=== PATIENT | male | born 1940 | race Caucasian/White ===

== ENCOUNTER 2019-11-17 16:55 | Outpatient (CLI) | payer MEDICARE, SELFPAY ==
[2019-11-17 17:14] LABS: Hematocrit 39.6 % (37.0-46.0); Mean Corpuscular HGB Conc 32.8 g/dL (32.0-36.0); Mean Corpuscular Hemoglobin 30.7 pg (27.0-31.0); Mean Corpuscular Volume 93.6 fL (78.0-102.0); Mean Platelet Volume 10.6 fl (8.7-11.0); Platelet Count Result 188 K/mm3 (150-420); Red Blood Count 4.23 M/mm3 (4.70-6.10); Red Cell Distribution Width 13.9 % (11.6-14.4); White Blood Count 7.7 K/mm3 (4.8-10.8)
[2019-11-17 17:40] LABS: Thyroid Stimulating Hormone Reflex 1.97 u/IU/mL (0.36-3.74)
[2019-11-17 17:44] LABS: Alanine Aminotransferase 19 U/L (16-63); Albumin Level 3.8 g/dL (3.4-5.0); Alkaline Phosphatase 53 U/L (46-116); Anion Gap 9.4 mmol/L (7-16); Aspartate Amino Transferase 17 U/L (15-37); Bilirubin,Total 0.6 mg/dL (0.00-1.00); Blood Urea Nitrogen 21 mg/dL (7-18); Calcium 8.8 mg/dL (8.5-10.1); Carbon Dioxide 29 mmol/L (21-32); Chloride 101 mmol/L (98-108); Estimated Glomerular Filt Rate 45; Glucose 99 mg/dL (70-99); Osmolality Calculated 283 mOsm/kg (285-295); Potassium 4.4 mmol/L (3.5-5.1); Prostate Specific Antigen 2.8 ng/mL (< OR = 4.0); Sodium 135 mmol/L (136-145); Total Protein 6.6 g/dL (6.4-8.2)
== END 2019-11-17 16:56 | disposition home or self-care (01) ==
LOC: CHSLAB 16:57
PROVIDERS: PCP Family Medicine; Visit Provider Family Medicine
DX: R53.83 Other fatigue (principal); Z12.5 Encounter for screening for malignant neoplasm of prostate; Z00.00 Encounter for general adult medical examination without abnormal findings; I42.9 Cardiomyopathy, unspecified
CPT/HCPCS: 36415; 80053; 84153; 84443; 85027; G0103

== ENCOUNTER 2022-05-05 11:06 | Inpatient (IN) | payer MEDICARE, SELFPAY ==
[2022-05-05] VITALS (22 sets, daily range): BP systolic 104–126; BP diastolic 56–105; PULSE 93–133; RESP 16–35; TEMP 36.4–37.3; O2SAT 18–100; BMI 27.3
--- NOTE | ~2022-05-05 | XR_ITS ---
EXAMINATION: XR chest 2V DATE: 05/05/2022 13:07 INDICATION: Cough and fever. TECHNIQUE: Frontal and lateral views of the chest were obtained. COMPARISON: Chest 2 views 10/07/2018 FINDINGS: There are airspace opacities in the lower lung zones. There are airspace opacities in super ior segment right lower lobe. No pleural effusion or pneumothorax. Cardiomegaly is noted. IMPRESSION: 1. Airspace opacities in superior segment right lower lobe, consistent with pneumonia. Airspace opaci ties in the lower lung zones, consistent with atelectasis/scarring versus pneumonia. Follow-up radiog raphs are recommended to exclude malignancy. 2. Cardiomegaly. Reviewed, dictated and finalized at location A. RUMENTS SALES REPRESENTATIVE IMPRESSION: 1. Airspace opacities in superior segment right lower lobe, consistent with pne umonia. Airspace opacities in the lower lung zones, consistent with atelectasis /scarring versus pneumonia. Follow-up radiographs are recommended to exclude ma lignancy. 2. Cardiomegaly.
[2022-05-05 12:21] LABS: Influenza A QL RT-PCR Negative (Negative); Influenza B QL RT-PCR Negative (Negative); RSV RNA, RT-PCR Negative (Negative); SARS-CoV-2 RNA PCR Negative
[2022-05-05 13:55] LABS: Anion Gap 6 mmol/L (8-16); Blood Urea Nitrogen 18 mg/dL (9-20); Calcium 8.3 mg/dL (8.4-10.2); Carbon Dioxide 30 mmol/L (22-30); Chloride 93 mmol/L (98-107); Estimated CRCL calculation 74 ml/min; Estimated Glomerular Filt Rate > 60; Glucose 133 mg/dL (65-110); Sodium 129 mmol/L (137-145)
[2022-05-05 13:57] LABS: Basophils Percent Auto 0.3 % (0.2-1.2); Eosinophils Absolute Auto 0.1 K/mm3 (0-0.3); Eosinophils Percent Auto 1.9 % (0-4.4); Hematocrit 43.2 % (42.0-52.0); Hemoglobin 14.5 g/dL (14.0-18.0); Immature Granulocyte Absolute 0.05 K/mm3 (0.00-0.031); Immature Granulocyte Percent A 0.7 % (0-0.5); Lymphocytes Absolute Auto 0.61 K/mm3 (0.9-3.2); Lymphocytes Percent Auto 9.1 % (18.3-44.2); Mean Corpuscular HGB Conc 33.6 g/dl (32-36); Mean Corpuscular Hemoglobin 31.1 pg (26-34); Mean Corpuscular Volume 92.7 fl (80-100); Mean Platelet Volume 11.3 fl (7.4-10.4); Monocytes Absolute Auto 1.5 K/mm3 (0.1-0.6); Monocytes Percent Auto 21.6 % (2.6-8.5); Neutrophils Absolute Auto 4.5 K/mm3 (1.3-6.7); Neutrophils Percent Auto 66.4 % (45.5-73.1); Platelet Count Result 153 k/mm3 (150-375); Red Blood Count 4.66 M/mm3 (4.6-6.20); Red Cell Distribution Width 14.2 % (11.5-14.5); White Blood Count 6.7 K/mm3 (4.5-10.0)
[2022-05-05 14:04] LABS: NT Pro B Type Natriuretic Pept 7920 pg/mL (5-100)
[2022-05-05] MEDS: IPRATROPIUM BR 0.02% INH SOLN 0.5 MG/2.5 ML VIAL INHALATION (14:08)
[2022-05-05] MEDS: ALBUTEROL SULFATE NEB 2.5 MG/3 ML INH 5 MG INHALATION (14:08)
[2022-05-05 14:12] LABS: Ovalocytes 1+ (NORMAL); Platelet Estimate Adequate (Adequate); Poikilocytosis 1+ (NORMAL); Schistocytes None Seen (NORMAL)
--- NOTE | 2022-05-05 15:15 | ECG_ITS ---
Measurements Intervals [place] Rate: 122 P: [place]: 0 QRS: -13 QRSD: 97 T: 52 QT: 300 QTc: 428 Interpretive Statements ATRIAL FIBRILLATION WITH RAPID VENTRICULAR RESPONSE VENTRICULAR PREMATURE COMPLEXES INCOMPLETE RIGHT BUNDLE BRANCH BLOCK ANTEROSEPTAL INFARCT, AGE INDETERMINATE BORDERLINE ST-T WAVE ABNORMALITY- HIGH LATERAL LEADS ABNORMAL ECG COMPARED TO ECG 10/08/2018 05:46:56 ATRIAL FIBRILLATION NOW PRESENT MYOCARDIAL INFARCT FINDING NOW PRESENT Electronically Signed On 05-05-2022 19:34:39 ACTIVITIES ATTENDANT by Salo Foster D.O.
--- NOTE | 2022-05-05 15:50 | ED.SOB ---
HPI - SOB/Dyspnea General Chief Complaint: Upper Respiratory Infection Stated Complaint: short of breath, weakness neg covid Time Seen by Provider: 05/05/22 12:57 History of Present Illness HPI Narrative: Patient is an 82-year-old male who presents ER with shortness of breath and weakness. He has had persistent cough for couple weeks. He has had fever up to 100.3 ?F over the last couple of days. He has occasional cough that is nonproductive. She is unsure if he has orthopnea because he does not lay back. No new swelling in his legs. No chest pain or chest pressure. He has had multiple COVID tests at home that were negative and they wanted to double check here. Related Data Home Medications Medication Instructions Recorded Confirmed aspirin 81 mg tablet,delayed 81 mg PO DAILY 03/15/19 05/05/22 release (Adult Aspirin Regimen) furosemide 20 mg tablet (Lasix) 20 mg PO QAM 03/15/19 05/05/22 lisinopril 10 mg tablet 10 mg PO DAILY 03/15/19 05/05/22 atorvastatin 20 mg tablet 20 mg DAILY 05/05/22 05/05/22 Allergies Allergy/AdvReac Type Severity Reaction Status Date / Time No Known Allergies Allergy Verified 05/05/22 18:01 Review of Systems Constitutional: Constitutional: Denies chills, Reports fatigue and Denies fever(s) ENT: Denies nasal congestion and Denies sore throat Cardiovascular: Cardiovascular: Denies chest pain, Denies rapid heart rate and Denies radiating jaw, neck or arm pain Respiratory: Respiratory: Reports cough, Reports dyspnea and Denies wheezing Gastrointestinal: Gastrointestinal: Denies abdominal pain, Denies nausea and Denies vomiting [facility] Past Medical History Medical History (Updated 05/05/22 @ 22:05 by Boris Dexter MD) Cardiomyopathy Hypertension Mitral regurgitation Mixed hyperlipidemia PSVT (paroxysmal supraventricular tachycardia) Family History Family History Father Carcinoma of colon Social History Social History (System 01/03/22 @ 10:53 by Obed John) Smoking status: Never smoker Second hand tobacco smoke exposure: No Alcohol intake: former Substance use: never Substance use type: does not use Lack of Transportation: No Lack of Food: Never True Current Housing: I Have Housing Concerned About Future Housing: No Difficulty Paying Gas/Electric Bills: No Difficulty Paying for Meds: No Currently Unemployed: No Education: High School Diploma/GED Difficulty w/ Childcare or Family Care: No Spiritual care concerns: No Exam Narrative: GENERAL: Well-appearing, well-nourished, and in no acute distress. HEAD: Normocephalic, atraumatic. EYES: PERRL and EOMI. ENT: Mucous membranes moist. CHEST: Bibasilar crackles. No respiratory distress. HEART: Irregular regular rate and rhythm that is tachycardic. Normal peripheral pulses. ABDOMEN: Soft, nontender, nondistended. EXTREMITIES: Normal range of motion. No edema. SKIN: Warm, dry, no rash. NEURO: Alert and oriented x3. PSYCH: Normal mood and affect. Course Course Emergency Course: Admit to hospitalist service. Patient in A. fib RVR and requires control with diltiazem drip. Patient not hypoxic with ambulation. Suspect he is suffering from combination of pulmonary edema as well as pneumonia given his recent fever. He will be started on IV antibiotics and also be diuresed. Additionally A. fib is new as he normally has a history of paroxysmal SVT. Vital Signs Vital signs: Vital Signs Temperature 97.5 F L 05/05/22 11:34 Pulse Rate 105 H 05/05/22 11:34 Respiratory Rate 20 05/05/22 11:34 Blood Pressure 114/91 H 05/05/22 11:34 Pulse Oximetry 96 05/05/22 11:34 Oxygen Delivery Room Air 05/05/22 11:34 Temperature 99.1 F 05/05/22 19:58 Pulse Rate 112 H 05/05/22 20:00 Respiratory Rate 18 05/05/22 19:58 Blood Pressure 110/56 L 05/05/22 19:58 Pulse Oximetry 99 05/05/22 19:58 Oxygen Delivery Room Air
[2022-05-05] MEDS: dilTIAZem HCl INJ 25 MG/5 ML VIAL 10 MG IV PUSH ×2 (16:21→17:56)
[2022-05-05] MEDS: FUROSEMIDE INJ 40 MG/4 ML VIAL IV PUSH (16:21)
[2022-05-05] MEDS: dilTIAZem 100 MG/100 ML 100 MG/100 ML BAG IV CONT (17:57)
--- NOTE | 2022-05-05 18:12 | ADMGEN ---
This patient, Yonathan Higgins, was admitted to IMU Room [id number]. Patient/family oriented to hospital policies and general routines including ID bracelet, bed and alarms, visiting hours, pain management, procedures, bathroom and other care routines, personal items, smoking policy, room service/diet, and visiting hours. Information on how to activate the Rapid Response Team has been discussed. Patient/Family are encouraged to report perceived risks to care and to ask questions if they do not understand what they are told or what they should do.
--- NOTE | 2022-05-05 21:45 | PM.IMHP ---
H&P: HPI History of Present Illness Date/Time: 05/05/22 21:45 Chief Complaint: Upper respiratory infection Narrative: this is an 82-year-old male patient who lives with his and daughter. The patient was brought into the emergency room because he was having respiratory distress today. He was short of breath and weak. He has had a fever for the last 2 days over 100.3. He has also had a cough that has been nonproductive. He has had multiple COVID test at home and they were negative. He has had no chest pain or chest pressure. The patient has a history of SVT and has been on metoprolol for that. Patient's EKG was read as atrial fibrillation with rapid ventricular response patient's heart rate was 122. His white count was normal. Sodium was low at 129. BNP was 7920. Patient was negative for influenza A/B RSV and COVID. Chest x-ray was read as the following?Airspace opacities in superior segment right lower lobe, consistent with pneumonia. Airspace opacities in the lower lung zones, consistent with atelectasis/scarring versus pneumonia. Follow-up radiographs are recommended to exclude malignancy. 2. Cardiomegaly. the patient was given a nebulizer treatment , Lasix , ceftriaxone, a azithromycin, and the Cardizem drip. cardiology has been consulted. The patient is being admitted to observation status on the date of service of 05/05/2022 Review of Systems Review of Systems: see HPI All systems reviewed & are unremarkable except as noted in HPI and below Constitutional: Constitutional: Reports as per HPI and Reports no additional constitutional complaints Eyes: Eyes: Reports as per HPI and Reports no additional eye complaints ENT: Reports system reviewed and no additional complaints, except as documented and Reports Normal hearing present Cardiovascular: Cardiovascular: Reports no additional cardiovascular complaints Respiratory: Respiratory: Reports no additional respiratory complaints and Reports no additional respiratory complaints Gastrointestinal: Gastrointestinal: Reports as per HPI and Reports no additional gastrointestinal complaints Musculoskeletal: Musculoskeletal: Reports no additional musculoskeletal complaints Integumentary/Breasts: Skin/Breast: Reports system reviewed and no additional complaints, except as docu and Reports as per HPI Neurologic: Reports system reviewed and no additional complaints, except as documented, Reports as per HPI and Reports Normal hearing present Psychiatric: Psychiatric: Reports no additional psychiatric complaints and Reports as per HPI Endocrine: Endocrine: Reports no additional endocrine complaints Hematologic/Lymphatic: Hematologic/Lymphatic: Reports no additional hematologic/lymphatic complaints Allergic/Immunologic: Allergic/Immunologic: Reports no additional allergic/immunologic complaints PMFSH Past Medical History Medical History (Updated 05/05/22 @ 23:14 by Mariza Mcgovern NP) Cardiomyopathy History of prostate cancer treated with cryo genic Hypertension Mitral regurgitation Mixed hyperlipidemia PSVT (paroxysmal supraventricular tachycardia) Surgical History Surgical History (Updated 05/05/22 @ 23:14 by Mariza Mcgovern NP) H/O inguinal hernia repair History of cataract extraction History of colonoscopy History of hip surgery Family History Family History Father Carcinoma of colon Social History Social History (Updated 05/05/22 @ 23:15 by Mariza Mcgovern NP) Social History: the patient lives with his and daughter. He has 2 children. They believe that the daughter that they live with is the durable power electrical accessories i assembler for healthcare. 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 He has never smoked and he does not use any alcohol marijuana or illicit drugs. Code status full code Smoking status: Never smoker Second hand tobacco smoke exposure: No Alcohol intake: fo
[2022-05-05] MEDS: ENOXAPARIN 100 MG/ML SYRINGE SUB-Q (23:50)
[2022-05-06] VITALS (11 sets, daily range): BP systolic 93–112; BP diastolic 65–73; PULSE 77–116; RESP 18–20; TEMP 36.3–37.2; O2SAT 93–98
--- NOTE | 2022-05-06 | ECHO_ITS ---
Patient Info Name: Yonathan Higgins Age: 82 years : 1940 Gender: Male Ht: 75 in Wt: 218 lbs BSA: 2.30 m2 HR: 80 bpm BP: 93 / 66 mmHg Heart Rhythm: Atrial Fibrillation Technical Quality: Good Exam Date: 05/06/2022 8:26 AM Exam Location: [facility] Pulmonary Exam Room: 205 Patient Status: Inpatient Admit Date: 05/05/2022 Staff Ordering Physician: Mariza Mcgovern NP Airport Operations Officer: Rena Hebert RCS Attending Provider: Angie Barakat DO Referring Physician: Froilan KUMAR; Exam Type: CA echo doppler color flow Study Info Indications - cardiomegaly new afib Complete two-dimensional, color flow and Doppler transthoracic echocardiogram is performed. Summary 1. Complete two-dimensional, color flow and Doppler transthoracic echocardiogram is performed. 2. Mild left ventricular enlargement with mild to moderate global hypokinesia. 3. Severe biatrial dilation. 4. Mild to moderate mitral and tricuspid regurgitation because of annular dilation. 5. Atrial fibrillation. Left Ventricle Left ventricular chamber dimension is mildly enlarged. Left ventricular systolic function is moderately reduced, estimated at 40-45%. The left ventricular diastolic function is grade I diastolic dysfunction. Right Ventricle Right ventricular chamber dimension is normal. Left Atria Left atrial chamber dimension is severely enlarged. Right Atria Right atrial chamber dimension is severely enlarged. Aortic Valve The aortic valve is normal. There is trace aortic valve regurgitation. Pulmonic Valve The pulmonic valve is not well visualized. Mitral Valve The mitral valve has normal leaflets. There is mild to moderate mitral valve regurgitation. Tricuspid Valve The tricuspid valve leaflets are normal. There is mild to moderate tricuspid valve regurgitation. Pericardium/Pleural The pericardium appears normal. Aorta The aortic root size at the sinus of Valsalva is normal. Left Ventricular Outflow Tract Name Value Normal LVOT 2D LVOT Diameter 2.1 cm LVOT Doppler LVOT Peak Gradient 8 mmHg LVOT Mean Gradient 5 mmHg LVOT VTI 22 cm LVOT VTI/AV VTI Ratio 0.8 LVOT Stroke Volume 76 ml LVOT CO 23.0 l/min LVOT CI 10.0 l/min/m2 Pulmonic Valve Name Value Normal PV Doppler PV Peak Gradient 4 mmHg PV Regurgitation Doppler TN Peak End Diastolic Velocity 154 cm/s Mitral Valve Name Value Normal --------
[2022-05-06 00:51] LABS: Anion Gap 2 mmol/L (8-16); Blood Urea Nitrogen 18 mg/dL (9-20); Calcium 7.7 mg/dL (8.4-10.2); Carbon Dioxide 30 mmol/L (22-30); Chloride 92 mmol/L (98-107); Estimated CRCL calculation 74 ml/min; Estimated Glomerular Filt Rate > 60; Glucose 128 mg/dL (65-110); Potassium 3.6 mmol/L (3.4-5.0); Sodium 124 mmol/L (137-145)
[2022-05-06 04:35] LABS: Basophils Percent Auto 0.4 % (0.2-1.2); Eosinophils Absolute Auto 0.1 K/mm3 (0-0.3); Eosinophils Percent Auto 1.6 % (0-4.4); Hematocrit 34.1 % (42.0-52.0); Hemoglobin 11.7 g/dL (14.0-18.0); Immature Granulocyte Absolute 0.03 K/mm3 (0.00-0.031); Immature Granulocyte Percent A 0.5 % (0-0.5); Immature Platelet Fraction Pct 14.3 % (0.9-11.2); Lymphocytes Absolute Auto 0.89 K/mm3 (0.9-3.2); Lymphocytes Percent Auto 16.3 % (18.3-44.2); Mean Corpuscular HGB Conc 34.3 g/dl (32-36); Mean Corpuscular Hemoglobin 30.6 pg (26-34); Mean Corpuscular Volume 89.3 fl (80-100); Mean Platelet Volume 11.7 fl (7.4-10.4); Monocytes Absolute Auto 1.4 K/mm3 (0.1-0.6); Monocytes Percent Auto 25.6 % (2.6-8.5); Neutrophils Percent Auto 55.6 % (45.5-73.1); Platelet Count Result 117 k/mm3 (150-375); Red Blood Count 3.82 M/mm3 (4.6-6.20); Red Cell Distribution Width 13.9 % (11.5-14.5); White Blood Count 5.5 K/mm3 (4.5-10.0)
[2022-05-06 04:46] LABS: Alanine Aminotransferase 25 U/L (6-50); Albumin Level 2.8 g/dL (3.5-5.1); Alkaline Phosphatase 58 U/L (38-126); Anion Gap 2 mmol/L (8-16); Aspartate Amino Transferase 27 U/L (17-59); Bilirubin,Total 0.9 mg/dL (0.2-1.3); Blood Urea Nitrogen 17 mg/dL (9-20); Calcium 7.4 mg/dL (8.4-10.2); Carbon Dioxide 30 mmol/L (22-30); Chloride 92 mmol/L (98-107); Cholesterol 111 mg/dL (0-200); Estimated CRCL calculation 74 ml/min; Estimated Glomerular Filt Rate > 60; Glucose 110 mg/dL (65-110); HDL Direct 31 mg/dL; Magnesium 1.8 mg/dL (1.6-2.3); Potassium 3.4 mmol/L (3.4-5.0); Sodium 124 mmol/L (137-145); Triglycerides 49 mg/dL (<150)
[2022-05-06 04:57] LABS: LDL Cholesterol Direct 66 mg/dL
[2022-05-06 05:40] LABS: Thyroid Stimulating Hormone Reflex 0.999 uIU/mL (0.465-4.68)
[2022-05-06] MEDS: TAMSULOSIN HCL 0.4 MG CAPSULE PO (09:02)
[2022-05-06] MEDS: ATORVASTATIN 20 MG TABLET BY MOUTH (09:02)
[2022-05-06] MEDS: FUROSEMIDE INJ 40 MG/4 ML VIAL IV PUSH ×2 (09:02→17:38)
[2022-05-06] MEDS: ASPIRIN 81 MG ENTERIC TABLET PO (09:02)
[2022-05-06] MEDS: SPIRONOLACTONE 25 MG TABLET PO (09:02)
[2022-05-06] MEDS: ENOXAPARIN 100 MG/ML SYRINGE SUB-Q (09:03)
--- NOTE | 2022-05-06 11:28 | PM.CNCAR ---
Assessment and Plan Assessment and plan (1) Atrial fibrillation with rapid ventricular response: Code(s): I48.91 - Unspecified atrial fibrillation Status: Acute Plan This is an 82-year-old man with previous history of SVT and some mitral regurgitation and a history of mild, nonobstructive coronary disease angiographically. He was admitted to the hospital after being found to be in atrial fibrillation with RVR last night with which he was essentially asymptomatic or possibly minimally symptomatic with exertional fatigue. At this time I would recommend rate control and anticoagulation as we do not have any information regarding the duration of his atrial fibrillation and he is not hemodynamically unstable. I am going to advance his metoprolol to 100 mg daily and stop the diltiazem infusion. I will transition him from Lovenox to oral anticoagulation with apixaban. His current echocardiogram will be reviewed later and we will follow his case with you in the hospital. As explained to the patient and his family that more than likely Dr. Toth will consider attempting a cardioversion after a appropriate period of anticoagulation Luan Butler MD [facility] History of Present Illness History of Present Illness Consult date/time: 05/06/22 11:28 Reason For Visit: Afib RVR/CHF Exacerbation/Pneumonia Narrative: This is an 82-year-old gentleman I am seeing today at the request of the hospitalist because of atrial fibrillation for evaluation and management. The patient is unknown to me prior to this encounter but apparently is known to my partner, Dr. Toth. He was brought to the emergency room yesterday evening by his family because he was noticing symptoms of being weak and somewhat more short of breath recently. He states that he did not have any fever cough or sputum production. He was concerned he might have coronavirus because he was recently traveling with family and exposed to a gathering of people who subsequently he was informed developed COVID. He performed a COVID test at home which was negative. He was of course tested again in the emergency room yesterday and was also negative. He was in the emergency room found to be in atrial fibrillation with a rapid ventricular response and was admitted for that reason. He does not recall being specifically aware of the sense of tachycardia or palpitations he denies any sense of chest pain accumulating edema orthopnea or PND. He is comfortable with this morning visiting with his daughter he has IV diltiazem running as heart rate is around 110 with IV diltiazem a infusing. The patient sees my partner Dr. Toth with a history of supraventricular tachycardia and also history of mild nonobstructive coronary disease and mild to moderate mitral regurgitation. He has had these diagnoses in the past in since 2019. His chart includes an echocardiogram that was done in 2020 which demonstrated normal appearing left ventricular systolic function. He offers no other complaints at this time his medical regimen at home includes aspirin, atorvastatin, lisinopril, metoprolol succinate and spironolactone. He does not recall being atrial fibrillation in the past in the notes in his chart do not reflect any history of this. 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 Review of Systems Constitutional: Constitutional: Reports no additional constitutional complaints Eyes: Eyes: Reports no additional eye complaints ENT: Reports system reviewed and no additional complaints, except as documented Cardiovascular: Cardiovascular: Reports no additional cardiovascular complaints Respiratory: Respiratory: Reports dyspnea on exertion Gastrointestinal: Gastrointestinal: Reports no additional gastrointestinal complaints Musculoskeletal: Musculoskeletal: Reports no additional musculoskeletal complaints Integumentary/Breasts: Skin/Breast: Reports system reviewed and no additional compl
[2022-05-06] MEDS: METOPROLOL SUCCINATE EXT REL 100 MG TABCR PO (12:42)
--- NOTE | 2022-05-06 12:48 | PM.IMPN ---
Progress Note: A&P Assessment and Plan (1) Atrial fibrillation with rapid ventricular response: Code(s): I48.91 - Unspecified atrial fibrillation Status: Acute Assessment and Plan: -cardiology has been consulted -an echo has been ordered -will start on oral anticoagulation -beta-param Heart rate is marginal 112 (2) Pneumonia: Code(s): J18.9 - Pneumonia, unspecified organism Status: Acute Assessment and Plan: - the patient is on a azithromycin Rocephin. - tailor antibiotics to blood and sputum cultures sensitivity. (3) Pulmonary edema: Code(s): J81.1 - Chronic pulmonary edema Status: Acute Assessment and Plan: -The patient has been changed to IV Lasix -And spironolactone is his home medication. -continue to monitor electrolytes to see if he needs potassium supplement. (4) Mixed hyperlipidemia: Code(s): E78.2 - Mixed hyperlipidemia Status: Acute Assessment and Plan: -Continue with atorvastatin (5) PSVT (paroxysmal supraventricular tachycardia): Code(s): I47.1 - Supraventricular tachycardia Status: Acute Assessment and Plan: - the patient is on metoprolol at home but he is currently on a Cardizem drip and his blood pressure is low some get have to hold his metoprolol tonight. (6) Cardiomyopathy: Code(s): I42.9 - Cardiomyopathy, unspecified Status: Acute Assessment and Plan: -an echo has been ordered (7) Hypertension: Qualifiers: Hypertension type: essential hypertension Qualified Code(s): I10 - Essential (primary) hypertension Code(s): I10 - Essential (primary) hypertension Status: Acute Assessment and Plan: -Patient's blood pressure is on the soft side and he is on a Cardizem drip. - I had to hold his lisinopril metoprolol tonight is he is on a Cardizem drip and received IV Lasix earlier please re-evaluate tomorrow. (8) Mitral regurgitation: Code(s): I34.0 - Nonrheumatic mitral (valve) insufficiency Status: Acute Assessment and Plan: -An echo has been ordered - cardiology has been consulted. Subjective Date/time seen: 05/06/22 12:48 No new complaints Exam Const: General: cooperative, healthy appearing, comfortable, no acute distress, well developed, alert, awake, Physically active, average body habitus and well nourished Nutritional Appearance: average body habitus and well nourished Orientation/consciousness: oriented to person, oriented to place, oriented to time and patient oriented x3 Limitations: no limitations HENMT: Head: normal to inspection, No palpable skull fracture present, normocephalic, atraumatic and abrasion Ears: hearing grossly normal bilaterally and external ears normal Face/Nose/Sinus: Normal external nose present and Normal nares present Eyes: General: appearance normal, both eyes and all related structures Alignment and Position: alignment normal Periorbital: periorbital findings normal Eyelids: eyelids normal Conjunctivae: conjunctivae normal Sclera: sclerae normal Cornea: corneas normal Pupils: Equal, round and reactive pupils present and Pupil accommodation reflex normal EOM: EOMs intact bilaterally Neck: Neck: normal visual inspection, full ROM, no lymphadenopathy, trachea midline and supple Thyroid: thyroid normal Carotids: normal carotid upstroke Lymphatic: no lymphadenopathy noted Chest: Chest palpation & inspection: normal inspection of the chest Resp: Effort & Inspection: normal respiratory effort Auscultation: clear to auscultation bilaterally and diminished lung sounds on the right in the lower lung hong Percussion: percussion normal Cardio: Palpation: normal PMI Rate: regular rate and tachycardic Rhythm: regular rhythm and abnormal rhythm irregularly irregular Heart sounds: S1 normal heart sound present and S2 normal heart sound present Peripheral pulses: Peripheral pulses 2+ thr
[2022-05-06] MEDS: APIXABAN 5 MG TABLET PO (20:30)
[2022-05-07] VITALS (14 sets, daily range): BP systolic 84–118; BP diastolic 55–86; PULSE 69–131; RESP 12–20; TEMP 36.2–36.8; O2SAT 93–96
[2022-05-07] MEDS: APIXABAN 5 MG TABLET PO ×2 (08:20→21:03)
[2022-05-07] MEDS: SPIRONOLACTONE 25 MG TABLET PO (08:20)
[2022-05-07] MEDS: TAMSULOSIN HCL 0.4 MG CAPSULE PO (08:20)
[2022-05-07] MEDS: ASPIRIN 81 MG ENTERIC TABLET PO (08:20)
[2022-05-07] MEDS: METOPROLOL SUCCINATE EXT REL 100 MG TABCR PO ×2 (08:20→13:25)
[2022-05-07] MEDS: ATORVASTATIN 20 MG TABLET BY MOUTH (08:21)
[2022-05-07] MEDS: FUROSEMIDE INJ 40 MG/4 ML VIAL IV PUSH ×2 (08:21→17:22)
--- NOTE | 2022-05-07 12:22 | PM.IMPN ---
Progress Note: A&P Assessment and Plan (1) Atrial fibrillation with rapid ventricular response: Code(s): I48.91 - Unspecified atrial fibrillation Status: Acute Assessment and Plan: Heart rate is still elevated. Cardiology following the patient. On Eliquis Continue beta-param (2) Pneumonia: Code(s): J18.9 - Pneumonia, unspecified organism Status: Acute Assessment and Plan: Continue IV Rocephin and azithromycin. (3) Pulmonary edema: Code(s): J81.1 - Chronic pulmonary edema Status: Acute Assessment and Plan: Improved (4) Mixed hyperlipidemia: Code(s): E78.2 - Mixed hyperlipidemia Status: Acute Assessment and Plan: Continue statin (5) Cardiomyopathy: Code(s): I42.9 - Cardiomyopathy, unspecified Status: Acute Assessment and Plan: Echo reveals EF is 40 45%. Grade 1 diastolic dysfunction. Respiratory status okay. Continue cardiac regimen. (6) Hypertension: Qualifiers: Hypertension type: essential hypertension Qualified Code(s): I10 - Essential (primary) hypertension Code(s): I10 - Essential (primary) hypertension Status: Acute Assessment and Plan: Continue cardiac medications. Blood pressure looks good. (7) Mitral regurgitation: Code(s): I34.0 - Nonrheumatic mitral (valve) insufficiency Status: Acute Assessment and Plan: History of Subjective Date/time seen: 05/07/22 12:23 No new complaints Feeling okay today. Heart rate is still elevated. Other vitals stable Exam Const: General: cooperative, healthy appearing, comfortable, no acute distress, well developed, alert, awake, Physically active, average body habitus and well nourished Nutritional Appearance: average body habitus and well nourished Orientation/consciousness: oriented to person, oriented to place, oriented to time and patient oriented x3 Limitations: no limitations HENMT: Head: normal to inspection, No palpable skull fracture present, normocephalic, atraumatic and abrasion Ears: hearing grossly normal bilaterally and external ears normal Face/Nose/Sinus: Normal external nose present and Normal nares present Mouth: Yes moist mucous membranes Eyes: General: appearance normal, both eyes and all related structures Alignment and Position: alignment normal Periorbital: periorbital findings normal Eyelids: eyelids normal Conjunctivae: conjunctivae normal Sclera: sclerae normal Cornea: corneas normal Pupils: Equal, round and reactive pupils present and Pupil accommodation reflex normal EOM: EOMs intact bilaterally Neck: Neck: normal visual inspection, full ROM, no lymphadenopathy, trachea midline, supple and no JVD Thyroid: thyroid normal Carotids: normal carotid upstroke Lymphatic: no lymphadenopathy noted Chest: Chest palpation & inspection: normal inspection of the chest Resp: Effort & Inspection: normal respiratory effort Auscultation: clear to auscultation bilaterally and diminished lung sounds on the right in the lower lung hong Percussion: percussion normal Cardio: Palpation: normal PMI Rate: regular rate and tachycardic Rhythm: regular rhythm and abnormal rhythm irregularly irregular Heart sounds: S1 normal heart sound present and S2 normal heart sound present Peripheral pulses: Peripheral pulses 2+ throughout GI: Inspection: normal to inspection Auscultation: normal bowel sounds Rectal Exam: deferred : General: Yes no CVA tenderness Back/Spine/Pelvis: Back: no CVA tenderness Cervical Spine: cervical ROM normal Thoracic/Lumbar Spine: thoracic and lumbar spine normal to inspection Pelvis: no pain with anterior-posterior compression Skin: General skin exam: normal color Lesions: no lesions Rashes: no rashes Trauma: no lacerations or abrasions Wounds: no wounds Hair: normal Nails: normal Neuro: General: oriented to person, oriented to place, oriented to time and patient orient
--- NOTE | 2022-05-07 12:48 | PM.PNCARD ---
Progress Note: A&P Assessment and Plan (1) Atrial fibrillation with rapid ventricular response: Code(s): I48.91 - Unspecified atrial fibrillation Status: Acute Plan This is an 82-year-old man with previous history of SVT and some mitral regurgitation and a history of mild, nonobstructive coronary disease angiographically.? He was admitted to the hospital after being found to be in atrial fibrillation with RVR with which he was essentially asymptomatic or possibly minimally symptomatic with exertional fatigue.? At this time I would recommend rate control. Continue Eliquis 5mg BID Will increase his Toprol to 200mg daily to optimize rate control. Subjective Date/time seen: 05/07/22 12:48 Interval history: Reason for visit: Atrial fibrillation with RVR HPI: This is an 82-year-old gentleman I am seeing today at the request of the hospitalist because of atrial fibrillation for evaluation and management.? The patient is unknown to me prior to this encounter but apparently is known to my partner, Dr. Toth.? He was brought to the emergency room yesterday evening by his family because he was noticing symptoms of being weak and somewhat more short of breath recently.? He states that he did not have any fever cough or sputum production.? He was concerned he might have coronavirus because he was recently traveling with family and exposed to a gathering of people who subsequently he was informed developed COVID.? He performed a COVID test at home which was negative.? He was of course tested again in the emergency room yesterday and was also negative.? He was in the emergency room found to be in atrial fibrillation with a rapid ventricular response and was admitted for that reason.? He does not recall being specifically aware of the sense of tachycardia or palpitations he denies any sense of chest pain accumulating edema orthopnea or PND.? He is comfortable with this morning visiting with his daughter he has IV diltiazem running as heart rate is around 110 with IV diltiazem a infusing.? The patient sees my partner Dr. Toth with a history of supraventricular tachycardia and also history of mild nonobstructive coronary disease and mild to moderate mitral regurgitation.? He has had these diagnoses in the past in since 2019.? His chart includes an echocardiogram that was done in 2020 which demonstrated normal appearing left ventricular systolic function.? He offers no other complaints at this time his medical regimen at home includes aspirin, atorvastatin, lisinopril, metoprolol succinate and spironolactone.? He does not recall being atrial fibrillation in the past in the notes in his chart do not reflect any history of this.? 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 Date of service 05/07/2021: Patient without complaints today. HR currently rate-controlled, however, has intermittent episodes of RVR. Exam Const: General: comfortable and no acute distress HENMT: Mouth: Yes moist mucous membranes Eyes: General: appearance normal, both eyes and all related structures Neck: Neck: supple Resp: Effort & Inspection: normal respiratory effort Auscultation: clear to auscultation bilaterally Cardio: Rhythm: abnormal rhythm irregularly irregular Heart sounds: no murmurs GI: GI Palp: Yes Soft to palpation and No Tenderness to palpation present (GI) Skin: General skin exam: normal color Neuro: Speech: normal speech Psych: Mental Status: mental status grossly normal Affect: normal affect Objective Data Vital Signs Vital Signs: Vital Signs - 24 hr 05/06/22 16:00 05/06/22 16:00 05/06/22 16:00 Temperature 37.2 C Pulse Rate 77 114 H Respiratory Rate 18 Blood Pressure 104/70 Pulse Oximetry 96 Oxygen Delivery Room Air 05/06/22 20:00 05/06/22 20:00 05/06/22 20:00 Temperature 36.3 C L Pulse Rate 96 103 H 96 Respiratory Rate 20 20 Blood Pressure 95/69 L Pulse Oximetry 93 93 Oxygen Delivery
[2022-05-07] MEDS: ACETAMINOPHEN 325 MG TABLET 650 MG PO (13:24)
[2022-05-07] MEDS: MORPHINE SULFATE (*CRX) 4 MG/ML INJ IV PUSH (15:29)
[2022-05-08] VITALS (11 sets, daily range): BP systolic 90–101; BP diastolic 60–74; PULSE 74–113; RESP 14–16; TEMP 35.7–36.6; O2SAT 90–95
[2022-05-08 05:18] LABS: Potassium 3.3 mmol/L (3.4-5.0)
[2022-05-08] MEDS: FUROSEMIDE INJ 40 MG/4 ML VIAL IV PUSH (08:57)
[2022-05-08] MEDS: SPIRONOLACTONE 25 MG TABLET PO (08:58)
[2022-05-08] MEDS: METOPROLOL SUCCINATE EXT REL 100 MG TABCR 200 MG PO (08:58)
[2022-05-08] MEDS: TAMSULOSIN HCL 0.4 MG CAPSULE PO (08:59)
[2022-05-08] MEDS: ASPIRIN 81 MG ENTERIC TABLET PO (08:59)
[2022-05-08] MEDS: ATORVASTATIN 20 MG TABLET BY MOUTH (08:59)
[2022-05-08] MEDS: APIXABAN 5 MG TABLET PO ×2 (08:59→20:58)
--- NOTE | 2022-05-08 10:18 | PM.PNCARD ---
Progress Note: A&P Assessment and Plan (1) Atrial fibrillation with rapid ventricular response: Code(s): I48.91 - Unspecified atrial fibrillation Status: Acute Plan This is an 82-year-old man with previous history of SVT and some mitral regurgitation and a history of mild, nonobstructive coronary disease angiographically.? He was admitted to the hospital after being found to be in atrial fibrillation with RVR with which he was essentially asymptomatic or possibly minimally symptomatic with exertional fatigue.? At this time I would recommend rate control. Continue Eliquis 5mg BID Overall rate is pretty well controlled. Continue Metoprolol 200mg QD. Recommend a 14-day monitor upon discharge with outpatient Cardiology Clinic follow-up. Patient still getting IV Lasix. Recommend to stop as patient seems okay from a volume standpoint. Subjective Date/time seen: 05/08/22 10:18 Interval history: Reason for visit: Atrial fibrillation with RVR HPI: This is an 82-year-old gentleman I am seeing today at the request of the hospitalist because of atrial fibrillation for evaluation and management.? The patient is unknown to me prior to this encounter but apparently is known to my partner, Dr. Toth.? He was brought to the emergency room yesterday evening by his family because he was noticing symptoms of being weak and somewhat more short of breath recently.? He states that he did not have any fever cough or sputum production.? He was concerned he might have coronavirus because he was recently traveling with family and exposed to a gathering of people who subsequently he was informed developed COVID.? He performed a COVID test at home which was negative.? He was of course tested again in the emergency room yesterday and was also negative.? He was in the emergency room found to be in atrial fibrillation with a rapid ventricular response and was admitted for that reason.? He does not recall being specifically aware of the sense of tachycardia or palpitations he denies any sense of chest pain accumulating edema orthopnea or PND.? He is comfortable with this morning visiting with his daughter he has IV diltiazem running as heart rate is around 110 with IV diltiazem a infusing.? The patient sees my partner Dr. Toth with a history of supraventricular tachycardia and also history of mild nonobstructive coronary disease and mild to moderate mitral regurgitation.? He has had these diagnoses in the past in since 2019.? His chart includes an echocardiogram that was done in 2020 which demonstrated normal appearing left ventricular systolic function.? He offers no other complaints at this time his medical regimen at home includes aspirin, atorvastatin, lisinopril, metoprolol succinate and spironolactone.? He does not recall being atrial fibrillation in the past in the notes in his chart do not reflect any history of this.? 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 Date of service 05/07/2021: Patient without complaints today. HR currently rate-controlled, however, has intermittent episodes of RVR. Date of service 05/08/2021: Heart rate now controlled with Metoprolol. Patient feeling well. Review of Systems Review of Systems: 8-point ROS obtained. Negative, unless stated in HPI. Exam Const: General: comfortable and no acute distress HENMT: Mouth: Yes moist mucous membranes Eyes: General: appearance normal, both eyes and all related structures Neck: Neck: supple Resp: Effort & Inspection: normal respiratory effort Auscultation: clear to auscultation bilaterally Cardio: Rhythm: abnormal rhythm irregularly irregular Heart sounds: no murmurs GI: GI Palp: Yes Soft to palpation and No Tenderness to palpation present (GI) Skin: General skin exam: normal color Neuro: Speech: normal speech Psych: Mental Status: mental status grossly normal Affect: normal affect Objective Data Vital Signs Vital Signs: Vital Signs - 24 hr
--- NOTE | 2022-05-08 18:16 | PM.IMPN ---
Progress Note: A&P Assessment and Plan (1) Atrial fibrillation with rapid ventricular response: Code(s): I48.91 - Unspecified atrial fibrillation Status: Acute Assessment and Plan: Cardiology following the patient. Continue with Eliquis Continue beta-param Rate is controlled (2) Pneumonia: Code(s): J18.9 - Pneumonia, unspecified organism Status: Acute Assessment and Plan: Continue IV Rocephin and azithromycin. Switch to oral antibiotics tomorrow (3) Pulmonary edema: Code(s): J81.1 - Chronic pulmonary edema Status: Acute Assessment and Plan: Improved (4) Mixed hyperlipidemia: Code(s): E78.2 - Mixed hyperlipidemia Status: Acute Assessment and Plan: Continue statin (5) Cardiomyopathy: Code(s): I42.9 - Cardiomyopathy, unspecified Status: Acute Assessment and Plan: Echo reveals EF is 40 45%. Grade 1 diastolic dysfunction. Respiratory status okay. Continue cardiac regimen. (6) Hypertension: Qualifiers: Hypertension type: essential hypertension Qualified Code(s): I10 - Essential (primary) hypertension Code(s): I10 - Essential (primary) hypertension Status: Acute Assessment and Plan: Continue cardiac medications. Blood pressure looks good. (7) Mitral regurgitation: Code(s): I34.0 - Nonrheumatic mitral (valve) insufficiency Status: Acute Assessment and Plan: History of Subjective Date/time seen: 05/08/22 18:16 Interval history: Patient is feeling better, dyspnea improving and palpitation is controlled. No new issue or event over the night Review of Systems ENT: Reports Normal hearing present Neurologic: Reports Normal hearing present Exam Const: General: cooperative, healthy appearing, comfortable, no acute distress, well developed, alert, awake, Physically active, average body habitus and well nourished Nutritional Appearance: average body habitus and well nourished Orientation/consciousness: oriented to person, oriented to place, oriented to time and patient oriented x3 Limitations: no limitations HENMT: Head: normal to inspection, No palpable skull fracture present, normocephalic, atraumatic and abrasion Ears: hearing grossly normal bilaterally and external ears normal Face/Nose/Sinus: Normal external nose present and Normal nares present Mouth: Yes moist mucous membranes Eyes: General: appearance normal, both eyes and all related structures Alignment and Position: alignment normal Periorbital: periorbital findings normal Eyelids: eyelids normal Conjunctivae: conjunctivae normal Sclera: sclerae normal Cornea: corneas normal Pupils: Equal, round and reactive pupils present and Pupil accommodation reflex normal EOM: EOMs intact bilaterally Neck: Neck: normal visual inspection, full ROM, no lymphadenopathy, trachea midline, supple and no JVD Thyroid: thyroid normal Carotids: normal carotid upstroke Lymphatic: no lymphadenopathy noted Chest: Chest palpation & inspection: normal inspection of the chest Resp: Effort & Inspection: normal respiratory effort Auscultation: clear to auscultation bilaterally and diminished lung sounds on the right in the lower lung hong Percussion: percussion normal Cardio: Palpation: normal PMI Rate: regular rate and tachycardic Rhythm: regular rhythm and abnormal rhythm irregularly irregular Heart sounds: S1 normal heart sound present and S2 normal heart sound present Peripheral pulses: Peripheral pulses 2+ throughout GI: Inspection: normal to inspection Auscultation: normal bowel sounds Rectal Exam: deferred : General: Yes no CVA tenderness Back/Spine/Pelvis: Back: no CVA tenderness Cervical Spine: cervical ROM normal Thoracic/Lumbar Spine: thoracic and lumbar spine normal to inspection Pelvis: no pain with anterior-posterior compression Skin: General skin exam: normal color Lesions: no lesions Rashes
[2022-05-09] VITALS: PULSE 91
[2022-05-09 04:00] VITALS: BP 98/55; PULSE 73; PULSE 85; PULSE 91; RESP 18; TEMP 36.4; O2SAT 100
[2022-05-09 08:00] VITALS: BP 114/82; PULSE 106; PULSE 70; PULSE 76; RESP 16; TEMP 35.7; O2SAT 95
[2022-05-09] MEDS: ASPIRIN 81 MG ENTERIC TABLET PO (08:54)
[2022-05-09] MEDS: ATORVASTATIN 20 MG TABLET BY MOUTH (08:54)
[2022-05-09 08:55] VITALS: PULSE 76
[2022-05-09] MEDS: METOPROLOL SUCCINATE EXT REL 100 MG TABCR 200 MG PO (08:55)
[2022-05-09] MEDS: APIXABAN 5 MG TABLET PO (08:55)
[2022-05-09] MEDS: TAMSULOSIN HCL 0.4 MG CAPSULE PO (08:56)
[2022-05-09] MEDS: SPIRONOLACTONE 25 MG TABLET PO (08:56)
[2022-05-09] MEDS: FUROSEMIDE 20 MG TABLET PO (08:56)
--- NOTE | 2022-05-09 10:04 | PM.DS ---
DS: Admitting Diagnosis Discharge Date 05/09/22 Admitting Diagnosis Atrial fibrillation with RVR DS: Discharge Diagnosis Discharge Diagnosis (1) Atrial fibrillation with rapid ventricular response: Code(s): I48.91 - Unspecified atrial fibrillation Status: Acute (2) Pneumonia: Code(s): J18.9 - Pneumonia, unspecified organism Status: Acute (3) Mixed hyperlipidemia: Code(s): E78.2 - Mixed hyperlipidemia Status: Acute (4) Hypertension: Qualifiers: Hypertension type: essential hypertension Qualified Code(s): I10 - Essential (primary) hypertension Code(s): I10 - Essential (primary) hypertension Status: Acute DS: Summary Hospital Course Reason for hospitalization: AFib RVR, community-acquired pneumonia Hospital Course: this is an 82-year-old male patient who lives with his and daughter.? The patient was brought into the emergency room because he was having respiratory distress today.? He was short of breath and weak.? He has had a fever for the last 2 days over 100.3.? He has also had a cough that has been nonproductive.? He has had multiple COVID test at home and they were negative.? He has had no chest pain or chest pressure.? The patient has a history of SVT and has been on metoprolol for that.? Patient's EKG was read as atrial fibrillation with rapid ventricular response patient's heart rate was 122.? His white count was normal.? Sodium was low at 129.? BNP was 7920.? Patient was negative for influenza A/B RSV and COVID.? Chest x-ray was read as the following?Airspace opacities in superior segment right lower lobe, consistent with pneumonia. Airspace opacities in the lower lung zones, consistent with atelectasis/scarring versus pneumonia. During hospitalization, patient received azithromycin and ceftriaxone for community-acquired pneumonia. [facility] start adequacy 5 mg b.i.d. p.o. and increase metoprolol to 200 mg daily p.o.. Hospital course is uneventful. Cardiac patient is hemodynamically stable, sinus rhythm. Patient denies chest pain, shortness breast, cough. Patient is afebrile. Will change to Augmentin p.o. for 4 more days. Patient has a chronic hyponatremia, close baseline. We replaced with potassium chloride p.o. for marginal low potassium. We advice patient to see primary care doctor in 1 week and see corporate associate attorney's office in 2 weeks per cardiology's recommendation Status at Discharge Cognitive/behavioral status at discharge: stable Time Spent with Patient Time attestation: Total time spent providing and/or coordinating discharge services: 40 mins Exam Narrative: GENERAL: Pleasant, in no acute distress. Well-nourished. - EYES: EOMI. Anicteric. - HENT: Moist mucous membranes. - LUNGS: Clear to auscultation bilaterally, no wheezing, rhonchi, or rales. - CARDIOVASCULAR: Regular rate and rhythm. No murmur. No JVD. - ABDOMEN: Soft, non-tender and non-distended. No palpable masses. - EXTREMITIES: No edema. Peripheral pulses 2+. Non-tender. - NEUROLOGIC: No focal neurological deficits. CN II-XII grossly intact. - PSYCHIATRIC: Awake, Alert and oriented x 3. Appropriate mood and affect. - SKIN: No rashes or lesions. Warm. - LYMPH: No cervical lymphadenopathy. DS: Data Data Completed and Pending Labs on day of discharge: Preliminary micro results at discharge 05/06/22 00:18 Blood Culture - Preliminary Blood 05/06/22 00:18 Blood Culture - Preliminary Blood Discharge Plan Discharge Attending physician on discharge: Charlotte Pisano Consulting providers: [facility]oth Discharging Clinician: Charlotte Pisano Patient Disposition: Home Health Service Activity: as tolerated Diet: heart healthy Discharge Instructions: Per Care Coordination Patient has been arranged to have [facility] for RN and PT. Pt will be seen early next week by HH and HH will call to arrange time to make visit in the home. [phone] *
[2022-05-09 11:35] VITALS: BP 106/71; PULSE 65; RESP 20; TEMP 36.4; O2SAT 95
[2022-05-09 12:07] VITALS: O2SAT 95
== END 2022-05-09 14:15 | disposition home health service (06) | DRG 308 ==
LOC: ANHED 13:09 → ANHIMU 17:24
PROVIDERS: Emergency Medicine; Nurse Practitioner; Admitting Provider Student in an Organized Health Care Education/Training Program; Emergency Provider Emergency Medicine; PCP Family Medicine; Visit Provider Hospitalist
DX: I48.91 Unspecified atrial fibrillation (principal); J18.9 Pneumonia, unspecified organism; J81.1 Chronic pulmonary edema; E87.1 Hypo-osmolality and hyponatremia; E87.6 Hypokalemia; I42.9 Cardiomyopathy, unspecified; I47.1 Supraventricular tachycardia; I10 Essential (primary) hypertension; I34.0 Nonrheumatic mitral (valve) insufficiency; E78.2 Mixed hyperlipidemia; Z20.822 Contact with and (suspected) exposure to COVID-19; Z80.0 Family history of malignant neoplasm of digestive organs; Z79.82 Long term (current) use of aspirin
CPT/HCPCS: 36415; 71046; 80048; 80053; 80061; 83735; 83880; 84132; 84443; 85025; 85055; 87040; 87637; 93005; 93306; 94640; 96365; 96366; 96367; 96368; 96372; 96375; 96376; 97161; 99285; A9270; G0378; J0456; J0696; J1650; J1940; J2270

== ENCOUNTER 2022-07-16 12:03 | Inpatient (IN) | payer MEDICARE, SELFPAY ==
[2022-07-15 14:00] VITALS: BMI 28.6
[2022-07-16] VITALS (19 sets, daily range): BP systolic 92–121; BP diastolic 67–91; PULSE 70–133; RESP 12–32; TEMP 36.3–36.8; O2SAT 91–99; BMI 28.6
--- NOTE | 2022-07-16 10:00 | ECG_ITS ---
Measurements Intervals [place] Rate: 133 P: 153 [place]: 192 QRS: 34 QRSD: 107 T: 31 QT: 322 QTc: 480 Interpretive Statements SUPRAVENTRICULAR TACHYCARDIA VENTRICULAR PREMATURE COMPLEX INCOMPLETE RIGHT BUNDLE BRANCH BLOCK BORDERLINE R WAVE PROGRESSION, ANTERIOR LEADS BORDERLINE ST-T WAVE ABNORMALITY- INF/HIGH LAT LEADS BASELINE ARTIFACT- I, II, AVR ABNORMAL ECG COMPARED TO ECG 07/16/2022 10:14:18 SUPRAVENTRICULAR TACHYCARDIA NOW PRESENT Electronically Signed On 07-16-2022 12:51:57 CDT by Salo Foster D.O.
[2022-07-16 10:39] LABS: Anion Gap 5 mmol/L (8-16); Blood Urea Nitrogen 16 mg/dL (9-20); Calcium 8.5 mg/dL (8.4-10.2); Carbon Dioxide 30 mmol/L (22-30); Chloride 95 mmol/L (98-107); Estimated CRCL calculation 74 ml/min; Estimated Glomerular Filt Rate > 60; Glucose 109 mg/dL (65-110); Magnesium 1.8 mg/dL (1.6-2.3); Potassium 4.2 mmol/L (3.4-5.0); Sodium 130 mmol/L (137-145)
[2022-07-16] MEDS: SODIUM CHLORIDE 0.9% IV 1,000 ML 30 ML IV CONT (11:15)
--- NOTE | 2022-07-16 11:30 | ECG_ITS ---
Measurements Intervals [place] Rate: 96 P: [place]: 0 QRS: 38 QRSD: 116 T: 29 QT: 365 QTc: 463 Interpretive Statements ATRIAL FIBRILLATION VENTRICULAR PREMATURE COMPLEX INCOMPLETE RIGHT BUNDLE BRANCH BLOCK BORDERLINE R WAVE PROGRESSION, ANTERIOR LEADS ABNORMAL ECG COMPARED TO ECG 05/05/2022 15:39:58 HEART RATE HAS DECREASED Electronically Signed On 07-16-2022 11:26:45 CDT by Salo Foster D.O.
[2022-07-16] MEDS: AMIODARONE 150 MG/D5W 100 ML 150 MG/100 ML BAG 300 MG (12:02)
--- NOTE | 2022-07-16 12:11 | ECG_ITS ---
Measurements Intervals [employer] Rate: 71 P: 50 NE: 243 QRS: 12 QRSD: 114 T: 31 QT: 372 QTc: 405 Interpretive Statements SINUS RHYTHM WITH FIRST DEGREE AV BLOCK VENTRICULAR COUPLETS INCOMPLETE RIGHT BUNDLE BRANCH BLOCK CONSIDER ANTERIOR INFARCT, AGE INDETERMINATE ABNORMAL ECG COMPARED TO ECG 07/16/2022 11:41:06 SINUS RHYTHM NOW PRESENT FIRST DEGREE AV BLOCK NOW PRESENT Electronically Signed On 07-16-2022 12:55:03 CDT by Salo Foster D.O.
--- NOTE | 2022-07-16 12:19 | PM.IMHP ---
H&P: HPI History of Present Illness Date/Time: 07/16/22 12:19 Chief Complaint: Atrial fibrillation Narrative: Patient is an 82-year-old male with a history of congestive heart failure, SVT, atrial fibrillation who follows with Dr. Toth. Patient presented as an outpatient for scheduled elective electrical cardioversion in an attempt to regain sinus rhythm. Cardioversion put patient into a narrow complex tachycardia with HR in the 130s. Due to this, patient to be admitted for IV Amiodarone therapy in an attempt to control heart rate. Patient reports feeling fine, no issues prior to or after cardioversion. Review of Systems Review of Systems: All systems reviewed & are unremarkable except as noted in HPI and below (HPI) [facility] Past Medical History Medical History Cardiomyopathy History of prostate cancer treated with cryo genic Hypertension Mitral regurgitation Mixed hyperlipidemia PSVT (paroxysmal supraventricular tachycardia) Surgical History Surgical History H/O inguinal hernia repair History of cataract extraction History of colonoscopy History of hip surgery Family History Family History Father Carcinoma of colon Social History Social History Social History: the patient lives with his and daughter. He has 2 children. They believe that the daughter that they live with is the durable power trust and estates attorney for healthcare. 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 He has never smoked and he does not use any alcohol marijuana or illicit drugs. Code status full code Smoking status: Never smoker Second hand tobacco smoke exposure: No Alcohol intake: current Drinks per week: 2 Substance use: never Substance use type: does not use Lack of Transportation: No Lack of Food: Never True Current Housing: I Have Housing Concerned About Future Housing: No Difficulty Paying Gas/Electric Bills: No Difficulty Paying for Meds: No Currently Unemployed: No Education: High School Diploma/GED Difficulty w/ Childcare or Family Care: No Living arrangements: with family Occupation/Education: retired Spiritual care concerns: No Meds Home Medications and Allergies Home Medications Medication Instructions Recorded Confirmed Type aspirin 81 mg tablet,delayed 81 mg PO DAILY 03/15/19 07/15/22 History release (Adult Aspirin Regimen) furosemide 20 mg tablet (Lasix) 20 mg PO QAM 03/15/19 07/15/22 History lisinopril 10 mg tablet 10 mg PO DAILY 03/15/19 07/15/22 History spironolactone 25 mg tablet 25 mg PO DAILY #90 tabs 03/15/21 07/15/22 Rx (Aldactone) tamsulosin 0.4 mg capsule 0.4 mg PO DAILY #90 caps 05/02/21 07/15/22 Rx apixaban 5 mg tablet (Eliquis) 5 mg PO Q12HR #60 tabs 05/09/22 07/15/22 Rx atorvastatin 20 mg tablet 20 mg PO DAILY #90 tabs 05/17/22 07/15/22 Rx metoprolol succinate 200 mg 100 mg PO DAILY 05/17/22 07/15/22 History tablet,extended release 24 hr Allergies Allergy/AdvReac Type Severity Reaction Status Date / Time No Known Allergies Allergy Verified 07/16/22 10:09 Vital Signs Vital Signs - 24 hr 07/16/22 10:21 07/16/22 11:10 07/16/22 11:15 Temperature 36.8 C Pulse Rate 115 H 99 82 Respiratory Rate 12 22 H 19 Blood Pressure 104/67 107/71 100/73 Pulse Oximetry 96 95 94 Oxygen Delivery Room Air Room Air Nasal Cannula Oxygen Flow Rate 3 07/16/22 11:25 07/16/22 11:30 07/16/22 11:20 Temperature Pulse Rate 132 H 133 H 102 H Respiratory Rate 21 H 21 H 21 H Blood Pressure 103/86 115/90 106/85 Pulse Oximetry 97 98 96 Oxygen Delivery Nasal Cannula Nasal Cannula Nasal Cannula Oxygen Flow Rate 3 3 3 07/16/22 11:35 07/16/22 11:45 07/16/22 12:02 Temperature Pulse Rate 133 H 133 H 133 H Respiratory Rate 31 H 32 H Bl
[2022-07-16] MEDS: AMIODARONE 360 MG/D5W 200 ML 360 MG/200 ML BAG 33.33 MG IV CONT (12:21)
--- NOTE | 2022-07-16 12:26 | WPDMODSED ---
Moderate Sedation Note-Pt Data Patient Data Diagnosis: Atrial fibrillation Present Complaint: Atrial fibrillation Procedure to be performed/Plan: Synchronized electrical cardioversion Allergies Allergy/AdvReac Type Severity Reaction Status Date / Time No Known Allergies Allergy Verified 07/16/22 10:09 Home Medications Medication Instructions Recorded Confirmed Type aspirin 81 mg tablet,delayed 81 mg PO DAILY 03/15/19 07/15/22 History release (Adult Aspirin Regimen) furosemide 20 mg tablet (Lasix) 20 mg PO QAM 03/15/19 07/15/22 History lisinopril 10 mg tablet 10 mg PO DAILY 03/15/19 07/15/22 History spironolactone 25 mg tablet 25 mg PO DAILY #90 tabs 03/15/21 07/15/22 Rx (Aldactone) tamsulosin 0.4 mg capsule 0.4 mg PO DAILY #90 caps 05/02/21 07/15/22 Rx apixaban 5 mg tablet (Eliquis) 5 mg PO Q12HR #60 tabs 05/09/22 07/15/22 Rx atorvastatin 20 mg tablet 20 mg PO DAILY #90 tabs 05/17/22 07/15/22 Rx metoprolol succinate 200 mg 100 mg PO DAILY 05/17/22 07/15/22 History tablet,extended release 24 hr Current Medications: Active Medications Sodium Chloride (Normal Saline Iv) 1,000 mls @ 30 mls/hr IV CONT .Q24H ROSIE Amiodarone HCl/Dextrose (Nexterone 360 Mg/D5w 200 Ml) 360 mg in 200 mls @ 33.333 mls/hr IV CONT .Q6H ONE Stop: 07/16/22 18:09 Last Admin: 07/16/22 12:21 Dose: 1 mg/min, 33.33 mls/hr Sedation/Anesthesia: No previous sedation/anesthesia problems (including family history). [facility] Past Medical History Medical History Cardiomyopathy History of prostate cancer treated with cryo genic Hypertension Mitral regurgitation Mixed hyperlipidemia PSVT (paroxysmal supraventricular tachycardia) Surgical History Surgical History H/O inguinal hernia repair History of cataract extraction History of colonoscopy History of hip surgery Family History Family History Father Carcinoma of colon Social History Social History Social History: the patient lives with his and daughter. He has 2 children. They believe that the daughter that they live with is the durable power ip technology transactions attorney for healthcare. 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 He has never smoked and he does not use any alcohol marijuana or illicit drugs. Code status full code Smoking status: Never smoker Second hand tobacco smoke exposure: No Alcohol intake: current Drinks per week: 2 Substance use: never Substance use type: does not use Lack of Transportation: No Lack of Food: Never True Current Housing: I Have Housing Concerned About Future Housing: No Difficulty Paying Gas/Electric Bills: No Difficulty Paying for Meds: No Currently Unemployed: No Education: High School Diploma/GED Difficulty w/ Childcare or Family Care: No Living arrangements: with family Occupation/Education: retired Spiritual care concerns: No Mod Sed Physical Exam Physical Exam Pre Procedural Exam: Normal: Appearance, Lungs, Neuro Exam, Abdomen, Extremities and Skin and Variation: Heart Rate (Atrial fibrillation) and Heart Rhythm (Atrial fibrillation) Hours since solid foods: 12 Hours since liquid intake: 8 Mallampati Classification: class III Internal Medicine - PN: Obj Da Vital Signs Vital Signs: Vital Signs - 24 hr 07/16/22 10:21 07/16/22 11:10 07/16/22 11:15 Temperature 36.8 C Pulse Rate 115 H 99 82 Respiratory Rate 12 22 H 19 Blood Pressure 104/67 107/71 100/73 Pulse Oximetry 96 95 94 Oxygen Delivery Room Air Room Air Nasal Cannula Oxygen Flow Rate 3 07/16/22 11:25 07/16/22 11:30 07/16/22 11:20 Temperature Pulse Rate 132 H 133 H 102 H Respiratory Rate 21 H 21 H 21 H Blood Pressure 103/86 115/90 106/85 Pulse Oximetry 97 98 96 Oxygen Delivery Nasal Cannula Nasal
--- NOTE | 2022-07-16 12:27 | WPDCARDVER ---
Cardioversion Cardioversion Date of procedure: 07/16/22 Procedure: Synchronized electrical cardioversion Pre-op diagnosis: Atrial fibrillation Post-op diagnosis: Other (Narrow complex tachycardia) Indications: Atrial fibrillation Description of procedure: Informed consent obtained. Defibrillator pads placed in an anterior posterior position. Patient's hemodynamics and respiratory status were monitored throughout the procedure. Time out performed. IV Sedation administered by RN. Once patient was adequately sedated, synchronized electrical cardioversion performed. First cardioversion at 200 joules resulted in narrow complex tachycardia with retrograde P-waves with a ventricular rate of 130s. Second cardioversion at 250 joules delivered but was unsuccessful in regaining sinus rhythm. Maintained narrow complex tachycardia with retrograde P-waves with a ventricular rate of 130s. Third cardioversion at 300 joules delivered but was unsuccessful in regaining sinus rhythm. Maintained narrow complex tachycardia with retrograde P-waves with a ventricular rate of 130s. Then changed the position of the defibrillator pads from AP position to anterior apical position. Fourth cardioversion at 360 joules delivered but was unsuccessful in regaining sinus rhythm. Maintained narrow complex tachycardia with retrograde P-waves with a ventricular rate of 130s. Procedure concluded at this time. Sedation: Versed 3mg Fentanyl 75mcg Sedation administered by Belle Kelley RN Findings: Unsuccessful synchronized electrical cardioversion. Narrow complex tachycardia with retrograde P-waves with a ventricular rate of 130s. SVT with likely AVR or AVNRT. Conclusion: Unsuccessful synchronized electrical cardioversion. Narrow complex tachycardia with retrograde P-waves with a ventricular rate of 130s. SVT with likely AVR or AVNRT.
--- NOTE | 2022-07-16 13:12 | SUR.PHASEII ---
Phase II completed at 1232. Patient admitted to [facility] 4 as IMU status patient at 1233.
--- NOTE | 2022-07-16 13:13 | SUR.PHASEII ---
See PCS charting for further details after phase II completed.
--- NOTE | 2022-07-16 13:23 | PC.NURSE ---
1310 report given to Jessica De La Rosa RN.
--- NOTE | 2022-07-16 15:57 | PC.NURSE ---
called report to Kenneth ANGELA primary nurse
[2022-07-16] MEDS: APIXABAN 5 MG TABLET PO (21:37)
[2022-07-17] VITALS (17 sets, daily range): BP systolic 96–113; BP diastolic 61–79; PULSE 65–137; RESP 16–28; TEMP 36.2–36.5; O2SAT 92–95; BMI 28.5
[2022-07-17 05:08] LABS: Anion Gap 2 mmol/L (8-16); Blood Urea Nitrogen 14 mg/dL (9-20); Calcium 7.9 mg/dL (8.4-10.2); Carbon Dioxide 30 mmol/L (22-30); Chloride 96 mmol/L (98-107); Estimated CRCL calculation 84 ml/min; Estimated Glomerular Filt Rate > 60; Glucose 104 mg/dL (65-110); Potassium 4.1 mmol/L (3.4-5.0); Sodium 128 mmol/L (137-145)
[2022-07-17] MEDS: AMIODARONE 360 MG/D5W 200 ML 360 MG/200 ML BAG 16.67 MG IV CONT ×2 (05:36→18:13)
[2022-07-17] MEDS: APIXABAN 5 MG TABLET PO ×2 (09:14→20:19)
[2022-07-17] MEDS: ASPIRIN 81 MG ENTERIC TABLET PO (09:35)
[2022-07-17] MEDS: FUROSEMIDE 20 MG TABLET PO (09:35)
[2022-07-17] MEDS: SPIRONOLACTONE 25 MG TABLET PO (09:35)
[2022-07-17] MEDS: ATORVASTATIN 20 MG TABLET PO (09:35)
[2022-07-17] MEDS: METOPROLOL SUCCINATE EXT REL 100 MG TABCR PO (09:36)
[2022-07-17] MEDS: TAMSULOSIN HCL 0.4 MG CAPSULE PO (09:37)
--- NOTE | 2022-07-17 10:41 | PM.PNCARD ---
Progress Note: A&P Assessment and Plan (1) SVT (supraventricular tachycardia): Code(s): I47.1 - Supraventricular tachycardia Status: Acute (2) Atrial fibrillation: Code(s): I48.91 - Unspecified atrial fibrillation Status: Acute Plan Patient initially presented in rate controlled atrial fibrillation. First cardioversion at 200 joules resulted in narrow complex tachycardia with retrograde P-waves with a ventricular rate of 130s. Second cardioversion at 250 joules delivered but was unsuccessful in regaining sinus rhythm. Maintained narrow complex tachycardia with retrograde P-waves with a ventricular rate of 130s. Third cardioversion at 300 joules delivered but was unsuccessful in regaining sinus rhythm. Maintained narrow complex tachycardia with retrograde P-waves with a ventricular rate of 130s. Then changed the position of the defibrillator pads from AP position to anterior apical position. Fourth cardioversion at 360 joules delivered but was unsuccessful in regaining sinus rhythm. Maintained narrow complex tachycardia with retrograde P-waves with a ventricular rate of 130s. As patient sustaining HR in the 130s, patient was admitted for further management. IV Amiodarone therapy started. Patient remains on IV Amiodarone therapy and does have intermittent multiple episodes of SVT, but no longer sustaining in SVT as he was on 07/16. Does have periods of sinus rhythm. Will continue with IV Amiodarone drip for now. Subjective Date/time seen: 07/17/22 10:41 Interval history: Reason for visit: SVT HPI: Patient is an 82-year-old male with a history of congestive heart failure, SVT, atrial fibrillation who follows with Dr. Toth. Patient presented as an outpatient for scheduled elective electrical cardioversion in an attempt to regain sinus rhythm. Cardioversion put patient into a narrow complex tachycardia with HR in the 130s. Due to this, patient to be admitted for IV Amiodarone therapy in an attempt to control heart rate. Patient reports feeling fine, no issues prior to or after cardioversion. Date of service 07/17: No acute events overnight. Patient on IV Amiodarone. Now with intermittent multiple episodes of SVT, however, does break into periods of sinus rhythm. Patient without any complaints this morning. Feeling well. Review of Systems Review of Systems: 8 point ROS obtained. Negative, unless stated in HPI. Exam Const: General: comfortable and no acute distress HENMT: Mouth: Yes moist mucous membranes Eyes: General: appearance normal, both eyes and all related structures Sclera: sclerae normal Neck: Neck: supple Resp: Effort & Inspection: normal respiratory effort Auscultation: clear to auscultation bilaterally Cardio: Rate: regular rate and tachycardic GI: GI Palp: Yes Soft to palpation Skin: General skin exam: normal color Neuro: Speech: normal speech Extrem: General: normal to inspection Psych: Mental Status: mental status grossly normal Affect: normal affect Objective Data Vital Signs Vital Signs: Vital Signs - 24 hr 07/16/22 11:10 07/16/22 11:15 07/16/22 11:25 Temperature Pulse Rate 99 82 132 H Respiratory Rate 22 H 19 21 H Blood Pressure 107/71 100/73 103/86 Pulse Oximetry 95 94 97 Oxygen Delivery Room Air Nasal Cannula Nasal Cannula Oxygen Flow Rate 3 3 07/16/22 11:30 07/16/22 11:20 07/16/22 11:35 Temperature Pulse Rate 133 H 102 H 133 H Respiratory Rate 21 H 21 H 31 H Blood Pressure 115/90 106/85 109/89 Pulse Oximetry 98 96 95 Oxygen Delivery Nasal Cannula Nasal Cannula Room Air Oxygen Flow Rate 3 3 07/16/22 11:45 07/16/22 12:02 07/16/22 12:21 Temperature Pulse Rate 133 H 133 H 121 H Respiratory Rate 32 H Blood Pressure 121/82 97/83 L 97/80 L Pulse Oximetry 95 Oxygen Delivery Room Air Oxygen Flow Rate 07/16/22 12:00 07/16/22 12:15 07/16/22 12:30 Temperature Pulse Rate 133 H 123 H 121 H Respiratory Rate 32 H 28 H 2
[2022-07-18] VITALS (10 sets, daily range): BP systolic 105–108; BP diastolic 61–75; PULSE 67–118; RESP 14–18; TEMP 36.3–36.4; O2SAT 93–95
[2022-07-18 05:15] LABS: Hematocrit 33.9 % (42.0-52.0); Hemoglobin 11.2 g/dL (14.0-18.0); Mean Corpuscular Hemoglobin 30.6 pg (26-34); Mean Corpuscular Volume 92.6 fl (80-100); Mean Platelet Volume 10.9 fl (7.4-10.4); Platelet Count Result 190 k/mm3 (150-375); Red Blood Count 3.66 M/mm3 (4.6-6.20); Red Cell Distribution Width 14.4 % (11.5-14.5); White Blood Count 7.3 K/mm3 (4.5-10.0)
[2022-07-18 05:27] LABS: INR 1.5; Prothrombin Time 17.4 Seconds (11.1-14.7)
[2022-07-18 05:28] LABS: Anion Gap -1 mmol/L (8-16); Blood Urea Nitrogen 13 mg/dL (9-20); Calcium 8.1 mg/dL (8.4-10.2); Carbon Dioxide 31 mmol/L (22-30); Chloride 93 mmol/L (98-107); Estimated CRCL calculation 74 ml/min; Estimated Glomerular Filt Rate > 60; Glucose 100 mg/dL (65-110); Magnesium 1.8 mg/dL (1.6-2.3); Potassium 4.3 mmol/L (3.4-5.0); Sodium 123 mmol/L (137-145)
[2022-07-18] MEDS: AMIODARONE 360 MG/D5W 200 ML 360 MG/200 ML BAG 16.67 MG IV CONT (06:04)
[2022-07-18] MEDS: METOPROLOL SUCCINATE EXT REL 100 MG TABCR PO (08:07)
[2022-07-18] MEDS: APIXABAN 5 MG TABLET PO (08:08)
[2022-07-18] MEDS: FUROSEMIDE 20 MG TABLET PO (08:08)
[2022-07-18] MEDS: TAMSULOSIN HCL 0.4 MG CAPSULE PO (08:08)
[2022-07-18] MEDS: ATORVASTATIN 20 MG TABLET PO (08:08)
[2022-07-18] MEDS: ASPIRIN 81 MG ENTERIC TABLET PO (08:11)
--- NOTE | 2022-07-18 08:34 | PM.DS ---
DS: Admitting Diagnosis Discharge Date 07/18/2022 Admitting Diagnosis Atrial fibrillation DS: Discharge Diagnosis Discharge Diagnosis (1) SVT (supraventricular tachycardia): Code(s): I47.1 - Supraventricular tachycardia Status: Acute (2) Atrial fibrillation: Code(s): I48.91 - Unspecified atrial fibrillation Status: Acute Plan Patient initially presented in rate controlled atrial fibrillation. First cardioversion at 200 joules resulted in narrow complex tachycardia with retrograde P-waves with a ventricular rate of 130s. Second cardioversion at 250 joules delivered but was unsuccessful in regaining sinus rhythm. Maintained narrow complex tachycardia with retrograde P-waves with a ventricular rate of 130s. Third cardioversion at 300 joules delivered but was unsuccessful in regaining sinus rhythm. Maintained narrow complex tachycardia with retrograde P-waves with a ventricular rate of 130s. Then changed the position of the defibrillator pads from AP position to anterior apical position. Fourth cardioversion at 360 joules delivered but was unsuccessful in regaining sinus rhythm. Maintained narrow complex tachycardia with retrograde P-waves with a ventricular rate of 130s. As patient sustaining HR in the 130s, patient was admitted for further management. IV Amiodarone therapy started. Patient started on IV Amiodarone therapy and had intermittent multiple episodes of SVT, but no longer sustaining in SVT as he was on 07/16. Now mostly in sinus rhythm but having short intermittent bursts of SVT. Will shift him to oral amiodarone at a maintenance dose of 200mg daily. DS: Summary Hospital Course Hospital Course: Patient initially presented in rate controlled atrial fibrillation. First cardioversion at 200 joules resulted in narrow complex tachycardia with retrograde P-waves with a ventricular rate of 130s. Second cardioversion at 250 joules delivered but was unsuccessful in regaining sinus rhythm. Maintained narrow complex tachycardia with retrograde P-waves with a ventricular rate of 130s. Third cardioversion at 300 joules delivered but was unsuccessful in regaining sinus rhythm. Maintained narrow complex tachycardia with retrograde P-waves with a ventricular rate of 130s. Then changed the position of the defibrillator pads from AP position to anterior apical position. Fourth cardioversion at 360 joules delivered but was unsuccessful in regaining sinus rhythm. Maintained narrow complex tachycardia with retrograde P-waves with a ventricular rate of 130s. As patient sustaining HR in the 130s, patient was admitted for further management. IV Amiodarone therapy started. Patient started on IV Amiodarone therapy and had intermittent multiple episodes of SVT, but no longer sustaining in SVT as he was on 07/16. Now mostly in sinus rhythm but having short intermittent bursts of SVT. Will shift him to oral amiodarone at a maintenance dose of 200mg daily. Time Spent with Patient Time attestation: Total time spent providing and/or coordinating discharge services: Exam Const: General: comfortable and no acute distress HENMT: Mouth: Yes moist mucous membranes Eyes: General: appearance normal, both eyes and all related structures Sclera: sclerae normal Neck: Neck: supple Resp: Effort & Inspection: normal respiratory effort Auscultation: clear to auscultation bilaterally Cardio: Rate: regular rate Rhythm: regular rhythm Skin: General skin exam: normal color Neuro: Speech: normal speech Extrem: General: normal to inspection Psych: Mental Status: mental status grossly normal Affect: normal affect DS: Data Data Completed and Pending Labs on day of discharge: Labs from last 24 hours 07/18/22 07/18/22 07/18/22 04:52 04:52 04:52 WBC 7.3 RBC 3.66 L Hgb 11.2 L Hct 33.9 L MCV 92.6 MCH 30.6 MCHC 33.0 RDW 14.4 Plt Count 190 D MPV 10.9 H PT 17.4 H INR 1.5 Sod
--- NOTE | 2022-07-18 12:33 | PC.NURSE ---
orders to Discharged home-instructions discussed with pt /family- both verbalized understanding- pt denies any c/o discomfort-discharged home
== END 2022-07-18 12:37 | disposition home or self-care (01) | DRG 310 ==
LOC: ANHIMU 15:14
PROVIDERS: Internal Medicine Cardiovascular Disease; Admitting Provider Internal Medicine; PCP Family Medicine; Visit Provider Nurse Practitioner
PROC: 5A2204Z Restoration of Cardiac Rhythm, Single (ICD-10-PCS; principal; 2022-07-16 11:30)
DX: I47.1 Supraventricular tachycardia (principal); I48.91 Unspecified atrial fibrillation; E78.2 Mixed hyperlipidemia; I11.0 Hypertensive heart disease with heart failure; I50.9 Heart failure, unspecified; I34.0 Nonrheumatic mitral (valve) insufficiency; Z98.49 Cataract extraction status, unspecified eye; Z85.46 Personal history of malignant neoplasm of prostate; Z79.82 Long term (current) use of aspirin
CPT/HCPCS: 36415; 80048; 83735; 85027; 85610; 92960; 93005; A9270; J0282; J2250; J2310; J3010; J7030

== ENCOUNTER 2022-07-22 10:31 | Outpatient (CLI) | payer MEDICARE, SELFPAY ==
--- NOTE | ~2022-07-22 | XR_ITS ---
XR chest 2V DATE: 07/22/2022 10:50 INDICATION: Pneumonia TECHNIQUE: PA and lateral chest COMPARISON: 05/05/2022 PA and lateral chest FINDINGS: Extensive patchy pulmonary infiltrates are scattered throughout both lungs including all lo bes, consistent with extensive bilateral pneumonia. Cardiomegaly. Aortic calcification, ectasia and unfolding. Diffuse osteopenia. Levoscoliosis and degenerative change of the thoracolumbar spine. IMPRESSION: Extensive bilateral pneumonia Reviewed, dictated and finalized at location B.
== END 2022-07-22 10:32 | disposition home or self-care (01) ==
PROVIDERS: PCP Family Medicine; Visit Provider Nurse Practitioner Adult Health
DX: I50.23 Acute on chronic systolic (congestive) heart failure (principal); J18.9 Pneumonia, unspecified organism
CPT/HCPCS: 71046

== ENCOUNTER 2022-07-25 14:29 | Inpatient (IN) | payer MEDICARE, SELFPAY ==
[2022-07-25] VITALS (8 sets, daily range): BP systolic 108–120; BP diastolic 58–84; PULSE 62–78; RESP 15–22; TEMP 35.9–37.2; O2SAT 94–99; BMI 28.0; BMI 27.8
--- NOTE | ~2022-07-25 | XR_ITS ---
EXAMINATION: XR chest 2V DATE: 07/25/2022 15:43 INDICATION: Shortness of breath TECHNIQUE: PA and lateral views of the chest are obtained. COMPARISON: 07/22/2022 FINDINGS: Diffuse opacities persist throughout all lung zones without significant change. There are s mall pleural effusions. No pneumothorax is identified. Cardiomegaly is noted. There is moderate thora cic spondylosis. IMPRESSION: 1. Stable diffuse lung disease, consistent with pneumonia/or pulmonary edema. 2. Small pleural effusions. 3. Cardiomegaly. Reviewed, dictated and finalized at location L.
--- NOTE | ~2022-07-25 | XR_ITS ---
EXAMINATION: XR chest 2V DATE: 08/03/2022 08:10 INDICATION: Pneumonia. TECHNIQUE: Frontal and lateral views of the chest were obtained. COMPARISON: Chest single view 07/29/2022, chest 2 views 05/05/2022 FINDINGS: There are patchy airspace opacities in all lung zones bilaterally with an upper lobe predom inance. There are small pleural effusions. No pneumothorax. Cardiomegaly is noted. IMPRESSION: 1. Stable diffuse lung disease, consistent with pneumonia. 2. Stable small pleural effusions. 3. Cardiomegaly. Reviewed, dictated and finalized at location A.
--- NOTE | ~2022-07-25 | XR_ITS ---
EXAMINATION: XR chest 1V portable DATE: 07/29/2022 13:26 INDICATION: Shortness of breath. TECHNIQUE: A single frontal view of the chest was obtained. COMPARISON: Chest 2 views 07/25/2022, 05/05/2022 FINDINGS: There are airspace opacities in all lung zones bilaterally. There is a small right pleural effusion. No pneumothorax. Cardiomegaly is noted. IMPRESSION: 1. Stable diffuse lung disease, consistent with pneumonia. 2. Stable small right pleural effusion. 3. Cardiomegaly. Reviewed, dictated and finalized at location A.
--- NOTE | 2022-07-25 14:52 | ECG_ITS ---
Measurements Intervals [place] Rate: 60 P: 67 ID: [id number] QRS: -50 QRSD: 108 T: 43 QT: 426 QTc: 428 Interpretive Statements SINUS RHYTHM WITH FIRST DEGREE AV BLOCK LEFT AXIS DEVIATION INCOMPLETE RIGHT BUNDLE BRANCH BLOCK CONSIDER ANTERIOR INFARCT, AGE INDETERMINATE INFERIOR INFARCT, AGE INDETERMINATE BASELINE ARTIFACT- I, II, III, AVR ABNORMAL ECG COMPARED TO ECG 07/16/2022 12:35:28 LEFT-AXIS DEVIATION NOW PRESENT Electronically Signed On 07-25-2022 15:56:06 CDT by Salo Foster D.O.
[2022-07-25 15:16] LABS: Basophils Absolute Auto 0.1 K/mm3 (0.0-0.1); Basophils Percent Auto 0.8 % (0.2-1.2); Eosinophils Absolute Auto 0.4 K/mm3 (0-0.3); Eosinophils Percent Auto 3.6 % (0-4.4); Hematocrit 38.7 % (42.0-52.0); Hemoglobin 12.8 g/dL (14.0-18.0); Immature Granulocyte Absolute 0.05 K/mm3 (0.00-0.031); Immature Granulocyte Percent A 0.5 % (0-0.5); Lymphocytes Absolute Auto 0.86 K/mm3 (0.9-3.2); Lymphocytes Percent Auto 8.7 % (18.3-44.2); Mean Corpuscular HGB Conc 33.1 g/dl (32-36); Mean Corpuscular Volume 90.8 fl (80-100); Mean Platelet Volume 10.2 fl (7.4-10.4); Monocytes Absolute Auto 1.4 K/mm3 (0.1-0.6); Monocytes Percent Auto 14.4 % (2.6-8.5); Neutrophils Absolute Auto 7.1 K/mm3 (1.3-6.7); Platelet Count Result 240 k/mm3 (150-375); Red Blood Count 4.26 M/mm3 (4.6-6.20); Red Cell Distribution Width 14.1 % (11.5-14.5); White Blood Count 9.9 K/mm3 (4.5-10.0)
[2022-07-25 15:34] LABS: Alanine Aminotransferase 39 U/L (6-50); Albumin Level 3.3 g/dL (3.5-5.1); Alkaline Phosphatase 119 U/L (38-126); Anion Gap 3 mmol/L (8-16); Aspartate Amino Transferase 39 U/L (17-59); Bilirubin,Total 1.2 mg/dL (0.2-1.3); Blood Urea Nitrogen 16 mg/dL (9-20); Calcium 7.8 mg/dL (8.4-10.2); Carbon Dioxide 33 mmol/L (22-30); Chloride 87 mmol/L (98-107); Estimated CRCL calculation 60 ml/min; Estimated Glomerular Filt Rate > 60; Glucose 100 mg/dL (65-110); Potassium 4.4 mmol/L (3.4-5.0); Sodium 123 mmol/L (137-145)
--- NOTE | 2022-07-25 19:45 | ED.SOB ---
HPI - SOB/Dyspnea General Chief Complaint: Shortness of Breath/Dyspnea Stated Complaint: pneumonia Time Seen by Provider: 07/25/22 19:44 Related Data Home Medications Medication Instructions Recorded Confirmed aspirin 81 mg tablet,delayed 81 mg PO DAILY 03/15/19 07/25/22 release (Adult Aspirin Regimen) furosemide 20 mg tablet (Lasix) 20 mg PO DAILY 03/15/19 07/25/22 metoprolol succinate 200 mg 100 mg PO DAILY 05/17/22 07/25/22 tablet,extended release 24 hr tamsulosin 0.4 mg capsule 0.4 mg PO HS 07/17/22 07/25/22 Allergies Allergy/AdvReac Type Severity Reaction Status Date / Time No Known Allergies Allergy Verified 07/25/22 10:19 [facility] Past Medical History Medical History Cardiomyopathy History of prostate cancer treated with cryo genic Hypertension Mitral regurgitation Mixed hyperlipidemia PSVT (paroxysmal supraventricular tachycardia) Surgical History Surgical History H/O inguinal hernia repair History of cataract extraction History of colonoscopy History of hip surgery Family History Family History Father Carcinoma of colon Sibling Kidney carcinoma Cancer Social History Social History Social History: the patient lives with his and daughter. He has 2 children. They believe that the daughter that they live with is the durable power employment attorney for healthcare. 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 He has never smoked and he does not use any alcohol marijuana or illicit drugs. Code status full code Smoking status: Never smoker Second hand tobacco smoke exposure: No Alcohol intake: current Drinks per week: 2 Substance use: never Substance use type: does not use Lack of Transportation: No Lack of Food: Never True Current Housing: I Do Not Have Housing Concerned About Future Housing: No Difficulty Paying Gas/Electric Bills: No Difficulty Paying for Meds: No Currently Unemployed: No Education: Trade/Vocational Certificate Difficulty w/ Childcare or Family Care: No Living arrangements: with family Occupation/Education: retired Spiritual care concerns: No Course Vital Signs Vital signs: Vital Signs Temperature 36.7 C 07/25/22 14:48 Pulse Rate 62 07/25/22 14:48 Respiratory Rate 18 07/25/22 14:48 Blood Pressure 108/58 L 07/25/22 14:48 Pulse Oximetry 97 07/25/22 14:48 Oxygen Delivery Room Air 07/25/22 14:48 Temperature 35.9 C L 07/25/22 19:15 Pulse Rate 77 07/25/22 19:15 Respiratory Rate 16 07/25/22 19:15 Blood Pressure 108/66 07/25/22 19:15 Pulse Oximetry 99 07/25/22 19:15 Oxygen Delivery Room Air 07/25/22 14:48 MDM - SOB/Dyspnea MDM Narrative Medical decision making narrative: Medical decision making narrative: -Presentation: Patient presenting for evaluation of cough and shortness of breath as well as low oxygen saturations at home per monitor. Patient was advised to come to the emergency department from primary care physician's office giving these symptoms and pneumonia on chest x-ray. Patient had been initiated on oral cefdinir by PCP 3 days ago. Patient is awake and alert at the time of assessment. Mildly low blood pressure, no tachycardia, afebrile. Lung sounds are coarse bilaterally without crackles. No wheezing. -DDX includes but is not limited to: Bacterial pneumonia, viral pneumonia, CHF exacerbation, less likely PE -Co-morbidities complicating care: Hypertension. -Social determinants of health:None -External Chart Review: External EMR record reviewed, PCP not reviewed -Hx from independent Sources: Daughter at bedside -Discussion of Management/Consultants:Discussed with hospitalist -Independent interpretation of studies: CXR concer
[2022-07-25 20:00] LABS: Lactic Acid Reflex 0.9 mmol/L (0.7-2.0)
[2022-07-25 20:12] LABS: NT Pro B Type Natriuretic Pept 3470 pg/mL (19.9-100); Troponin I < 0.012 ng/mL (0.000-0.034)
--- NOTE | 2022-07-25 20:19 | PM.IMHP ---
H&P: HPI History of Present Illness Date/Time: 07/25/22 20:19 Chief Complaint: SHORTNESS OF BREATH Narrative: This is an 82-year-old male with past medical history significant for atrial fibrillation, rate controlled, anticoagulated, hypertension, benign prostatic hyperplasia. Patient presents to the emergency room due to shortness of breath, no was a saturation on home monitor had been to see his primary care physician and placed on oral antibiotics for a pneumonia. Patient denies any cough or sputum production has had generalized malaise, body aches and pains. Preliminary workup was significant for: Chemistry panel sodium was 126 chloride 88 bicarb 30. A chest x-ray was reported as: FINDINGS: Diffuse opacities persist throughout all lung zones without significant change. There are small pleural effusions. No pneumothorax is identified. Cardiomegaly is noted. There is moderate thoracic spondylosis. IMPRESSION: 1. Stable diffuse lung disease, consistent with pneumonia/or pulmonary edema. 2. Small pleural effusions. 3. Cardiomegaly. Review of Systems Review of Systems: Generalized malaise, shortness of breath, low oxygen saturation on home monitor Constitutional: Constitutional: Denies chills, Reports fatigue, Denies fever(s), Reports lethargy, Reports malaise, Reports poor appetite and Reports weakness Eyes: Eyes: Denies change in vision ENT: Denies dysphagia and Denies odynophagia Cardiovascular: Cardiovascular: Denies chest pain Respiratory: Respiratory: Denies cough, Denies excessive phlegm production and Reports dyspnea Gastrointestinal: Gastrointestinal: Denies abdominal pain, Denies dyspepsia, Denies heartburn, Denies diarrhea, Denies nausea and Denies vomiting Genitourinary: Genitourinary: Reports no additional male genitourinary complaints and Reports as per HPI Musculoskeletal: Musculoskeletal: Reports myalgias and Reports muscle weakness Integumentary/Breasts: Skin/Breast: Denies rash Neurologic: Denies focal weakness and Denies Sensory deficit (Neuro) Psychiatric: Psychiatric: Reports no additional psychiatric complaints and Reports as per HPI Endocrine: Endocrine: Denies cold intolerance, Denies flushing, Denies heat intolerance, Denies polyphagia, Denies polydipsia and Denies palpitations Hematologic/Lymphatic: Hematologic/Lymphatic: Reports no additional hematologic/lymphatic complaints and Reports as per HPI Allergic/Immunologic: Allergic/Immunologic: Reports no additional allergic/immunologic complaints and Reports as per HPI PMFSH Past Medical History Medical History Cardiomyopathy History of prostate cancer treated with cryo genic Hypertension Mitral regurgitation Mixed hyperlipidemia PSVT (paroxysmal supraventricular tachycardia) Surgical History Surgical History H/O inguinal hernia repair History of cataract extraction History of colonoscopy History of hip surgery Family History Family History Father Carcinoma of colon Sibling Kidney carcinoma Cancer Social History Social History Social History: the patient lives with his and daughter. He has 2 children. They believe that the daughter that they live with is the durable power claims attorney for healthcare. 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 He has never smoked and he does not use any alcohol marijuana or illicit drugs. Code status full code Smoking status: Never smoker Second hand tobacco smoke exposure: No Alcohol intake: current Drinks per week: 2 Substance use: never Substance use type: does not use Lack of Transportation: No Lack of Food: Never True Current Housing: I Have Housing Concerned About Future Housing: No Difficulty Paying Gas/Electric Bills: No
[2022-07-25] MEDS: SODIUM CHLORIDE 0.9% IV 1,000 ML 999 ML IV CONT (20:25)
[2022-07-25 20:29] LABS: Influenza A QL RT-PCR Negative (Negative); Influenza B QL RT-PCR Negative (Negative); SARS-CoV-2 RNA PCR Negative
[2022-07-25] MEDS: FUROSEMIDE INJ 40 MG/4 ML VIAL 20 MG IV PUSH (20:39)
[2022-07-25 20:52] LABS: Procalcitonin 0.1 ng/mL
--- NOTE | 2022-07-25 22:05 | ADMGEN ---
This patient, Yonathan Higgins, was admitted to Medical Room 244-. Patient/family oriented to hospital policies and general routines including ID bracelet, bed and alarms, visiting hours, pain management, procedures, bathroom and other care routines, personal items, smoking policy, room service/diet, and visiting hours. Information on how to activate the Rapid Response Team has been discussed. Patient/Family are encouraged to report perceived risks to care and to ask questions if they do not understand what they are told or what they should do.
--- NOTE | 2022-07-25 22:52 | PC.NURSE ---
During admission, this nurse went to do medication reconciliation on patient. Patient states that his daughter took med list with her home and that he would like to just do it in the morning when she gets back. Patient also states that his evening medications were already addressed in the ED and that he doesn't believe he needs any home meds until morning anyway.
[2022-07-26] VITALS (11 sets, daily range): BP systolic 94–118; BP diastolic 58–68; PULSE 70–81; RESP 18–20; TEMP 36.5–36.8; O2SAT 91–97
--- NOTE | 2022-07-26 | ECHO_ITS ---
Patient Info Name: Yonathan Higgins Age: 82 years : 1940 Gender: Male Ht: 75 in Wt: 222 lbs BSA: 2.32 m2 HR: 70 bpm BP: 104 / 64 mmHg Heart Rhythm: Sinus Rhythm Technical Quality: Fair Exam Date: 07/26/2022 9:58 AM Exam Location: [facility] Patient Status: Inpatient Admit Date: 07/25/2022 Staff Ordering Physician: Floyd Anaya MD [employer] Machine Operator: Iliana Leiva RDCS Attending Provider: Floyd Anaya MD Referring Physician: Jaclyn MOLINA; Exam Type: CA echo dop color flow w con Study Info Indications - chf Complete two-dimensional, color flow and Doppler transthoracic echocardiogram is performed with contrast to opacify the left ventricle and to improve the deliniation of the left ventricle endocardial borders. Contrast/Agitated Saline Contrast/Ag. Saline: Definity Amount: 3.00 ml Administered By: Iliana Leiva RDCS Existing IV Access: Yes IV Access Condition: patent with no signs of infiltration Summary 1. Mild left ventricular enlargement with mildly reduced systolic function. 2. Severe right ventricular enlargement with hypokinesia. 3. Severe biatrial enlargement. 4. Trivial amounts of mitral aortic and tricuspid valve regurgitation. 5. Sinus rhythm. Left Ventricle Left ventricular chamber dimension is mildly enlarged. Left ventricular systolic function is mildly reduced, estimated at 40-45%. The left ventricular diastolic function is grade I diastolic dysfunction. Right Ventricle Right ventricular chamber dimension is severely enlarged. Left Atria Left atrial chamber dimension is moderately enlarged. Right Atria Right atrial chamber dimension is severely enlarged. Aortic Valve There is mild aortic valve sclerosis. Pulmonic Valve The pulmonic valve is not well visualized. Mitral Valve The mitral valve has normal leaflets. There is trace mitral valve regurgitation. Tricuspid Valve The tricuspid valve leaflets are normal. There is mild tricuspid valve regurgitation. Pericardium/Pleural The pericardium appears normal. Aorta The aortic root size at the sinus of Valsalva is normal. Left Ventricular Outflow Tract Name Value Normal LVOT 2D LVOT Diameter 2.20 cm LVOT Doppler LVOT Peak Gradient 3 mmHg LVOT Mean Gradient 1 mmHg LVOT VTI 16.19 cm LVOT VTI/AV VTI Ratio 0.53 LVOT Stroke Volume 61.62 ml LVOT CO 4.30 l/min LVOT CI 1.85 L/min/m2 Pulmonic Valve Name Value Normal RVOT Doppler RVOT Peak Gradient 2 mmHg PV Doppler PV Peak Gr
[2022-07-26 09:53] LABS: Alanine Aminotransferase 37 U/L (6-50); Albumin Level 3.3 g/dL (3.5-5.1); Alkaline Phosphatase 116 U/L (38-126); Anion Gap 1 mmol/L (8-16); Aspartate Amino Transferase 38 U/L (17-59); Bilirubin,Total 1.2 mg/dL (0.2-1.3); Blood Urea Nitrogen 12 mg/dL (9-20); Carbon Dioxide 33 mmol/L (22-30); Chloride 89 mmol/L (98-107); Estimated CRCL calculation 84 ml/min; Estimated Glomerular Filt Rate > 60; Glucose 114 mg/dL (65-110); Potassium 4.2 mmol/L (3.4-5.0); Sodium 123 mmol/L (137-145)
[2022-07-26] MEDS: PERFLUTREN LIPID MICROSPHERES 1.5 ML VIAL DILUTED TO 10 ML TOTAL VOLUME IV PUSH (10:28)
[2022-07-26] MEDS: SODIUM CHLORIDE 0.9% IV 1,000 ML 100 ML IV CONT ×2 (11:26→21:30)
--- NOTE | 2022-07-26 12:57 | PC.NURSE ---
On 07/26/22, the student, [Funmilayo Bhatia], provided care and completed [facility] documentation on this patient. I have reviewed the student's documentation and agree with the findings.
--- NOTE | 2022-07-26 14:30 | P.PNIM_ITS ---
Progress Note: A&P Assessment and Plan (1) Pneumonia: Code(s): J18.9 - Pneumonia, unspecified organism Status: Acute Assessment and Plan: * Complaints of shortness of breath * Chest xray indicated PNA vs pulmonary edema * Continue ceftriaxone and azithromycin * Sputum culture ordered * Blood cultures collected * Legionella also pending * WBC stable at 9.9 * Add neb treatments Patient failed outpatient treatment of cefdinir and doxycycline (2) Atrial fibrillation: Code(s): I48.91 - Unspecified atrial fibrillation Status: Acute Assessment and Plan: * Chronic and controlled * EKG shows patient is currently in SR 60s * Current HR is 70s * Continue Eliquis, amiodarone, aspirin, metoprolol * Trend heart rate * adjust therapy as indicated (3) Hyponatremia: Code(s): E87.1 - Hypo-osmolality and hyponatremia Status: Acute Assessment and Plan: * Na upon arrival 123 * Could be related to diuretic use, fluid overload * Start NS at 100ml/hr * Continue to trend * Increase by 6-8 per 24 hour period * Consider Nephrology if worsening * adjust therapy as indicated (4) Mixed hyperlipidemia: Code(s): E78.2 - Mixed hyperlipidemia Status: Acute Assessment and Plan: * LFTs stable * Continue atorvastatin as prescribed (5) Hypertension: Qualifiers: Hypertension type: essential hypertension Qualified Code(s): I10 - Essential (primary) hypertension Code(s): I10 - Essential (primary) hypertension Status: Acute Assessment and Plan: * BP 104/64 * Continue amiodarone, lisinopril, metoprolol * Trend BP * Adjust therapy as indicated (6) Congestive heart failure: Code(s): I50.9 - Heart failure, unspecified Status: Acute Assessment and Plan: * Chest xray: PNA vs CHF, cardiomegaly, small bilateral pleural effusions * BNP elevated at 3470 * Echo ordered * Most likely acute on chronic diastolic heart failure with exacerbation * Most likely contributing to the shortness of breath, and unresolving pneumonia * Trend daily weights * Accurate I&Os * trend urine output * consider IV Lasix * Adjust therapy as indicated Time Spent With Patient Time: 56 minutes Time with patient: Greater than 35 minutes Subjective Date/time seen: 07/26/22 1430 Interval history: 07/26/22 143 Patient is doing ok. He was sleeping and his daughter was present. He currently denies any chest pain. He does endorse shortness of breath, and it is worse with him walking very short distances. He denies any nausea, vomiting, diarrhea, constipation. All questions were answered and plan of care was updated. 07/25/22? 20:19 This is an 82-year-old male with past medical history significant for atrial fibrillation, rate controlled, anticoagulated, hypertension, benign prostatic hyperplasia.? Patient presents to the emergency room due to shortness of breath, no was a saturation on home monitor had been to see his primary care physician and placed on oral antibiotics for a pneumonia.? Patient denies any cough or sputum production has had generalized malaise, body aches and pains.? Preliminary workup was significant for:? Chemistry panel sodium was 126 chloride 88 bicarb 30
--- NOTE | 2022-07-26 14:30 | PM.IMPN ---
Progress Note: A&P Assessment and Plan (1) Pneumonia: Code(s): J18.9 - Pneumonia, unspecified organism Status: Acute Assessment and Plan: Complaints of shortness of breath Chest xray indicated PNA vs pulmonary edema Continue ceftriaxone and azithromycin Sputum culture ordered Blood cultures collected Legionella also pending WBC stable at 9.9 Add neb treatments Patient failed outpatient treatment of cefdinir and doxycycline (2) Atrial fibrillation: Code(s): I48.91 - Unspecified atrial fibrillation Status: Acute Assessment and Plan: Chronic and controlled EKG shows patient is currently in SR 60s Current HR is 70s Continue Eliquis, amiodarone, aspirin, metoprolol Trend heart rate adjust therapy as indicated (3) Hyponatremia: Code(s): E87.1 - Hypo-osmolality and hyponatremia Status: Acute Assessment and Plan: Na upon arrival 123 Could be related to diuretic use, fluid overload Start NS at 100ml/hr Continue to trend Increase by 6-8 per 24 hour period Consider Nephrology if worsening adjust therapy as indicated (4) Mixed hyperlipidemia: Code(s): E78.2 - Mixed hyperlipidemia Status: Acute Assessment and Plan: LFTs stable Continue atorvastatin as prescribed (5) Hypertension: Qualifiers: Hypertension type: essential hypertension Qualified Code(s): I10 - Essential (primary) hypertension Code(s): I10 - Essential (primary) hypertension Status: Acute Assessment and Plan: BP 104/64 Continue amiodarone, lisinopril, metoprolol Trend BP Adjust therapy as indicated (6) Congestive heart failure: Code(s): I50.9 - Heart failure, unspecified Status: Acute Assessment and Plan: Chest xray: PNA vs CHF, cardiomegaly, small bilateral pleural effusions BNP elevated at 3470 Echo ordered Most likely acute on chronic diastolic heart failure with exacerbation Most likely contributing to the shortness of breath, and unresolving pneumonia Trend daily weights Accurate I&Os trend urine output consider IV Lasix Adjust therapy as indicated Time Spent With Patient Time: 56 minutes Time with patient: Greater than 35 minutes Subjective Date/time seen: 07/26/221429 Interval history: 07/26/221429 Patient is doing ok. He was sleeping and his daughter was present. He currently denies any chest pain. He does endorse shortness of breath, and it is worse with him walking very short distances. He denies any nausea, vomiting, diarrhea, constipation. All questions were answered and plan of care was updated. 07/25/22? 20:19 This is an 82-year-old male with past medical history significant for atrial fibrillation, rate controlled, anticoagulated, hypertension, benign prostatic hyperplasia.? Patient presents to the emergency room due to shortness of breath, no was a saturation on home monitor had been to see his primary care physician and placed on oral antibiotics for a pneumonia.? Patient denies any cough or sputum production has had generalized malaise, body aches and pains.? Preliminary workup was significant for:? Chemistry panel sodium was 126 chloride 88 bicarb 30. Review of Systems Review of Systems: All systems reviewed & are unremarkable except as noted in HPI and below Exam Narrative: General: well-nourished, well-appearing 82-year-old male, sitting up in bed, comfortable, NARD Neuro: awake, alert and oriented x4, speech clear, no focal neuro deficits noted HEENMT: normocephalic, atraumatic, EOMI, sclerae anicteric, moist oral mucosa Respiratory: Clear to auscultation bilaterally without crackles, rhonchi or wheezes, nonlabored breathing Cardio: regular rate, regular rhythm with S1-S2 Abdomen: nondistended, normoactive bowel sounds, soft, nontender to palpation
--- NOTE | 2022-07-26 14:38 | PC.NURSE ---
On 07/26/22, the student, [Samantha Mi], provided care and completed [facility] documentation on this patient. I have reviewed the student's documentation and agree with the findings.
[2022-07-26 15:59] LABS: Sodium 122 mmol/L (137-145)
[2022-07-26] MEDS: APIXABAN 5 MG TABLET PO (18:16)
[2022-07-26 21:45] LABS: Sodium 121 mmol/L (137-145)
[2022-07-27] VITALS (13 sets, daily range): BP systolic 92–122; BP diastolic 57–72; PULSE 67–144; RESP 14–20; TEMP 36.5–37.1; O2SAT 93–95
[2022-07-27] MEDS: APIXABAN 5 MG TABLET PO ×2 (06:50→17:31)
[2022-07-27] MEDS: ATORVASTATIN 20 MG TABLET PO (06:50)
[2022-07-27] MEDS: ASPIRIN 81 MG ENTERIC TABLET PO (06:50)
[2022-07-27] MEDS: TAMSULOSIN HCL 0.4 MG CAPSULE PO (06:50)
[2022-07-27 09:30] LABS: Basophils Absolute Auto 0.1 K/mm3 (0.0-0.1); Basophils Percent Auto 0.9 % (0.2-1.2); Eosinophils Absolute Auto 0.3 K/mm3 (0-0.3); Eosinophils Percent Auto 3.8 % (0-4.4); Hematocrit 35.6 % (42.0-52.0); Hemoglobin 11.8 g/dL (14.0-18.0); Immature Granulocyte Absolute 0.07 K/mm3 (0.00-0.031); Immature Granulocyte Percent A 0.8 % (0-0.5); Lymphocytes Absolute Auto 0.75 K/mm3 (0.9-3.2); Lymphocytes Percent Auto 8.7 % (18.3-44.2); Mean Corpuscular HGB Conc 33.1 g/dl (32-36); Mean Corpuscular Volume 90.6 fl (80-100); Mean Platelet Volume 10.3 fl (7.4-10.4); Monocytes Absolute Auto 1.2 K/mm3 (0.1-0.6); Monocytes Percent Auto 14.2 % (2.6-8.5); Neutrophils Absolute Auto 6.2 K/mm3 (1.3-6.7); Neutrophils Percent Auto 71.6 % (45.5-73.1); Platelet Count Result 223 k/mm3 (150-375); Red Blood Count 3.93 M/mm3 (4.6-6.20); White Blood Count 8.6 K/mm3 (4.5-10.0)
[2022-07-27 09:38] LABS: Alanine Aminotransferase 38 U/L (6-50); Alkaline Phosphatase 112 U/L (38-126); Anion Gap 2 mmol/L (8-16); Aspartate Amino Transferase 39 U/L (17-59); Bilirubin,Total 0.9 mg/dL (0.2-1.3); Blood Urea Nitrogen 10 mg/dL (9-20); Calcium 7.6 mg/dL (8.4-10.2); Carbon Dioxide 31 mmol/L (22-30); Chloride 90 mmol/L (98-107); Estimated CRCL calculation 96 ml/min; Estimated Glomerular Filt Rate > 60; Glucose 116 mg/dL (65-110); Potassium 4.4 mmol/L (3.4-5.0); Sodium 123 mmol/L (137-145)
--- NOTE | 2022-07-27 09:45 | P.PNIM_ITS ---
Progress Note: A&P Assessment and Plan (1) Pneumonia: Code(s): J18.9 - Pneumonia, unspecified organism Status: Acute Assessment and Plan: * Complaints of shortness of breath * Chest xray indicated PNA vs pulmonary edema * Continue ceftriaxone and azithromycin * Sputum culture ordered * Blood cultures collected * Legionella also pending * WBC stable at 8.6 * Add neb treatments Patient failed outpatient treatment of cefdinir and doxycycline (2) Atrial fibrillation: Code(s): I48.91 - Unspecified atrial fibrillation Status: Acute Assessment and Plan: * Chronic and controlled * EKG shows patient is currently in SR 60s * Current HR is 70s * Continue Eliquis, amiodarone, aspirin, metoprolol * Trend heart rate * adjust therapy as indicated (3) Hyponatremia: Code(s): E87.1 - Hypo-osmolality and hyponatremia Status: Acute Assessment and Plan: * Na upon arrival 123, trending down and was 121 in the evening, 123 again today * Could be related to diuretic use, fluid overload * Stopped NS at 100ml/hr as he does appear to be getting fluid overloaded * Continue to trend * Increase by 6-8 per 24 hour period * Consult nephrology thank you for your help * adjust therapy as indicated (4) Mixed hyperlipidemia: Code(s): E78.2 - Mixed hyperlipidemia Status: Acute Assessment and Plan: * LFTs stable * Continue atorvastatin as prescribed (5) Hypertension: Qualifiers: Hypertension type: essential hypertension Qualified Code(s): I10 - Essential (primary) hypertension Code(s): I10 - Essential (primary) hypertension Status: Acute Assessment and Plan: * BP 100/60 * Continue amiodarone, lisinopril, metoprolol * Trend BP * Adjust therapy as indicated (6) Congestive heart failure: Code(s): I50.9 - Heart failure, unspecified Status: Acute Assessment and Plan: * Chest xray: PNA vs CHF, cardiomegaly, small bilateral pleural effusions * BNP elevated at 3470 * Echo EF of 40-45% with a grade 1 diastolic dysfunction * Most likely acute on chronic diastolic heart failure with exacerbation * Most likely contributing to the shortness of breath, and unresolving pneumonia * Trend daily weights * Accurate I&Os * trend urine output * IV Lasix 40mg x1 * Adjust therapy as indicated Plan 15 minutes talking with the daughter Time Spent With Patient Time: 56 minutes Time with patient: Greater than 35 minutes Subjective Date/time seen: 07/27/22944 Interval history: 07/27/22944 Patient is laying in bed and stated that he feels ok, however, he just does not have any energy. He also stated that he is still having some significant shortness of breath. He denies any chest pain, nausea, vomiting, diarrhea, constipation. His sodium is still low. will stop fluids as he is continuing to have shortness of breath. Will consult nephrology for further support. Gave update to the daughter about new labs and currently findings. Updated about the plan of care and the consult of nephrololgy 07/26/22 1430 Patient is doing ok. He was sleeping and his daughter was present. He currently denies any chest pain. He does endorse shortness of breath
--- NOTE | 2022-07-27 09:45 | PM.IMPN ---
Progress Note: A&P Assessment and Plan (1) Pneumonia: Code(s): J18.9 - Pneumonia, unspecified organism Status: Acute Assessment and Plan: Complaints of shortness of breath Chest xray indicated PNA vs pulmonary edema Continue ceftriaxone and azithromycin Sputum culture ordered Blood cultures collected Legionella also pending WBC stable at 8.6 Add neb treatments Patient failed outpatient treatment of cefdinir and doxycycline (2) Atrial fibrillation: Code(s): I48.91 - Unspecified atrial fibrillation Status: Acute Assessment and Plan: Chronic and controlled EKG shows patient is currently in SR 60s Current HR is 70s Continue Eliquis, amiodarone, aspirin, metoprolol Trend heart rate adjust therapy as indicated (3) Hyponatremia: Code(s): E87.1 - Hypo-osmolality and hyponatremia Status: Acute Assessment and Plan: Na upon arrival 123, trending down and was 121 in the evening, 123 again today Could be related to diuretic use, fluid overload Stopped NS at 100ml/hr as he does appear to be getting fluid overloaded Continue to trend Increase by 6-8 per 24 hour period Consult nephrology thank you for your help adjust therapy as indicated (4) Mixed hyperlipidemia: Code(s): E78.2 - Mixed hyperlipidemia Status: Acute Assessment and Plan: LFTs stable Continue atorvastatin as prescribed (5) Hypertension: Qualifiers: Hypertension type: essential hypertension Qualified Code(s): I10 - Essential (primary) hypertension Code(s): I10 - Essential (primary) hypertension Status: Acute Assessment and Plan: BP 100/60 Continue amiodarone, lisinopril, metoprolol Trend BP Adjust therapy as indicated (6) Congestive heart failure: Code(s): I50.9 - Heart failure, unspecified Status: Acute Assessment and Plan: Chest xray: PNA vs CHF, cardiomegaly, small bilateral pleural effusions BNP elevated at 3470 Echo EF of 40-45% with a grade 1 diastolic dysfunction Most likely acute on chronic diastolic heart failure with exacerbation Most likely contributing to the shortness of breath, and unresolving pneumonia Trend daily weights Accurate I&Os trend urine output IV Lasix 40mg x1 Adjust therapy as indicated Plan 15 minutes talking with the daughter Time Spent With Patient Time: 56 minutes Time with patient: Greater than 35 minutes Subjective Date/time seen: 07/27/22944 Interval history: 03/25/23 0945 Patient is laying in bed and stated that he feels ok, however, he just does not have any energy. He also stated that he is still having some significant shortness of breath. He denies any chest pain, nausea, vomiting, diarrhea, constipation. His sodium is still low. will stop fluids as he is continuing to have shortness of breath. Will consult nephrology for further support. Gave update to the daughter about new labs and currently findings. Updated about the plan of care and the consult of nephrololgy 07/26/22 1430 Patient is doing ok. He was sleeping and his daughter was present. He currently denies any chest pain. He does endorse shortness of breath, and it is worse with him walking very short distances. He denies any nausea, vomiting, diarrhea, constipation. All questions were answered and plan of care was updated. 07/25/22? 20:19 This is an 82-year-old male with past medical history significant for atrial fibrillation, rate controlled, anticoagulated, hypertension, benign prostatic hyperplasia.? Patient presents to the emergency room due to shortness of breath, no was a saturation on home monitor had been to see his primary care physician and placed on oral antibiotics for a pneumonia.? Patient denies any cough or sputum production has had generalized malaise, body
[2022-07-27 12:19] LABS: Creatinine Urine 104.5 mg/dL; Sodium Urine Random 130 meq/L; Urea Random Urine 743 MG/DL
--- NOTE | 2022-07-27 13:22 | PC.NURSE ---
Observed while BERENICE Boyer completed NIH Stroke Scale and agree with findings.
[2022-07-27] MEDS: FUROSEMIDE INJ 40 MG/4 ML VIAL IV PUSH (13:29)
[2022-07-27 14:02] LABS: Potassium Urine Random 40.2 meq/L
--- NOTE | 2022-07-27 15:00 | P.CONNP_ITS ---
Assessment and Plan Assessment and plan (1) Hyponatremia: Code(s): E87.1 - Hypo-osmolality and hyponatremia Status: Acute Assessment and Plan: * appears acute on chronic * since 2019, sodium running 132 - 136 * more recently, this year, seems to be running 124 - 130 * risk factors for low sodium: * CHF/cardiomyopathy (with acute exacerbation) * chronic diuretic therapy * current pneumonia * follow-up on urine electrolytes and serum/urine osmo * check TSH, cortisol, kappa/lamda ratio, and SPEP/UPEP * no culprit medications noted * no issues with cancer/malignancy at this time (does have hx of prostate cancer) * agree with fluid restriction * follow repeat sodium levels (2) Pneumonia: Code(s): J18.9 - Pneumonia, unspecified organism Status: Acute Assessment and Plan: * as suggested by admission CXR * however, possible component of pulmonary edema by CXR as well * follow culture data * on antibiotics * continue nebs and supplemental oxygen * follow respiratory status (3) CHF exacerbation: Code(s): I50.9 - Heart failure, unspecified Status: Acute Assessment and Plan: * suggested by admission CXR with pulmonary edema, cardiomegaly, and small bilateral effusions * elevated BNP noted * Echo with EF 45 - 50% with diastolic dysfunction * this argues in favor of acute on chronic diastolic heart failure * follow I/Os and daily weights * IV diuretics * diuretic intervention may help improvesodium if a component of hypervolemia present (4) Atrial fibrillation: Code(s): I48.91 - Unspecified atrial fibrillation Status: Chronic Assessment and Plan: * rate controlled * on anticoagulation (5) Hypertension: Qualifiers: Hypertension type: essential hypertension Qualified Code(s): I10 - Essential (primary) hypertension Code(s): I10 - Essential (primary) hypertension Status: Chronic Assessment and Plan: * running on the soft side * BP medications with parameters Long and extensive discussion (> than 25 minutes) with patient as well as his daughter at bedside with regard to his low sodium level/ hyponatremia as well as his history of this problem and the acute worsening as noted by recent blood work today as well as the further testing ordered to hopefully delineate the etiology of this issue/problem. They both appeared to voice understanding. Will continue to follow. History of Present Illness Reason for Consult Consult date: 07/27/22 Reason for consult: hyponatremia Chief Complaint Chief complaint: Pneumonia,hyponatremia,chf exacerbation History of Present Illness Narrative: The patient is an 82-year-old male with a past medical history as outlined below who presented to [facility] Emergency room with complaints of shortness of breath. Given his problems with shortness of breath prior to his presentation to the ER, he did go see his primary care physician for further assessment. It was felt that he may have a component of bronchitis or possible early pneumonia and he was placed on antibiotic therapy for this. Unfortunately, the site the antibiotic therapy, he continued to feel short of breath with associated symptoms of general malaise as well as body aches/pains. Given his ongoing symptoms, he presented to the ER for further assessment. Workup and evaluation in the emergency room demonstrated the patient to be hemodynamically stable although his blood pressure was a little bit on the lower side of normal. Routin
--- NOTE | 2022-07-27 15:00 | PM.CNNEP ---
Assessment and Plan Assessment and plan (1) Hyponatremia: Code(s): E87.1 - Hypo-osmolality and hyponatremia Status: Acute Assessment and Plan: appears acute on chronic since 2019, sodium running 132 - 136 more recently, this year, seems to be running 124 - 130 risk factors for low sodium: CHF/cardiomyopathy (with acute exacerbation) chronic diuretic therapy current pneumonia follow-up on urine electrolytes and serum/urine osmo check TSH, cortisol, kappa/lamda ratio, and SPEP/UPEP no culprit medications noted no issues with cancer/malignancy at this time (does have hx of prostate cancer) agree with fluid restriction follow repeat sodium levels (2) Pneumonia: Code(s): J18.9 - Pneumonia, unspecified organism Status: Acute Assessment and Plan: as suggested by admission CXR however, possible component of pulmonary edema by CXR as well follow culture data on antibiotics continue nebs and supplemental oxygen follow respiratory status (3) CHF exacerbation: Code(s): I50.9 - Heart failure, unspecified Status: Acute Assessment and Plan: suggested by admission CXR with pulmonary edema, cardiomegaly, and small bilateral effusions elevated BNP noted Echo with EF 45 - 50% with diastolic dysfunction this argues in favor of acute on chronic diastolic heart failure follow I/Os and daily weights IV diuretics diuretic intervention may help improvesodium if a component of hypervolemia present (4) Atrial fibrillation: Code(s): I48.91 - Unspecified atrial fibrillation Status: Chronic Assessment and Plan: rate controlled on anticoagulation (5) Hypertension: Qualifiers: Hypertension type: essential hypertension Qualified Code(s): I10 - Essential (primary) hypertension Code(s): I10 - Essential (primary) hypertension Status: Chronic Assessment and Plan: running on the soft side BP medications with parameters Long and extensive discussion (> than 25 minutes) with patient as well as his daughter at bedside with regard to his low sodium level/ hyponatremia as well as his history of this problem and the acute worsening as noted by recent blood work today as well as the further testing ordered to hopefully delineate the etiology of this issue/problem. They both appeared to voice understanding. Will continue to follow. History of Present Illness Reason for Consult Consult date: 07/27/22 Reason for consult: hyponatremia Chief Complaint Chief complaint: Pneumonia,hyponatremia,chf exacerbation History of Present Illness Narrative: The patient is an 82-year-old male with a past medical history as outlined below who presented to [facility] Emergency room with complaints of shortness of breath. Given his problems with shortness of breath prior to his presentation to the ER, he did go see his primary care physician for further assessment. It was felt that he may have a component of bronchitis or possible early pneumonia and he was placed on antibiotic therapy for this. Unfortunately, the site the antibiotic therapy, he continued to feel short of breath with associated symptoms of general malaise as well as body aches/pains. Given his ongoing symptoms, he presented to the ER for further assessment. Workup and evaluation in the emergency room demonstrated the patient to be hemodynamically stable although his blood pressure was a little bit on the lower side of normal. Routine blood test were significant for hyponatremia with a sodium 126 but his CBC did not demonstrate an elevated white blood cell count or left shift. His chest x-ray was reported as diffuse opacities throughout all lung zones with small pleural effusions and cardiomegaly consistent with pneumonia and/or pulmonary edema. After appropriate cultures were obtained, he was started on IV antibiotic therapy. Since it appear that he
[2022-07-27 15:15] LABS: Sodium 123 mmol/L (137-145)
[2022-07-27] MEDS: METOPROLOL TARTRATE 50 MG TAB PO (18:00)
[2022-07-28] VITALS (15 sets, daily range): BP systolic 101–125; BP diastolic 58–74; PULSE 62–94; RESP 16–20; TEMP 36.4–37.2; O2SAT 92–94
[2022-07-28 05:25] LABS: Basophils Absolute Auto 0.1 K/mm3 (0.0-0.1); Basophils Percent Auto 0.9 % (0.2-1.2); Eosinophils Absolute Auto 0.4 K/mm3 (0-0.3); Eosinophils Percent Auto 4.2 % (0-4.4); Hematocrit 37.7 % (42.0-52.0); Hemoglobin 12.4 g/dL (14.0-18.0); Immature Granulocyte Absolute 0.07 K/mm3 (0.00-0.031); Immature Granulocyte Percent A 0.8 % (0-0.5); Lymphocytes Absolute Auto 0.85 K/mm3 (0.9-3.2); Lymphocytes Percent Auto 9.8 % (18.3-44.2); Mean Corpuscular HGB Conc 32.9 g/dl (32-36); Mean Corpuscular Hemoglobin 30.4 pg (26-34); Mean Corpuscular Volume 92.4 fl (80-100); Mean Platelet Volume 10.5 fl (7.4-10.4); Monocytes Absolute Auto 1.2 K/mm3 (0.1-0.6); Monocytes Percent Auto 14.3 % (2.6-8.5); Neutrophils Absolute Auto 6.1 K/mm3 (1.3-6.7); Platelet Count Result 241 k/mm3 (150-375); Red Blood Count 4.08 M/mm3 (4.6-6.20); Red Cell Distribution Width 14.1 % (11.5-14.5); White Blood Count 8.7 K/mm3 (4.5-10.0)
[2022-07-28 05:44] LABS: Alanine Aminotransferase 45 U/L (6-50); Alkaline Phosphatase 118 U/L (38-126); Anion Gap 2 mmol/L (8-16); Aspartate Amino Transferase 45 U/L (17-59); Bilirubin,Total 0.9 mg/dL (0.2-1.3); Blood Urea Nitrogen 13 mg/dL (9-20); Calcium 7.9 mg/dL (8.4-10.2); Carbon Dioxide 34 mmol/L (22-30); Chloride 88 mmol/L (98-107); Estimated CRCL calculation 84 ml/min; Estimated Glomerular Filt Rate > 60; Glucose 106 mg/dL (65-110); Magnesium 1.9 mg/dL (1.6-2.3); Potassium 4.6 mmol/L (3.4-5.0); Sodium 124 mmol/L (137-145)
[2022-07-28] MEDS: ASPIRIN 81 MG ENTERIC TABLET PO (06:11)
[2022-07-28] MEDS: ATORVASTATIN 20 MG TABLET PO (06:11)
[2022-07-28] MEDS: AMIODARONE HCL 200 MG TABLET PO (06:11)
[2022-07-28] MEDS: APIXABAN 5 MG TABLET PO ×2 (06:12→17:41)
[2022-07-28] MEDS: TAMSULOSIN HCL 0.4 MG CAPSULE PO (06:12)
[2022-07-28] MEDS: FUROSEMIDE INJ 40 MG/4 ML VIAL IV PUSH (08:06)
[2022-07-28] MEDS: METOPROLOL TARTRATE 50 MG TAB PO ×2 (08:56→17:40)
--- NOTE | 2022-07-28 11:45 | P.PNIM_ITS ---
Progress Note: A&P Assessment and Plan (1) Pneumonia: Code(s): J18.9 - Pneumonia, unspecified organism Status: Acute Assessment and Plan: * Complaints of shortness of breath * Chest xray indicated PNA vs pulmonary edema * Continue ceftriaxone and azithromycin * Sputum culture ordered * Blood cultures NGTD * Legionella continues to pending * WBC stable at 8.7 * Continue neb treatments Patient failed outpatient treatment of cefdinir and doxycycline (2) Congestive heart failure: Code(s): I50.9 - Heart failure, unspecified Status: Acute Assessment and Plan: * Chest xray: PNA vs CHF, cardiomegaly, small bilateral pleural effusions * BNP elevated at 3470 * Echo EF of 40-45% with a grade 1 diastolic dysfunction, severe biatrial enlargement, * Most likely acute on chronic diastolic heart failure with exacerbation * Most likely contributing to the shortness of breath, and non-resolving pneumonia * Trend daily weights * Accurate I&Os * trend urine output * IV Lasix 40mg x1, repeat * Adjust therapy as indicated (3) Atrial fibrillation: Code(s): I48.91 - Unspecified atrial fibrillation Status: Chronic Assessment and Plan: * Chronic and controlled * EKG shows patient is currently in SR 60s * Current HR is 70-80 * Heart rate was noted to be in the 130-140s, in afib RVR, self converted back to sinus Rhythm * Changed metoprolol to 50mg PO bid * Continue Eliquis, amiodarone, aspirin, metoprolol * Trend heart rate * adjust therapy as indicated (4) Hyponatremia: Code(s): E87.1 - Hypo-osmolality and hyponatremia Status: Acute Assessment and Plan: * Na upon arrival 123>121>123>124 * Could be related to diuretic use, fluid overload * Stopped NS at 100ml/hr as he does appear to be getting fluid overloaded * Continue to trend * Increase by 6-8 per 24 hour period * Consult nephrology thank you for your help * adjust therapy as indicated * One dose of Lasix, repeat today (5) Mixed hyperlipidemia: Code(s): E78.2 - Mixed hyperlipidemia Status: Acute Assessment and Plan: * LFTs stable * Continue atorvastatin as prescribed (6) Hypertension: Qualifiers: Hypertension type: essential hypertension Qualified Code(s): I10 - Essential (primary) hypertension Code(s): I10 - Essential (primary) hypertension Status: Chronic Assessment and Plan: * BP 125/74 * Continue amiodarone, lisinopril, metoprolol * Trend BP * Adjust therapy as indicated Plan 30-35 minutes spent with patient and family about current plan and updated them the plan of care Time Spent With Patient Time: 51 minutes Time with patient: Greater than 35 minutes Subjective Date/time seen: 07/28/22 114 Interval history: 07/28/22 114 Patient is doing well. Patient's daughter is in the room. Currently he did not have his oxygen on and was satting about 90% on room air. After trend it was noted that the patient was satting around 89% and oxygen was replaced. He denies having any chest pain, shortness a breath, nausea, vomiting, diarrhea constipation. He did state that he just felt very weak. Answered all of daugh nancie's questions went over the EKG with h
--- NOTE | 2022-07-28 11:45 | PM.IMPN ---
Progress Note: A&P Assessment and Plan (1) Pneumonia: Code(s): J18.9 - Pneumonia, unspecified organism Status: Acute Assessment and Plan: Complaints of shortness of breath Chest xray indicated PNA vs pulmonary edema Continue ceftriaxone and azithromycin Sputum culture ordered Blood cultures NGTD Legionella continues to pending WBC stable at 8.7 Continue neb treatments Patient failed outpatient treatment of cefdinir and doxycycline (2) Congestive heart failure: Code(s): I50.9 - Heart failure, unspecified Status: Acute Assessment and Plan: Chest xray: PNA vs CHF, cardiomegaly, small bilateral pleural effusions BNP elevated at 3470 Echo EF of 40-45% with a grade 1 diastolic dysfunction, severe biatrial enlargement, Most likely acute on chronic diastolic heart failure with exacerbation Most likely contributing to the shortness of breath, and non-resolving pneumonia Trend daily weights Accurate I&Os trend urine output IV Lasix 40mg x1, repeat Adjust therapy as indicated (3) Atrial fibrillation: Code(s): I48.91 - Unspecified atrial fibrillation Status: Chronic Assessment and Plan: Chronic and controlled EKG shows patient is currently in SR 60s Current HR is 70-80 Heart rate was noted to be in the 130-140s, in afib RVR, self converted back to sinus Rhythm Changed metoprolol to 50mg PO bid Continue Eliquis, amiodarone, aspirin, metoprolol Trend heart rate adjust therapy as indicated (4) Hyponatremia: Code(s): E87.1 - Hypo-osmolality and hyponatremia Status: Acute Assessment and Plan: Na upon arrival 123>121>123>124 Could be related to diuretic use, fluid overload Stopped NS at 100ml/hr as he does appear to be getting fluid overloaded Continue to trend Increase by 6-8 per 24 hour period Consult nephrology thank you for your help adjust therapy as indicated One dose of Lasix, repeat today (5) Mixed hyperlipidemia: Code(s): E78.2 - Mixed hyperlipidemia Status: Acute Assessment and Plan: LFTs stable Continue atorvastatin as prescribed (6) Hypertension: Qualifiers: Hypertension type: essential hypertension Qualified Code(s): I10 - Essential (primary) hypertension Code(s): I10 - Essential (primary) hypertension Status: Chronic Assessment and Plan: BP 125/74 Continue amiodarone, lisinopril, metoprolol Trend BP Adjust therapy as indicated Plan 30-35 minutes spent with patient and family about current plan and updated them the plan of care Time Spent With Patient Time: 51 minutes Time with patient: Greater than 35 minutes Subjective Date/time seen: 07/28/22 1145 Interval history: 07/28/22 1145 Patient is doing well. Patient's daughter is in the room. Currently he did not have his oxygen on and was satting about 90% on room air. After trend it was noted that the patient was satting around 89% and oxygen was replaced. He denies having any chest pain, shortness a breath, nausea, vomiting, diarrhea constipation. He did state that he just felt very weak. Answered all of daughter's questions went over the EKG with her as well. He denied any palpitations or any knowing of his heart rate yesterday. Currently he is doing okay sodium is still 124. 07/27/22 0945 Patient is laying in bed and stated that he feels ok, however, he just does not have any energy. He also stated that he is still having some significant shortness of breath. He denies any chest pain, nausea, vomiting, diarrhea, constipation. His sodium is still low. will stop fluids as he is continuing to have shortness of breath. Will consult nephrology for further support. Gave update to the daughter about new labs and currently findings. Updated about the plan of care and the
--- NOTE | 2022-07-28 13:05 | P.PNNP_ITS ---
Progress Note: A&P Assessment and Plan (1) Hyponatremia: Code(s): E87.1 - Hypo-osmolality and hyponatremia Status: Acute Assessment and Plan: * mild improvement * appears acute on chronic * since 2019, sodium running 132 - 136 * more recently, this year, seems to be running 124 - 130 * risk factors for low sodium: * CHF/cardiomyopathy (with acute exacerbation) * chronic diuretic therapy * current pneumonia * evaluation to date: * urine electrolytes are non-prerenal * TSH and cortisol okay * kappa/lamda ratio and SPEP/UPEP pending * no culprit medications notedno issues with cancer/malignancy at this time (does have hx of prostate cancer) * agree with fluid restriction * follow repeat sodium levels (2) Pneumonia: Code(s): J18.9 - Pneumonia, unspecified organism Status: Acute Assessment and Plan: * as suggested by admission CXR * however, possible component of pulmonary edema by CXR as well * follow culture data * on antibiotics * continue nebs and supplemental oxygen * follow respiratory status (3) CHF exacerbation: Code(s): I50.9 - Heart failure, unspecified Status: Acute Assessment and Plan: * suggested by admission CXR with pulmonary edema, cardiomegaly, and small bilateral effusions * elevated BNP noted * Echo with EF 45 - 50% with diastolic dysfunction * this argues in favor of acute on chronic diastolic heart failure * follow I/Os and daily weights * IV diuretics * diuretic intervention may help improve sodium if a component of hypervolemia present (4) Atrial fibrillation: Code(s): I48.91 - Unspecified atrial fibrillation Status: Chronic Assessment and Plan: * rate controlled * on anticoagulation (5) Hypertension: Qualifiers: Hypertension type: essential hypertension Qualified Code(s): I10 - Essential (primary) hypertension Code(s): I10 - Essential (primary) hypertension Status: Chronic Assessment and Plan: * running on the soft side * BP medications with parameters Will continue to follow. Subjective Date/time seen: 07/28/22 13:05 No apparent distress voiced at the time of my visit; reports that his breathing is the same -- no worse but hard for him to say it is any better; sodium st able if not a bit better by AM labs; no other acute issues/events overnight or earlier this AM. Exam Narrative: General: elderly but WD/WN male in NAD Heart: normal S1 and S2; no rub Lungs: coarse at the bases Abdomen: soft, nontender, nondistended, positive bowel sounds Extremities: no cyanosis or clubbing; no edema Skin: warm and dry Objective Data Vital Signs Vital Signs: Vital Signs Temp Pulse Resp BP Pulse Ox O2 Del Method O2 Flow Rate 07/28/22 12:00 65 07/28/22 10:59 98.4 F 94 20 104/66 93 07/28/22 08:13 93 Nasal Cannula 2 07/28/22 08:13 77 07/28/22 08:56 85 07/28/22 08:04 98.4 F 76 16 114/60 93 07/28/22 06:11 79 07/28/22 06:00 98.9 F 80 18 125/74 94 07/28/22 04:00 76 07/28/22 02:00 98.5 F 76 18 112/63 92 07/28/22 00:00 73 07/27/22 20:00 93 Nasal Cannula 2 07/27/22 20:00 67 07/27/22 20:08 98.7 F 68
--- NOTE | 2022-07-28 13:05 | PM.PNNEP ---
Progress Note: A&P Assessment and Plan (1) Hyponatremia: Code(s): E87.1 - Hypo-osmolality and hyponatremia Status: Acute Assessment and Plan: mild improvement appears acute on chronic since 2019, sodium running 132 - 136 more recently, this year, seems to be running 124 - 130 risk factors for low sodium: CHF/cardiomyopathy (with acute exacerbation) chronic diuretic therapy current pneumonia evaluation to date: urine electrolytes are non-prerenal TSH and cortisol okay kappa/lamda ratio and SPEP/UPEP pending no culprit medications notedno issues with cancer/malignancy at this time (does have hx of prostate cancer) agree with fluid restriction follow repeat sodium levels (2) Pneumonia: Code(s): J18.9 - Pneumonia, unspecified organism Status: Acute Assessment and Plan: as suggested by admission CXR however, possible component of pulmonary edema by CXR as well follow culture data on antibiotics continue nebs and supplemental oxygen follow respiratory status (3) CHF exacerbation: Code(s): I50.9 - Heart failure, unspecified Status: Acute Assessment and Plan: suggested by admission CXR with pulmonary edema, cardiomegaly, and small bilateral effusions elevated BNP noted Echo with EF 45 - 50% with diastolic dysfunction this argues in favor of acute on chronic diastolic heart failure follow I/Os and daily weights IV diuretics diuretic intervention may help improve sodium if a component of hypervolemia present (4) Atrial fibrillation: Code(s): I48.91 - Unspecified atrial fibrillation Status: Chronic Assessment and Plan: rate controlled on anticoagulation (5) Hypertension: Qualifiers: Hypertension type: essential hypertension Qualified Code(s): I10 - Essential (primary) hypertension Code(s): I10 - Essential (primary) hypertension Status: Chronic Assessment and Plan: running on the soft side BP medications with parameters Will continue to follow. Subjective Date/time seen: 07/28/22 13:05 No apparent distress voiced at the time of my visit; reports that his breathing is the same -- no worse but hard for him to say it is any better; sodium stable if not a bit better by AM labs; no other acute issues/events overnight or earlier this AM. Exam Narrative: General: elderly but WD/WN male in NAD Heart: normal S1 and S2; no rub Lungs: coarse at the bases Abdomen: soft, nontender, nondistended, positive bowel sounds Extremities: no cyanosis or clubbing; no edema Skin: warm and dry Objective Data Vital Signs Vital Signs: Vital Signs Temp Pulse Resp BP Pulse Ox O2 Del Method O2 Flow Rate 07/28/22 12:00 65 07/28/22 10:59 98.4 F 94 20 104/66 93 07/28/22 08:13 93 Nasal Cannula 2 07/28/22 08:13 77 07/28/22 08:56 85 07/28/22 08:04 98.4 F 76 16 114/60 93 07/28/22 06:11 79 07/28/22 06:00 98.9 F 80 18 125/74 94 07/28/22 04:00 76 07/28/22 02:00 98.5 F 76 18 112/63 92 07/28/22 00:00 73 07/27/22 20:00 93 Nasal Cannula 2 07/27/22 20:00 67 07/27/22 20:08 98.7 F 68 20 92/57 L 93 07/27/22 18:10 97.7 F 78 20 122/72 93 07/27/22 16:00 75 07/27/22 18:00 144 H Intake/Output Intake/Output: Intake & Output 07/25/22 07/26/22 07/27/22 07/28/22 23:59 23:59 23:59 23:59 Intake Total 1300 2900 1260 480 Output Total 800 4175 2120 Balance 8036 4024 -8630 -2678 Meds/Results Medications: Active Medications Generic Name Dose Route Start Last Admin Trade Name Freq PRN Reason Stop Dose Admin Acetaminophen 650 mg 07/25/22 20:42 Acetaminophen 325 Mg Tablet PO Q4H PRN Mild Pain (1-3) or Fever Amiodarone HCl 200 mg 07/27/22 06:00 07/28/22 06:11 Amiodarone Hcl 200 Mg Tablet PO 200 mg DAILY@0600
[2022-07-29] VITALS (15 sets, daily range): BP systolic 102–114; BP diastolic 58–72; PULSE 66–86; RESP 14–20; TEMP 35.9–36.9; O2SAT 91–97
[2022-07-29 06:10] LABS: Basophils Absolute Auto 0.1 K/mm3 (0.0-0.1); Basophils Percent Auto 0.8 % (0.2-1.2); Eosinophils Absolute Auto 0.4 K/mm3 (0-0.3); Eosinophils Percent Auto 4.6 % (0-4.4); Hematocrit 38.8 % (42.0-52.0); Hemoglobin 12.5 g/dL (14.0-18.0); Immature Granulocyte Absolute 0.06 K/mm3 (0.00-0.031); Immature Granulocyte Percent A 0.7 % (0-0.5); Immature Platelet Fraction Pct 10.2 % (0.9-11.2); Lymphocytes Absolute Auto 0.79 K/mm3 (0.9-3.2); Lymphocytes Percent Auto 9.4 % (18.3-44.2); Mean Corpuscular HGB Conc 32.2 g/dl (32-36); Mean Corpuscular Hemoglobin 30.1 pg (26-34); Mean Corpuscular Volume 93.5 fl (80-100); Mean Platelet Volume 10.7 fl (7.4-10.4); Monocytes Absolute Auto 1.3 K/mm3 (0.1-0.6); Neutrophils Absolute Auto 5.9 K/mm3 (1.3-6.7); Neutrophils Percent Auto 69.5 % (45.5-73.1); Platelet Count Result 285 k/mm3 (150-375); Red Blood Count 4.15 M/mm3 (4.6-6.20); White Blood Count 8.4 K/mm3 (4.5-10.0)
[2022-07-29] MEDS: ASPIRIN 81 MG ENTERIC TABLET PO (06:10)
[2022-07-29] MEDS: ATORVASTATIN 20 MG TABLET PO (06:10)
[2022-07-29] MEDS: AMIODARONE HCL 200 MG TABLET PO (06:10)
[2022-07-29] MEDS: APIXABAN 5 MG TABLET PO ×2 (06:10→17:22)
[2022-07-29] MEDS: TAMSULOSIN HCL 0.4 MG CAPSULE PO (06:10)
[2022-07-29 06:27] LABS: Alanine Aminotransferase 46 U/L (6-50); Alkaline Phosphatase 120 U/L (38-126); Anion Gap -2 mmol/L (8-16); Aspartate Amino Transferase 48 U/L (17-59); Bilirubin,Total 0.9 mg/dL (0.2-1.3); Blood Urea Nitrogen 14 mg/dL (9-20); Calcium 8.2 mg/dL (8.4-10.2); Carbon Dioxide 39 mmol/L (22-30); Chloride 88 mmol/L (98-107); Estimated CRCL calculation 96 ml/min; Estimated Glomerular Filt Rate > 60; Glucose 106 mg/dL (65-110); Magnesium 1.9 mg/dL (1.6-2.3); Potassium 4.8 mmol/L (3.4-5.0); Sodium 125 mmol/L (137-145)
[2022-07-29] MEDS: METOPROLOL TARTRATE 50 MG TAB PO ×2 (08:24→17:22)
--- NOTE | 2022-07-29 12:06 | PM.PNNEP ---
Progress Note: A&P Assessment and Plan (1) Hyponatremia: Code(s): E87.1 - Hypo-osmolality and hyponatremia Status: Acute Assessment and Plan: slow improvement appears acute on chronic since 2019, sodium running 132 - 136 more recently, this year, seems to be running 124 - 130 risk factors for low sodium: CHF/cardiomyopathy (with acute exacerbation) chronic diuretic therapy current pneumonia evaluation to date: urine electrolytes are non-prerenal TSH and cortisol okay kappa/lamda ratio and SPEP/UPEP pending no culprit medications noted no issues with cancer/malignancy at this time (does have hx of prostate cancer) agree with fluid restriction PRN IV diuretics for #3 follow repeat sodium levels (2) Pneumonia: Code(s): J18.9 - Pneumonia, unspecified organism Status: Acute Assessment and Plan: as suggested by admission CXR however, possible component of pulmonary edema by CXR as well follow culture data on antibiotics continue nebs and supplemental oxygen follow respiratory status (3) CHF exacerbation: Code(s): I50.9 - Heart failure, unspecified Status: Acute Assessment and Plan: suggested by admission CXR with pulmonary edema, cardiomegaly, and small bilateral effusions elevated BNP noted Echo with EF 45 - 50% with diastolic dysfunction this argues in favor of acute on chronic diastolic heart failure follow I/Os and daily weights IV diuretics diuretic intervention may help improve sodium as a component of hypervolemia present (4) Atrial fibrillation: Code(s): I48.91 - Unspecified atrial fibrillation Status: Chronic Assessment and Plan: rate controlled on anticoagulation (5) Hypertension: Qualifiers: Hypertension type: essential hypertension Qualified Code(s): I10 - Essential (primary) hypertension Code(s): I10 - Essential (primary) hypertension Status: Chronic Assessment and Plan: running on the soft side BP medications with parameters Will continue to follow. Subjective Date/time seen: 07/29/22 12:06 Slow improvement in sodium level with current interventions; no acute distress voiced at the time of my visit but does report that his major issue/complaint is that of fatigue/weakness which has persisted for the last few days; no other apparent issues to report. Exam Narrative: General: elderly but WD/WN male in NAD Heart: normal S1 and S2; no rub Lungs: coarse at the bases Abdomen: soft, nontender, nondistended, positive bowel sounds Extremities: no cyanosis or clubbing; no edema Skin: warm and intact Objective Data Vital Signs Vital Signs: Vital Signs Temp Pulse Resp BP Pulse Ox O2 Del Method O2 Flow Rate 07/29/22 10:10 98.0 F 68 18 105/65 94 07/29/22 07:58 14 91 07/29/22 06:10 86 07/29/22 04:17 97.0 F L 86 20 114/70 93 07/29/22 04:00 70 07/29/22 00:32 97.9 F 70 20 106/58 L 91 07/29/22 00:00 69 07/28/22 20:00 92 Nasal Cannula 2 07/28/22 20:00 66 07/28/22 21:12 97.6 F 65 20 105/66 92 07/28/22 18:00 98.2 F 62 20 101/58 L 92 07/28/22 17:40 68 07/28/22 16:00 72 07/28/22 13:59 98.4 F 94 20 104/66 93 Intake/Output Intake/Output: Intake & Output 07/26/22 07/27/22 07/28/22 07/29/22 23:59 23:59 23:59 23:59 Intake Total 2900 1260 1020 360 Output Total 800 4175 2420 500 Balance 7501 -4122 -0989 -930 Meds/Results Medications: Active Medications Generic Name Dose Route Start Last Admin Trade Name Freq PRN Reason Stop Dose Admin Acetaminophen 650 mg 07/25/22 20:42 Acetaminophen 325 Mg Tablet PO Q4H PRN Mild Pain (1-3) or Fever Amiodarone HCl 200 mg 07/27/22 06:00 07/29/22 06:10 Amiodarone Hcl 200 Mg Tablet PO 200 mg DAILY@0600 ROSIE Administration Apixaban 5 mg
--- NOTE | 2022-07-29 12:06 | P.PNNP_ITS ---
Progress Note: A&P Assessment and Plan (1) Hyponatremia: Code(s): E87.1 - Hypo-osmolality and hyponatremia Status: Acute Assessment and Plan: * slow improvement * appears acute on chronic * since 2019, sodium running 132 - 136 * more recently, this year, seems to be running 124 - 130 * risk factors for low sodium: * CHF/cardiomyopathy (with acute exacerbation) * chronic diuretic therapy * current pneumonia * evaluation to date: * urine electrolytes are non-prerenal * TSH and cortisol okay * kappa/lamda ratio and SPEP/UPEP pending * no culprit medications noted * no issues with cancer/malignancy at this time (does have hx of prostate cancer) * agree with fluid restriction * PRN IV diuretics for #3 * follow repeat sodium levels (2) Pneumonia: Code(s): J18.9 - Pneumonia, unspecified organism Status: Acute Assessment and Plan: * as suggested by admission CXR * however, possible component of pulmonary edema by CXR as well * follow culture data * on antibiotics * continue nebs and supplemental oxygen * follow respiratory status (3) CHF exacerbation: Code(s): I50.9 - Heart failure, unspecified Status: Acute Assessment and Plan: * suggested by admission CXR with pulmonary edema, cardiomegaly, and small bilat eral effusions * elevated BNP noted * Echo with EF 45 - 50% with diastolic dysfunction * this argues in favor of acute on chronic diastolic heart failure * follow I/Os and daily weights * IV diuretics * diuretic intervention may help improve sodium as a component of hypervolemia present (4) Atrial fibrillation: Code(s): I48.91 - Unspecified atrial fibrillation Status: Chronic Assessment and Plan: * rate controlled * on anticoagulation (5) Hypertension: Qualifiers: Hypertension type: essential hypertension Qualified Code(s): I10 - Essential (primary) hypertension Code(s): I10 - Essential (primary) hypertension Status: Chronic Assessment and Plan: * running on the soft side * BP medications with parameters Will continue to follow. Subjective Date/time seen: 07/29/22 12:06 Slow improvement in sodium level with current interventions; no acute distress voiced at the time of my visit but does report that his major issue/complaint is that of fatigue/weakness which has persisted for the last few days; no other apparent issues to report. Exam Narrative: General: elderly but WD/WN male in NAD Heart: normal S1 and S2; no rub Lungs: coarse at the bases Abdomen: soft, nontender, nondistended, positive bowel sounds Extremities: no cyanosis or clubbing; no edema Skin: warm and intact Objective Data Vital Signs Vital Signs: Vital Signs Temp Pulse Resp BP Pulse Ox O2 Del Method O2 Flow Rate 07/29/22 10:10 98.0 F 68 18 105/65 94 07/29/22 07:58 14 91 07/29/22 06:10 86 07/29/22 04:17 97.0 F L 86 20 114/70 93 07/29/22 04:00 70 07/29/22 00:32 97.9 F 70 20 106/58 L 91 07/29/22 00:00 69 07/28/22 20:00 92 Nasal Cannula 2 07/28/22 20:00 66 07/28/22 21:12 97.6 F 65 20 105/66 92 07/28/22 18:00 98.2 F 62 20 101/58 L 92 07/28/22 17:40 68
--- NOTE | 2022-07-29 12:30 | P.PNIM_ITS ---
Progress Note: A&P Assessment and Plan (1) Hyponatremia: Code(s): E87.1 - Hypo-osmolality and hyponatremia Status: Acute Assessment and Plan: * Na upon arrival 123>121>123>124>125 * Could be related to diuretic use, fluid overload * Stopped NS at 100ml/hr as he does appear to be getting fluid overloaded * Continue to trend * Increase by 6-8 per 24 hour period * Consult nephrology thank you for your help * adjust therapy as indicated * One dose of Lasix, repeat today (2) Pneumonia: Code(s): J18.9 - Pneumonia, unspecified organism Status: Acute Assessment and Plan: * Complaints of shortness of breath * Chest xray indicated PNA vs pulmonary edema * Continue ceftriaxone and azithromycin * Sputum culture ordered * Blood cultures NGTD * Legionella continues to pending * WBC stable at 8.4 * Continue neb treatments * Chest xray from 07/28/22 shows persistent pneumonia Patient failed outpatient treatment of cefdinir and doxycycline (3) Congestive heart failure: Code(s): I50.9 - Heart failure, unspecified Status: Acute Assessment and Plan: * Chest xray: PNA vs CHF, cardiomegaly, small bilateral pleural effusions * BNP elevated at 3470 * Echo EF of 40-45% with a grade 1 diastolic dysfunction, severe biatrial enlargement, * Most likely acute on chronic diastolic heart failure with exacerbation * Most likely contributing to the shortness of breath, and non-resolving pneumonia * Trend daily weights * Accurate I&Os * trend urine output * IV Lasix 40mg x1, repeat another time * Adjust therapy as indicated (4) Atrial fibrillation: Code(s): I48.91 - Unspecified atrial fibrillation Status: Chronic Assessment and Plan: * Chronic and controlled * EKG shows patient is currently in SR 60s * Current HR is 70-80 * Heart rate was noted to be in the 130-140s, in afib RVR, self converted back to sinus Rhythm * Changed metoprolol to 50mg PO bid * Continue Eliquis, amiodarone, aspirin, metoprolol * Trend heart rate * adjust therapy as indicated (5) Mixed hyperlipidemia: Code(s): E78.2 - Mixed hyperlipidemia Status: Acute Assessment and Plan: * LFTs stable * Continue atorvastatin as prescribed (6) Hypertension: Qualifiers: Hypertension type: essential hypertension Qualified Code(s): I10 - Essential (primary) hypertension Code(s): I10 - Essential (primary) hypertension Status: Chronic Assessment and Plan: * BP 113/72 * Continue amiodarone, lisinopril, metoprolol * Trend BP * Adjust therapy as indicated Plan 15 minutes spent with patient and family about current plan and updated them the plan of care Time Spent With Patient Time: 48 minutes Time with patient: Greater than 35 minutes Subjective Date/time seen: 07/29/221229 Interval history: 07/29/221229 Patient was lying in bed. Patient stated that he had kind of a rough day as he is very weak, lightheaded, dizzy however he did eat instead that it seems to be better. He did state that he was urinating okay and is stating that he is now having some pain underneath his left breast. He denies any current shortness of breath, diarrhea . He is having some constipat
--- NOTE | 2022-07-29 12:30 | PM.IMPN ---
Progress Note: A&P Assessment and Plan (1) Hyponatremia: Code(s): E87.1 - Hypo-osmolality and hyponatremia Status: Acute Assessment and Plan: Na upon arrival 123>121>123>124>125 Could be related to diuretic use, fluid overload Stopped NS at 100ml/hr as he does appear to be getting fluid overloaded Continue to trend Increase by 6-8 per 24 hour period Consult nephrology thank you for your help adjust therapy as indicated One dose of Lasix, repeat today (2) Pneumonia: Code(s): J18.9 - Pneumonia, unspecified organism Status: Acute Assessment and Plan: Complaints of shortness of breath Chest xray indicated PNA vs pulmonary edema Continue ceftriaxone and azithromycin Sputum culture ordered Blood cultures NGTD Legionella continues to pending WBC stable at 8.4 Continue neb treatments Chest xray from 07/28/22 shows persistent pneumonia Patient failed outpatient treatment of cefdinir and doxycycline (3) Congestive heart failure: Code(s): I50.9 - Heart failure, unspecified Status: Acute Assessment and Plan: Chest xray: PNA vs CHF, cardiomegaly, small bilateral pleural effusions BNP elevated at 3470 Echo EF of 40-45% with a grade 1 diastolic dysfunction, severe biatrial enlargement, Most likely acute on chronic diastolic heart failure with exacerbation Most likely contributing to the shortness of breath, and non-resolving pneumonia Trend daily weights Accurate I&Os trend urine output IV Lasix 40mg x1, repeat another time Adjust therapy as indicated (4) Atrial fibrillation: Code(s): I48.91 - Unspecified atrial fibrillation Status: Chronic Assessment and Plan: Chronic and controlled EKG shows patient is currently in SR 60s Current HR is 70-80 Heart rate was noted to be in the 130-140s, in afib RVR, self converted back to sinus Rhythm Changed metoprolol to 50mg PO bid Continue Eliquis, amiodarone, aspirin, metoprolol Trend heart rate adjust therapy as indicated (5) Mixed hyperlipidemia: Code(s): E78.2 - Mixed hyperlipidemia Status: Acute Assessment and Plan: LFTs stable Continue atorvastatin as prescribed (6) Hypertension: Qualifiers: Hypertension type: essential hypertension Qualified Code(s): I10 - Essential (primary) hypertension Code(s): I10 - Essential (primary) hypertension Status: Chronic Assessment and Plan: BP 113/72 Continue amiodarone, lisinopril, metoprolol Trend BP Adjust therapy as indicated Plan 15 minutes spent with patient and family about current plan and updated them the plan of care Time Spent With Patient Time: 48 minutes Time with patient: Greater than 35 minutes Subjective Date/time seen: 07/29/22 1230 Interval history: 07/29/22 1230 Patient was lying in bed. Patient stated that he had kind of a rough day as he is very weak, lightheaded, dizzy however he did eat instead that it seems to be better. He did state that he was urinating okay and is stating that he is now having some pain underneath his left breast. He denies any current shortness of breath, diarrhea . He is having some constipation will add Colace. Daughter is updated, all questions wee addressed and answered. HR and BP remain stable. Chest xray shows persistent PNA 07/28/22 1145 Patient is doing well. Patient's daughter is in the room. Currently he did not have his oxygen on and was satting about 90% on room air. After trend it was noted that the patient was satting around 89% and oxygen was replaced. He denies having any chest pain, shortness a breath, nausea, vomiting, diarrhea constipation. He did state that he just felt very weak. Answered all of daughter's questions went over the EKG with her as well. He denied any palpitations or any kno
--- NOTE | 2022-07-29 13:03 | PCCCNOTE ---
On 07/29/22, the student, [Brenda Hernandez ], provided care and [facility]. I have reviewed the student's documentation and agree with the findings.
[2022-07-29] MEDS: DOCUSATE SODIUM 100 MG CAPSULE PO ×2 (13:51→21:36)
[2022-07-29] MEDS: FUROSEMIDE INJ 40 MG/4 ML VIAL IV PUSH (15:49)
[2022-07-29] MEDS: levoFLOXacin 750 MG TABLET PO (21:36)
[2022-07-30] VITALS (13 sets, daily range): BP systolic 100–116; BP diastolic 55–69; PULSE 64–78; RESP 14–20; TEMP 36.2–36.6; O2SAT 94–100
[2022-07-30] MEDS: AMIODARONE HCL 200 MG TABLET PO (05:17)
[2022-07-30] MEDS: ASPIRIN 81 MG ENTERIC TABLET PO (05:17)
[2022-07-30] MEDS: TAMSULOSIN HCL 0.4 MG CAPSULE PO (05:17)
[2022-07-30] MEDS: ATORVASTATIN 20 MG TABLET PO (05:17)
[2022-07-30] MEDS: APIXABAN 5 MG TABLET PO ×2 (05:17→17:19)
[2022-07-30 06:03] LABS: Basophils Absolute Auto 0.1 K/mm3 (0.0-0.1); Basophils Percent Auto 0.9 % (0.2-1.2); Eosinophils Absolute Auto 0.4 K/mm3 (0-0.3); Eosinophils Percent Auto 4.1 % (0-4.4); Hematocrit 37.1 % (42.0-52.0); Hemoglobin 12.2 g/dL (14.0-18.0); Immature Granulocyte Absolute 0.06 K/mm3 (0.00-0.031); Immature Granulocyte Percent A 0.7 % (0-0.5); Immature Platelet Fraction Pct 9.6 % (0.9-11.2); Lymphocytes Absolute Auto 0.84 K/mm3 (0.9-3.2); Mean Corpuscular HGB Conc 32.9 g/dl (32-36); Mean Corpuscular Hemoglobin 29.6 pg (26-34); Mean Platelet Volume 9.9 fl (7.4-10.4); Monocytes Absolute Auto 1.3 K/mm3 (0.1-0.6); Monocytes Percent Auto 14.9 % (2.6-8.5); Neutrophils Absolute Auto 5.9 K/mm3 (1.3-6.7); Neutrophils Percent Auto 69.4 % (45.5-73.1); Platelet Count Result 270 k/mm3 (150-375); Red Blood Count 4.12 M/mm3 (4.6-6.20); Red Cell Distribution Width 13.7 % (11.5-14.5); White Blood Count 8.4 K/mm3 (4.5-10.0)
[2022-07-30 06:31] LABS: Alanine Aminotransferase 48 U/L (6-50); Alkaline Phosphatase 103 U/L (38-126); Aspartate Amino Transferase 48 U/L (17-59); Blood Urea Nitrogen 16 mg/dL (9-20); Calcium 8.1 mg/dL (8.4-10.2); Carbon Dioxide > 40 mmol/L (22-30); Chloride 84 mmol/L (98-107); Estimated CRCL calculation 96 ml/min; Estimated Glomerular Filt Rate > 60; Glucose 101 mg/dL (65-110); Magnesium 1.8 mg/dL (1.6-2.3); Potassium 4.7 mmol/L (3.4-5.0); Sodium 123 mmol/L (137-145)
[2022-07-30] MEDS: DOCUSATE SODIUM 100 MG CAPSULE PO ×2 (08:24→20:25)
[2022-07-30] MEDS: METOPROLOL TARTRATE 50 MG TAB PO ×2 (08:24→17:19)
--- NOTE | 2022-07-30 12:25 | P.PNNP_ITS ---
Progress Note: A&P Assessment and Plan (1) Hyponatremia: Code(s): E87.1 - Hypo-osmolality and hyponatremia Status: Acute Assessment and Plan: * slow improvement * appears acute on chronic * since 2019, sodium running 132 - 136 * more recently, this year, seems to be running 124 - 130 * risk factors for low sodium: * CHF/cardiomyopathy (with acute exacerbation) * chronic diuretic therapy * current pneumonia * evaluation to date: * urine electrolytes are non-prerenal * TSH and cortisol okay * kappa/lamda ratio and SPEP/UPEP pending * no culprit medications noted * no issues with cancer/malignancy at this time (does have hx of prostate cancer) * agree with fluid restriction * given drop in sodium, will start salt tabs * follow repeat sodium levels (2) Pneumonia: Code(s): J18.9 - Pneumonia, unspecified organism Status: Acute Assessment and Plan: * as suggested by admission CXR * however, possible component of pulmonary edema by CXR as well * follow culture data * on antibiotics * continue nebs and supplemental oxygen * follow respiratory status (3) CHF exacerbation: Code(s): I50.9 - Heart failure, unspecified Status: Acute Assessment and Plan: * suggested by admission CXR with pulmonary edema, cardiomegaly, and small bilateral effusions * elevated BNP noted * Echo with EF 45 - 50% with diastolic dysfunction * this argues in favor of acute on chronic diastolic heart failure * follow I/Os and daily weights * IV diuretics PRN (4) Atrial fibrillation: Code(s): I48.91 - Unspecified atrial fibrillation Status: Chronic Assessment and Plan: * rate controlled * on anticoagulation (5) Hypertension: Qualifiers: Hypertension type: essential hypertension Qualified Code(s): I10 - Essential (primary) hypertension Code(s): I10 - Essential (primary) hypertension Status: Chronic Assessment and Plan: * running on the soft side * BP medications with parameters Will continue to follow. Subjective Date/time seen: 07/30/22 12:25 No acute complaints voiced aside from generalized weakness; no apparent distress to report; no issues/events overnight or earlier this AM; sodium down this AM so initiated on salt tabs. Exam Narrative: General: elderly but WD/WN male in NAD Heart: normal S1 and S2; no rub Lungs: coarse at the bases Abdomen: soft, nontender, nondistended, positive bowel sounds Extremities: no cyanosis or clubbing; no edema Skin: warm and intact Objective Data Vital Signs Vital Signs: Vital Signs Temp Pulse Resp BP Pulse Ox O2 Del Method O2 Flow Rate 07/30/22 10:10 97.9 F 67 14 110/55 L 96 07/30/22 08:00 70 07/30/22 08:24 70 07/30/22 04:00 73 07/30/22 05:17 78 07/30/22 04:46 97.2 F L 72 20 116/69 95 07/30/22 00:00 64 07/29/22 20:00 67 07/30/22 00:01 97.5 F L 65 18 109/61 100 07/29/22 20:00 69 20 95 Nasal Cannula 2 07/29/22 20:06 96.7 F L 69 20 103/60 95 07/29/22 16:00 68 07/29/22 18:05 98.3 F 69 20 104/68 95 07/29/22 17:22 70 102/70 07/29/22 14:14 98.4 F 72 18 113/72 97 Inta
--- NOTE | 2022-07-30 12:25 | PM.PNNEP ---
Progress Note: A&P Assessment and Plan (1) Hyponatremia: Code(s): E87.1 - Hypo-osmolality and hyponatremia Status: Acute Assessment and Plan: slow improvement appears acute on chronic since 2019, sodium running 132 - 136 more recently, this year, seems to be running 124 - 130 risk factors for low sodium: CHF/cardiomyopathy (with acute exacerbation) chronic diuretic therapy current pneumonia evaluation to date: urine electrolytes are non-prerenal TSH and cortisol okay kappa/lamda ratio and SPEP/UPEP pending no culprit medications noted no issues with cancer/malignancy at this time (does have hx of prostate cancer) agree with fluid restriction given drop in sodium, will start salt tabs follow repeat sodium levels (2) Pneumonia: Code(s): J18.9 - Pneumonia, unspecified organism Status: Acute Assessment and Plan: as suggested by admission CXR however, possible component of pulmonary edema by CXR as well follow culture data on antibiotics continue nebs and supplemental oxygen follow respiratory status (3) CHF exacerbation: Code(s): I50.9 - Heart failure, unspecified Status: Acute Assessment and Plan: suggested by admission CXR with pulmonary edema, cardiomegaly, and small bilateral effusions elevated BNP noted Echo with EF 45 - 50% with diastolic dysfunction this argues in favor of acute on chronic diastolic heart failure follow I/Os and daily weights IV diuretics PRN (4) Atrial fibrillation: Code(s): I48.91 - Unspecified atrial fibrillation Status: Chronic Assessment and Plan: rate controlled on anticoagulation (5) Hypertension: Qualifiers: Hypertension type: essential hypertension Qualified Code(s): I10 - Essential (primary) hypertension Code(s): I10 - Essential (primary) hypertension Status: Chronic Assessment and Plan: running on the soft side BP medications with parameters Will continue to follow. Subjective Date/time seen: 07/30/22 12:25 No acute complaints voiced aside from generalized weakness; no apparent distress to report; no issues/events overnight or earlier this AM; sodium down this AM so initiated on salt tabs. Exam Narrative: General: elderly but WD/WN male in NAD Heart: normal S1 and S2; no rub Lungs: coarse at the bases Abdomen: soft, nontender, nondistended, positive bowel sounds Extremities: no cyanosis or clubbing; no edema Skin: warm and intact Objective Data Vital Signs Vital Signs: Vital Signs Temp Pulse Resp BP Pulse Ox O2 Del Method O2 Flow Rate 07/30/22 10:10 97.9 F 67 14 110/55 L 96 07/30/22 08:00 70 07/30/22 08:24 70 07/30/22 04:00 73 07/30/22 05:17 78 07/30/22 04:46 97.2 F L 72 20 116/69 95 07/30/22 00:00 64 07/29/22 20:00 67 07/30/22 00:01 97.5 F L 65 18 109/61 100 07/29/22 20:00 69 20 95 Nasal Cannula 2 07/29/22 20:06 96.7 F L 69 20 103/60 95 07/29/22 16:00 68 07/29/22 18:05 98.3 F 69 20 104/68 95 07/29/22 17:22 70 102/70 07/29/22 14:14 98.4 F 72 18 113/72 97 Intake/Output Intake/Output: Intake & Output 07/27/22 07/28/22 07/29/22 07/30/22 23:59 23:59 23:59 23:59 Intake Total 1260 1020 1080 590 Output Total 2307 8874 2372 900 Balance -2915 -1400 -1295 -310 Meds/Results Medications: Active Medications Generic Name Dose Route Start Last Admin Trade Name Clarenceq PRN Reason Stop Dose Admin Acetaminophen 650 mg 07/25/22 20:42 Acetaminophen 325 Mg Tablet PO Q4H PRN Mild Pain (1-3) or Fever Amiodarone HCl 200 mg 07/27/22 06:00 07/30/22 05:17 Amiodarone Hcl 200 Mg Tablet PO 200 mg DAILY@0600 [facility] Administration Apixaban 5 mg 07/26/22 18:00 07/30/22 05:17 Apixaban 5 Mg Tablet PO 5 mg BID@0600,1800 [facility] Administration Aspiri
--- NOTE | 2022-07-30 12:45 | PM.IMPN ---
Progress Note: A&P Assessment and Plan (1) Hyponatremia: Code(s): E87.1 - Hypo-osmolality and hyponatremia Status: Acute Assessment and Plan: Na upon arrival 123>121>123>124>125>123 Could be related to diuretic use, fluid overload Stopped NS at 100ml/hr as he does appear to be getting fluid overloaded Continue to trend Increase by 6-8 per 24 hour period Consult nephrology thank you for your help adjust therapy as indicated Hold on further lasix as the sodium is now down to 123 Started the patient on salt tabs 500mg PO BID (2) Pneumonia: Code(s): J18.9 - Pneumonia, unspecified organism Status: Acute Assessment and Plan: Complaints of shortness of breath Chest xray indicated PNA vs pulmonary edema Continue ceftriaxone and azithromycin Sputum culture ordered Blood cultures NGTD Legionella continues to pending WBC stable at 8.4 Continue neb treatments Chest xray from 07/28/22 shows persistent pneumonia Patient failed outpatient treatment of cefdinir and doxycycline (3) Congestive heart failure: Code(s): I50.9 - Heart failure, unspecified Status: Acute Assessment and Plan: Chest xray: PNA vs CHF, cardiomegaly, small bilateral pleural effusions BNP elevated at 3470 Echo EF of 40-45% with a grade 1 diastolic dysfunction, severe biatrial enlargement, Most likely acute on chronic diastolic heart failure with exacerbation Most likely contributing to the shortness of breath, and non-resolving pneumonia Trend daily weights Accurate I&Os trend urine output Adjust therapy as indicated (4) Atrial fibrillation: Code(s): I48.91 - Unspecified atrial fibrillation Status: Chronic Assessment and Plan: Chronic and controlled EKG shows patient is currently in SR 60s Current HR is 70-80 Heart rate was noted to be in the 130-140s, in afib RVR, self converted back to sinus Rhythm Changed metoprolol to 50mg PO bid Continue Eliquis, amiodarone, aspirin, metoprolol Trend heart rate adjust therapy as indicated (5) Mixed hyperlipidemia: Code(s): E78.2 - Mixed hyperlipidemia Status: Acute Assessment and Plan: LFTs stable Continue atorvastatin as prescribed (6) Hypertension: Qualifiers: Hypertension type: essential hypertension Qualified Code(s): I10 - Essential (primary) hypertension Code(s): I10 - Essential (primary) hypertension Status: Chronic Assessment and Plan: BP 104/62 Continue amiodarone, lisinopril, metoprolol Trend BP Adjust therapy as indicated Time Spent With Patient Time: 48 minutes Time with patient: Greater than 35 minutes Subjective Date/time seen: 07/30/22 1245 Interval history: 07/30/22 1245 Patient is doing ok. He currently denies any complaints of chest pain, shortness of breath, nausea, vomiting, diarrhea, constipation, weakness, or fatigue. Na is trending down and is currently at 123. 07/29/22 1230 Patient was lying in bed. Patient stated that he had kind of a rough day as he is very weak, lightheaded, dizzy however he did eat instead that it seems to be better. He did state that he was urinating okay and is stating that he is now having some pain underneath his left breast. He denies any current shortness of breath, diarrhea . He is having some constipation will add Colace. Daughter is updated, all questions wee addressed and answered. HR and BP remain stable. Chest xray shows persistent PNA 07/28/22 1145 Patient is doing well. Patient's daughter is in the room. Currently he did not have his oxygen on and was satting about 90% on room air. After trend it was noted that the patient was satting around 89% and oxygen was replaced. He denies having any chest pain, shortness a breath, nausea, vomiting, diarrhea constipation. H
--- NOTE | 2022-07-30 12:45 | P.PNIM_ITS ---
Progress Note: A&P Assessment and Plan (1) Hyponatremia: Code(s): E87.1 - Hypo-osmolality and hyponatremia Status: Acute Assessment and Plan: * Na upon arrival 123>121>123>124>125>123 * Could be related to diuretic use, fluid overload * Stopped NS at 100ml/hr as he does appear to be getting fluid overloaded * Continue to trend * Increase by 6-8 per 24 hour period * Consult nephrology thank you for your help * adjust therapy as indicated * Hold on further lasix as the sodium is now down to 123 * Started the patient on salt tabs 500mg PO BID (2) Pneumonia: Code(s): J18.9 - Pneumonia, unspecified organism Status: Acute Assessment and Plan: * Complaints of shortness of breath * Chest xray indicated PNA vs pulmonary edema * Continue ceftriaxone and azithromycin * Sputum culture ordered * Blood cultures NGTD * Legionella continues to pending * WBC stable at 8.4 * Continue neb treatments * Chest xray from 07/28/22 shows persistent pneumonia Patient failed outpatient treatment of cefdinir and doxycycline (3) Congestive heart failure: Code(s): I50.9 - Heart failure, unspecified Status: Acute Assessment and Plan: * Chest xray: PNA vs CHF, cardiomegaly, small bilateral pleural effusions * BNP elevated at 3470 * Echo EF of 40-45% with a grade 1 diastolic dysfunction, severe biatrial enlargement, * Most likely acute on chronic diastolic heart failure with exacerbation * Most likely contributing to the shortness of breath, and non-resolving pneumonia * Trend daily weights * Accurate I&Os * trend urine output * Adjust therapy as indicated (4) Atrial fibrillation: Code(s): I48.91 - Unspecified atrial fibrillation Status: Chronic Assessment and Plan: * Chronic and controlled * EKG shows patient is currently in SR 60s * Current HR is 70-80 * Heart rate was noted to be in the 130-140s, in afib RVR, self converted back to sinus Rhythm * Changed metoprolol to 50mg PO bid * Continue Eliquis, amiodarone, aspirin, metoprolol * Trend heart rate * adjust therapy as indicated (5) Mixed hyperlipidemia: Code(s): E78.2 - Mixed hyperlipidemia Status: Acute Assessment and Plan: * LFTs stable * Continue atorvastatin as prescribed (6) Hypertension: Qualifiers: Hypertension type: essential hypertension Qualified Code(s): I10 - Essential (primary) hypertension Code(s): I10 - Essential (primary) hypertension Status: Chronic Assessment and Plan: * BP 104/62 * Continue amiodarone, lisinopril, metoprolol * Trend BP * Adjust therapy as indicated Time Spent With Patient Time: 48 minutes Time with patient: Greater than 35 minutes Subjective Date/time seen: 07/30/22 1245 Interval history: 07/30/221244 Patient is doing ok. He currently denies any complaints of chest pain, shortness of breath, nausea, vomiting, diarrhea, constipation, weakness, or fatigue. Na is trending down and is currently at 123. 07/29/22 1230 Patient was lying in bed. Patient stated that he had kind of a rough day as he is very weak, lightheaded, dizzy however he did eat instead that it seems to be better. He did state that he was urinating okay and
[2022-07-30 13:49] LABS: Osmolality, Urine 660 mOsm/kg (50-1200)
[2022-07-30] MEDS: SODIUM CHLORIDE 500 MG TABLET PO ×2 (14:35→17:19)
[2022-07-30] MEDS: levoFLOXacin 750 MG TABLET PO (20:29)
[2022-07-30 20:46] LABS: Kappa\\Lambda Light Chains 1.93 (0.26-1.65); Lambda Light Chain 26.8 mg/L (5.7-26.3)
[2022-07-31] VITALS (18 sets, daily range): BP systolic 92–117; BP diastolic 54–77; PULSE 60–71; RESP 16–20; TEMP 36.4–36.8; O2SAT 94–96
[2022-07-31 02:50] LABS: Legionella pneumophila Ag Ur Not Detected (Not Detected)
[2022-07-31 05:14] LABS: Basophils Absolute Auto 0.1 K/mm3 (0.0-0.1); Basophils Percent Auto 0.8 % (0.2-1.2); Eosinophils Absolute Auto 0.2 K/mm3 (0-0.3); Eosinophils Percent Auto 2.7 % (0-4.4); Hematocrit 37.5 % (42.0-52.0); Hemoglobin 12.2 g/dL (14.0-18.0); Immature Granulocyte Absolute 0.07 K/mm3 (0.00-0.031); Immature Granulocyte Percent A 0.8 % (0-0.5); Lymphocytes Absolute Auto 0.85 K/mm3 (0.9-3.2); Lymphocytes Percent Auto 10.3 % (18.3-44.2); Mean Corpuscular HGB Conc 32.5 g/dl (32-36); Mean Corpuscular Hemoglobin 29.8 pg (26-34); Mean Corpuscular Volume 91.5 fl (80-100); Mean Platelet Volume 10.4 fl (7.4-10.4); Monocytes Absolute Auto 1.2 K/mm3 (0.1-0.6); Monocytes Percent Auto 14.9 % (2.6-8.5); Neutrophils Absolute Auto 5.8 K/mm3 (1.3-6.7); Neutrophils Percent Auto 70.5 % (45.5-73.1); Platelet Count Result 238 k/mm3 (150-375); Red Cell Distribution Width 13.6 % (11.5-14.5); White Blood Count 8.3 K/mm3 (4.5-10.0)
[2022-07-31 05:27] LABS: Alanine Aminotransferase 43 U/L (6-50); Albumin Level 2.9 g/dL (3.5-5.1); Alkaline Phosphatase 115 U/L (38-126); Aspartate Amino Transferase 38 U/L (17-59); Blood Urea Nitrogen 17 mg/dL (9-20); Carbon Dioxide > 40 mmol/L (22-30); Chloride 83 mmol/L (98-107); Estimated CRCL calculation 84 ml/min; Estimated Glomerular Filt Rate > 60; Glucose 101 mg/dL (65-110); Magnesium 1.8 mg/dL (1.6-2.3); Potassium 5.1 mmol/L (3.4-5.0); Sodium 123 mmol/L (137-145)
[2022-07-31] MEDS: ASPIRIN 81 MG ENTERIC TABLET PO (05:53)
[2022-07-31] MEDS: AMIODARONE HCL 200 MG TABLET PO (05:53)
[2022-07-31] MEDS: APIXABAN 5 MG TABLET PO ×2 (05:53→17:22)
[2022-07-31] MEDS: TAMSULOSIN HCL 0.4 MG CAPSULE PO (05:54)
[2022-07-31] MEDS: ATORVASTATIN 20 MG TABLET PO (05:54)
[2022-07-31] MEDS: SODIUM CHLORIDE 500 MG TABLET PO (08:32)
[2022-07-31] MEDS: DOCUSATE SODIUM 100 MG CAPSULE PO ×2 (08:32→20:43)
[2022-07-31] MEDS: METOPROLOL TARTRATE 50 MG TAB PO ×2 (08:32→17:22)
[2022-07-31 10:44] LABS: Sodium 123 mmol/L (137-145)
--- NOTE | 2022-07-31 12:59 | PM.PNNEP ---
Progress Note: A&P Assessment and Plan (1) Hyponatremia: Code(s): E87.1 - Hypo-osmolality and hyponatremia Status: Acute Assessment and Plan: slow improvement appears acute on chronic since 2019, sodium running 132 - 136 more recently, this year, seems to be running 124 - 130 risk factors for low sodium: CHF/cardiomyopathy (with acute exacerbation) chronic diuretic therapy current pneumonia evaluation to date: urine electrolytes are non-prerenal TSH and cortisol okay kappa/lamda ratio and SPEP/UPEP pending no culprit medications noted no issues with cancer/malignancy at this time (does have hx of prostate cancer) agree with fluid restriction given drop in sodium, started on salt tabs - will titrate follow repeat sodium levels (2) Pneumonia: Code(s): J18.9 - Pneumonia, unspecified organism Status: Acute Assessment and Plan: as suggested by admission CXR however, possible component of pulmonary edema by CXR as well follow culture data on antibiotics continue nebs and supplemental oxygen follow respiratory status (3) CHF exacerbation: Code(s): I50.9 - Heart failure, unspecified Status: Acute Assessment and Plan: suggested by admission CXR with pulmonary edema, cardiomegaly, and small bilateral effusions elevated BNP noted Echo with EF 45 - 50% with diastolic dysfunction this argues in favor of acute on chronic diastolic heart failure follow I/Os and daily weights IV diuretics PRN (4) Atrial fibrillation: Code(s): I48.91 - Unspecified atrial fibrillation Status: Chronic Assessment and Plan: rate controlled on anticoagulation (5) Hypertension: Qualifiers: Hypertension type: essential hypertension Qualified Code(s): I10 - Essential (primary) hypertension Code(s): I10 - Essential (primary) hypertension Status: Chronic Assessment and Plan: running on the soft side BP medications with parameters Will continue to follow. Subjective Date/time seen: 07/31/22 12:59 Multiple complaints voiced on my visit with him -- states he feels tired/fatigued and was not able to sleep well last night; states he still has on/off shortness of breath now associated with a cough; no acute distress noted. Exam Narrative: General: elderly but WD/WN male in NAD Heart: normal S1 and S2; no rub Lungs: coarse at the bases Abdomen: soft, nontender, nondistended, positive bowel sounds Extremities: no cyanosis or clubbing; no edema Skin: no rash Objective Data Vital Signs Vital Signs: Vital Signs Temp Pulse Resp BP Pulse Ox O2 Del Method O2 Flow Rate 07/31/22 12:00 61 07/31/22 08:30 95 Nasal Cannula 2 07/31/22 10:00 97.7 F 65 16 96/57 L 95 07/31/22 08:00 70 07/31/22 08:32 70 07/31/22 08:29 70 20 114/62 94 07/31/22 05:53 69 07/31/22 04:00 71 07/31/22 03:40 97.5 F L 66 20 110/69 94 07/31/22 00:00 70 07/31/22 00:09 98.0 F 69 20 117/66 94 07/30/22 20:00 94 Nasal Cannula 2 07/30/22 20:19 97.1 F L 64 18 100/61 95 07/30/22 16:00 68 Intake/Output Intake/Output: Intake & Output 07/28/22 07/29/22 07/30/22 07/31/22 23:59 23:59 23:59 23:59 Intake Total 1020 1080 1310 600 Output Total 2420 2375 1350 500 Balance -1400 -1295 -40 100 Meds/Results Medications: Active Medications Generic Name Dose Route Start Last Admin Trade Name Clarenceq PRN Reason Stop Dose Admin Acetaminophen 650 mg 07/25/22 20:42 Acetaminophen 325 Mg Tablet PO Q4H PRN Mild Pain (1-3) or Fever Amiodarone HCl 200 mg 07/27/22 06:00 07/31/22 05:53 Amiodarone Hcl 200 Mg Tablet PO 200 mg DAILY@0600 [facility] Administration Apixaban 5 mg 07/26/22 18:00 07/31/22 05:53 Apixaban 5 Mg Tablet PO 5 mg BID@0600,1800 [facility] Administration Aspirin 81 mg 0
--- NOTE | 2022-07-31 12:59 | P.PNNP_ITS ---
Progress Note: A&P Assessment and Plan (1) Hyponatremia: Code(s): E87.1 - Hypo-osmolality and hyponatremia Status: Acute Assessment and Plan: * slow improvement * appears acute on chronic * since 2019, sodium running 132 - 136 * more recently, this year, seems to be running 124 - 130 * risk factors for low sodium: * CHF/cardiomyopathy (with acute exacerbation) * chronic diuretic therapy * current pneumonia * evaluation to date: * urine electrolytes are non-prerenal * TSH and cortisol okay * kappa/lamda ratio and SPEP/UPEP pending * no culprit medications noted * no issues with cancer/malignancy at this time (does have hx of prostate cancer) * agree with fluid restriction * given drop in sodium, started on salt tabs - will titrate * follow repeat sodium levels (2) Pneumonia: Code(s): J18.9 - Pneumonia, unspecified organism Status: Acute Assessment and Plan: * as suggested by admission CXR * however, possible component of pulmonary edema by CXR as well * follow culture data * on antibiotics * continue nebs and supplemental oxygen * follow respiratory status (3) CHF exacerbation: Code(s): I50.9 - Heart failure, unspecified Status: Acute Assessment and Plan: * suggested by admission CXR with pulmonary edema, cardiomegaly, and small bilateral effusions * elevated BNP noted * Echo with EF 45 - 50% with diastolic dysfunction * this argues in favor of acute on chronic diastolic heart failure * follow I/Os and daily weights * IV diuretics PRN (4) Atrial fibrillation: Code(s): I48.91 - Unspecified atrial fibrillation Status: Chronic Assessment and Plan: * rate controlled * on anticoagulation (5) Hypertension: Qualifiers: Hypertension type: essential hypertension Qualified Code(s): I10 - Essential (primary) hypertension Code(s): I10 - Essential (primary) hypertension Status: Chronic Assessment and Plan: * running on the soft side * BP medications with parameters Will continue to follow. Subjective Date/time seen: 07/31/22 12:59 Multiple complaints voiced on my visit with him -- states he feels tired/fatigu ed and was not able to sleep well last night; states he still has on/off shortness of breath now associated with a cough; no acute distress noted. Exam Narrative: General: elderly but WD/WN male in NAD Heart: normal S1 and S2; no rub Lungs: coarse at the bases Abdomen: soft, nontender, nondistended, positive bowel sounds Extremities: no cyanosis or clubbing; no edema Skin: no rash Objective Data Vital Signs Vital Signs: Vital Signs Temp Pulse Resp BP Pulse Ox O2 Del Method O2 Flow Rate 07/31/22 12:00 61 07/31/22 08:30 95 Nasal Cannula 2 07/31/22 10:00 97.7 F 65 16 96/57 L 95 07/31/22 08:00 70 07/31/22 08:32 70 07/31/22 08:29 70 20 114/62 94 07/31/22 05:53 69 07/31/22 04:00 71 07/31/22 03:40 97.5 F L 66 20 110/69 94 07/31/22 00:00 70 07/31/22 00:09 98.0 F 69 20 117/66 94 07/30/22 20:00 94 Nasal Cannula 2 07/30/22 20:19 97.1 F L 64 18 100/61 95 07/30/22 16:00 68 Intake/Output In
--- NOTE | 2022-07-31 13:01 | PCCCNOTE ---
On 07/31/22, the student, [Brenda Hernandez ], provided care and completed [facility] documentation on this patient. I have reviewed the student's documentation and agree with the findings.
[2022-07-31 16:27] LABS: Albumin 2.6 g/dL (3.8-4.8); Alpha 1 Globulin 0.4 g/dL (0.2-0.3); Alpha 2 Globulin 0.8 g/dL (0.5-0.9); Beta 1 Globulin 0.3 g/dL (0.4-0.6); Protein, Total 5.4 g/dL (6.1-8.1)
--- NOTE | 2022-07-31 16:52 | P.PNIM_ITS ---
Progress Note: A&P Assessment and Plan (1) Hyponatremia: Code(s): E87.1 - Hypo-osmolality and hyponatremia Status: Acute Assessment and Plan: Sodium persistently low * Appreciate npehrology consultation * Sodium 123 today, remaining stable * Continue with fluid restriction diet * IV fluids discontinued * Continue to trend sodium to ensure appropriate rate of correction. * Lasix on hold * Continue salt tabs 500 mg BID (2) Pneumonia: Code(s): J18.9 - Pneumonia, unspecified organism Status: Acute Assessment and Plan: Patient presented with complaints of SOB and cough * Chest xray indicated PNA vs pulmonary edema * Continue PO Levaquin * Sputum culture ordered, awaiting collection * Continue supportive care, bronchodilators, incentive spirometry (3) Congestive heart failure: Code(s): I50.9 - Heart failure, unspecified Status: Acute Assessment and Plan: Chest xray revealed PNA vs CHF, cardiomegaly, small bilateral pleural effusions * BNP elevated at 3470 * Echo EF of 40-45% with a grade 1 diastolic dysfunction, severe biatrial enlargement, * Most likely acute on chronic diastolic heart failure with exacerbation * Most likely contributing to the shortness of breath * Monitor volume status with I&O, daily weights, urine output (4) Atrial fibrillation: Code(s): I48.91 - Unspecified atrial fibrillation Status: Chronic Assessment and Plan: Chronic and controlled * Patient converrted back to sinus rhythm * Conintue metoprolol 50mg PO bid * Continue Eliquis, amiodarone, aspirin, metoprolol (5) Mixed hyperlipidemia: Code(s): E78.2 - Mixed hyperlipidemia Status: Acute Assessment and Plan: LFTs stable * Continue atorvastatin as prescribed (6) Hypertension: Qualifiers: Hypertension type: essential hypertension Qualified Code(s): I10 - Essential (primary) hypertension Code(s): I10 - Essential (primary) hypertension Status: Chronic Assessment and Plan: Blood pressures are stable * Continue amiodarone, lisinopril, metoprolol Subjective Date/time seen: 07/31/22 16:52 Interval history: date of service: 07/31/2022 Yonathan Higgins is an 82-year-old male with a history of atrial fibrillation, prostate cancer, SVT, hyperlipidemia, and cardiomyopathy who is seen in follow- up for hyponatremia. Today he complains of feeling tired, states he had trouble sleeping last night. He complains of feeling short of breath. He has a cough. Denies dysphagia. His daughter is present at the bedside. Review of Systems Review of Systems: All systems reviewed & are unremarkable except as noted in HPI and below Exam Narrative: General: well-nourished, well-appearing 82-year-old male, sitting up in bed, comfortable, NARD Neuro: awake, alert and oriented x4, speech clear, no focal neuro deficits noted HEENMT: normocephalic, atraumatic, EOMI, sclerae anicteric, moist oral mucosa Respiratory: Clear to auscultation bilaterally without crackles, rhonchi or wheezes, nonlabored breathing Cardio: regular rate, regular rhythm with S1-S2 Abdomen: nondistended, normoactive bowel sounds, soft, nontender to palpation Extremities: no edema, erythema, or tenderness to palpation, DP pulses 2+ bilaterally Skin: no rashes or lesions, warm and dry Psych: appropriate mood and affect, judgment and insight intact Objective Data Vital Signs
--- NOTE | 2022-07-31 16:52 | PM.IMPN ---
Progress Note: A&P Assessment and Plan (1) Hyponatremia: Code(s): E87.1 - Hypo-osmolality and hyponatremia Status: Acute Assessment and Plan: Sodium persistently low Appreciate npehrology consultation Sodium 123 today, remaining stable Continue with fluid restriction diet IV fluids discontinued Continue to trend sodium to ensure appropriate rate of correction. Lasix on hold Continue salt tabs 500 mg BID (2) Pneumonia: Code(s): J18.9 - Pneumonia, unspecified organism Status: Acute Assessment and Plan: Patient presented with complaints of SOB and cough Chest xray indicated PNA vs pulmonary edema Continue PO Levaquin Sputum culture ordered, awaiting collection Continue supportive care, bronchodilators, incentive spirometry (3) Congestive heart failure: Code(s): I50.9 - Heart failure, unspecified Status: Acute Assessment and Plan: Chest xray revealed PNA vs CHF, cardiomegaly, small bilateral pleural effusions BNP elevated at 3470 Echo EF of 40-45% with a grade 1 diastolic dysfunction, severe biatrial enlargement, Most likely acute on chronic diastolic heart failure with exacerbation Most likely contributing to the shortness of breath Monitor volume status with I&O, daily weights, urine output (4) Atrial fibrillation: Code(s): I48.91 - Unspecified atrial fibrillation Status: Chronic Assessment and Plan: Chronic and controlled Patient converrted back to sinus rhythm Conintue metoprolol 50mg PO bid Continue Eliquis, amiodarone, aspirin, metoprolol (5) Mixed hyperlipidemia: Code(s): E78.2 - Mixed hyperlipidemia Status: Acute Assessment and Plan: LFTs stable Continue atorvastatin as prescribed (6) Hypertension: Qualifiers: Hypertension type: essential hypertension Qualified Code(s): I10 - Essential (primary) hypertension Code(s): I10 - Essential (primary) hypertension Status: Chronic Assessment and Plan: Blood pressures are stable Continue amiodarone, lisinopril, metoprolol Subjective Date/time seen: 07/31/22 16:52 Interval history: date of service: 07/31/2022 Yonathan Higgins is an 82-year-old male with a history of atrial fibrillation, prostate cancer, SVT, hyperlipidemia, and cardiomyopathy who is seen in follow-up for hyponatremia. Today he complains of feeling tired, states he had trouble sleeping last night. He complains of feeling short of breath. He has a cough. Denies dysphagia. His daughter is present at the bedside. Review of Systems Review of Systems: All systems reviewed & are unremarkable except as noted in HPI and below Exam Narrative: General: well-nourished, well-appearing 82-year-old male, sitting up in bed, comfortable, NARD Neuro: awake, alert and oriented x4, speech clear, no focal neuro deficits noted HEENMT: normocephalic, atraumatic, EOMI, sclerae anicteric, moist oral mucosa Respiratory: Clear to auscultation bilaterally without crackles, rhonchi or wheezes, nonlabored breathing Cardio: regular rate, regular rhythm with S1-S2 Abdomen: nondistended, normoactive bowel sounds, soft, nontender to palpation Extremities: no edema, erythema, or tenderness to palpation, DP pulses 2+ bilaterally Skin: no rashes or lesions, warm and dry Psych: appropriate mood and affect, judgment and insight intact Objective Data Vital Signs Vital Signs: Vital Signs - 24 hr 07/30/22 20:19 07/30/22 20:00 07/31/22 00:09 Temperature 97.1 F L 98.0 F Pulse Rate 64 69 Respiratory Rate 18 20 Blood Pressure 100/61 117/66 Pulse Oximetry 95 94 94 Oxygen Delivery Nasal Cannula Oxygen Flow Rate 2 07/31/22 00:00 07/31/22 03:40 07/31/22 04:00 Temperature 97.5 F L Pulse Rate 70 66 71 Respiratory Rate 20 Blood Pressure 110/69 Pulse Oximetry 94 Oxygen Delivery Oxygen Flow Rate 07/31/22 05:53
[2022-07-31] MEDS: SODIUM CHLORIDE 1 GM TABLET PO (17:21)
[2022-07-31] MEDS: FUROSEMIDE 10 MG TABLET PO (17:22)
[2022-07-31 17:26] LABS: Sodium 122 mmol/L (137-145)
[2022-07-31] MEDS: levoFLOXacin 750 MG TABLET PO (20:42)
[2022-07-31] MEDS: MELATONIN 3 MG TABLET PO (20:43)
[2022-07-31 23:40] LABS: Sodium 120 mmol/L (137-145)
[2022-08-01] VITALS (19 sets, daily range): BP systolic 96–110; BP diastolic 52–68; PULSE 62–78; RESP 16–20; TEMP 36.4–36.9; O2SAT 91–97
[2022-08-01] MEDS: SODIUM CHLORIDE 3% 300 ML 100 ML IV CONT (00:36)
[2022-08-01 05:06] LABS: Hematocrit 39.1 % (42.0-52.0); Hemoglobin 12.2 g/dL (14.0-18.0); Mean Corpuscular HGB Conc 31.2 g/dl (32-36); Mean Corpuscular Volume 92.9 fl (80-100); Mean Platelet Volume 10.1 fl (7.4-10.4); Platelet Count Result 225 k/mm3 (150-375); Red Blood Count 4.21 M/mm3 (4.6-6.20); Red Cell Distribution Width 13.7 % (11.5-14.5); White Blood Count 8.2 K/mm3 (4.5-10.0)
[2022-08-01 05:36] LABS: Blood Urea Nitrogen 20 mg/dL (9-20); Calcium 8.2 mg/dL (8.4-10.2); Carbon Dioxide > 40 mmol/L (22-30); Chloride 85 mmol/L (98-107); Estimated CRCL calculation 74 ml/min; Estimated Glomerular Filt Rate > 60; Glucose 105 mg/dL (65-110); Potassium 4.8 mmol/L (3.4-5.0); Sodium 125 mmol/L (137-145)
[2022-08-01] MEDS: TAMSULOSIN HCL 0.4 MG CAPSULE PO (06:12)
[2022-08-01] MEDS: AMIODARONE HCL 200 MG TABLET PO (06:12)
[2022-08-01] MEDS: ASPIRIN 81 MG ENTERIC TABLET PO (06:12)
[2022-08-01] MEDS: ATORVASTATIN 20 MG TABLET PO (06:12)
[2022-08-01] MEDS: APIXABAN 5 MG TABLET PO ×2 (06:12→17:34)
[2022-08-01] MEDS: METOPROLOL TARTRATE 50 MG TAB PO (09:08)
[2022-08-01] MEDS: SODIUM CHLORIDE 1 GM TABLET PO ×3 (09:08→20:14)
[2022-08-01] MEDS: DOCUSATE SODIUM 100 MG CAPSULE PO ×2 (09:08→20:14)
[2022-08-01] MEDS: polyethylene glycoL 3350 17 GM POWD.PACK PO (09:09)
--- NOTE | 2022-08-01 10:54 | PCNWS ---
Weekly nutritional screen. Patient is tolerating current diet with adequate intake. No weight loss reported. No nutritional needs at this time.
--- NOTE | 2022-08-01 11:26 | PC.NURSE ---
On 08/01/22, the student, [Edgard Yusuf], provided care and completed [facility] documentation on this patient. I have reviewed the student's documentation and agree with the findings.
[2022-08-01 11:31] LABS: Sodium 125 mmol/L (137-145)
--- NOTE | 2022-08-01 13:08 | P.PNNP_ITS ---
Progress Note: A&P Assessment and Plan (1) Hyponatremia: Code(s): E87.1 - Hypo-osmolality and hyponatremia Status: Acute Assessment and Plan: * slow improvement * appears acute on chronic * since 2019, sodium running 132 - 136 * more recently, this year, seems to be running 124 - 130 * risk factors for low sodium: * CHF/cardiomyopathy (with acute exacerbation) * chronic diuretic therapy * current pneumonia * evaluation to date: * urine electrolytes are non-prerenal * TSH and cortisol okay * kappa/lamda ratio and SPEP/UPEP pending * no culprit medications noted * no issues with cancer/malignancy at this time (does have hx of prostate cancer) * agree with fluid restriction * given drop in sodium, started on salt tabs - will titrate * follow repeat sodium levels (2) Pneumonia: Code(s): J18.9 - Pneumonia, unspecified organism Status: Acute Assessment and Plan: * as suggested by admission CXR * however, possible component of pulmonary edema by CXR as well * follow culture data * on antibiotics * continue nebs and supplemental oxygen * follow respiratory status (3) CHF exacerbation: Code(s): I50.9 - Heart failure, unspecified Status: Acute Assessment and Plan: * suggested by admission CXR with pulmonary edema, cardiomegaly, and small bilateral effusions * elevated BNP noted * Echo with EF 45 - 50% with diastolic dysfunction * this argues in favor of acute on chronic diastolic heart failure * follow I/Os and daily weights * IV diuretics PRN (4) Atrial fibrillation: Code(s): I48.91 - Unspecified atrial fibrillation Status: Chronic Assessment and Plan: * rate controlled * on anticoagulation (5) Hypertension: Qualifiers: Hypertension type: essential hypertension Qualified Code(s): I10 - Essential (primary) hypertension Code(s): I10 - Essential (primary) hypertension Status: Chronic Assessment and Plan: * running on the soft side * BP medications with parameters Will continue to follow. Subjective Date/time seen: 08/01/22 13:08 Overall, he reports that he seems to be doing better today; breathing seems to be okay and continues to voiced generalized weakness and fatigue in general; no acute distress or issues/events overnight or earlier this AM; sodium doing better by AM labs. Exam Narrative: General: elderly but WD/WN male in NAD Heart: normal S1 and S2; no rub Lungs: coarse at the bases Abdomen: soft, nontender, nondistended, positive bowel sounds Extremities: no cyanosis or clubbing; no edema Skin: no nodules Objective Data Vital Signs Vital Signs: Vital Signs Temp Pulse Resp BP Pulse Ox O2 Del Method O2 Flow Rate 08/01/22 13:00 97.6 F 65 20 98/56 L 96 08/01/22 12:00 62 08/01/22 08:00 76 08/01/22 10:00 97.8 F 66 20 96/52 L 94 08/01/22 08:00 91 Nasal Cannula 2 08/01/22 10:37 94 Nasal Cannula 2 08/01/22 06:12 78 08/01/22 05:27 98.4 F 63 18 109/59 L 95 08/01/22 04:00 71 08/01/22 00:00 67 07/31/22 20:00 60 17 94 Nasal Cannula 2 07/31/22 20:00 62 07/31/22 21:27 98.3 F 60 17 114/77 94 07/31/22 18:00 97.6 F 6
--- NOTE | 2022-08-01 13:08 | PM.PNNEP ---
Progress Note: A&P Assessment and Plan (1) Hyponatremia: Code(s): E87.1 - Hypo-osmolality and hyponatremia Status: Acute Assessment and Plan: slow improvement appears acute on chronic since 2019, sodium running 132 - 136 more recently, this year, seems to be running 124 - 130 risk factors for low sodium: CHF/cardiomyopathy (with acute exacerbation) chronic diuretic therapy current pneumonia evaluation to date: urine electrolytes are non-prerenal TSH and cortisol okay kappa/lamda ratio and SPEP/UPEP pending no culprit medications noted no issues with cancer/malignancy at this time (does have hx of prostate cancer) agree with fluid restriction given drop in sodium, started on salt tabs - will titrate follow repeat sodium levels (2) Pneumonia: Code(s): J18.9 - Pneumonia, unspecified organism Status: Acute Assessment and Plan: as suggested by admission CXR however, possible component of pulmonary edema by CXR as well follow culture data on antibiotics continue nebs and supplemental oxygen follow respiratory status (3) CHF exacerbation: Code(s): I50.9 - Heart failure, unspecified Status: Acute Assessment and Plan: suggested by admission CXR with pulmonary edema, cardiomegaly, and small bilateral effusions elevated BNP noted Echo with EF 45 - 50% with diastolic dysfunction this argues in favor of acute on chronic diastolic heart failure follow I/Os and daily weights IV diuretics PRN (4) Atrial fibrillation: Code(s): I48.91 - Unspecified atrial fibrillation Status: Chronic Assessment and Plan: rate controlled on anticoagulation (5) Hypertension: Qualifiers: Hypertension type: essential hypertension Qualified Code(s): I10 - Essential (primary) hypertension Code(s): I10 - Essential (primary) hypertension Status: Chronic Assessment and Plan: running on the soft side BP medications with parameters Will continue to follow. Subjective Date/time seen: 08/01/22 13:08 Overall, he reports that he seems to be doing better today; breathing seems to be okay and continues to voiced generalized weakness and fatigue in general; no acute distress or issues/events overnight or earlier this AM; sodium doing better by AM labs. Exam Narrative: General: elderly but WD/WN male in NAD Heart: normal S1 and S2; no rub Lungs: coarse at the bases Abdomen: soft, nontender, nondistended, positive bowel sounds Extremities: no cyanosis or clubbing; no edema Skin: no nodules Objective Data Vital Signs Vital Signs: Vital Signs Temp Pulse Resp BP Pulse Ox O2 Del Method O2 Flow Rate 08/01/22 13:00 97.6 F 65 20 98/56 L 96 08/01/22 12:00 62 08/01/22 08:00 76 08/01/22 10:00 97.8 F 66 20 96/52 L 94 08/01/22 08:00 91 Nasal Cannula 2 08/01/22 10:37 94 Nasal Cannula 2 08/01/22 06:12 78 08/01/22 05:27 98.4 F 63 18 109/59 L 95 08/01/22 04:00 71 08/01/22 00:00 67 07/31/22 20:00 60 17 94 Nasal Cannula 2 07/31/22 20:00 62 07/31/22 21:27 98.3 F 60 17 114/77 94 07/31/22 18:00 97.6 F 64 16 92/54 L 96 07/31/22 17:22 66 07/31/22 17:19 65 108/64 07/31/22 16:00 67 Intake/Output Intake/Output: Intake & Output 07/29/22 07/30/22 07/31/22 08/01/22 23:59 23:59 23:59 23:59 Intake Total 1080 1310 920 740 Output Total 2375 1350 800 Balance -1295 -40 120 740 Meds/Results Medications: Active Medications Generic Name Dose Route Start Last Admin Trade Name Freq PRN Reason Stop Dose Admin Acetaminophen 650 mg 07/25/22 20:42 Acetaminophen 325 Mg Tablet PO Q4H PRN Mild Pain (1-3) or Fever Amiodarone HCl 200 mg 07/27/22 06:00 08/01/22 06:12 Amiodarone Hcl 200 Mg Tablet PO 200 mg DAILY@0600 [facility] Administra
--- NOTE | 2022-08-01 16:38 | P.PNIM_ITS ---
Progress Note: A&P Assessment and Plan (1) Hyponatremia: Code(s): E87.1 - Hypo-osmolality and hyponatremia Status: Acute Assessment and Plan: Sodium persistently low * Appreciate npehrology consultation * Sodium 125 today, remaining stable * Continue with fluid restriction diet * IV fluids discontinued * Continue to trend sodium to ensure appropriate rate of correction. * Lasix on hold * Continue salt tabs 500 mg BID (2) Pneumonia: Code(s): J18.9 - Pneumonia, unspecified organism Status: Acute Assessment and Plan: Patient presented with complaints of SOB and cough * Chest xray indicated PNA vs pulmonary edema * Completed a 7 day course of Levaquin * Sputum culture ordered, awaiting collection * Continue supportive care, bronchodilators, incentive spirometry (3) Congestive heart failure: Code(s): I50.9 - Heart failure, unspecified Status: Acute Assessment and Plan: Chest xray revealed PNA vs CHF, cardiomegaly, small bilateral pleural effusions * BNP elevated at 3470 * Echo EF of 40-45% with a grade 1 diastolic dysfunction, severe biatrial enlargement, * Most likely acute on chronic diastolic heart failure with exacerbation * Most likely contributing to the shortness of breath * Monitor volume status with I&O, daily weights, urine output * Lasix on hold as above due to hyponatremia (4) Atrial fibrillation: Code(s): I48.91 - Unspecified atrial fibrillation Status: Chronic Assessment and Plan: Chronic and controlled * patient had episode of atrial fibrillation with rapid ventricular response. His home metoprolol succinate was transition to metoprolol tartrate 50 mg b.i.d. * decrease metoprolol tartrate today to 25 mg b.i.d. given soft blood pressures. Monitor heart rate closely * Patient has converted back to sinus rhythm * Continue Eliquis, amiodarone, aspirin, metoprolol (5) Mixed hyperlipidemia: Code(s): E78.2 - Mixed hyperlipidemia Status: Acute Assessment and Plan: LFTs stable * Continue atorvastatin as prescribed (6) Hypertension: Qualifiers: Hypertension type: essential hypertension Qualified Code(s): I10 - Essential (primary) hypertension Code(s): I10 - Essential (primary) hypertension Status: Chronic Assessment and Plan: Blood pressures are soft today in the upper 90s systolic * lisinopril on hold * metoprolol tartrate decreased to 25 mg b.i.d. * continue amiodarone * monitor blood pressure trends closely * check orthostatics Subjective Date/time seen: 08/01/22 16:38 Interval history: date of service: 07/31/2022 Yonathan Higgins is an 82-year-old male with a history of atrial fibrillation, prostate cancer, SVT, hyperlipidemia, and cardiomyopathy who is seen in follow- up for hyponatremia. he is feeling a little bit better today. States that he is good not great. States that his breathing is decent and he denies shortness of breath. No cough. Denies chest pain. He felt a bit dizzy today when up and walking but was steady on his feet. Continues to endorse some mild weakness. Review of Systems Review of Systems: All systems reviewed & are unremarkable except as noted in HPI and below Exam Narrative: General: well-nourished, well-appearing 82-year-old male, sitting up in bed, comfortable, NARD Neuro: awake, alert and oriented x4, speech clear, no focal neuro deficits noted
--- NOTE | 2022-08-01 16:38 | PM.IMPN ---
Progress Note: A&P Assessment and Plan (1) Hyponatremia: Code(s): E87.1 - Hypo-osmolality and hyponatremia Status: Acute Assessment and Plan: Sodium persistently low Appreciate npehrology consultation Sodium 125 today, remaining stable Continue with fluid restriction diet IV fluids discontinued Continue to trend sodium to ensure appropriate rate of correction. Lasix on hold Continue salt tabs 500 mg BID (2) Pneumonia: Code(s): J18.9 - Pneumonia, unspecified organism Status: Acute Assessment and Plan: Patient presented with complaints of SOB and cough Chest xray indicated PNA vs pulmonary edema Completed a 7 day course of Levaquin Sputum culture ordered, awaiting collection Continue supportive care, bronchodilators, incentive spirometry (3) Congestive heart failure: Code(s): I50.9 - Heart failure, unspecified Status: Acute Assessment and Plan: Chest xray revealed PNA vs CHF, cardiomegaly, small bilateral pleural effusions BNP elevated at 3470 Echo EF of 40-45% with a grade 1 diastolic dysfunction, severe biatrial enlargement, Most likely acute on chronic diastolic heart failure with exacerbation Most likely contributing to the shortness of breath Monitor volume status with I&O, daily weights, urine output Lasix on hold as above due to hyponatremia (4) Atrial fibrillation: Code(s): I48.91 - Unspecified atrial fibrillation Status: Chronic Assessment and Plan: Chronic and controlled patient had episode of atrial fibrillation with rapid ventricular response. His home metoprolol succinate was transition to metoprolol tartrate 50 mg b.i.d. decrease metoprolol tartrate today to 25 mg b.i.d. given soft blood pressures. Monitor heart rate closely Patient has converted back to sinus rhythm Continue Eliquis, amiodarone, aspirin, metoprolol (5) Mixed hyperlipidemia: Code(s): E78.2 - Mixed hyperlipidemia Status: Acute Assessment and Plan: LFTs stable Continue atorvastatin as prescribed (6) Hypertension: Qualifiers: Hypertension type: essential hypertension Qualified Code(s): I10 - Essential (primary) hypertension Code(s): I10 - Essential (primary) hypertension Status: Chronic Assessment and Plan: Blood pressures are soft today in the upper 90s systolic lisinopril on hold metoprolol tartrate decreased to 25 mg b.i.d. continue amiodarone monitor blood pressure trends closely check orthostatics Subjective Date/time seen: 08/01/22 16:38 Interval history: date of service: 07/31/2022 Yonathan Higgins is an 82-year-old male with a history of atrial fibrillation, prostate cancer, SVT, hyperlipidemia, and cardiomyopathy who is seen in follow-up for hyponatremia. he is feeling a little bit better today. States that he is good not great. States that his breathing is decent and he denies shortness of breath. No cough. Denies chest pain. He felt a bit dizzy today when up and walking but was steady on his feet. Continues to endorse some mild weakness. Review of Systems Review of Systems: All systems reviewed & are unremarkable except as noted in HPI and below Exam Narrative: General: well-nourished, well-appearing 82-year-old male, sitting up in bed, comfortable, NARD Neuro: awake, alert and oriented x4, speech clear, no focal neuro deficits noted HEENMT: normocephalic, atraumatic, EOMI, sclerae anicteric Respiratory: Clear to auscultation bilaterally without crackles, rhonchi or wheezes, nonlabored breathing Cardio: regular rate, regular rhythm with S1-S2 Abdomen: nondistended, normoactive bowel sounds, soft, nontender to palpation Extremities: no edema, erythema, or tenderness to palpation, DP pulses 2+ bilaterally Skin: no rashes or lesions, warm and dry Psych: appropriate mood and affect, judgment and insight intact Objective
[2022-08-01] MEDS: METOPROLOL TARTRATE 25 MG TABLET PO (17:34)
[2022-08-01 18:18] LABS: Sodium 124 mmol/L (137-145)
[2022-08-01] MEDS: MELATONIN 3 MG TABLET PO (20:15)
[2022-08-01 23:58] LABS: Sodium 123 mmol/L (137-145)
[2022-08-02] VITALS (18 sets, daily range): BP systolic 97–125; BP diastolic 56–66; PULSE 61–75; RESP 16–20; TEMP 35.6–36.7; O2SAT 86–98
[2022-08-02 05:38] LABS: Hematocrit 38.4 % (42.0-52.0); Hemoglobin 12.1 g/dL (14.0-18.0); Mean Corpuscular HGB Conc 31.5 g/dl (32-36); Mean Corpuscular Hemoglobin 29.4 pg (26-34); Mean Corpuscular Volume 93.4 fl (80-100); Mean Platelet Volume 10.1 fl (7.4-10.4); Platelet Count Result 232 k/mm3 (150-375); Red Blood Count 4.11 M/mm3 (4.6-6.20); Red Cell Distribution Width 13.9 % (11.5-14.5); White Blood Count 7.7 K/mm3 (4.5-10.0)
[2022-08-02] MEDS: TAMSULOSIN HCL 0.4 MG CAPSULE PO (06:00)
[2022-08-02] MEDS: ASPIRIN 81 MG ENTERIC TABLET PO (06:00)
[2022-08-02] MEDS: AMIODARONE HCL 200 MG TABLET PO (06:00)
[2022-08-02] MEDS: ATORVASTATIN 20 MG TABLET PO (06:00)
[2022-08-02] MEDS: APIXABAN 5 MG TABLET PO ×2 (06:00→18:43)
[2022-08-02 06:03] LABS: Blood Urea Nitrogen 18 mg/dL (9-20); Calcium 8.3 mg/dL (8.4-10.2); Carbon Dioxide > 40 mmol/L (22-30); Chloride 85 mmol/L (98-107); Estimated CRCL calculation 96 ml/min; Estimated Glomerular Filt Rate > 60; Glucose 111 mg/dL (65-110); Potassium 5.1 mmol/L (3.4-5.0); Sodium 126 mmol/L (137-145)
[2022-08-02] MEDS: DOCUSATE SODIUM 100 MG CAPSULE PO ×2 (08:54→20:21)
[2022-08-02] MEDS: METOPROLOL TARTRATE 25 MG TABLET PO ×2 (08:54→20:21)
[2022-08-02] MEDS: SODIUM CHLORIDE 1 GM TABLET PO ×2 (08:55→20:21)
[2022-08-02] MEDS: SODIUM CHLORIDE 500 MG TABLET PO ×2 (08:55→20:21)
[2022-08-02] MEDS: polyethylene glycoL 3350 17 GM POWD.PACK PO (08:55)
--- NOTE | 2022-08-02 11:09 | PC.NURSE ---
On 08/02/22, the student, [Edgard Yusuf], provided care and completed [facility] documentation on this patient. I have reviewed the student's documentation and agree with the findings.
--- NOTE | 2022-08-02 11:34 | P.PNNP_ITS ---
Progress Note: A&P Assessment and Plan (1) Hyponatremia: Code(s): E87.1 - Hypo-osmolality and hyponatremia Status: Acute Assessment and Plan: * slow improvement * appears acute on chronic * since 2019, sodium running 132 - 136 * more recently, this year, sodium seems to be running 124 - 130 * risk factors for low sodium: * CHF/cardiomyopathy (with acute exacerbation) * chronic diuretic therapy * current pneumonia * evaluation to date: * urine electrolytes are non-prerenal * TSH and cortisol okay * kappa/lamda ratio and SPEP/UPEP pending * no culprit medications noted * no issues with cancer/malignancy at this time (does have hx of prostate cancer) * agree with fluid restriction * on salt tabs - will titrate * follow repeat sodium levels (2) Pneumonia: Code(s): J18.9 - Pneumonia, unspecified organism Status: Acute Assessment and Plan: * as suggested by admission CXR * however, possible component of pulmonary edema by CXR as well * follow culture data * on antibiotics * continue nebs and supplemental oxygen * follow respiratory status (3) CHF exacerbation: Code(s): I50.9 - Heart failure, unspecified Status: Acute Assessment and Plan: * suggested by admission CXR with pulmonary edema, cardiomegaly, and small bilateral effusions * elevated BNP noted * Echo with EF 45 - 50% with diastolic dysfunction * this argues in favor of acute on chronic diastolic heart failure * follow I/Os and daily weights * IV diuretics PRN (4) Atrial fibrillation: Code(s): I48.91 - Unspecified atrial fibrillation Status: Chronic Assessment and Plan: * rate controlled * on anticoagulation (5) Hypertension: Qualifiers: Hypertension type: essential hypertension Qualified Code(s): I10 - Essential (primary) hypertension Code(s): I10 - Essential (primary) hypertension Status: Chronic Assessment and Plan: * running on the soft side * BP medications with parameters Will continue to follow. Subjective Date/time seen: 08/02/22 11:34 Sodium slowly improving with current interventions; denies any shortness of breath but reports some dizziness although he has been ambulating without any issues; no acute distress voiced at the time of my visit. Exam Narrative: General: elderly but WD/WN male in NAD Heart: normal S1 and S2; no rub Lungs: coarse at the bases Abdomen: soft, nontender, nondistended, positive bowel sounds Extremities: no cyanosis or clubbing; no edema Skin: warm and dry Objective Data Vital Signs Vital Signs: Vital Signs Temp Pulse Resp BP Pulse Ox O2 Del Method O2 Flow Rate 08/02/22 10:00 97.7 F 71 16 97/58 L 93 08/02/22 09:49 91 Nasal Cannula 2 08/02/22 08:00 93 Nasal Cannula 2 08/02/22 08:54 74 08/02/22 08:00 68 08/02/22 06:00 72 08/02/22 05:20 98.0 F 72 17 109/61 93 08/02/22 04:00 75 08/02/22 01:49 97.8 F 73 17 116/66 91 08/02/22 00:00 70 08/01/22 20:12 97.8 F 72 18 100/64 92 08/01/22 20:08 97.8 F 69 18 110/68 95 08/01/22 20:05 97.8 F 68 17 106/63 97 08/01/22 21:36 97.8 F 67 17 106/63 96 08/01/22 20:00
--- NOTE | 2022-08-02 11:34 | PM.PNNEP ---
Progress Note: A&P Assessment and Plan (1) Hyponatremia: Code(s): E87.1 - Hypo-osmolality and hyponatremia Status: Acute Assessment and Plan: slow improvement appears acute on chronic since 2019, sodium running 132 - 136 more recently, this year, sodium seems to be running 124 - 130 risk factors for low sodium: CHF/cardiomyopathy (with acute exacerbation) chronic diuretic therapy current pneumonia evaluation to date: urine electrolytes are non-prerenal TSH and cortisol okay kappa/lamda ratio and SPEP/UPEP pending no culprit medications noted no issues with cancer/malignancy at this time (does have hx of prostate cancer) agree with fluid restriction on salt tabs - will titrate follow repeat sodium levels (2) Pneumonia: Code(s): J18.9 - Pneumonia, unspecified organism Status: Acute Assessment and Plan: as suggested by admission CXR however, possible component of pulmonary edema by CXR as well follow culture data on antibiotics continue nebs and supplemental oxygen follow respiratory status (3) CHF exacerbation: Code(s): I50.9 - Heart failure, unspecified Status: Acute Assessment and Plan: suggested by admission CXR with pulmonary edema, cardiomegaly, and small bilateral effusions elevated BNP noted Echo with EF 45 - 50% with diastolic dysfunction this argues in favor of acute on chronic diastolic heart failure follow I/Os and daily weights IV diuretics PRN (4) Atrial fibrillation: Code(s): I48.91 - Unspecified atrial fibrillation Status: Chronic Assessment and Plan: rate controlled on anticoagulation (5) Hypertension: Qualifiers: Hypertension type: essential hypertension Qualified Code(s): I10 - Essential (primary) hypertension Code(s): I10 - Essential (primary) hypertension Status: Chronic Assessment and Plan: running on the soft side BP medications with parameters Will continue to follow. Subjective Date/time seen: 08/02/22 11:34 Sodium slowly improving with current interventions; denies any shortness of breath but reports some dizziness although he has been ambulating without any issues; no acute distress voiced at the time of my visit. Exam Narrative: General: elderly but WD/WN male in NAD Heart: normal S1 and S2; no rub Lungs: coarse at the bases Abdomen: soft, nontender, nondistended, positive bowel sounds Extremities: no cyanosis or clubbing; no edema Skin: warm and dry Objective Data Vital Signs Vital Signs: Vital Signs Temp Pulse Resp BP Pulse Ox O2 Del Method O2 Flow Rate 08/02/22 10:00 97.7 F 71 16 97/58 L 93 08/02/22 09:49 91 Nasal Cannula 2 08/02/22 08:00 93 Nasal Cannula 2 08/02/22 08:54 74 08/02/22 08:00 68 08/02/22 06:00 72 08/02/22 05:20 98.0 F 72 17 109/61 93 08/02/22 04:00 75 08/02/22 01:49 97.8 F 73 17 116/66 91 08/02/22 00:00 70 08/01/22 20:12 97.8 F 72 18 100/64 92 08/01/22 20:08 97.8 F 69 18 110/68 95 08/01/22 20:05 97.8 F 68 17 106/63 97 08/01/22 21:36 97.8 F 67 17 106/63 96 08/01/22 20:00 76 16 94 Nasal Cannula 2 08/01/22 20:00 69 08/01/22 18:00 98.1 F 76 16 108/62 94 08/01/22 17:18 97.6 F 73 20 96/59 L 91 08/01/22 17:15 97.6 F 66 20 106/61 93 08/01/22 17:12 97.6 F 68 16 106/57 L 92 08/01/22 16:00 68 08/01/22 14:00 97.6 F 65 20 98/56 L 96 08/01/22 12:00 62 Intake/Output Intake/Output: Intake & Output 07/30/22 07/31/22 08/01/22 08/02/22 23:59 23:59 23:59 23:59 Intake Total 8062 824 5700 360 Output Total 1350 800 400 400 Balance -40 120 1130 -40 Meds/Results Medications: Active Medications Generic Name Dose Route Start Last Admin Trade Name Freq PRN Reason Stop Dose Admin Acetaminophen 650
--- NOTE | 2022-08-02 15:22 | P.PNIM_ITS ---
Progress Note: A&P Assessment and Plan (1) Hyponatremia: Code(s): E87.1 - Hypo-osmolality and hyponatremia Status: Acute Assessment and Plan: Sodium persistently low * Appreciate npehrology consultation * Sodium 126 today, remaining stable * Continue with fluid restriction diet, increase to 1500 cc daily * IV fluids discontinued * Lasix on hold * Continue salt tabs 500 mg BID * Goal sodium 125-130. Discussed case with nephrology today (2) Pneumonia: Code(s): J18.9 - Pneumonia, unspecified organism Status: Acute Assessment and Plan: Patient presented with complaints of SOB and cough * Chest xray indicated PNA vs pulmonary edema * Completed a 7 day course of Levaquin * Sputum culture ordered, awaiting collection * Continue supportive care, bronchodilators, incentive spirometry * Requiring 2 L supplemental o2, desatting with activity. continue supplemental oxygen as needed and wean to goal. patient will require home O2 eval prior to discharge * will obtain repeat CXR to assess for improvement (3) Congestive heart failure: Code(s): I50.9 - Heart failure, unspecified Status: Acute Assessment and Plan: Chest xray revealed PNA vs CHF, cardiomegaly, small bilateral pleural effusions * BNP elevated at 3470 * Echo EF of 40-45% with a grade 1 diastolic dysfunction, severe biatrial enlargement, * Most likely acute on chronic diastolic heart failure with exacerbation * Monitor volume status with I&O, daily weights, urine output * Lasix on hold as above due to hyponatremia (4) Atrial fibrillation: Code(s): I48.91 - Unspecified atrial fibrillation Status: Chronic Assessment and Plan: Chronic and controlled * patient had episode of atrial fibrillation with rapid ventricular response on presentation. His home metoprolol succinate was transitioned to metoprolol tartrate 50 mg b.i.d. * decreased metoprolol tartrate to 25 mg b.i.d. given soft blood pressures. Monitor heart rate closely * Patient has converted back to sinus rhythm * Continue Eliquis, amiodarone, aspirin, metoprolol (5) Mixed hyperlipidemia: Code(s): E78.2 - Mixed hyperlipidemia Status: Acute Assessment and Plan: LFTs stable * Continue atorvastatin as prescribed (6) Hypertension: Qualifiers: Hypertension type: essential hypertension Qualified Code(s): I10 - Essential (primary) hypertension Code(s): I10 - Essential (primary) hypertension Status: Chronic Assessment and Plan: Blood pressures are soft but stable, ranging 95-110s systolic * lisinopril on hold * metoprolol tartrate decreased to 25 mg b.i.d. * continue amiodarone * monitor blood pressure trends closely * check orthostatics Subjective Date/time seen: 08/02/22 15:22 Interval history: date of service: 08/02/2022 Yonathan Higgins is an 82-year-old male with a history of atrial fibrillation, prostate cancer, SVT, hyperlipidemia, and cardiomyopathy who is seen in follow- up for hyponatremia. patient states that he feels somewhat poorly today. He has been trying to cough but cannot clear any sputum. He denies shortness of breath. He feels somewhat dizzy. He was able to get up and ambulate to the restroom. He denies nausea or vomiting. He is tolerating his diet. Denies chest pain. No nausea, vomiting, fever, or chills. Review of Systems Review of Systems: All systems reviewed & are unremarkable except as noted in HPI
--- NOTE | 2022-08-02 15:22 | PM.IMPN ---
Progress Note: A&P Assessment and Plan (1) Hyponatremia: Code(s): E87.1 - Hypo-osmolality and hyponatremia Status: Acute Assessment and Plan: Sodium persistently low Appreciate npehrology consultation Sodium 126 today, remaining stable Continue with fluid restriction diet, increase to 1500 cc daily IV fluids discontinued Lasix on hold Continue salt tabs 500 mg BID Goal sodium 125-130. Discussed case with nephrology today (2) Pneumonia: Code(s): J18.9 - Pneumonia, unspecified organism Status: Acute Assessment and Plan: Patient presented with complaints of SOB and cough Chest xray indicated PNA vs pulmonary edema Completed a 7 day course of Levaquin Sputum culture ordered, awaiting collection Continue supportive care, bronchodilators, incentive spirometry Requiring 2 L supplemental o2, desatting with activity. continue supplemental oxygen as needed and wean to goal. patient will require home O2 eval prior to discharge will obtain repeat CXR to assess for improvement (3) Congestive heart failure: Code(s): I50.9 - Heart failure, unspecified Status: Acute Assessment and Plan: Chest xray revealed PNA vs CHF, cardiomegaly, small bilateral pleural effusions BNP elevated at 3470 Echo EF of 40-45% with a grade 1 diastolic dysfunction, severe biatrial enlargement, Most likely acute on chronic diastolic heart failure with exacerbation Monitor volume status with I&O, daily weights, urine output Lasix on hold as above due to hyponatremia (4) Atrial fibrillation: Code(s): I48.91 - Unspecified atrial fibrillation Status: Chronic Assessment and Plan: Chronic and controlled patient had episode of atrial fibrillation with rapid ventricular response on presentation. His home metoprolol succinate was transitioned to metoprolol tartrate 50 mg b.i.d. decreased metoprolol tartrate to 25 mg b.i.d. given soft blood pressures. Monitor heart rate closely Patient has converted back to sinus rhythm Continue Eliquis, amiodarone, aspirin, metoprolol (5) Mixed hyperlipidemia: Code(s): E78.2 - Mixed hyperlipidemia Status: Acute Assessment and Plan: LFTs stable Continue atorvastatin as prescribed (6) Hypertension: Qualifiers: Hypertension type: essential hypertension Qualified Code(s): I10 - Essential (primary) hypertension Code(s): I10 - Essential (primary) hypertension Status: Chronic Assessment and Plan: Blood pressures are soft but stable, ranging 95-110s systolic lisinopril on hold metoprolol tartrate decreased to 25 mg b.i.d. continue amiodarone monitor blood pressure trends closely check orthostatics Subjective Date/time seen: 08/02/22 15:22 Interval history: date of service: 08/02/2022 Yonathan Higgins is an 82-year-old male with a history of atrial fibrillation, prostate cancer, SVT, hyperlipidemia, and cardiomyopathy who is seen in follow-up for hyponatremia. patient states that he feels somewhat poorly today. He has been trying to cough but cannot clear any sputum. He denies shortness of breath. He feels somewhat dizzy. He was able to get up and ambulate to the restroom. He denies nausea or vomiting. He is tolerating his diet. Denies chest pain. No nausea, vomiting, fever, or chills. Review of Systems Review of Systems: All systems reviewed & are unremarkable except as noted in HPI and below Exam Narrative: General: well-nourished, well-appearing 82-year-old male, sitting up in bed, comfortable, NARD Neuro: awake, alert and oriented x4, speech clear, no focal neuro deficits noted HEENMT: normocephalic, atraumatic, EOMI, sclerae anicteric Respiratory: Diminished breath sounds bilaterally without crackles, rhonchi, or wheezes, nonlabored breathing Cardio: regular rate, regular rhythm with S1-S2 Abdomen: nondistended, normoactive b
[2022-08-02] MEDS: MELATONIN 3 MG TABLET PO (20:21)
[2022-08-03] VITALS (13 sets, daily range): BP systolic 122; BP diastolic 67; PULSE 67–83; RESP 20; TEMP 36.9; O2SAT 86–96
[2022-08-03 06:12] LABS: Hematocrit 37.3 % (42.0-52.0); Mean Corpuscular HGB Conc 32.2 g/dl (32-36); Mean Corpuscular Hemoglobin 30.7 pg (26-34); Mean Corpuscular Volume 95.4 fl (80-100); Mean Platelet Volume 10.3 fl (7.4-10.4); Platelet Count Result 217 k/mm3 (150-375); Red Blood Count 3.91 M/mm3 (4.6-6.20); Red Cell Distribution Width 14.1 % (11.5-14.5); White Blood Count 6.4 K/mm3 (4.5-10.0)
[2022-08-03] MEDS: AMIODARONE HCL 200 MG TABLET PO (06:15)
[2022-08-03] MEDS: ASPIRIN 81 MG ENTERIC TABLET PO (06:15)
[2022-08-03] MEDS: ATORVASTATIN 20 MG TABLET PO (06:15)
[2022-08-03] MEDS: APIXABAN 5 MG TABLET PO (06:15)
[2022-08-03] MEDS: TAMSULOSIN HCL 0.4 MG CAPSULE PO (06:15)
[2022-08-03 06:33] LABS: Blood Urea Nitrogen 15 mg/dL (9-20); Carbon Dioxide > 40 mmol/L (22-30); Chloride 87 mmol/L (98-107); Estimated CRCL calculation 114 ml/min; Estimated Glomerular Filt Rate > 60; Glucose 104 mg/dL (65-110); Potassium 4.6 mmol/L (3.4-5.0); Sodium 126 mmol/L (137-145)
[2022-08-03] MEDS: SODIUM CHLORIDE 1 GM TABLET PO (08:16)
[2022-08-03] MEDS: METOPROLOL TARTRATE 25 MG TABLET PO (08:16)
[2022-08-03] MEDS: DOCUSATE SODIUM 100 MG CAPSULE PO (08:16)
[2022-08-03] MEDS: SODIUM CHLORIDE 500 MG TABLET PO (08:16)
[2022-08-03] MEDS: polyethylene glycoL 3350 17 GM POWD.PACK PO (08:16)
--- NOTE | 2022-08-03 11:00 | P.PNNP_ITS ---
Progress Note: A&P Assessment and Plan (1) Hyponatremia: Code(s): E87.1 - Hypo-osmolality and hyponatremia Status: Acute Assessment and Plan: * stable at this time * appears acute on chronic * since 2019, sodium running 132 - 136 * more recently, this year, sodium seems to be running 124 - 130 * risk factors for low sodium: * CHF/cardiomyopathy (with acute exacerbation) * chronic diuretic therapy * current pneumonia * evaluation to date: * urine electrolytes are non-prerenal * TSH and cortisol okay * kappa/lamda ratio and SPEP/UPEP pending * no culprit medications noted * no issues with cancer/malignancy at this time (does have hx of prostate cancer) * agree with fluid restriction * on salt tabs * follow repeat sodium levels (2) Pneumonia: Code(s): J18.9 - Pneumonia, unspecified organism Status: Acute Assessment and Plan: * as suggested by admission CXR * however, possible component of pulmonary edema by CXR as well * follow culture data * on antibiotics * continue nebs and supplemental oxygen * follow respiratory status (3) CHF exacerbation: Code(s): I50.9 - Heart failure, unspecified Status: Acute Assessment and Plan: * suggested by admission CXR with pulmonary edema, cardiomegaly, and small bila teral effusions * elevated BNP noted * Echo with EF 45 - 50% with diastolic dysfunction * this argues in favor of acute on chronic diastolic heart failure * follow I/Os and daily weights * IV diuretics PRN (4) Atrial fibrillation: Code(s): I48.91 - Unspecified atrial fibrillation Status: Chronic Assessment and Plan: * rate controlled * on anticoagulation (5) Hypertension: Qualifiers: Hypertension type: essential hypertension Qualified Code(s): I10 - Essential (primary) hypertension Code(s): I10 - Essential (primary) hypertension Status: Chronic Assessment and Plan: * running on the soft side * BP medications with parameters Will continue to follow. Subjective Date/time seen: 08/03/22 11:00 Reports feeling reasonably well at the time of my visit; no acute distress to report at this time; no issues/events overnight or earlier this AM; sodium level seems relatively stable with current interventions; daughter at bedside and we discussed the situation. Exam Narrative: General: elderly but WD/WN male in NAD Heart: normal S1 and S2; no rub Lungs: coarse at the bases Abdomen: soft, nontender, nondistended, positive bowel sounds Extremities: no cyanosis or clubbing; no edema Skin: warm and intact Objective Data Vital Signs Vital Signs: Vital Signs Temp Pulse Resp BP Pulse Ox O2 Del Method O2 Flow Rate 08/03/22 11:00 71 86 L Room Air 08/03/22 08:00 94 Nasal Cannula 2 08/03/22 08:00 80 08/03/22 08:46 92 Nasal Cannula 2 08/03/22 08:16 75 08/03/22 06:00 98.5 F 71 20 122/67 96 08/03/22 06:15 78 08/03/22 04:00 67 08/03/22 00:00 67 08/02/22 21:50 97.6 F 70 16 102/56 L 96 08/02/22 20:00 71 08/02/22 20:21 72 08/02/22 19:54 74 16 98 Nasal Cannula 2 08/02/22 18:00 97.5 F L 74 16 125/58 L 98 08/02/22 1
--- NOTE | 2022-08-03 11:00 | PM.PNNEP ---
Progress Note: A&P Assessment and Plan (1) Hyponatremia: Code(s): E87.1 - Hypo-osmolality and hyponatremia Status: Acute Assessment and Plan: stable at this time appears acute on chronic since 2019, sodium running 132 - 136 more recently, this year, sodium seems to be running 124 - 130 risk factors for low sodium: CHF/cardiomyopathy (with acute exacerbation) chronic diuretic therapy current pneumonia evaluation to date: urine electrolytes are non-prerenal TSH and cortisol okay kappa/lamda ratio and SPEP/UPEP pending no culprit medications noted no issues with cancer/malignancy at this time (does have hx of prostate cancer) agree with fluid restriction on salt tabs follow repeat sodium levels (2) Pneumonia: Code(s): J18.9 - Pneumonia, unspecified organism Status: Acute Assessment and Plan: as suggested by admission CXR however, possible component of pulmonary edema by CXR as well follow culture data on antibiotics continue nebs and supplemental oxygen follow respiratory status (3) CHF exacerbation: Code(s): I50.9 - Heart failure, unspecified Status: Acute Assessment and Plan: suggested by admission CXR with pulmonary edema, cardiomegaly, and small bilateral effusions elevated BNP noted Echo with EF 45 - 50% with diastolic dysfunction this argues in favor of acute on chronic diastolic heart failure follow I/Os and daily weights IV diuretics PRN (4) Atrial fibrillation: Code(s): I48.91 - Unspecified atrial fibrillation Status: Chronic Assessment and Plan: rate controlled on anticoagulation (5) Hypertension: Qualifiers: Hypertension type: essential hypertension Qualified Code(s): I10 - Essential (primary) hypertension Code(s): I10 - Essential (primary) hypertension Status: Chronic Assessment and Plan: running on the soft side BP medications with parameters Will continue to follow. Subjective Date/time seen: 08/03/22 11:00 Reports feeling reasonably well at the time of my visit; no acute distress to report at this time; no issues/events overnight or earlier this AM; sodium level seems relatively stable with current interventions; daughter at bedside and we discussed the situation. Exam Narrative: General: elderly but WD/WN male in NAD Heart: normal S1 and S2; no rub Lungs: coarse at the bases Abdomen: soft, nontender, nondistended, positive bowel sounds Extremities: no cyanosis or clubbing; no edema Skin: warm and intact Objective Data Vital Signs Vital Signs: Vital Signs Temp Pulse Resp BP Pulse Ox O2 Del Method O2 Flow Rate 08/03/22 11:00 71 86 L Room Air 08/03/22 08:00 94 Nasal Cannula 2 08/03/22 08:00 80 08/03/22 08:46 92 Nasal Cannula 2 08/03/22 08:16 75 08/03/22 06:00 98.5 F 71 20 122/67 96 08/03/22 06:15 78 08/03/22 04:00 67 08/03/22 00:00 67 08/02/22 21:50 97.6 F 70 16 102/56 L 96 08/02/22 20:00 71 08/02/22 20:21 72 08/02/22 19:54 74 16 98 Nasal Cannula 2 08/02/22 18:00 97.5 F L 74 16 125/58 L 98 08/02/22 16:00 64 08/02/22 14:37 Nasal Cannula 2 Intake/Output Intake/Output: Intake & Output 07/31/22 08/01/22 08/02/22 08/03/22 23:59 23:59 23:59 23:59 Intake Total 920 1530 1040 240 Output Total 800 400 700 200 Balance 120 1130 340 40 Meds/Results Medications: Active Medications Generic Name Dose Route Start Last Admin Trade Name Freq PRN Reason Stop Dose Admin Acetaminophen 650 mg 07/25/22 20:42 Acetaminophen 325 Mg Tablet PO Q4H PRN Mild Pain (1-3) or Fever Amiodarone HCl 200 mg 07/27/22 06:00 08/03/22 06:15 Amiodarone Hcl 200 Mg Tablet PO 200 mg DAILY@0600 ROSIE Administration Apixaban 5 mg 07/26/22 18:00 08/03/22 06:15 Apixaban 5 Mg
--- NOTE | 2022-08-03 12:20 | HOMEO2EVAL ---
Evaluation was performed at [facility] Home Oxygen Evaluation RC: Home Oxygen (O2) Evaluation Start: 08/03/22 09:54 Freq: ONCE Status: Active Protocol: RPE Activity Type Activity Date Activity User E-sign Co-sign Detail Recorded Client Recorded Date Recorded By Document 08/03/22 11:10 RAUL [email or web address] 08/03/22 11:56 RAUL Document 08/03/22 11:15 RAUL [email or web address] 08/03/22 11:56 RAUL Document 08/03/22 11:18 RAUL [email or web address] 08/03/22 11:57 RAUL Document 08/03/22 11:20 RAUL [email or web address] 08/03/22 11:58 RAUL Document 08/03/22 11:25 RAUL [email or web address] 08/03/22 11:59 RAUL Document 08/03/22 11:05 RAUL [email or web address] 08/03/22 11:55 RAUL 08/03/22 08/03/22 08/03/22 11:10 11:15 11:18 Home O2 Evaluation [Oxygen] -Test Phase Resting Exercise Exercise -Oxygen Delivery Nasal Cannula Nasal Cannula Nasal Cannula -Oxygen Flow Rate (L/min) 2 2 3 -Fraction of Inspired Oxygen (%) [Pulse Oximetry] -Pulse Oximetry (90-100 %) 92 88 L 88 L [Pulse Rate] -Pulse Rate (60-100 beats/min) 76 78 81 [Evaluation] -Activity Tolerance Good Fair [Exercise] -Ambulation Distance (feet) 25 25 -Ambulation Distance (meters) 7.61 7.61 [Comments] -Home Oxygen Evaluation Comments RESTING [Charges] -Treatment Charges 08/03/22 08/03/22 08/03/22 11:20 11:25 11:05 Home O2 Evaluation [Oxygen] -Test Phase Exercise Resting Resting -Oxygen Delivery Nasal Cannula Nasal Cannula Room Air -Oxygen Flow Rate (L/min) 5 2 -Fraction of Inspired Oxygen (%) 21 [Pulse Oximetry] -Pulse Oximetry (90-100 %) 92 92 86 L [Pulse Rate] -Pulse Rate (60-100 beats/min) 83 80 71 [Evaluation] -Activity Tolerance Fair [Exercise] -Ambulation Distance (feet) 25 -Ambulation Distance (meters) 7.61 [Comments] -Home Oxygen Evaluation Comments RESTING [Charges] -Treatment Charges O2 Evaluation - Inpatient
--- NOTE | 2022-08-03 12:59 | PM.DS ---
DS: Admitting Diagnosis Discharge Date 08/03/2022 Admitting Diagnosis Atrial fibrillation with rapid ventricular response DS: Discharge Diagnosis Discharge Diagnosis (1) Hyponatremia: Code(s): E87.1 - Hypo-osmolality and hyponatremia Status: Acute Assessment and Plan: Sodium low on presentation at 130 with decline to 121 during admission. Maramec to be secondary to respiratory disease and diuresis. Patient was managed by Nephrology. Fluid restriction diet implemented and Lasix was held. Started on salt tabs. Sodium levels improved at appropriate rate and remained stable around 124-126. Per Nephrology, no need for further monitoring given stabilization of levels. Will continue to hold Lasix on discharge. Started on sodium chloride 1 g b.i.d. and fluid restriction diet continued (2) Pneumonia: Code(s): J18.9 - Pneumonia, unspecified organism Status: Acute Assessment and Plan: Patient presented with complaints of SOB and cough. CXR findings consistent of pneumonia. Sputum culture ordered bed unable to be collected. The patient completed a 7 day course of Levaquin. Supportive care was provided. Patient did require supplemental oxygen during admission and had episodes of desaturation with activity. Home O2 eval completed prior to discharge inpatient requires 2 L supplemental O2 at rest and 5 L with activity. Repeat CXR showed stable diffuse lung disease. Follow-up PCP in 1 week for continued close monitoring (3) Congestive heart failure: Code(s): I50.9 - Heart failure, unspecified Status: Acute Assessment and Plan: Chest xray revealed possible pulmonary edema, cardiomegaly, small bilateral pleural effusions. BNP elevated at 3470. Patient was diuresed with IV Lasix and was discontinued given hyponatremia. Patient euvolemic on my initial encounter. Volume status was monitored closely. Echo EF of 40-45% with a grade 1 diastolic dysfunction, severe biatrial enlargement (4) Atrial fibrillation: Code(s): I48.91 - Unspecified atrial fibrillation Status: Chronic Assessment and Plan: Chronic and controlled. patient had episode of atrial fibrillation with rapid ventricular response on presentation. His home metoprolol succinate was transitioned to metoprolol tartrate 50 mg b.i.d. patient then had soft blood pressures and metoprolol tartrate was decreased to 25 mg b.i.d. which patient will continue as an outpatient. He converted back to sinus rhythm. Continue home Eliquis, amiodarone, aspirin, metoprolol (5) Mixed hyperlipidemia: Code(s): E78.2 - Mixed hyperlipidemia Status: Acute Assessment and Plan: LFTs stable. Continue atorvastatin as prescribed (6) Hypertension: Qualifiers: Hypertension type: essential hypertension Qualified Code(s): I10 - Essential (primary) hypertension Code(s): I10 - Essential (primary) hypertension Status: Chronic Assessment and Plan: Blood pressures remained stable, slightly soft. Metoprolol tartrate decreased to 25 mg b.i.d.. Lasix held. Orthostatics negative. DS: Summary Hospital Course Hospital Course: Date of admission: 07/25/2022 Date of discharge: 08/03/2022 Yonathan Higgins is an 82-year-old male with a history of atrial fibrillation, prostate cancer, SVT, hyperlipidemia,? and cardiomyopathy who presented to the emergency department on 07/25/2022 with complaints of shortness of breath in the O2 sats. On presentation, CBC unremarkable, sodium 123, chloride 87, CO2 33, COVID influenza negative, troponin negative, BNP 3400, and CXR showed diffuse lung disease consistent with pneumonia and/or pulmonary edema with small pleural effusions and cardiomegaly. He was admitted to the hospitalist service for further evaluation and management was seen in consultation by nephrology. Please see above for further details. Patient overall had symptomatic improvement, so
--- NOTE | 2022-08-03 14:10 | PCRCNOTE ---
Home 02 evaluation done on patient. 2 L at rest 5 L with activity. [facility] contacted [phone]
[2022-08-04 00:53] LABS: Creatinine, Random Urine 5 mg/dL (20-320)
== END 2022-08-03 14:33 | disposition home health service (06) | DRG 194 ==
LOC: ANHED 20:40 → ANH2MED 21:39
PROVIDERS: Emergency Medicine; Internal Medicine Nephrology; Nurse Practitioner; Admitting Provider Internal Medicine; Emergency Provider Emergency Medicine; PCP Family Medicine; Visit Provider Physician Assistant
DX: J18.9 Pneumonia, unspecified organism (principal); E87.1 Hypo-osmolality and hyponatremia; I48.20 Chronic atrial fibrillation, unspecified; I11.0 Hypertensive heart disease with heart failure; I50.30 Unspecified diastolic (congestive) heart failure; I42.9 Cardiomyopathy, unspecified; E78.2 Mixed hyperlipidemia; I47.1 Supraventricular tachycardia; N40.0 Benign prostatic hyperplasia without lower urinary tract symptoms; Z20.822 Contact with and (suspected) exposure to COVID-19; Z79.01 Long term (current) use of anticoagulants; Z79.899 Other long term (current) drug therapy
CPT/HCPCS: 36415; 71045; 71046; 80048; 80053; 82533; 82570; 83605; 83735; 83880; 83883; 83930; 83935; 84133; 84145; 84155; 84156; 84165; 84166; 84295; 84300; 84443; 84484; 84540; 85025; 85027; 85055; 87040; 87449; 87636; 93005; 94618; 94667; 96365; 96368; 96375; 97110; 97161; 97165; 97530; 99285; A9270; C8929; J0456; J0696; J1940; J7030; J7131; Q9957

== ENCOUNTER 2022-08-06 13:36 | Outpatient (NON) | payer MEDICARE, SELFPAY ==
[2022-08-06 14:15] LABS: Blood Urea Nitrogen 16 mg/dL (9-20); Calcium 8.1 mg/dL (8.4-10.2); Carbon Dioxide > 40 mmol/L (22-30); Chloride 90 mmol/L (98-107); Estimated Glomerular Filt Rate > 60; Glucose 99 mg/dL (65-110); Potassium 4.4 mmol/L (3.4-5.0); Sodium 128 mmol/L (137-145)
== END 2022-08-06 13:37 | disposition home or self-care (01) ==
PROVIDERS: PCP Family Medicine; Visit Provider Family Medicine
DX: J18.9 Pneumonia, unspecified organism (principal); I50.23 Acute on chronic systolic (congestive) heart failure; I11.0 Hypertensive heart disease with heart failure; I48.91 Unspecified atrial fibrillation; I50.9 Heart failure, unspecified
CPT/HCPCS: 80048

== ENCOUNTER 2022-08-13 10:14 | Outpatient (NON) | payer MEDICARE, SELFPAY ==
[2022-08-13 10:48] LABS: Anion Gap 0 mmol/L (8-16); Blood Urea Nitrogen 14 mg/dL (9-20); Calcium 8.3 mg/dL (8.4-10.2); Carbon Dioxide 36 mmol/L (22-30); Chloride 95 mmol/L (98-107); Estimated Glomerular Filt Rate > 60; Glucose 93 mg/dL (65-110); Potassium 4.3 mmol/L (3.4-5.0); Sodium 131 mmol/L (137-145)
== END 2022-08-13 10:15 | disposition home or self-care (01) ==
LOC: ANHLAB 10:15
PROVIDERS: PCP Family Medicine; Visit Provider Family Medicine
DX: E87.1 Hypo-osmolality and hyponatremia (principal); J18.9 Pneumonia, unspecified organism; I50.23 Acute on chronic systolic (congestive) heart failure; I48.91 Unspecified atrial fibrillation; I11.0 Hypertensive heart disease with heart failure
CPT/HCPCS: 36415; 80048

== ENCOUNTER 2022-09-06 11:17 | Outpatient (CLI) | payer MEDICARE, SELFPAY ==
--- NOTE | ~2022-09-06 | XR_ITS ---
Clinical Indication: Pneumonia PA and lateral views of the chest: Comparison: 08/03/2022 Findings: There is extensive bilateral hazy airspace disease. Probable mild improvement of the left u pper lobe. Cardiomediastinal silhouette is within normal limits. Bones and soft tissues are unremarka ble. Impression: Extensive hazy bilateral airspace disease, with probable improvement at the left upper lobe since daja or exam. Correlate for multifocal pneumonia versus other extensive pulmonary disease. Reviewed, dictated and finalized at location . Impression: Extensive hazy bilateral airspace disease, with probable improvement at the lef t upper lobe since prior exam. Correlate for multifocal pneumonia versus other extensive pulmonary disease.
== END 2022-09-06 11:18 | disposition home or self-care (01) ==
LOC: ANHIMG 11:21
PROVIDERS: PCP Family Medicine; Visit Provider Physician Assistant Medical
DX: J18.9 Pneumonia, unspecified organism (principal)
CPT/HCPCS: 71046

== ENCOUNTER 2022-09-16 12:43 | Outpatient (CLI) | payer MEDICARE, SELFPAY ==
--- NOTE | ~2022-09-16 | CT_ITS ---
EXAMINATION:CT diagnostic chest wo con DATE: 09/16/2022 13:03 INDICATION: Abnormal findings on diagnostic imaging. TECHNIQUE: Computed tomography (CT) of the chest was performed without intravenous contrast. Automate d exposure control and iterative reconstruction technique were employed. The dose-length product (DLP ) was 275.67 mGy-cm. COMPARISON: Chest 2 views 09/06/2022, 10/07/2018, 05/05/22, 07/22/22 FINDINGS: There are scattered areas of septal thickening, groundglass opacity, and airspace opacity i nvolving all lobes with architectural distortion. No bronchiectasis or honeycombing. There are small pleural effusions. Cardiomegaly is noted. There are coronary artery calcifications. No pericardial ef fusion. There is mild mediastinal lymphadenopathy, likely reactive. There is a 2.7 cm nodule in right thyroid lobe. Bilateral gynecomastia is noted. There is a small sliding hiatal hernia. There are cys ts in left kidney measuring up to 2.8 cm. There is kyphosis of thoracic spine. There is mild thoracic spondylosis. IMPRESSION: 1. Diffuse lung disease with mild improvement from 07/29/2022 and marked worsening from 05/05/2022. Thes e findings are likely a combination of pneumonia, pulmonary edema, and diffuse alveolar damage. 2. Small pleural effusions. 3. Cardiomegaly. 4. Mild mediastinal lymphadenopathy, likely reactive. 5. Thyroid nodule. Consider thyroid ultrasound for risk stratification if indicated given the patient 's age. Reviewed, dictated and finalized at location A. IMPRESSION: 1. Diffuse lung disease with mild improvement from 07/29/2022 and marked worseni ng from 05/05/2022. These findings are likely a combination of pneumonia, pulmona ry edema, and diffuse alveolar damage. 2. Small pleural effusions. 3. Cardiomegaly. 4. Mild mediastinal lymphadenopathy, likely reactive. 5. Thyroid nodule. Consider thyroid ultrasound for risk stratification if indic ated given the patient's age.
== END 2022-09-16 12:44 | disposition home or self-care (01) ==
PROVIDERS: PCP Family Medicine; Visit Provider Family Medicine
DX: R93.89 Abnormal findings on diagnostic imaging of other specified body structures (principal); Z79.899 Other long term (current) drug therapy; J90 Pleural effusion, not elsewhere classified; I51.7 Cardiomegaly; R59.0 Localized enlarged lymph nodes; R91.8 Other nonspecific abnormal finding of lung field
CPT/HCPCS: 71250

== ENCOUNTER 2022-09-24 13:43 | Outpatient (CLI) | payer MEDICARE, SELFPAY ==
--- NOTE | ~2022-09-24 | US_ITS ---
EXAMINATION: US thyroid DATE: 09/24/2022 14:33 INDICATION: Nontoxic single thyroid nodule TECHNIQUE: Multiple ultrasound images of the thyroid were obtained. COMPARISON: None. FINDINGS: The right thyroid lobe measures 6.2 x 3.5 x 2.4 cm. The left thyroid lobe measures 4.2 x 1.8 x 1.7 c m. There is a 3.7 cm wider than tall predominately solid isoechoic nodule with smooth margins and wi thout echogenic foci in the inferior right thyroid (TI-RADS 3, mildly suspicious , FNA if >=2.5 cm, a nnual followup is >=1.5 cm). 1.2 cm left thyroid nodule with similar imaging features, also TI RADS 3 . There is normal echotexture, echogenicity and vascular flow throughout the surrounding thyroid glabobby dIsiah IMPRESSION: 1. The nodular goiter. Recommend ultrasound-guided biopsy of the largest 3.7 cm TI RADS 3 right thyro id nodule. Reviewed, dictated and finalized at location A. IMPRESSION: 1. The nodular goiter. Recommend ultrasound-guided biopsy of the largest 3.7 cm TI RADS 3 right thyroid nodule.
== END 2022-09-24 13:44 | disposition home or self-care (01) ==
PROVIDERS: PCP Family Medicine; Visit Provider Family Medicine
DX: E04.1 Nontoxic single thyroid nodule (principal)
CPT/HCPCS: 76536

== ENCOUNTER 2022-11-04 12:17 | Inpatient (IN) | payer MEDICARE, SELFPAY ==
[2022-11-04] VITALS (10 sets, daily range): BP systolic 113–145; BP diastolic 85–108; PULSE 46–104; RESP 18–20; TEMP 36.2–36.6; O2SAT 43–97; BMI 30.7
--- NOTE | ~2022-11-04 | XR_ITS ---
Portable chest x-ray Comparison: 11/11/2022 Clinical History: Pulmonary edema Findings: Right-sided central venous line is in satisfactory position. There is moderate mixed alveo lar and interstitial pulmonary edema pattern. Probable minimal pleural effusions. Cardiomediastinal silhouette is stable. Bones and soft tissues are unremarkable. Impression: Moderate pulmonary edema pattern. Minimal pleural effusions. Right-sided PICC line in place. Reviewed, dictated and finalized at location . Impression: Moderate pulmonary edema pattern. Minimal pleural effusions. Right-sided PICC line in place.
--- NOTE | ~2022-11-04 | XR_ITS ---
EXAMINATION: XR chest 1V portable INDICATION: Shortness of breath TECHNIQUE: Portable AP chest at 0819 hours COMPARISON: 11/14/2022 FINDINGS: A right upper extremity PICC ends with its tip in the midsuperior vena cava. Cardiomegaly i s noted. Diffuse interstitial and airspace opacities persist with slight worsening in the right upper lung zone. Small pleural effusions have decreased in size. There is no pneumothorax. IMPRESSION: 1. Diffuse lung disease with interval worsening in the right upper lung zone, consistent with pulmona ry edema and/or pneumonia. 2. Cardiomegaly. Reviewed, dictated and finalized at location B. IMPRESSION: 1. Diffuse lung disease with interval worsening in the right upper lung zone, c onsistent with pulmonary edema and/or pneumonia. 2. Cardiomegaly.
--- NOTE | ~2022-11-04 | XR_ITS ---
EXAMINATION: XR chest PICC line DATE: 11/09/2022 12:55 INDICATION: Central line placement. TECHNIQUE: A single frontal view of the chest was obtained. COMPARISON: Chest 2 views at 9:07 AM FINDINGS: There is a diffuse interstitial pattern in the lungs. There are airspace opacities in the p erihilar regions. There are small pleural effusions. No pneumothorax. Cardiomegaly is noted. A right upper extremity peripherally inserted central venous catheter (PICC) is seen with tip at the superior cavoatrial junction. IMPRESSION: 1. PICC tip at the superior cavoatrial junction. 2. Worsened diffuse lung disease, consistent with moderate pulmonary edema. Superimposed pneumonia ca nnot be excluded. 3. Stable small pleural effusions. 4. Cardiomegaly. Reviewed, dictated and finalized at location A. IMPRESSION: 1. PICC tip at the superior cavoatrial junction. 2. Worsened diffuse lung disease, consistent with moderate pulmonary edema. Sup erimposed pneumonia cannot be excluded. 3. Stable small pleural effusions. 4. Cardiomegaly.
--- NOTE | ~2022-11-04 | XR_ITS ---
Portable chest x-ray Comparison: 11/09/2022 Clinical History: Pulmonary edema Findings: Right-sided PICC line remains in place. Moderate pulmonary edema pattern is again present. Probable small bilateral pleural effusions. Cardiomediastinal silhouette is stable. Bones and soft tissues are unremarkable. Impression: Moderate pulmonary edema pattern with small bilateral pleural effusions. Correlate clinically for inf ection. Reviewed, dictated and finalized at [facility]. Impression: Moderate pulmonary edema pattern with small bilateral pleural effusions. Correl ate clinically for infection.
--- NOTE | ~2022-11-04 | XR_ITS ---
Portable chest x-ray Comparison: 11/12/2022 Clinical History: Pulmonary edema Findings: Right-sided PICC line remains in place. Moderate pulmonary edema pattern is similar to daja or exam. Probable minimal pleural effusions. Cardiomediastinal silhouette is stable. Bones and soft tissues are unremarkable. Impression: Moderate presumed pulmonary edema pattern, stable from prior exam. Correlate clinically for infection . Probable minimal pleural effusions. Right-sided PICC line. Reviewed, dictated and finalized at location . Impression: Moderate presumed pulmonary edema pattern, stable from prior exam. Correlate cl inically for infection. Probable minimal pleural effusions. Right-sided PICC line.
--- NOTE | ~2022-11-04 | XR_ITS ---
EXAMINATION: XR chest 1V portable DATE: 11/04/2022 12:38 INDICATION: Dyspnea TECHNIQUE: frontal view of the chest was obtained. COMPARISON: Chest radiograph dated 09/06/2022 FINDINGS: Evolution in patchy bilateral airspace opacities with improvement in the peripheral and upper lung zo juan j and worsening in the bilateral perihilar regions and lower lung zones. Small bilateral pleural ef fusions. No pneumothorax. Cardiomegaly. IMPRESSION: 1. Evolution in distribution of patchy now bilateral perihilar and basilar predominant airspace opaci ties which could represent pneumonia, pulmonary edema or some combination thereof. 2. Small bilateral pleural effusions. 3. Cardiomegaly. Reviewed, dictated and finalized at location B. IMPRESSION: 1. Evolution in distribution of patchy now bilateral perihilar and basilar pred ominant airspace opacities which could represent pneumonia, pulmonary edema or some combination thereof. 2. Small bilateral pleural effusions. 3. Cardiomegaly.
--- NOTE | ~2022-11-04 | XR_ITS ---
EXAMINATION: XR chest 2V DATE: 11/07/2022 15:00 INDICATION: Congestive heart failure. TECHNIQUE: Frontal and lateral views of the chest were obtained. COMPARISON: Chest single view 11/04/2022, chest CT 09/16/2022 FINDINGS: There are small pleural effusions. There is a diffuse interstitial pattern in the lungs. Th ere are airspace opacities in the lungs bilaterally with a perihilar predominance. No pneumothorax. C ardiomegaly is noted. IMPRESSION: 1. Stable diffuse lung disease, consistent with pulmonary edema versus pneumonia. 2. Stable small pleural effusions. 3. Cardiomegaly. Reviewed, dictated and finalized at location A. IMPRESSION: 1. Stable diffuse lung disease, consistent with pulmonary edema versus pneumoni a. 2. Stable small pleural effusions. 3. Cardiomegaly.
--- NOTE | ~2022-11-04 | XR_ITS ---
EXAMINATION: XR chest 2V DATE: 11/09/2022 09:11 INDICATION: Shortness of breath. Bilateral leg swelling. TECHNIQUE: Frontal and lateral views of the chest were obtained. COMPARISON: Chest 2 views 11/17/2022 FINDINGS: There is a diffuse interstitial pattern in the lungs. There are airspace opacities in the l ungs with a perihilar predominance. There are small pleural effusions. No pneumothorax. Cardiomegaly is noted. IMPRESSION: 1. Diffuse lung disease with improvement in the perihilar regions, likely moderate pulmonary edema. 2. Small pleural effusions. 3. Cardiomegaly. Reviewed, dictated and finalized at location A. IMPRESSION: 1. Diffuse lung disease with improvement in the perihilar regions, likely moder ate pulmonary edema. 2. Small pleural effusions. 3. Cardiomegaly.
--- NOTE | ~2022-11-04 | XR_ITS ---
Portable chest x-ray Comparison: 11/13/2022 Clinical History: Pulmonary edema Findings: Right-sided PICC line is unchanged. Moderate pulmonary edema pattern is essentially unchan ged. Probable small bilateral pleural effusions. Cardiomediastinal silhouette is stable. Bones and s oft tissues are unremarkable. Impression: Stable moderate presumed pulmonary edema pattern with small bilateral pleural effusions. Correlate cl inically for infection. Stable right-sided PICC line. Reviewed, dictated and finalized at location M. Impression: Stable moderate presumed pulmonary edema pattern with small bilateral pleural e ffusions. Correlate clinically for infection. Stable right-sided PICC line.
--- NOTE | 2022-11-04 12:20 | ECG_ITS ---
Measurements Intervals [place] Rate: 99 P: VT: 0 QRS: 10 QRSD: 118 T: 25 QT: 398 QTc: 512 Interpretive Statements ATRIAL FIBRILLATION INCOMPLETE RIGHT BUNDLE BRANCH BLOCK ANTEROSEPTAL INFARCT, AGE INDETERMINATE BORDERLINE T WAVE ABNORMALITY- INFERIOR LEADS ABNORMAL ECG COMPARED TO ECG 07/25/2022 14:56:45 ATRIAL FIBRILLATION NOW PRESENT Electronically Signed On 11-04-2022 13:56:24 CDT by Salo Foster D.O.
[2022-11-04 12:40] LABS: Basophils Percent Auto 0.5 % (0.2-1.2); Hematocrit 37.7 % (42.0-52.0); Hemoglobin 11.9 g/dL (14.0-18.0); Immature Granulocyte Absolute 0.03 K/mm3 (0.00-0.031); Immature Granulocyte Percent A 0.4 % (0-0.5); Lymphocytes Absolute Auto 0.83 K/mm3 (0.9-3.2); Lymphocytes Percent Auto 11.2 % (18.3-44.2); Mean Corpuscular HGB Conc 31.6 g/dl (32-36); Mean Corpuscular Hemoglobin 29.7 pg (26-34); Monocytes Absolute Auto 0.9 K/mm3 (0.1-0.6); Monocytes Percent Auto 12.7 % (2.6-8.5); Neutrophils Absolute Auto 5.6 K/mm3 (1.3-6.7); Neutrophils Percent Auto 75.2 % (45.5-73.1); Platelet Count Result 155 k/mm3 (150-375); Red Blood Count 4.01 M/mm3 (4.6-6.20); Red Cell Distribution Width 16.9 % (11.5-14.5); White Blood Count 7.4 K/mm3 (4.5-10.0)
[2022-11-04 12:47] LABS: Alanine Aminotransferase 32 U/L (6-50); Albumin Level 3.4 g/dL (3.5-5.1); Alkaline Phosphatase 113 U/L (38-126); Anion Gap 4 mmol/L (8-16); Aspartate Amino Transferase 34 U/L (17-59); Bilirubin,Total 2.8 mg/dL (0.2-1.3); Blood Urea Nitrogen 21 mg/dL (9-20); Calcium 8.3 mg/dL (8.4-10.2); Carbon Dioxide 34 mmol/L (22-30); Chloride 98 mmol/L (98-107); Estimated Glomerular Filt Rate > 60; Glucose 115 mg/dL (65-110); Potassium 3.4 mmol/L (3.4-5.0); Sodium 136 mmol/L (137-145)
[2022-11-04 12:51] LABS: INR 1.5; Prothrombin Time 18.4 Seconds (11.1-14.7)
[2022-11-04 12:52] LABS: Partial Thromboplastin Time 33.8 SECONDS (22.3-36.8)
[2022-11-04 12:58] LABS: NT Pro B Type Natriuretic Pept 11600 pg/mL (19.9-100); Troponin I 0.026 ng/mL (0.000-0.034)
[2022-11-04 13:07] LABS: Anisocytosis 1+ (NORMAL); Platelet Estimate Adequate (Adequate)
[2022-11-04 13:08] LABS: Crenated RBC 1+ (NORMAL); Ovalocytes 1+ (NORMAL); Schistocytes 1+ (NORMAL)
--- NOTE | 2022-11-04 13:39 | ED.SOB ---
HPI - SOB/Dyspnea General Chief Complaint: Shortness of Breath/Dyspnea Stated Complaint: dyspnea/ LE swelling Time Seen by Provider: 11/04/22 12:38 History of Present Illness HPI Narrative: Patient is an 82-year-old male with a history of CHF, A-fib, hypertension, hyperlipidemia presenting with leg swelling. Patient states that for the last several days his legs have been increasingly swollen. States that he gained about 10 pounds overnight today. States that he has been trying to elevate his legs as much as possible which only helps with the swelling for about 10 minutes. States he has been compliant with his daily Lasix. Reports some palpitations but no chest pain. No fevers, cough, vomiting, diarrhea, dysuria. Denies further complaints. Related Data Home Medications Medication Instructions Recorded Confirmed aspirin 81 mg tablet,delayed 81 mg PO DAILY 03/15/19 11/04/22 release (Adult Aspirin Regimen) metoprolol succinate 100 mg 100 mg PO DAILY 10/10/22 11/04/22 tablet,extended release 24 hr tamsulosin 0.4 mg capsule 0.4 mg PO BID 11/04/22 11/04/22 Allergies Allergy/AdvReac Type Severity Reaction Status Date / Time No Known Allergies Allergy Verified 10/23/22 13:35 Review of Systems Review of Systems: All systems reviewed & are unremarkable except as noted in HPI and below PMFSH Past Medical History Medical History (Updated 11/04/22 @ 21:40 by Lynn Porras MD) Arthritis Atrial fibrillation Benign prostate hyperplasia Chronic anticoagulation Chronic respiratory failure with hypoxia, on home oxygen therapy Heart failure with reduced ejection fraction EF was 30 to 35% in 10/2022. History of prostate cancer Status post cryotherapy. Hypertension Mixed hyperlipidemia Nonischemic cardiomyopathy Concerns for cardiac amyloidosis or other infiltrative process however he has refused further workup. Obstructive sleep apnea Paroxysmal supraventricular tachycardia Pulmonary hypertension Moderate RV enlargement and hypokinesis with severe pulmonary hypertension and and RVSP of 80 mmHg. Valvular heart disease Moderate to severe mitral and tricuspid regurgitation. Surgical History Surgical History History of cataract extraction History of colonoscopy History of hip surgery History of inguinal hernia repair Family History Family History Father Carcinoma of colon Sibling Kidney carcinoma Cancer Social History Social History Social History: Surrogate medical decision maker: Code status: Smoking status: Never smoker Second hand tobacco smoke exposure: No Alcohol intake: current Drinks per week: 2 Substance use: never Substance use type: does not use Lack of Transportation: No Lack of Food: Never True Current Housing: I Have Housing Concerned About Future Housing: No Difficulty Paying Gas/Electric Bills: No Difficulty Paying for Meds: No Currently Unemployed: No Education: High School Diploma/GED Difficulty w/ Childcare or Family Care: No Living arrangements: with family Additional living arrangements comments: Lives with and daughter. Has 2 children. 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 Spiritual care concerns: No Exam Narrative: GENERAL: Well-appearing, well-nourished, and in no acute distress. HEAD: Normocephalic, atraumatic. EYES: PERRLA and EOMI. ENT: Nares clear, no rhinorrhea or epistaxis. Mucous membranes moist. NECK: Supple. CHEST: Crackles in bases, patient on 2 L nasal cannula which is baseline, no respiratory distress HEART: Irregular rhythm, regular rate ABDOMEN: Soft, nontender, nondistended EXTREMITIES: Normal range of motion. + Bilateral pitting edema up to his thighs SKIN: Warm, dry, skin changes consistent
[2022-11-04] MEDS: FUROSEMIDE INJ 40 MG/4 ML VIAL IV PUSH (14:11)
--- NOTE | 2022-11-04 16:22 | PM.IMHP ---
H&P: HPI History of Present Illness Date/Time: 11/04/22 19:00 Chief Complaint: Shortness of breath, edema, and weight gain. Narrative: This is an 82-year-old male with multiple medical problems including heart failure with reduced ejection fraction, nonischemic cardiomyopathy with concerns for cardiac amyloidosis or other infiltrative process though he has refused workup for this in the past, severe pulmonary hypertension, mitral and tricuspid valve regurgitation, paroxysmal atrial fibrillation, coronary artery disease, chronic respiratory failure and hypoxia, valvular heart disease, obstructive sleep apnea, and other comorbidities who presented to the emergency department for evaluation of shortness of breath, lower extremity edema, and weight gain. The patient provides the following history. An office visit note from Dr. Toth dated 10/29/2022 was also reviewed. The patient reported gaining 32 lb since his visit just 2 months prior and it is noted that he was taken off of his furosemide at the beginning of August do to hyponatremia though that was resumed in the last couple of weeks. He did not inform Dr. Toth's office of this substantial weight gain until this recent visit however. He limits his water intake to 40 oz a day but admits that he does not follow a low-sodium diet. More recently has become increasingly short of breath despite starting back on furosemide and he has turned his oxygen from 2 L to 5 L without physician direction. Echocardiogram done last couple weeks showed worsening EF of 35 to 40% and worsening valvular disease with evidence of right-sided heart failure and severe pulmonary hypertension. Ideally Dr. Kumar would like to start Entresto, SGOT 2 inhibitor, and spironolactone however due to ongoing issues with low blood pressures that is likely at not possible (lisinopril and spironolactone were previously discontinued). Lasix was increased to 40 mg a day and he was instructed to follow-up sometime this week. This morning he reports that he gained 10 lb overnight and decided to come in. With further questioning he has not been sleeping well due to orthopnea and he also reports pretty significant increase in edema. He denies fever, chills, sweats, chest pain, pleuritic pain, cough, nausea, and vomiting. Review of Systems Review of Systems: Twelve systems were reviewed and are negative except for as per HPI. [facility] Past Medical History Medical History Arthritis Atrial fibrillation Benign prostate hyperplasia Chronic anticoagulation Chronic respiratory failure with hypoxia, on home oxygen therapy Heart failure with reduced ejection fraction EF was 30 to 35% in 10/2022. History of prostate cancer Status post cryotherapy. Hypertension Mixed hyperlipidemia Nonischemic cardiomyopathy Concerns for cardiac amyloidosis or other infiltrative process however he has refused further workup. Obstructive sleep apnea Paroxysmal supraventricular tachycardia Pulmonary hypertension Moderate RV enlargement and hypokinesis with severe pulmonary hypertension and and RVSP of 80 mmHg. Valvular heart disease Moderate to severe mitral and tricuspid regurgitation. Surgical History Surgical History History of cataract extraction History of colonoscopy History of hip surgery History of inguinal hernia repair Family History Family History Father Carcinoma of colon Sibling Kidney carcinoma Cancer Social History Social History (Updated 11/04/22 @ 22:13 by Love Qiu PA-C) Social History: Surrogate medical decision maker: Caryn Everett, daughter. Code status: Full code. Smoking status: Never smoker Second hand tobacco smoke exposure: No Alcohol intake: current Drinks per week: 2 Substance use: never Substance use type: does not use
[2022-11-04] MEDS: APIXABAN 5 MG TABLET PO (17:22)
--- NOTE | 2022-11-04 17:22 | PM.CNCAR ---
Assessment and Plan Assessment and plan (1) Heart failure with reduced ejection fraction: Code(s): I50.20 - Unspecified systolic (congestive) heart failure Status: Acute Assessment and Plan: Acute on chronic left and right heart failure with LV systolic dysfunction EF 35-40%. By his most recent echocardiogram he has moderate eccentric MR moderate to severe TR with severe pulmonary hypertension and biatrial enlargement. He has apical sparing on global strain imaging which could be suggestive of amyloidosis for which I had recommended further workup evaluation many years before which he declined. Over the years he has had variability in his EF and over the past several months diagnosis of atrial fibrillation refractory to cardioversion prompting initiation of amiodarone and continuation of Toprol XL. It is unclear if his current volume status is a function of inadvertent noncompliance with recommendations and taking his medications appropriately along with sodium restriction. It has been clearly established the past he is not taking his medications as prescribed nor has he followed low-sodium diet or other restrictions as requested. However, more recently it appears he has been trying to do better in this regard yet it remains unclear how compliant and with what consistency he has been doing so. Nonetheless, patient is clearly in decompensated heart failure so will need to be aggressively diuresed as tolerated. Continue Lasix 40 mg IV twice daily for now. Accurate input and output, daily weight. Continue less than 2 g daily sodium restriction. Monitor sodium levels as this may further exacerbate hyponatremia which is at present stable. I have explained previously and once again the complicated nature management given the circumstances further made more difficult given significant underlying valvular heart disease and severe pulmonary hypertension. Patient is at high risk for decompensation due to valvular heart disease, uncontrolled atrial fibrillation, untreated hypoxic, noncompliance medications and or if underlying infiltrative cardiomyopathy or other process is present. Furthermore, given severe pulmonary hypertension respiratory status be quite tenuous particular of any hemodynamic compromise. Need to monitor very closely in this regard as significant hypotension may result in worsening renal failure as well. I will add Entresto 24/26 mg twice daily. If tolerated consider addition of spironolactone 25 mg daily. Jardiance 10 mg daily would also be recommended for management, however, patient has had intolerance to guideline directed medical therapy due to hypotension although his BP is stable at this time. (2) Atrial fibrillation: Code(s): I48.91 - Unspecified atrial fibrillation Status: Acute Assessment and Plan: Heart rate marginally controlled. Continue amiodarone 200 mg daily and Toprol XL 100 mg daily for rate control. He has failed cardioversion previously. Continue systemic anticoagulation to reduce risk for embolic stroke with Eliquis 5 mg twice daily. Monitor for bleeding. Follow H&H. If heart rate poorly controlled will exacerbate heart failure symptoms particularly given severe mitral regurgitation. Further uptitration medical therapy depending on heart rate control and response to therapy. (3) Nonischemic cardiomyopathy: Code(s): I42.8 - Other cardiomyopathies Status: Acute Assessment and Plan: History of nonobstructive CAD and LV dysfunction EF 35-40% consistent with nonischemic cardiomyopathy. Can not exclude progression of underlying CAD although the patient does not report anginal symptoms. Recommended addition of Entresto as BP permits and optimization medical therapy as he tolerates as above. (4) Mitral regurgitation: Code(s): I34.0 - Nonrheumatic mitral (valve) insufficiency Status: Inactive Assessment and Plan: At least moderate eccentric MR lik
[2022-11-04] MEDS: TAMSULOSIN HCL 0.4 MG CAPSULE PO (17:23)
[2022-11-04] MEDS: SACUBITRIL/VALSARTAN 24-26 MG TABLET 1 TAB PO (20:38)
[2022-11-05] VITALS (16 sets, daily range): BP systolic 90–128; BP diastolic 59–91; PULSE 42–107; RESP 18–20; TEMP 36.3–36.8; O2SAT 90–94
[2022-11-05] MEDS: AMIODARONE HCL 200 MG TABLET PO (05:44)
[2022-11-05] MEDS: ASPIRIN 81 MG ENTERIC TABLET PO (05:44)
[2022-11-05] MEDS: ATORVASTATIN 20 MG TABLET PO (05:44)
[2022-11-05] MEDS: APIXABAN 5 MG TABLET PO ×2 (05:44→17:32)
[2022-11-05 05:49] LABS: Hematocrit 38.9 % (42.0-52.0); Hemoglobin 12.1 g/dL (14.0-18.0); Mean Corpuscular HGB Conc 31.1 g/dl (32-36); Mean Corpuscular Hemoglobin 29.6 pg (26-34); Mean Corpuscular Volume 95.1 fl (80-100); Mean Platelet Volume 11.6 fl (7.4-10.4); Platelet Count Result 146 k/mm3 (150-375); Red Blood Count 4.09 M/mm3 (4.6-6.20); Red Cell Distribution Width 16.7 % (11.5-14.5); White Blood Count 7.2 K/mm3 (4.5-10.0)
[2022-11-05 06:12] LABS: Alanine Aminotransferase 30 U/L (6-50); Albumin Level 3.1 g/dL (3.5-5.1); Alkaline Phosphatase 114 U/L (38-126); Aspartate Amino Transferase 28 U/L (17-59); Bilirubin,Total 1.9 mg/dL (0.2-1.3); Blood Urea Nitrogen 20 mg/dL (9-20); Carbon Dioxide > 40 mmol/L (22-30); Chloride 97 mmol/L (98-107); Estimated CRCL calculation 84 ml/min; Estimated Glomerular Filt Rate > 60; Glucose 114 mg/dL (65-110); Magnesium 1.9 mg/dL (1.6-2.3); Potassium 3.3 mmol/L (3.4-5.0); Sodium 138 mmol/L (137-145)
[2022-11-05] MEDS: TAMSULOSIN HCL 0.4 MG CAPSULE PO ×2 (08:52→17:32)
[2022-11-05] MEDS: POTASSIUM CHLORIDE 10 MEQ ER TABLET PO (08:52)
[2022-11-05] MEDS: METOPROLOL SUCCINATE EXT REL 100 MG TABCR PO (08:52)
[2022-11-05] MEDS: FUROSEMIDE INJ 40 MG/4 ML VIAL IV PUSH ×2 (08:52→17:32)
[2022-11-05] MEDS: SACUBITRIL/VALSARTAN 24-26 MG TABLET 1 TAB PO ×2 (08:52→20:55)
[2022-11-05] MEDS: POTASSIUM CHLORIDE 20 MEQ PACKET (FOR LIQUID) PO (08:53)
[2022-11-05] MEDS: EMPAGLIFLOZIN 10 MG TABLET PO (08:53)
--- NOTE | 2022-11-05 09:11 | PM.PNCARD ---
Progress Note: A&P Assessment and Plan (1) Heart failure with reduced ejection fraction: Code(s): I50.20 - Unspecified systolic (congestive) heart failure Status: Acute Assessment and Plan: Acute on chronic left and right heart failure with LV systolic dysfunction EF 35-40%. By his most recent echocardiogram he has moderate eccentric MR moderate to severe TR with severe pulmonary hypertension and biatrial enlargement. He has apical sparing on global strain imaging which could be suggestive of amyloidosis for which I had recommended further workup evaluation many years before which he declined. Over the years he has had variability in his EF and over the past several months diagnosis of atrial fibrillation refractory to cardioversion prompting initiation of amiodarone and continuation of Toprol XL. It is unclear if his current volume status is a function of inadvertent noncompliance with recommendations and taking his medications appropriately along with sodium restriction. It has been clearly established the past he is not taking his medications as prescribed nor has he followed low-sodium diet or other restrictions as requested. However, more recently it appears he has been trying to do better in this regard yet it remains unclear how compliant and with what consistency he has been doing so. Nonetheless, patient is clearly in decompensated heart failure so will need to be aggressively diuresed as tolerated. Continue Lasix 40 mg IV twice daily for now. Renal function is okay the today but potassium is low at 3.3. Potassium is already replaced. Continue entresto 24/26 mg twice daily. If tolerated consider addition of spironolactone 25 mg daily. Jardiance 10 mg daily would also be recommended for management, however, patient has had intolerance to guideline directed medical therapy due to hypotension although his BP is stable at this time. (2) Atrial fibrillation: Code(s): I48.91 - Unspecified atrial fibrillation Status: Acute Assessment and Plan: Heart rate marginally controlled. Continue amiodarone 200 mg daily and Toprol XL 100 mg daily for rate control. He has failed cardioversion previously. Continue systemic anticoagulation to reduce risk for embolic stroke with Eliquis 5 mg twice daily. Monitor for bleeding. Follow H&H. If heart rate poorly controlled will exacerbate heart failure symptoms particularly given severe mitral regurgitation. Further uptitration medical therapy depending on heart rate control and response to therapy. (3) Nonischemic cardiomyopathy: Code(s): I42.8 - Other cardiomyopathies Status: Acute Assessment and Plan: History of nonobstructive CAD and LV dysfunction EF 35-40% consistent with nonischemic cardiomyopathy. Can not exclude progression of underlying CAD although the patient does not report anginal symptoms. (4) Mitral regurgitation: Code(s): I34.0 - Nonrheumatic mitral (valve) insufficiency Status: Inactive Assessment and Plan: At least moderate eccentric MR likely severe worsened with LV enlargement, and decline in EF. Consideration for evaluation and mitral clip as appropriate once patient is stabilized further although his physiology is quite complicated. (5) Chronic respiratory failure with hypoxia, on home oxygen therapy: Code(s): J96.11 - Chronic respiratory failure with hypoxia; Z99.81 - Dependence on supplemental oxygen Status: Acute Assessment and Plan: Compliance with O2 supplementation as advised has worsening hypoxia will exacerbate heart failure, pulmonary hypertension. (6) CAD (coronary artery disease): Code(s): I25.10 - Atherosclerotic heart disease of [place] coronary artery without angina pectoris Status: Acute Assessment and Plan: Troponin unremarkable initially. Repeat troponin for trend. Continue aspirin 81 mg daily, atorvastatin 20 mg at bedtime, Toprol XL 100 mg daily. Aggr
--- NOTE | 2022-11-05 12:05 | PM.IMPN ---
Progress Note: A&P Assessment and Plan (1) Acute on chronic systolic congestive heart failure: Code(s): I50.23 - Acute on chronic systolic (congestive) heart failure Status: Acute Assessment and Plan: Continue diuretic therapy. Appreciate cardiology input. (2) Elevated bilirubin: Code(s): R17 - Unspecified jaundice Status: Acute Assessment and Plan: Liver enzymes okay. Bilirubin trending down (3) Nonischemic cardiomyopathy: Code(s): I42.8 - Other cardiomyopathies Status: Acute Assessment and Plan: See plan above. (4) Atrial fibrillation: Code(s): I48.91 - Unspecified atrial fibrillation Status: Acute Assessment and Plan: Rates still elevated. Cardizem drip started. Appreciate Cardiology input. (5) Chronic anticoagulation: Code(s): Z79.01 - watermaster (current) use of anticoagulants Status: Acute Assessment and Plan: Continue anticoagulation for atrial fibrillation Subjective Date/time seen: 11/05/22 12:05 Interval history: Heart rate still elevated. No significant shortness of breath. Exam Narrative: General: Well-developed, nontoxic-appearing male sitting up in bed. Weight: 111.36 kg. BMI: 30.7. HEENT: PERRL, EOMI. Sclera anicteric. Oral mucosa moist. Neck: Supple. Increased jugular venous distension. Respiratory: Mild conversational dyspnea. He appears in no respiratory distress however. Lung sounds are diminished at the bases with scattered crackles. Cardiovascular: Irregularly irregular rate and rhythm. Systolic murmur heard left sternal border. Gastrointestinal: Abdomen is soft, nontender, and nondistended with positive bowel sounds. Skin: Warm and dry. Generalized pallor. Extremities: No cyanosis or clubbing. 3+ pitting edema of the lower extremities. Neurological: Alert. Cranial nerves 2-12 are grossly intact. No gross focal deficits to casual conversation. Psychiatric: Pleasant and cooperative with normal mood and affect. Objective Data Vital Signs Vital Signs: Vital Signs - 24 hr 11/04/22 12:18 11/04/22 12:34 11/04/22 14:36 Temperature 97.1 F L Pulse Rate 90 76 Respiratory Rate 20 Blood Pressure 145/108 H 144/97 H Pulse Oximetry 96 97 96 Oxygen Delivery Nasal Cannula Nasal Cannula Oxygen Flow Rate 2 2 11/04/22 15:00 11/04/22 16:57 11/04/22 16:00 Temperature 97.3 F L Pulse Rate 104 H 88 Respiratory Rate 20 Blood Pressure 129/94 H Pulse Oximetry 94 94 Oxygen Delivery Nasal Cannula Oxygen Flow Rate 2 11/04/22 20:00 11/04/22 20:14 11/04/22 20:17 Temperature 97.5 F L 97.5 F L 97.9 F Pulse Rate 81 92 94 Respiratory Rate 18 18 18 Blood Pressure 113/85 127/98 H 133/94 H Pulse Oximetry 43 L 92 90 Oxygen Delivery Oxygen Flow Rate 11/04/22 20:00 11/04/22 20:00 11/04/22 22:00 Temperature 97.6 F Pulse Rate 104 H 94 46 L Respiratory Rate 18 18 Blood Pressure 125/85 Pulse Oximetry 90 94 Oxygen Delivery Nasal Cannula Oxygen Flow Rate 2 11/05/22 00:00 11/05/22 04:00 11/05/22 05:44 Temperature Pulse Rate 85 77 100 Respiratory Rate Blood Pressure Pulse Oximetry Oxygen Delivery Oxygen Flow Rate 11/05/22 06:00 Temperature 98.2 F Pulse Rate 83 Respiratory Rate 18 Blood Pressure 128/91 H Pulse Oximetry 94 Oxygen Delivery Oxygen Flow Rate Intake/Output Intake/Output: Intake & Output 11/02/22 11/03/22 11/04/22 11/05/22 23:59 23:59 23:59 23:59 Intake Total 100 440 Output Total 1550 400 Balance -1450 40 Meds/Results Medications: Active Medications Generic Name Dose Route Start Last Admin Trade Name Freq PRN Reason Stop Dose Admin Acetaminophen 650 mg 11/04/22 16:53 Acetaminophen 325 Mg Tablet PO Q6H PRN Mild Pain (1-3) or Fever Amiodarone HCl 200 mg 11/05/22 06:00 11/05/22 05:44 Amiodarone Hcl 200 Mg Tablet PO 200 mg DAILY@0600 ROSIE Administration Apix
[2022-11-06] VITALS (18 sets, daily range): BP systolic 87–102; BP diastolic 56–72; PULSE 73–112; RESP 16–20; TEMP 36.4–36.7; O2SAT 86–97
[2022-11-06 05:21] LABS: Blood Urea Nitrogen 18 mg/dL (9-20); Calcium 7.8 mg/dL (8.4-10.2); Carbon Dioxide > 40 mmol/L (22-30); Chloride 94 mmol/L (98-107); Estimated CRCL calculation 75 ml/min; Estimated Glomerular Filt Rate > 60; Glucose 100 mg/dL (65-110); Potassium 3.1 mmol/L (3.4-5.0); Sodium 137 mmol/L (137-145)
[2022-11-06] MEDS: APIXABAN 5 MG TABLET PO ×2 (05:28→17:10)
[2022-11-06] MEDS: ASPIRIN 81 MG ENTERIC TABLET PO (05:28)
[2022-11-06] MEDS: AMIODARONE HCL 200 MG TABLET PO (05:28)
[2022-11-06] MEDS: ATORVASTATIN 20 MG TABLET PO (05:28)
[2022-11-06] MEDS: POTASSIUM CHLORIDE 10 MEQ ER TABLET PO (08:49)
[2022-11-06] MEDS: POTASSIUM CHLORIDE 20 MEQ ER TABLET 40 MEQ PO (08:50)
[2022-11-06] MEDS: TAMSULOSIN HCL 0.4 MG CAPSULE PO ×2 (08:50→17:10)
[2022-11-06] MEDS: EMPAGLIFLOZIN 10 MG TABLET PO (08:50)
[2022-11-06] MEDS: FUROSEMIDE INJ 40 MG/4 ML VIAL IV PUSH (09:14)
[2022-11-06] MEDS: SACUBITRIL/VALSARTAN 24-26 MG TABLET 1 TAB PO ×2 (09:14→20:28)
[2022-11-06] MEDS: METOPROLOL SUCCINATE EXT REL 100 MG TABCR PO (09:14)
--- NOTE | 2022-11-06 14:09 | PM.IMPN ---
Progress Note: A&P Assessment and Plan (1) Acute on chronic systolic congestive heart failure: Code(s): I50.23 - Acute on chronic systolic (congestive) heart failure Status: Acute Assessment and Plan: Patient presents with shortness of breath. Chest x-ray is consistent with pulmonary edema. BNP was [address]. Echocardiogram from July showing EF of 40-45% with grade 1 diastolic dysfunction and severe right ventricular enlargement with hypokinesis and severe biatrial enlargement. He is tolerating diuretic therapy although his blood pressure was soft. Potassium is low and this will be replaced. Continue diuretic therapy with parameters.Appreciate cardiology input. Continue Entresto, Toprol and empagliflozin. (2) Elevated bilirubin: Code(s): R17 - Unspecified jaundice Status: Acute Assessment and Plan: Liver enzymes okay. Bilirubin trending down (3) Nonischemic cardiomyopathy: Code(s): I42.8 - Other cardiomyopathies Status: Acute Assessment and Plan: See plan above. (4) Atrial fibrillation: Code(s): I48.91 - Unspecified atrial fibrillation Status: Acute Assessment and Plan: Heart rate controlled. Continue metoprolol XL. Continue Eliquis. (5) Chronic respiratory failure with hypoxia, on home oxygen therapy: Code(s): J96.11 - Chronic respiratory failure with hypoxia; Z99.81 - Dependence on supplemental oxygen Status: Acute Assessment and Plan: Patient on chronic home O2 at 2 L. He was educated about the need to wear oxygen with activity and at rest. Explained the risks of not wearing oxygen as prescribed. He voices understanding of this Subjective Date/time seen: 11/06/22 14:09 Interval history: 82yo male withAFib, CHF and chronic respiratory failure here for shortness of breath Assuming care. Chart reviewed. No complaints chest pain shortness of breath. He does tell me that he has takes off his oxygen at home when he is active. Does wear when he is at rest. Exam Narrative: AF 97.7 87/60 99 16 90% 2L Gen - NARD Chest - bibasilar crackles, nml RR CV - irregularly irregular. Telemetry showing AFib with PVCs. Abd - soft, NT, +BS -Canales secured draining clear yellow urine Ext - woody 1+ pedal edema Psych - Nml mood and affect Skin - Warm and dry. Mild left lower extremities scaly skin noted with chronic venous stasis skin changes. Objective Data Vital Signs Vital Signs: Vital Signs - 24 hr 11/05/22 14:30 11/05/22 14:34 11/05/22 14:38 Temperature 97.6 F 97.6 F 97.6 F Pulse Rate 68 106 H 107 H Respiratory Rate 18 20 20 Blood Pressure 101/62 99/74 L 90/69 L Pulse Oximetry 92 91 94 Oxygen Delivery Oxygen Flow Rate 11/05/22 16:00 11/05/22 20:07 11/05/22 20:11 Temperature 97.9 F 97.9 F Pulse Rate 74 56 L 42 L Respiratory Rate 18 18 Blood Pressure 100/64 99/66 L Pulse Oximetry 94 90 Oxygen Delivery Oxygen Flow Rate 11/05/22 20:16 11/05/22 20:40 11/05/22 20:00 Temperature 97.9 F 97.9 F Pulse Rate 106 H 56 L 85 Respiratory Rate 18 18 Blood Pressure 97/59 L 100/64 Pulse Oximetry 90 94 Oxygen Delivery Oxygen Flow Rate 11/05/22 20:00 11/06/22 00:00 11/06/22 04:00 Temperature Pulse Rate 76 90 Respiratory Rate Blood Pressure Pulse Oximetry Oxygen Delivery Nasal Cannula Oxygen Flow Rate 2 11/06/22 05:23 11/06/22 05:28 11/06/22 08:00 Temperature 98.0 F Pulse Rate 89 97 98 Respiratory Rate 17 Blood Pressure 102/72 Pulse Oximetry 92 Oxygen Delivery Oxygen Flow Rate 11/06/22 09:14 11/06/22 08:00 11/06/22 13:10 Temperature 97.7 F Pulse Rate 112 H 99 Respiratory Rate 16 Blood Pressure 87/60 L Pulse Oximetry 90 90 Oxygen Delivery Nasal Cannula Oxygen Flow Rate 2 11/06/22 13:11 11/06/22 13:15 11/06/22 12:00 Temperature 97.7 F 97.6 F Pulse Rate 79 79 73 Respiratory Rate 16 16 Bl
--- NOTE | 2022-11-06 16:21 | PM.PNCARD ---
Progress Note: A&P Assessment and Plan (1) Heart failure with reduced ejection fraction: Code(s): I50.20 - Unspecified systolic (congestive) heart failure Status: Acute Assessment and Plan: Acute on chronic left and right heart failure with LV systolic dysfunction EF 35-40%. By his most recent echocardiogram he has moderate eccentric MR moderate to severe TR with severe pulmonary hypertension and biatrial enlargement. He has apical sparing on global strain imaging which could be suggestive of amyloidosis for which I had recommended further workup evaluation many years before which he declined. Over the years he has had variability in his EF and over the past several months diagnosis of atrial fibrillation refractory to cardioversion prompting initiation of amiodarone and continuation of Toprol XL. It is unclear if his current volume status is a function of inadvertent noncompliance with recommendations and taking his medications appropriately along with sodium restriction. It has been clearly established the past he is not taking his medications as prescribed nor has he followed low-sodium diet or other restrictions as requested. However, more recently it appears he has been trying to do better in this regard yet it remains unclear how compliant and with what consistency he has been doing so. Nonetheless, patient is clearly in decompensated heart failure so will need to be aggressively diuresed as tolerated. Continue Lasix 40 mg IV twice daily for now. Renal function remains stable thus far but potassium low, repleted once again this morning. Add potassium supplementation daily. Need to be careful balancing this with Entresto and spironolactone due to potassium-sparing effects in this regard. Discussed at great length with the patient and his daughter the importance of optimize medical therapy as much as he tolerates with regards to blood pressure and symptoms. Discussed the complex nature of his concerns given significant valvular heart disease, moderate LV dysfunction, severe pulmonary hypertension, intermittent compliance with O2 supplementation, diet and his refusal in the past to undergo workup was recommended. I also explained like residual concern for the possibility of underlying cardiac amyloidosis admitted to grave nature of this diagnosis. Also discussed referral to Heart failure and/or valve clinic at [place]. Day verbalized understanding and all questions were answered to their satisfaction. Will continue to push with optimizing volume status, optimize medical therapy as renal function and BP permits. I will resend kappa lambda light chain ratios, immunofixation for further evaluation for amyloidosis as discussed. Again would like to continue entresto 24/26 mg twice daily. If tolerated consider addition of spironolactone 25 mg daily. Jardiance 10 mg daily would also be recommended for management, however, patient has had intolerance to guideline directed medical therapy due to hypotension although his BP is stable at this time. Preference to maintain Entresto if possible over Jardiance and/or spironolactone if necessary. I spent 40 minutes in the care of this patient at bedside including discussions with the patient, his daughter, chart review, medical decision-making, and documentation. (2) Atrial fibrillation: Code(s): I48.91 - Unspecified atrial fibrillation Status: Acute Assessment and Plan: Heart rate marginally controlled. Continue amiodarone 200 mg daily and Toprol XL 100 mg daily for rate control. He has failed cardioversion previously. Continue systemic anticoagulation to reduce risk for embolic stroke with Eliquis 5 mg twice daily. Monitor for bleeding. Follow H&H. If heart rate poorly controlled will exacerbate heart failure symptoms particularly given severe mitral regurgitation. I would like to increase Toprol XL to 125 mg daily, however, given relative hypotension unable to do so a
--- NOTE | 2022-11-06 17:12 | PC.NURSE ---
Contacted Dr. Toth around 0900 with pt's blood pressure 100/65 questioning whether to give pt's AM blood pressure medication. Dr. Toth instructed to give 0900 IV lasix, PO Metoprolol, and Entresto. Blood pressure dropped to 87/60 and was instructed by Dr. Castillo to hold 1700 dose of lasix.
[2022-11-07] VITALS (19 sets, daily range): BP systolic 80–109; BP diastolic 32–81; PULSE 54–92; RESP 18–21; TEMP 36.4–36.6; O2SAT 90–93
[2022-11-07] MEDS: AMIODARONE HCL 200 MG TABLET PO (05:05)
[2022-11-07] MEDS: ASPIRIN 81 MG ENTERIC TABLET PO (05:05)
[2022-11-07] MEDS: ATORVASTATIN 20 MG TABLET PO (05:06)
[2022-11-07] MEDS: APIXABAN 5 MG TABLET PO ×2 (05:06→18:12)
[2022-11-07 05:30] LABS: Alanine Aminotransferase 31 U/L (6-50); Albumin Level 2.9 g/dL (3.5-5.1); Alkaline Phosphatase 105 U/L (38-126); Aspartate Amino Transferase 29 U/L (17-59); Bilirubin,Total 1.2 mg/dL (0.2-1.3); Blood Urea Nitrogen 21 mg/dL (9-20); Calcium 7.9 mg/dL (8.4-10.2); Carbon Dioxide > 40 mmol/L (22-30); Chloride 91 mmol/L (98-107); Estimated CRCL calculation 63 ml/min; Estimated Glomerular Filt Rate > 60; Glucose 116 mg/dL (65-110); Magnesium 1.9 mg/dL (1.6-2.3); Potassium 3.7 mmol/L (3.4-5.0); Sodium 135 mmol/L (137-145)
[2022-11-07] MEDS: POTASSIUM CHLORIDE 10 MEQ ER TABLET PO (09:01)
[2022-11-07] MEDS: TAMSULOSIN HCL 0.4 MG CAPSULE PO ×2 (09:01→17:04)
[2022-11-07] MEDS: EUCERIN CREAM 120 GM JAR 1 APPLIC TOPICAL (09:01)
[2022-11-07] MEDS: SACUBITRIL/VALSARTAN 24-26 MG TABLET 1 TAB PO (09:01)
[2022-11-07] MEDS: EMPAGLIFLOZIN 10 MG TABLET PO (09:01)
[2022-11-07] MEDS: METOPROLOL SUCCINATE EXT REL 100 MG TABCR PO (10:06)
--- NOTE | 2022-11-07 12:01 | PM.IMPN ---
Progress Note: A&P Assessment and Plan (1) Acute on chronic systolic congestive heart failure: Code(s): I50.23 - Acute on chronic systolic (congestive) heart failure Status: Acute Assessment and Plan: Patient presents with shortness of breath. Chest x-ray is consistent with pulmonary edema. BNP was [address]86. Echocardiogram from July showing EF of 40-45% with grade 1 diastolic dysfunction and severe right ventricular enlargement with hypokinesis and severe biatrial enlargement. He was tolerating diuretic therapy but mostly on hold now for soft blood pressure. Still edematous. Continue diuretic therapy with parameters. Appreciate cardiology input. Continue Entresto, Toprol and empagliflozin. Repeat Limited Echo? Check CXR (2) Elevated bilirubin: Code(s): R17 - Unspecified jaundice Status: Acute Assessment and Plan: Liver enzymes okay. Bilirubin trending down (3) Nonischemic cardiomyopathy: Code(s): I42.8 - Other cardiomyopathies Status: Acute Assessment and Plan: See plan above. (4) Atrial fibrillation: Code(s): I48.91 - Unspecified atrial fibrillation Status: Acute Assessment and Plan: Heart rate controlled. Continue metoprolol XL. Continue Eliquis. (5) Chronic respiratory failure with hypoxia, on home oxygen therapy: Code(s): J96.11 - Chronic respiratory failure with hypoxia; Z99.81 - Dependence on supplemental oxygen Status: Acute Assessment and Plan: Patient on chronic home O2 at 2 L. He already has severe pulm HTN. He was educated about the need to wear oxygen with activity and at rest. Explained the risks of not wearing oxygen as prescribed. He voices understanding of this. Currently on 3L. Follow. Subjective Date/time seen: 11/07/22 12:01 Interval history: 82yo male withAFib, CHF and chronic respiratory failure here for shortness of breath Lasix held due to soft BP last night and this morning. Slept okay. No CP or SOB. No n/v. Walking with walker in room with therapy. Exam Narrative: AF 97.9 98/58 63 18 90% 3L Gen - NARD Chest - bibasilar crackles, nml RR CV - irregularly irregular. Telemetry showing AFib with PVCs. Abd - soft, NT, +BS -Canales secured draining clear yellow urine Ext - 2+ R>L pitting pedal edema Psych - Nml mood and affect. AOx4 Skin - Warm and dry. Mild left lower extremities scaly skin noted with chronic venous stasis skin changes L>R. Objective Data Vital Signs Vital Signs: Vital Signs - 24 hr 11/06/22 13:10 11/06/22 13:11 11/06/22 13:15 Temperature 97.7 F 97.7 F 97.6 F Pulse Rate 99 79 79 Respiratory Rate 16 16 16 Blood Pressure 87/60 L 90/56 L 91/70 L Pulse Oximetry 90 91 86 L Oxygen Delivery Oxygen Flow Rate 11/06/22 13:58 11/06/22 16:00 11/06/22 17:12 Temperature 97.7 F Pulse Rate 99 85 Respiratory Rate 16 Blood Pressure 87/60 L 93/65 L Pulse Oximetry 90 Oxygen Delivery Oxygen Flow Rate 11/06/22 20:08 11/06/22 20:12 11/06/22 20:15 Temperature 97.9 F 97.9 F 97.9 F Pulse Rate 84 86 102 H Respiratory Rate 18 18 20 Blood Pressure 94/69 L 101/58 L 89/64 L Pulse Oximetry 97 93 89 L Oxygen Delivery Oxygen Flow Rate 11/06/22 20:00 11/06/22 21:28 11/06/22 20:00 Temperature 97.9 F Pulse Rate 98 86 74 Respiratory Rate 20 18 Blood Pressure 101/58 L Pulse Oximetry 91 93 Oxygen Delivery Nasal Cannula Oxygen Flow Rate 2 11/07/22 00:00 11/07/22 04:00 11/07/22 05:22 Temperature 97.9 F Pulse Rate 74 92 83 Respiratory Rate 18 Blood Pressure 98/58 L Pulse Oximetry 92 Oxygen Delivery Oxygen Flow Rate 11/07/22 08:28 11/07/22 09:07 11/07/22 10:06 Temperature Pulse Rate 63 Respiratory Rate Blood Pressure Pulse Oximetry 90 Oxygen Delivery Nasal Cannula Nasal Cannula Oxygen Flow Rate 3 3 11/07/22 08:00 Temperature Pulse Rate Respiratory Rate Blood Pr
--- NOTE | 2022-11-07 15:07 | PM.PNCARD ---
Progress Note: A&P Assessment and Plan (1) Heart failure with reduced ejection fraction: Code(s): I50.20 - Unspecified systolic (congestive) heart failure Status: Acute Assessment and Plan: Acute on chronic left and right heart failure with LV systolic dysfunction EF 35-40%. By his most recent echocardiogram he has moderate eccentric MR moderate to severe TR with severe pulmonary hypertension and biatrial enlargement. His furosemide was held last night and this morning in favor of trying to initiate some medical therapy. However, still has dyspnea, orthopnea, edema, and CXR with no improvement in pulmonary edema. Will hold HF medications for the time being in favor of furosemide. If BP too low to allow for diuresis, may require transfer to ICU for pressor support. (2) Atrial fibrillation: Code(s): I48.91 - Unspecified atrial fibrillation Status: Acute Assessment and Plan: Heart rate controlled. Continue amiodarone 200 mg daily and Toprol XL 100 mg daily for rate control. Continue systemic anticoagulation to reduce risk for embolic stroke with Eliquis 5 mg twice daily. Monitor for bleeding. Follow H&H. If heart rate poorly controlled will exacerbate heart failure symptoms particularly given severe mitral regurgitation. (3) Nonischemic cardiomyopathy: Code(s): I42.8 - Other cardiomyopathies Status: Acute Assessment and Plan: History of nonobstructive CAD and LV dysfunction EF 35-40% consistent with nonischemic cardiomyopathy. Can not exclude progression of underlying CAD although the patient does not report anginal symptoms. (4) Mitral regurgitation: Code(s): I34.0 - Nonrheumatic mitral (valve) insufficiency Status: Inactive Assessment and Plan: At least moderate eccentric MR likely severe worsened with LV enlargement, and decline in EF. Consideration for evaluation and mitral clip as appropriate once patient is stabilized further although his physiology is quite complicated. (5) Chronic respiratory failure with hypoxia, on home oxygen therapy: Code(s): J96.11 - Chronic respiratory failure with hypoxia; Z99.81 - Dependence on supplemental oxygen Status: Acute Assessment and Plan: Compliance with O2 supplementation as advised has worsening hypoxia will exacerbate heart failure, pulmonary hypertension. (6) CAD (coronary artery disease): Code(s): I25.10 - Atherosclerotic heart disease of [place] coronary artery without angina pectoris Status: Acute Assessment and Plan: Troponin unremarkable initially. Repeat troponin for trend. Continue aspirin 81 mg daily, atorvastatin 20 mg at bedtime, Toprol XL 100 mg daily. Aggressive atherosclerotic risk reduction. Unlikely this is a primary contributor. Consider repeat ischemic evaluation once patient is more euvolemic on an outpatient basis although this does not appear to be an acute concern at present. (7) Pulmonary hypertension: Code(s): I27.20 - Pulmonary hypertension, unspecified Status: Acute Assessment and Plan: Severe pulmonary hypertension RVSP 80 mm Hg progressive given decline EF, worsening chronic hypoxic respiratory failure, AFib and progression of underlying mitral and tricuspid regurgitation. This is no doubt exacerbated due to intermittent compliance with O2 supplementation and chronic hypoxia. (8) Chronic anticoagulation: Code(s): Z79.01 - custodial (current) use of anticoagulants Status: Acute Assessment and Plan: Continue systemic anticoagulation with Eliquis 5 mg twice daily for embolic stroke risk reduction due to atrial fibrillation. (9) Paroxysmal supraventricular tachycardia: Code(s): I47.1 - Supraventricular tachycardia Status: Acute Assessment and Plan: Stable at this time. Continue Toprol XL 100 mg daily and amiodarone 200 mg daily. Subjective Date/time seen: 11/07/22 15:07 Cardiology follow up
[2022-11-07] MEDS: FUROSEMIDE INJ 40 MG/4 ML VIAL IV PUSH (17:04)
--- NOTE | 2022-11-07 17:07 | PCPTNOTE ---
On 11/07/22, the student, [Gin uHnter], provided care and completed [facility] documentation on this patient. I have reviewed the student's documentation and agree with the findings.
[2022-11-07] MEDS: polyethylene glycoL 3350 17 GM POWD.PACK PO (22:30)
[2022-11-08] VITALS (18 sets, daily range): BP systolic 73–103; BP diastolic 47–65; PULSE 64–110; RESP 16–24; TEMP 36.4–36.7; O2SAT 91–98
[2022-11-08 05:05] LABS: Basophils Absolute Auto 0.1 K/mm3 (0.0-0.1); Basophils Percent Auto 0.7 % (0.2-1.2); Eosinophils Percent Auto 0.3 % (0-4.4); Hematocrit 43.8 % (42.0-52.0); Immature Granulocyte Absolute 0.04 K/mm3 (0.00-0.031); Immature Granulocyte Percent A 0.5 % (0-0.5); Lymphocytes Absolute Auto 0.77 K/mm3 (0.9-3.2); Lymphocytes Percent Auto 10.3 % (18.3-44.2); Mean Corpuscular HGB Conc 29.7 g/dl (32-36); Mean Corpuscular Hemoglobin 29.4 pg (26-34); Mean Corpuscular Volume 99.1 fl (80-100); Mean Platelet Volume 10.8 fl (7.4-10.4); Monocytes Absolute Auto 0.8 K/mm3 (0.1-0.6); Monocytes Percent Auto 11.2 % (2.6-8.5); Neutrophils Absolute Auto 5.8 K/mm3 (1.3-6.7); Platelet Count Result 177 k/mm3 (150-375); Red Blood Count 4.42 M/mm3 (4.6-6.20); Red Cell Distribution Width 15.9 % (11.5-14.5); White Blood Count 7.5 K/mm3 (4.5-10.0)
[2022-11-08 05:16] LABS: Blood Urea Nitrogen 22 mg/dL (9-20); Calcium 7.9 mg/dL (8.4-10.2); Carbon Dioxide > 40 mmol/L (22-30); Chloride 89 mmol/L (98-107); Estimated CRCL calculation 63 ml/min; Estimated Glomerular Filt Rate > 60; Glucose 123 mg/dL (65-110); Magnesium 1.9 mg/dL (1.6-2.3); Phosphorus 3.5 mg/dL (2.5-4.5); Potassium 3.8 mmol/L (3.4-5.0); Sodium 134 mmol/L (137-145)
[2022-11-08] MEDS: AMIODARONE HCL 200 MG TABLET PO (05:53)
[2022-11-08] MEDS: APIXABAN 5 MG TABLET PO ×2 (05:53→17:22)
[2022-11-08] MEDS: ASPIRIN 81 MG ENTERIC TABLET PO (05:53)
[2022-11-08] MEDS: ATORVASTATIN 20 MG TABLET PO (05:53)
--- NOTE | 2022-11-08 09:16 | PCPTNOTE ---
Attempted to see patient for PT, however patient was eating breakfast.
[2022-11-08] MEDS: POTASSIUM CHLORIDE 10 MEQ ER TABLET PO (09:20)
[2022-11-08] MEDS: TAMSULOSIN HCL 0.4 MG CAPSULE PO ×2 (09:20→17:22)
--- NOTE | 2022-11-08 09:21 | PM.PNCARD ---
Progress Note: A&P Assessment and Plan (1) Heart failure with reduced ejection fraction: Code(s): I50.20 - Unspecified systolic (congestive) heart failure Status: Acute Assessment and Plan: Acute on chronic left and right heart failure with LV systolic dysfunction EF 35-40%. By his most recent echocardiogram he has moderate eccentric MR moderate to severe TR with severe pulmonary hypertension and biatrial enlargement. Unable to diurese much over the last couple of days because of hypotension. Continue hold HF medications for the time being in favor of furosemide - prefer to reach a more euvolemic state before trying to initiate GDMT. Given his inability to tolerate GDMT in the past due to hypotension, doubt he would tolerate at this point. If BP too low to allow for diuresis, may require transfer to ICU for pressor support. (2) Atrial fibrillation: Code(s): I48.91 - Unspecified atrial fibrillation Status: Acute Assessment and Plan: Heart rate controlled. Continue amiodarone 200 mg daily, holding metoprolol this morning as SBP is 88mmHg. Continue systemic anticoagulation to reduce risk for embolic stroke with Eliquis 5 mg twice daily. Monitor for bleeding. Follow H&H. (3) Nonischemic cardiomyopathy: Code(s): I42.8 - Other cardiomyopathies Status: Acute Assessment and Plan: History of nonobstructive CAD and LV dysfunction EF 35-40% consistent with nonischemic cardiomyopathy. Can not exclude progression of underlying CAD although the patient does not report anginal symptoms. (4) Mitral regurgitation: Code(s): I34.0 - Nonrheumatic mitral (valve) insufficiency Status: Inactive Assessment and Plan: At least moderate eccentric MR likely severe worsened with LV enlargement, and decline in EF. Consideration for evaluation and mitral clip as appropriate once patient is stabilized further although his physiology is quite complicated. (5) Chronic respiratory failure with hypoxia, on home oxygen therapy: Code(s): J96.11 - Chronic respiratory failure with hypoxia; Z99.81 - Dependence on supplemental oxygen Status: Acute Assessment and Plan: Compliance with O2 supplementation as advised has worsening hypoxia will exacerbate heart failure, pulmonary hypertension. (6) CAD (coronary artery disease): Code(s): I25.10 - Atherosclerotic heart disease of [place] coronary artery without angina pectoris Status: Acute Assessment and Plan: Troponin unremarkable initially. Repeat troponin for trend. Continue aspirin 81 mg daily, atorvastatin 20 mg at bedtime, Toprol XL 100 mg daily. Aggressive atherosclerotic risk reduction. Unlikely this is a primary contributor. Consider repeat ischemic evaluation once patient is more euvolemic on an outpatient basis although this does not appear to be an acute concern at present. (7) Pulmonary hypertension: Code(s): I27.20 - Pulmonary hypertension, unspecified Status: Acute Assessment and Plan: Severe pulmonary hypertension RVSP 80 mm Hg progressive given decline EF, worsening chronic hypoxic respiratory failure, AFib and progression of underlying mitral and tricuspid regurgitation. This is no doubt exacerbated due to intermittent compliance with O2 supplementation and chronic hypoxia. (8) Chronic anticoagulation: Code(s): Z79.01 - skilled nursing (current) use of anticoagulants Status: Acute Assessment and Plan: Continue systemic anticoagulation with Eliquis 5 mg twice daily for embolic stroke risk reduction due to atrial fibrillation. (9) Paroxysmal supraventricular tachycardia: Code(s): I47.1 - Supraventricular tachycardia Status: Acute Assessment and Plan: Stable at this time. Continue Toprol XL 100 mg daily and amiodarone 200 mg daily. Subjective Date/time seen: 11/08/22 09:21 Interval history: 11/07/2022: States he feels about the same today. Had
[2022-11-08] MEDS: EUCERIN CREAM 120 GM JAR 1 APPLIC TOPICAL (09:25)
--- NOTE | 2022-11-08 16:58 | PM.IMPN ---
Progress Note: A&P Assessment and Plan (1) Acute on chronic systolic congestive heart failure: Code(s): I50.23 - Acute on chronic systolic (congestive) heart failure Status: Acute Assessment and Plan: Patient presents with shortness of breath. Chest x-ray is consistent with pulmonary edema. BNP was 61915. Echo from July showing EF of 40-45% with grade 1 diastolic dysfunction and severe right ventricular enlargement with hypokinesis and severe biatrial enlargement. He was tolerating diuretic therapy but mostly on hold now for soft blood pressure. Still edematous. Repeat CXR reviewed showing pulmonary edema. Continue diuretic therapy with parameters. Appreciate cardiology input. Continue Toprol and empagliflozin. Entresto on hold. May need pressor therapy. (2) Nonischemic cardiomyopathy: Code(s): I42.8 - Other cardiomyopathies Status: Acute Assessment and Plan: See plan above. (3) Atrial fibrillation: Code(s): I48.91 - Unspecified atrial fibrillation Status: Acute Assessment and Plan: Heart rate controlled. Continue metoprolol XL. Continue Eliquis. Monitor on tele. (4) Chronic respiratory failure with hypoxia, on home oxygen therapy: Code(s): J96.11 - Chronic respiratory failure with hypoxia; Z99.81 - Dependence on supplemental oxygen Status: Acute Assessment and Plan: Patient on chronic home O2 at 2 L. He already has severe pulm HTN. He was educated about the need to wear oxygen with activity and at rest. Explained the risks of not wearing oxygen as prescribed. He voices understanding of this. Currently on 3L. Follow. (5) Elevated bilirubin: Code(s): R17 - Unspecified jaundice Status: Acute Assessment and Plan: Liver enzymes okay. Bilirubin trending down Subjective Date/time seen: 11/08/22 16:58 Interval history: 82yo male with AFib, CHF and chronic respiratory failure here for shortness of breath Patient slept okay. No chest pain shortness of breath. No nausea vomiting. Denies headaches. He is up walking in the room with therapy. Therapy has been limited due to hypotension. Blood pressure drops to the 70s occasionally when he is standing. Exam Narrative: AF 98.1 73/56 85 21 95% 3L Gen - NARD Chest - mid and lower lung field crackles, nml RR CV - irregularly irregular. Telemetry showing AFib with controlled rate and PVCs. Abd - soft, NT, +BS -Canales secured draining clear yellow urine Ext - 2+ pitting pedal edema Psych - Nml mood and affect. Skin - Warm and dry. Objective Data Vital Signs Vital Signs: Vital Signs - 24 hr 11/07/22 18:05 11/07/22 19:36 11/07/22 19:39 Temperature 97.5 F L 97.9 F Pulse Rate 66 77 Respiratory Rate 18 18 Blood Pressure 86/63 L 86/53 L 86/64 L Pulse Oximetry 90 93 Oxygen Delivery Oxygen Flow Rate Fraction of Inspired Oxygen 11/07/22 19:42 11/07/22 22:00 11/07/22 22:00 Temperature 97.8 F 97.7 F Pulse Rate 69 71 71 Respiratory Rate 18 18 18 Blood Pressure 86/60 L 109/81 Pulse Oximetry 93 93 93 Oxygen Delivery Nasal Cannula Oxygen Flow Rate 2 Fraction of Inspired Oxygen 28 11/07/22 20:00 11/08/22 00:00 11/07/22 20:55 Temperature Pulse Rate 76 75 Respiratory Rate Blood Pressure Pulse Oximetry 93 Oxygen Delivery Nasal Cannula Oxygen Flow Rate 2 Fraction of Inspired Oxygen 11/08/22 04:00 11/08/22 05:25 11/08/22 05:53 Temperature 98.1 F Pulse Rate 75 64 64 Respiratory Rate 24 H Blood Pressure 88/52 L Pulse Oximetry 92 Oxygen Delivery Oxygen Flow Rate Fraction of Inspired Oxygen 11/08/22 06:00 11/08/22 09:19 11/08/22 08:00 Temperature 97.7 F Pulse Rate 80 70 78 Respiratory Rate 18 Blood Pressure 95/60 L Pulse Oximetry 95 Oxygen Delivery Oxygen Flow Rate Fraction of Inspired Oxygen 11/08/22 08:00 11/08/22 12:00 11/08/22 13:5
[2022-11-09] VITALS (27 sets, daily range): BP systolic 78–88; BP diastolic 38–60; PULSE 65–128; RESP 16–32; TEMP 36.3–36.6; O2SAT 92–99; BMI 35.4
[2022-11-09 05:36] LABS: Basophils Percent Auto 0.4 % (0.2-1.2); Hematocrit 43.9 % (42.0-52.0); Hemoglobin 12.8 g/dL (14.0-18.0); Immature Granulocyte Absolute 0.08 K/mm3 (0.00-0.031); Lymphocytes Absolute Auto 0.62 K/mm3 (0.9-3.2); Lymphocytes Percent Auto 7.8 % (18.3-44.2); Mean Corpuscular HGB Conc 29.2 g/dl (32-36); Mean Corpuscular Hemoglobin 29.4 pg (26-34); Mean Corpuscular Volume 100.7 fl (80-100); Mean Platelet Volume 10.8 fl (7.4-10.4); Monocytes Absolute Auto 1.1 K/mm3 (0.1-0.6); Monocytes Percent Auto 13.3 % (2.6-8.5); Neutrophils Absolute Auto 6.1 K/mm3 (1.3-6.7); Neutrophils Percent Auto 77.5 % (45.5-73.1); Platelet Count Result 177 k/mm3 (150-375); Red Blood Count 4.36 M/mm3 (4.6-6.20); Red Cell Distribution Width 15.8 % (11.5-14.5); White Blood Count 7.9 K/mm3 (4.5-10.0)
[2022-11-09 05:43] LABS: Alanine Aminotransferase 29 U/L (6-50); Alkaline Phosphatase 110 U/L (38-126); Aspartate Amino Transferase 25 U/L (17-59); Bilirubin,Total 1.2 mg/dL (0.2-1.3); Blood Urea Nitrogen 21 mg/dL (9-20); Calcium 8.1 mg/dL (8.4-10.2); Carbon Dioxide > 40 mmol/L (22-30); Chloride 90 mmol/L (98-107); Estimated CRCL calculation 79 ml/min; Estimated Glomerular Filt Rate > 60; Glucose 122 mg/dL (65-110); Magnesium 2.1 mg/dL (1.6-2.3); Phosphorus 3.8 mg/dL (2.5-4.5); Sodium 134 mmol/L (137-145)
[2022-11-09] MEDS: AMIODARONE HCL 200 MG TABLET PO (06:10)
[2022-11-09] MEDS: ASPIRIN 81 MG ENTERIC TABLET PO (06:10)
[2022-11-09] MEDS: APIXABAN 5 MG TABLET PO ×2 (06:11→17:25)
[2022-11-09] MEDS: ATORVASTATIN 20 MG TABLET PO (06:11)
[2022-11-09] MEDS: POTASSIUM CHLORIDE 10 MEQ ER TABLET PO (09:21)
[2022-11-09] MEDS: TAMSULOSIN HCL 0.4 MG CAPSULE PO ×2 (09:21→16:11)
--- NOTE | 2022-11-09 10:00 | PM.PNCARD ---
Progress Note: A&P Assessment and Plan (1) Heart failure with reduced ejection fraction: Code(s): I50.20 - Unspecified systolic (congestive) heart failure Status: Acute Assessment and Plan: Acute on chronic left and right heart failure with LV systolic dysfunction EF 35-40%, with moderate eccentric MR moderate to severe TR with severe pulmonary hypertension. Unable to diurese much over the last couple of days because of hypotension. CXR shows significant CHF still, though slightly better.. --Continue hold HF medications for the time being in favor of furosemide --Still metoprolol, will reduce this, and follow a fib rate --Transfer to IMU for dobutamine infusion, 2.5 mcg/kg/min --Discussed w/ DR. Castillo (2) Atrial fibrillation: Code(s): I48.91 - Unspecified atrial fibrillation Status: Acute Assessment and Plan: Heart rate controlled. -- Continue amiodarone 200 mg daily, holding metoprolol if SBP < 100. --Continue systemic anticoagulation to reduce risk for embolic stroke with Eliquis 5 mg twice daily. --Monitor for bleeding. Follow H&H. (3) Nonischemic cardiomyopathy: Code(s): I42.8 - Other cardiomyopathies Status: Acute Assessment and Plan: History of nonobstructive CAD and LV dysfunction EF 35-40% consistent with nonischemic cardiomyopathy. Can not exclude progression of underlying CAD although the patient does not report anginal symptoms. (4) Mitral regurgitation: Code(s): I34.0 - Nonrheumatic mitral (valve) insufficiency Status: Inactive Assessment and Plan: At least moderate eccentric MR likely severe worsened with LV enlargement, and decline in EF. Consideration for evaluation and mitral clip as appropriate once patient is stabilized further although his physiology is quite complicated. (5) Chronic respiratory failure with hypoxia, on home oxygen therapy: Code(s): J96.11 - Chronic respiratory failure with hypoxia; Z99.81 - Dependence on supplemental oxygen Status: Acute Assessment and Plan: Compliance with O2 supplementation as advised has worsening hypoxia will exacerbate heart failure, pulmonary hypertension. (6) CAD (coronary artery disease): Code(s): I25.10 - Atherosclerotic heart disease of [place] coronary artery without angina pectoris Status: Acute Assessment and Plan: Known mild nonobstructive CAD. -- Continue aspirin 81 mg daily, atorvastatin 20 mg at bedtime, Toprol XL reduced to 50 mg daily. A --Consider repeat ischemic evaluation once patient is more euvolemic on an outpatient basis if not done recently, although this does not appear to be an acute concern at present. (7) Pulmonary hypertension: Code(s): I27.20 - Pulmonary hypertension, unspecified Status: Acute Assessment and Plan: Severe pulmonary hypertension RVSP 80 mm Hg progressive given decline EF, worsening chronic hypoxic respiratory failure, AFib and progression of underlying mitral and tricuspid regurgitation. This is no doubt exacerbated due to intermittent compliance with O2 supplementation and chronic hypoxia. (8) Chronic anticoagulation: Code(s): Z79.01 - terminal clerk (current) use of anticoagulants Status: Acute Assessment and Plan: Continue systemic anticoagulation with Eliquis 5 mg twice daily for embolic stroke risk reduction due to atrial fibrillation. (9) Paroxysmal supraventricular tachycardia: Code(s): I47.1 - Supraventricular tachycardia Status: Acute Assessment and Plan: Stable at this time. --Continue amiodarone 200 mg daily; reducing metoprolol due to low BP and starting dobutamine. Subjective Date/time seen: 11/09/22 10:00 Interval history: Follow-up for acute on chronic systolic CHF, AFib, MR/TR, nonischemic cardiomyopathy. Mild nonobstructive CAD. 11/07/2022: States he feels about the same today. Had symptomatic hypotension earlier
--- NOTE | 2022-11-09 10:39 | PM.IMPN ---
Progress Note: A&P Assessment and Plan (1) Acute on chronic systolic congestive heart failure: Code(s): I50.23 - Acute on chronic systolic (congestive) heart failure Status: Acute Assessment and Plan: Patient presents with shortness of breath. Chest x-ray is consistent with pulmonary edema. BNP was 63958. Echo from July showing EF of 40-45% with grade 1 diastolic dysfunction and severe right ventricular enlargement with hypokinesis and severe biatrial enlargement. He was tolerating diuretic therapy but mostly on hold now for soft blood pressure. Still edematous. Repeat CXR today reviewed showing pulmonary edema but lightly improved from /. Continue diuretic therapy as tolerated with parameters. Appreciate cardiology input. Continue Toprol and empagliflozin. Entresto on hold. Plan to move to IMU for Dobutamine. (2) Nonischemic cardiomyopathy: Code(s): I42.8 - Other cardiomyopathies Status: Acute Assessment and Plan: See plan above. (3) Atrial fibrillation: Code(s): I48.91 - Unspecified atrial fibrillation Status: Acute Assessment and Plan: Heart rate controlled. Continue metoprolol XL. Continue Eliquis. Monitor on tele. (4) Chronic respiratory failure with hypoxia, on home oxygen therapy: Code(s): J96.11 - Chronic respiratory failure with hypoxia; Z99.81 - Dependence on supplemental oxygen Status: Acute Assessment and Plan: Patient on chronic home O2 at 2 L. He already has severe pulm HTN. He was educated about the need to wear oxygen with activity and at rest. Explained the risks of not wearing oxygen as prescribed. He voices understanding of this. back down to 2L. Follow. Check ABG (5) Elevated bilirubin: Code(s): R17 - Unspecified jaundice Status: Acute Assessment and Plan: Liver enzymes okay. Bilirubin normal now Subjective Date/time seen: 11/09/22 10:39 Interval history: 82yo male with AFib, CHF and chronic respiratory failure here for shortness of breath. Patient more lethergic this morning per RN. Patient later was able to be up to the chair this morninig. He denies CP. SOB better. Not able to tolerate Lasix due to HoTN. Exam Narrative: AF 97.9 88/38 83 16 95% 2L Gen - NARD Chest - mid and lower lung field inspiratory crackles with some improvement, nml RR CV - irregularly irregular. Telemetry showing AFib with controlled rate and PVCs. Abd - soft, NT, +BS -Canales secured draining clear yellow urine Ext - 1-2+ pitting pedal edema with Angel hose in place Psych - Nml mood and affect. In good spirits Skin - Warm and dry. Objective Data Vital Signs Vital Signs: Vital Signs - 24 hr 11/08/22 12:00 11/08/22 13:55 11/08/22 13:56 Temperature 98.1 F Pulse Rate 71 70 110 H Respiratory Rate 21 H Blood Pressure 88/48 L 80/47 L Pulse Oximetry 92 93 Oxygen Delivery Oxygen Flow Rate Fraction of Inspired Oxygen 11/08/22 13:59 11/08/22 16:00 11/08/22 17:20 Temperature Pulse Rate 85 Respiratory Rate Blood Pressure 73/56 L 90/48 L Pulse Oximetry 95 Oxygen Delivery Oxygen Flow Rate Fraction of Inspired Oxygen 11/08/22 21:03 11/08/22 21:03 11/08/22 21:05 Temperature 97.6 F Pulse Rate 71 71 84 Respiratory Rate 16 Blood Pressure 99/62 L 99/65 L 103/62 Pulse Oximetry 98 Oxygen Delivery Oxygen Flow Rate Fraction of Inspired Oxygen 11/08/22 21:09 11/08/22 20:00 11/08/22 23:00 Temperature Pulse Rate 96 80 71 Respiratory Rate Blood Pressure 98/64 L Pulse Oximetry 98 Oxygen Delivery Nasal Cannula Oxygen Flow Rate 3 Fraction of Inspired Oxygen 32 11/09/22 00:00 11/09/22 03:56 11/09/22 04:00 Temperature 97.9 F Pulse Rate 83 71 80 Respiratory Rate 16 Blood Pressure 86/55 L Pulse Oximetry 94 Oxygen Delivery Oxygen Flow Rate Fraction of Inspired Oxygen 11/09/22 06:10 07/0
--- NOTE | 2022-11-09 11:21 | PC.NURSE ---
This patient, Yonathan Higgins, was transferred to [facility] on 11/09/22 at 1115. Personal belongings sent with patient. Report given to BERENICE Gong. Appropriate documentation sent with patient.
[2022-11-09] MEDS: DOBUTamine 250 MG/D5W 250 ML 250 MG/250 ML BAG 18.72 MG IV CONT (11:36)
[2022-11-09] MEDS: EUCERIN CREAM 120 GM JAR 1 APPLIC TOPICAL (11:43)
[2022-11-09 11:47] LABS: Alveolar/Arterial O2 Gradient 45.8 mmHg; Base Excess ABG 11.5 mEq/l (+/-2.0); Fractional Inspired Oxygen 32 %; HCO3 ABG 42.5 mEq/l (22.0-26.0); Oxygen Content ABG 17.4 %vol (16.0-22.0); Oxygen Saturation ABG 90.9 % (95.0-100.0); Oxyhemoglobin 91.6 % THb (90.0-100.0); PO2 ABG 71.3 mmHg (80.0-100.0); PO2 FiO2 Ratio Arterial Blood 2.23 %; Total Hemoglobin 13.5 g/dL (12.0-18.0)
[2022-11-09 11:51] LABS: Device NASAL CANNULA; Modified Allen's Test Pass; PCO2 ABG 94.9 mmHg (35.0-45.0); Site Drawn LEFT RADIAL; pH ABG 7.269 (7.350-7.450)
[2022-11-09 14:47] LABS: Alveolar/Arterial O2 Gradient 44.8 mmHg; Base Excess ABG 13.8 mEq/l (+/-2.0); Fractional Inspired Oxygen 30 %; HCO3 ABG 43.6 mEq/l (22.0-26.0); Oxygen Content ABG 16.9 %vol (16.0-22.0); Oxygen Saturation ABG 91.5 % (95.0-100.0); Oxyhemoglobin 91.5 % THb (90.0-100.0); Total Hemoglobin 13.1 g/dL (12.0-18.0); pH ABG 7.327 (7.350-7.450)
[2022-11-09 14:50] LABS: Device BIPAP; Modified Allen's Test Pass; PCO2 ABG 85.2 mmHg (35.0-45.0); Site Drawn LEFT RADIAL
[2022-11-09 14:52] LABS: Expiratory Pressure 6 cmH2O; Inspiratory Pressure 18 cmH2O
--- NOTE | 2022-11-09 14:59 | PCRCNOTE ---
Pt toni. bipap at 18/6 rr14 spo2 30% well. Hypercapnea improved r/t repeat abg. states to continue on bipap until am ABG at 0500 and if it continues to improve pt may wean to bipap with sleep only tomorrow. Pt. may come off today for meals only.
[2022-11-09] MEDS: MIDODRINE HCL 2.5 MG TABLET 5 MG PO (16:10)
[2022-11-09] MEDS: MIDODRINE HCL 10 MG TABLET PO (20:49)
[2022-11-09] MEDS: CENTRAL LINE FLUSH 10 ML IV PUSH (20:50)
[2022-11-09 21:34] LABS: Kappa\\Lambda Light Chains 2.59 (0.26-1.65); Lambda Light Chain 19.3 mg/L (5.7-26.3)
[2022-11-09] MEDS: SODIUM CHLORIDE 0.9% IV 200 ML IV CONT (23:06)
[2022-11-09] MEDS: LIDOCAINE HCL 2% GEL UROJET 10 ML PKG MUCOUS MEM (23:13)
[2022-11-10] VITALS (37 sets, daily range): BP systolic 67–110; BP diastolic 40–69; PULSE 65–109; RESP 16–40; TEMP 36.3–37; O2SAT 91–99
[2022-11-10 00:26] LABS: Appearance Urine Cloudy (Clear); Bacteria Urine 4+ /hpf; Bilirubin Urine 1+ (Negative); Blood Urine Negative (Negative); Color Urine Dark Yellow (Yellow); Glucose Urine UA 3+ mg/dL (Negative); Ketones Urine Negative (Negative); Leukocyte Esterase Ur Trace LEU/UL (Negative); Nitrate Urine Negative (Negative); Protein Urine Trace mg/dL (Negative); RBC Urine 0-2 /hpf (0-2); Specific Grav Ur 1.028 (1.001-1.035); Squamous Epithelial Cell Urine None seen /hpf (Few); Urobilinogen Urine >=8.0 mg/dL (<2.0); WBC Urine 21-50 /hpf; pH Urine 5.5 (5.0-9.0)
[2022-11-10 00:33] LABS: Add Urine Microscopic? YES
[2022-11-10 03:50] LABS: Basophils Percent Auto 0.5 % (0.2-1.2); Hematocrit 35.7 % (42.0-52.0); Hemoglobin 10.8 g/dL (14.0-18.0); Immature Granulocyte Absolute 0.04 K/mm3 (0.00-0.031); Immature Granulocyte Percent A 0.6 % (0-0.5); Immature Platelet Fraction Pct 12.8 % (0.9-11.2); Lymphocytes Absolute Auto 0.73 K/mm3 (0.9-3.2); Lymphocytes Percent Auto 11.2 % (18.3-44.2); Mean Corpuscular HGB Conc 30.3 g/dl (32-36); Mean Corpuscular Hemoglobin 29.8 pg (26-34); Mean Corpuscular Volume 98.3 fl (80-100); Mean Platelet Volume 11.7 fl (7.4-10.4); Monocytes Absolute Auto 0.8 K/mm3 (0.1-0.6); Monocytes Percent Auto 12.6 % (2.6-8.5); Neutrophils Absolute Auto 4.9 K/mm3 (1.3-6.7); Neutrophils Percent Auto 75.1 % (45.5-73.1); Platelet Count Result 151 k/mm3 (150-375); Red Blood Count 3.63 M/mm3 (4.6-6.20); Red Cell Distribution Width 15.9 % (11.5-14.5); White Blood Count 6.5 K/mm3 (4.5-10.0)
[2022-11-10] MEDS: CENTRAL LINE FLUSH 10 ML IV PUSH ×3 (03:55→21:31)
[2022-11-10 04:10] LABS: Alanine Aminotransferase 23 U/L (6-50); Albumin Level 2.3 g/dL (3.5-5.1); Alkaline Phosphatase 86 U/L (38-126); Aspartate Amino Transferase 21 U/L (17-59); Bilirubin,Total 1.1 mg/dL (0.2-1.3); Blood Urea Nitrogen 21 mg/dL (9-20); Calcium 7.7 mg/dL (8.4-10.2); Carbon Dioxide > 40 mmol/L (22-30); Chloride 90 mmol/L (98-107); Estimated CRCL calculation 90 ml/min; Estimated Glomerular Filt Rate > 60; Glucose 91 mg/dL (65-110); Magnesium 2.1 mg/dL (1.6-2.3); Phosphorus 2.2 mg/dL (2.5-4.5); Potassium 3.9 mmol/L (3.4-5.0); Sodium 130 mmol/L (137-145)
[2022-11-10 05:10] LABS: Alveolar/Arterial O2 Gradient 71.2 mmHg; Base Excess ABG 16.6 mEq/l (+/-2.0); Fractional Inspired Oxygen 30 %; HCO3 ABG 43.4 mEq/l (22.0-26.0); Oxygen Content ABG 16.7 %vol (16.0-22.0); Oxygen Saturation ABG 94.4 % (95.0-100.0); Oxyhemoglobin 93.4 % THb (90.0-100.0); PO2 ABG 70.1 mmHg (80.0-100.0); PO2 FiO2 Ratio Arterial Blood 2.34 %; Total Hemoglobin 12.7 g/dL (12.0-18.0); pH ABG 7.464 (7.350-7.450)
[2022-11-10 05:15] LABS: PCO2 ABG 61.8 mmHg (35.0-45.0)
[2022-11-10 05:16] LABS: Device BIPAP; Modified Allen's Test Pass; Site Drawn LEFT RADIAL
[2022-11-10 05:17] LABS: Inspiratory Pressure 18 cmH2O
[2022-11-10 05:18] LABS: Expiratory Pressure 6 cmH2O
[2022-11-10] MEDS: ATORVASTATIN 20 MG TABLET PO (06:13)
[2022-11-10] MEDS: APIXABAN 5 MG TABLET PO (06:13)
[2022-11-10] MEDS: AMIODARONE HCL 200 MG TABLET PO (06:13)
[2022-11-10] MEDS: ASPIRIN 81 MG ENTERIC TABLET PO (06:13)
[2022-11-10 08:27] LABS: CRP 0.7 mg/dL (<1.0)
[2022-11-10] MEDS: EUCERIN CREAM 120 GM JAR 1 APPLIC TOPICAL (08:41)
[2022-11-10] MEDS: TAMSULOSIN HCL 0.4 MG CAPSULE PO (08:41)
[2022-11-10] MEDS: POTASSIUM CHLORIDE 10 MEQ ER TABLET PO (08:41)
[2022-11-10] MEDS: MIDODRINE HCL 10 MG TABLET PO ×3 (08:41→17:18)
--- NOTE | 2022-11-10 08:54 | PC.NURSE ---
pt's BP is 70/52, and he is asymptomatic. RN checked BP using manual cuff, and BP was 70/40 x 2 occurrences. RN just administered scheduled midodrine 10mg. Notified Dr. Castillo regarding pt condition. Per MD, recheck BP 30-60mins after midodrine dose.
[2022-11-10 09:04] LABS: Procalcitonin 0.1 ng/mL
[2022-11-10] MEDS: POTASSIUM PHOS/SODIUM PHOS 250 MG TABLET PO (09:05)
--- NOTE | 2022-11-10 10:47 | PM.PNCARD ---
Progress Note: A&P Assessment and Plan (1) Shock: Code(s): R57.9 - Shock, unspecified Status: Acute Assessment and Plan: Patient with progressive hypotension, now in shock, despite holding his diuretics and cardiac medications for several days. Initially I thought it was related to the vasodilatory effect of the dobutamine, which was discontinued after few hours. However he has had progressive hypotension which has not been responsive to a 200 cc normal saline bolus, increasing midodrine, and BiPAP. Unclear if this is cardiogenic shock or if there is another process such as intravascular depletion or sepsis contributing. Does not appear to be bleeding. UA suggested a UTI and he has been started on anti biotics. I also ordered blood cultures. Chest x-ray yesterday afternoon suggested worsening CHF or perhaps pneumonia. Surprisingly, and fortunately, the patient's mentation is pretty good and his renal function has not (yet) declined. Giving another 200 cc normal saline bolus. Discussed with Dr. Castillo. --Recommend moving patient to ICU, consulting building construction teacher, perhaps an arterial line, perhaps a central venous line to measure central venous pressures vs. [place] (since pt has severe pulm HTN a wedge pressure may be more helpful), perhaps an epinephrine drip to increase blood pressure and myocardial contractility etc. --Reviewed with patient's daughter who is at the bedside. --Check EKG and troponin to make sure there is no acute ischemic component (doubt) (2) Heart failure with reduced ejection fraction: Code(s): I50.20 - Unspecified systolic (congestive) heart failure Status: Acute Assessment and Plan: Acute on chronic left and right heart failure with LV systolic dysfunction EF 35-40%, with moderate eccentric MR moderate to severe TR with severe pulmonary hypertension. Unable to diurese much over the last couple of days because of hypotension. CXR shows significant CHF still (+/- pneumonia) --Transfer to ICU --Still holding CHF meds and now also his diuretic and dobutamine. --Discussed w/ DR. Castillo (3) Atrial fibrillation: Code(s): I48.91 - Unspecified atrial fibrillation Status: Acute Assessment and Plan: Heart rate controlled. -- Continue amiodarone 200 mg daily, holding metoprolol --Continue systemic anticoagulation to reduce risk for embolic stroke but will hold Eliquis in favor of heparin drip, in case pt has procedures. --Monitor for bleeding. Follow H&H. H&H down a little, but still good at 36. (4) Nonischemic cardiomyopathy: Code(s): I42.8 - Other cardiomyopathies Status: Acute Assessment and Plan: History of nonobstructive CAD and LV dysfunction EF 35-40% consistent with nonischemic cardiomyopathy. Can not exclude progression of underlying CAD although the patient does not report anginal symptoms. (5) Mitral regurgitation: Code(s): I34.0 - Nonrheumatic mitral (valve) insufficiency Status: Inactive Assessment and Plan: At least moderate eccentric MR by Echo 10/2022, likely severe worsened with LV enlargement, and decline in EFto 35-40%. Consideration for evaluation and mitral clip as appropriate once patient is stabilized further although his physiology is quite complicated. (6) Chronic respiratory failure with hypoxia, on home oxygen therapy: Code(s): J96.11 - Chronic respiratory failure with hypoxia; Z99.81 - Dependence on supplemental oxygen Status: Acute Assessment and Plan: Compliance with O2 supplementation as advised has worsening hypoxia will exacerbate heart failure, pulmonary hypertension. --Now on BIPAP (7) CAD (coronary artery disease): Code(s): I25.10 - Atherosclerotic heart disease of [place] coronary artery without angina pectoris Status: Acute Assessment and Plan: Known mild nonobstructive CAD. -- Continue primary prevention with aspirin 81 mg daily, atorvastatin 2
[2022-11-10] MEDS: SODIUM CHLORIDE 0.9% IV 200 ML IV CONT (10:58)
--- NOTE | 2022-11-10 11:01 | ECG_ITS ---
Measurements Intervals [place] Rate: 89 P: AR: 0 QRS: 4 QRSD: 105 T: 60 QT: 369 QTc: 450 Interpretive Statements ATRIAL FIBRILLATION ANTEROSEPTAL INFARCT, AGE INDETERMINATE BORDERLINE T WAVE ABNORMALITY- INF/HIGH LAT LEADS ABNORMAL ECG COMPARED TO ECG 11/04/2022 12:26:02 NO SIGNIFICANT CHANGES Electronically Signed On 11-10-2022 18:47:13 CDT by Salo Foster D.O.
--- NOTE | 2022-11-10 11:08 | PM.IMPN ---
Progress Note: A&P Assessment and Plan (1) Hypotension: Code(s): I95.9 - Hypotension, unspecified Status: Acute Assessment and Plan: Patient with intermittently low BPs but now persistent. Patient without signifincat symptoms despite SBP 64. Etiology unclear. Consider sepsis from UTI and/or PNA but CRP and PCT normal. Consider cardiogenic. Consider dehydration from over diuresis and need for preload (Pulm HTN and RV hypokinesis noted). UOP okay and stable. Renal function okay. Will move to ICU. Start pressor therapy to achieve MAP>65. Aly bazzi recommended for better BP monitoring. Broad spectrum abx and cover for aspiration. Some of the lung findings may be chronic as well (see CT chest in September). Repeat CT when stable. Discussed with pet technologist. Hold Flomax (2) Acute on chronic systolic congestive heart failure: Code(s): I50.23 - Acute on chronic systolic (congestive) heart failure Status: Acute Assessment and Plan: Patient presents with shortness of breath. Chest x-ray is consistent with pulmonary edema. BNP was 36764. Echo from July showing EF of 40-45% with grade 1 diastolic dysfunction and severe right ventricular enlargement with hypokinesis and severe biatrial enlargement (Echo in October with EF 35-40% with moderate MR). He was tolerating diuretic therapy but now on hold now for soft blood pressure. Still edematous but better. CXR had slightly improvement but worsened on repeat. Now with persistently soft BP. As above. (3) Obstructive sleep apnea: Code(s): G47.33 - Obstructive sleep apnea (adult) (pediatric) Status: Acute Assessment and Plan: Patient was lethargic and serum bicarb>40 despite not receiving the Lasix. ABG ordered showing 7.27/95/71 on 3L with bicarb 42.5. No old blood gas to review. BiPAP started but settings were not sufficient to achieve appropriate TV so settings adjusted to 18/6, rate 14. Repeat ABG better. Patient was on continuous BiPAP and ABG this morning showing 7.46/62/70. Wean off BiPAP while awake and continue when sleeping. Will need BiPAP at home (4) Atrial fibrillation: Code(s): I48.91 - Unspecified atrial fibrillation Status: Acute Assessment and Plan: Heart rate controlled. Metoprolol held. Eliquis changed to Heparin drip. Monitor on tele. (5) Chronic respiratory failure with hypoxia, on home oxygen therapy: Code(s): J96.11 - Chronic respiratory failure with hypoxia; Z99.81 - Dependence on supplemental oxygen Status: Acute Assessment and Plan: Patient on chronic home O2 at 2 L. He already has severe pulm HTN. He was educated about the need to wear oxygen with activity and at rest. Explained the risks of not wearing oxygen as prescribed. He voices understanding of this. back down to 2L. As above. Follow. (6) Nonischemic cardiomyopathy: Code(s): I42.8 - Other cardiomyopathies Status: Acute Assessment and Plan: See plan above. (7) Elevated bilirubin: Code(s): R17 - Unspecified jaundice Status: Acute Assessment and Plan: Liver enzymes okay. Bilirubin normal now (8) Pulmonary hypertension: Code(s): I27.20 - Pulmonary hypertension, unspecified Status: Acute Assessment and Plan: Patient with Echo showing moderate RV enlargement and hypokinesis with RVSP of 60 mmHg in july. Probably related to MARGARETTE. As above. Plan 42 minutes spent on critical care time Subjective Date/time seen: 11/10/22 11:08 Interval history: 82yo male with AFib, CHF and chronic respiratory failure here for shortness of breath. Patient feels better today. Dtr states patient more awake and alert this morning and he ate a full breakfast. He does not have MARGARETTE that she is aware of. Patient tolerated the BiPAP last night. He denies CP or SOB. He is noted to be HoTN. Dobutamine stopped last night. Exam Narrative: AF 97.4 67/40 104 24 96%
--- NOTE | 2022-11-10 11:15 | PC.NURSE ---
Received report from Karlene Gong. Patient transferred via bed to ICU-[address] Anderson to bedside discussing plan of care with patient.
--- NOTE | 2022-11-10 11:30 | PC.NURSE ---
Report given to BERENICE Ramos. Pt transferred to ICU room 9. all belongings were brought with pt, and placed at bedside. Bed is in lowest and locked position with bed alarm on. Call light is within pt's reach.
--- NOTE | 2022-11-10 11:39 | WPDCNINT ---
Assessment and Plan Assessment and plan (1) Shock: Code(s): R57.9 - Shock, unspecified Status: Acute Assessment and Plan: Patient with hypotension despite being off all cardiac meds -could be related to cardiogenic versus septic shock, hypovolemic shock -check lactic acid level -procalcitonin is 0.1 -CRP is 0.7 -11/09: chest x-ray showed worsened diffuse lung disease consistent with moderate pulmonary edema, superimposed pneumonia can not be excluded, stable small pleural effusion, cardiomegaly -patient was given 200 mL x 2 of IV fluid bolus in the intermediate Unit -starting patient on epinephrine infusion the provide increased contractility and vasopressor affect, maintain MAP > 65 mmHg at all times adequate end organ perfusion -urine output is adequate, renal function is within normal limits, will continue to monitor -11/10 blood and urine cultures have been obtained -11/10 patient started on cefepime, vancomycin, Flagyl for empiric treatment of pneumonia and UTI (2) Acute on chronic systolic congestive heart failure: Code(s): I50.23 - Acute on chronic systolic (congestive) heart failure Status: Acute Assessment and Plan: Acute on chronic systolic heart failure echocardiogram with LV systolic dysfunction with EF of 35-40% with moderate eccentric MR, moderate to severe TR with severe pulmonary hypertension -patient has been edematous, unable to diurese due to hypotension -patient on BiPAP, will continue while asleep during the day and at night -cardiology following the patient -old Entresto, metoprolol, spironolactone, furosemide (3) Atrial fibrillation: Code(s): I48.91 - Unspecified atrial fibrillation Status: Chronic Assessment and Plan: Patient has a history of atrial fibrillation, currently in AFib rate controlled -on apixaban, which was switched to heparin infusion, in case patient requires any procedures, -continue p.o. amiodarone (4) Mitral regurgitation: Code(s): I34.0 - Nonrheumatic mitral (valve) insufficiency Status: Inactive Assessment and Plan: Moderate eccentric MR on echocardiogram done in October 2022. Patient also has severe TR -cardiology following the patient -once blood pressures are more stable will likely start diuresis (5) Pulmonary hypertension: Code(s): I27.20 - Pulmonary hypertension, unspecified Status: Acute Assessment and Plan: RVSP of 80 mmHg likely causing cor pulmonale and right heart failure along with left heart failure. -continue BiPAP support at this time -continue supplemental oxygen - (6) Paroxysmal supraventricular tachycardia: Code(s): I47.1 - Supraventricular tachycardia Status: Acute Assessment and Plan: Continue amiodarone -continue to monitor for SVTs (7) Nonischemic cardiomyopathy: Code(s): I42.8 - Other cardiomyopathies Status: Acute Assessment and Plan: Patient with history of nonischemic cardiomyopathy -likely secondary to reasons above (8) Obstructive sleep apnea: Code(s): G47.33 - Obstructive sleep apnea (adult) (pediatric) Status: Acute Assessment and Plan: Obstructive sleep apnea causing possible pulmonary hypertension, cor pulmonale, chronic respiratory failure, hypercapnia -will continue BiPAP when patient is sleeping and at night Plan DVT prophylaxis: Heparin infusion Stress ulcer prophylaxis: Not indicated as he is eating Nutrition: Heart healthy diet, low-salt Code Status: Full code Critical Care Time Spent: 51 minutes Due to a high probability of clinically significant, life threatening deterioration, the patient required my highest level of preparedness to intervene emergently and I personally spent this critical care time directly and personally managing the patient. This critical care time included obtaining a history; examining the patient; pulse oximetry; ordering and review of studies; arranging urgent treatm
[2022-11-10] MEDS: ALBUMIN HUMAN 25% 25 GM/100 ML 100 ML IVPB ×3 (12:01→23:29)
[2022-11-10 12:02] LABS: INR 1.6; Prothrombin Time 20.2 Seconds (11.1-14.7)
[2022-11-10 12:03] LABS: Partial Thromboplastin Time 34.7 SECONDS (22.3-36.8)
[2022-11-10] MEDS: EPINEPHrine INJ 1 MG in DEXTROSE 5% IN WATER 250 ML 15.06 MG IV CONT (12:06)
[2022-11-10 12:16] LABS: Troponin I 0.018 ng/mL (0.000-0.034)
--- NOTE | 2022-11-10 12:20 | PCPTNOTE ---
Attempted re-evalution since patient was transferred to higher level of care, but patient now moving to ICU secondary to further medical instability. Physical therapy will check on him tomorrow and see if he stabilizes or if he is no longer appropriate for skilled physical therapy.
[2022-11-10] MEDS: VANCOMYCIN 1,250 MG/NS 250 ML 1,250 MG/250 ML BAG 166.67 MG IVPB ×2 (12:29→13:50)
[2022-11-10] MEDS: CEFEPIME 2 GM/NS 50 ML 2 GM/50 ML BAG IVPB ×2 (12:30→20:33)
[2022-11-10 13:46] LABS: Lactic Acid Reflex 1.4 mmol/L (0.7-2.0)
[2022-11-10] MEDS: metroNIDAZOLE 500 MG/ISO 100ML 500 MG/100 ML BAG 100 MG IVPB ×2 (14:31→21:30)
[2022-11-10] MEDS: SODIUM CHLORIDE 500 MG TABLET PO (17:18)
[2022-11-10] MEDS: HEPARIN SOD/D5W 100 UNITS/ML 25,000 UNITS/250 ML BAG 15 UNITS IV CONT (17:50)
[2022-11-10] MEDS: EPINEPHrine INJ 1 MG in DEXTROSE 5% IN WATER 250 ML 75.3 MG IV CONT (20:28)
[2022-11-10] MEDS: HYDROCORTISONE SODIUM SUCCINATE 100 MG/2 ML VIAL IV PUSH (20:32)
[2022-11-11] VITALS (23 sets, daily range): BP systolic 91–126; BP diastolic 52–77; PULSE 69–114; RESP 18–35; TEMP 36.4–36.9; O2SAT 90–100
[2022-11-11] MEDS: EPINEPHrine INJ 1 MG in DEXTROSE 5% IN WATER 250 ML 60.24 MG IV CONT
[2022-11-11 00:54] LABS: Partial Thromboplastin Time > 200.0 SECONDS (22.3-36.8)
[2022-11-11] MEDS: EPINEPHrine INJ 1 MG in DEXTROSE 5% IN WATER 250 ML 45.18 MG IV CONT (04:25)
[2022-11-11] MEDS: ALBUMIN HUMAN 25% 25 GM/100 ML 100 ML IVPB (05:34)
[2022-11-11] MEDS: metroNIDAZOLE 500 MG/ISO 100ML 500 MG/100 ML BAG 100 MG IVPB ×3 (05:35→21:02)
[2022-11-11] MEDS: HYDROCORTISONE SODIUM SUCCINATE 100 MG/2 ML VIAL IV PUSH ×3 (05:35→21:02)
[2022-11-11] MEDS: CENTRAL LINE FLUSH 10 ML IV PUSH ×3 (05:35→21:03)
[2022-11-11 06:23] LABS: Basophils Percent Auto 0.1 % (0.2-1.2); Hematocrit 32.3 % (42.0-52.0); Hemoglobin 10.3 g/dL (14.0-18.0); Immature Granulocyte Absolute 0.05 K/mm3 (0.00-0.031); Immature Granulocyte Percent A 0.6 % (0-0.5); Immature Platelet Fraction Pct 13.5 % (0.9-11.2); Lymphocytes Percent Auto 2.5 % (18.3-44.2); Mean Corpuscular HGB Conc 31.9 g/dl (32-36); Mean Corpuscular Hemoglobin 30.2 pg (26-34); Mean Corpuscular Volume 94.7 fl (80-100); Mean Platelet Volume 11.2 fl (7.4-10.4); Monocytes Absolute Auto 0.5 K/mm3 (0.1-0.6); Neutrophils Absolute Auto 7.2 K/mm3 (1.3-6.7); Neutrophils Percent Auto 90.8 % (45.5-73.1); Platelet Count Result 157 k/mm3 (150-375); Red Blood Count 3.41 M/mm3 (4.6-6.20); Red Cell Distribution Width 16.1 % (11.5-14.5); White Blood Count 7.9 K/mm3 (4.5-10.0)
[2022-11-11 06:34] LABS: Partial Thromboplastin Time 112.8 SECONDS (22.3-36.8)
[2022-11-11 06:37] LABS: Alanine Aminotransferase 24 U/L (6-50); Albumin Level 2.9 g/dL (3.5-5.1); Alkaline Phosphatase 73 U/L (38-126); Aspartate Amino Transferase 21 U/L (17-59); Bilirubin,Total 1.3 mg/dL (0.2-1.3); Blood Urea Nitrogen 19 mg/dL (9-20); Calcium 7.9 mg/dL (8.4-10.2); Carbon Dioxide > 40 mmol/L (22-30); Chloride 90 mmol/L (98-107); Estimated CRCL calculation 101 ml/min; Estimated Glomerular Filt Rate > 60; Glucose 155 mg/dL (65-110); Magnesium 2.1 mg/dL (1.6-2.3); Phosphorus 2.5 mg/dL (2.5-4.5); Potassium 3.6 mmol/L (3.4-5.0); Sodium 130 mmol/L (137-145)
[2022-11-11] MEDS: EPINEPHrine INJ 1 MG in DEXTROSE 5% IN WATER 250 ML 30.12 MG IV CONT (06:40)
[2022-11-11] MEDS: ATORVASTATIN 20 MG TABLET PO (06:41)
[2022-11-11] MEDS: AMIODARONE HCL 200 MG TABLET PO (06:41)
[2022-11-11] MEDS: ASPIRIN 81 MG ENTERIC TABLET PO (06:41)
[2022-11-11 06:44] LABS: Platelet Estimate Adequate (Adequate)
[2022-11-11 06:45] LABS: Burr Cells 1+ (NORMAL); Schistocytes None Seen (NORMAL)
[2022-11-11] MEDS: CEFEPIME 2 GM/NS 50 ML 2 GM/50 ML BAG IVPB ×2 (08:39→21:02)
[2022-11-11] MEDS: MIDODRINE HCL 10 MG TABLET PO ×3 (08:40→17:03)
[2022-11-11] MEDS: SODIUM CHLORIDE 500 MG TABLET PO ×2 (08:40→17:03)
[2022-11-11] MEDS: POTASSIUM CHLORIDE 10 MEQ ER TABLET PO (08:40)
[2022-11-11] MEDS: POTASSIUM CHLORIDE 20 MEQ ER TABLET 40 MEQ PO (08:42)
[2022-11-11] MEDS: EPINEPHrine INJ 4 MG in DEXTROSE 5% IN WATER 250 ML 3.81 MG IV CONT (08:59)
--- NOTE | 2022-11-11 09:57 | PCSTNOTE ---
Please refer to the Bedside Swallow Evaluation in the EMR. Please note, silent aspiration cannot be ruled out at bedside.
--- NOTE | 2022-11-11 10:14 | PCPTNOTE ---
Per Dr. Castillo, Hold therapy for today. Will follow.
--- NOTE | 2022-11-11 11:00 | PM.IMPN ---
Progress Note: A&P Assessment and Plan (1) Hypotension: Code(s): I95.9 - Hypotension, unspecified Status: Acute Assessment and Plan: Patient with intermittently low BPs but now persistent. Patient without signifincat symptoms despite SBP 64. Etiology unclear. Consider sepsis from UTI and/or PNA but CRP and PCT normal. Consider cardiogenic. Consider dehydration from over diuresis and need for preload (Pulm HTN and RV hypokinesis noted). UOP better yesterday and today. Renal function normal. Able to wean down on the Epi. Discussed with entry level drafter. Wean pressors as BP tolerates. Continue Midodrine. (2) Acute on chronic systolic congestive heart failure: Code(s): I50.23 - Acute on chronic systolic (congestive) heart failure Status: Acute Assessment and Plan: Patient presents with shortness of breath. Chest x-ray is consistent with pulmonary edema. BNP was 42870. Echo from July showing EF of 40-45% with grade 1 diastolic dysfunction and severe right ventricular enlargement with hypokinesis and severe biatrial enlargement (Echo in October with EF 35-40% with moderate MR). Patient with acute on chronic systolic/diastolic CHF with right sided failure as well. He was tolerating diuretic therapy but now on hold due to soft blood pressure. Still edematous but better. CXR reviewed personally and showing improvement. Add back heart failure medications as tolerated. (3) Obstructive sleep apnea: Code(s): G47.33 - Obstructive sleep apnea (adult) (pediatric) Status: Acute Assessment and Plan: Patient was lethargic and serum bicarb>40 despite not receiving the Lasix. ABG ordered showing 7.27/95/71 on 3L with bicarb 42.5. No old blood gas to review. BiPAP started but settings were not sufficient to achieve appropriate TV so settings adjusted to 18/6, rate 14. Repeat ABG better. Patient was weaned to using BiPAP when sleeping and PRN. Will need BiPAP at home (4) Atrial fibrillation: Code(s): I48.91 - Unspecified atrial fibrillation Status: Acute Assessment and Plan: Heart rate controlled. Metoprolol held. Eliquis changed to Heparin drip. Continue Amio. Monitor on tele. (5) Chronic respiratory failure with hypoxia, on home oxygen therapy: Code(s): J96.11 - Chronic respiratory failure with hypoxia; Z99.81 - Dependence on supplemental oxygen Status: Acute Assessment and Plan: Patient on chronic home O2 at 2L. He already has severe pulm HTN. He was educated about the need to wear oxygen with activity and at rest. Explained the risks of not wearing oxygen as prescribed. He voices understanding of this. back down to 2L. As above. Follow. (6) Nonischemic cardiomyopathy: Code(s): I42.8 - Other cardiomyopathies Status: Acute Assessment and Plan: See plan above. (7) Elevated bilirubin: Code(s): R17 - Unspecified jaundice Status: Acute Assessment and Plan: Liver enzymes okay. Bilirubin normal now (8) Pulmonary hypertension: Code(s): I27.20 - Pulmonary hypertension, unspecified Status: Acute Assessment and Plan: Patient with Echo showing moderate RV enlargement and hypokinesis with RVSP of 60 mmHg in july. Probably related to MARGARETTE. As above. Subjective Date/time seen: 11/11/22 11:00 Interval history: 82yo male with AFib, CHF and chronic respiratory failure here for shortness of breath. Patient was on epinephrine 5mcg/min but able to be weaned down to 2. Good urine output overnight. He denies shortness of breath or chest pain. No cough. No nausea or vomiting. He did wear the BiPAP overnight. Exam Narrative: AF 98.3 91/61 114 26 94% 2L Gen - NARD lying semi-recumbent in bed Chest - mid and lower lung field inspiratory crackles CV - irregularly irregular. Telemetry showing AFib with controlled rate and PVCs. Abd - soft, NT, +BS -Canales secured draining c
[2022-11-11] MEDS: EUCERIN CREAM 120 GM JAR 1 APPLIC TOPICAL (11:09)
--- NOTE | 2022-11-11 11:54 | WPDINTPN ---
Progress Note: A&P Assessment and Plan (1) Shock: Code(s): R57.9 - Shock, unspecified Status: Acute Assessment and Plan: Patient with hypotension despite being off all cardiac meds -could be related to cardiogenic versus septic shock, hypovolemic shock -lactic acid is normal -procalcitonin is 0.1 -CRP is 0.7 -11/11: chest x-ray Moderate pulmonary edema pattern with small bilateral pleural effusions. Correlate clinically for infection. -patient adequately fluid-resuscitated -remains on epinephrine infusion the provide ionotropic and vasopressor affect, maintain MAP > 65 mmHg at all times adequate end organ perfusion -urine output significantly improved, renal function is within normal limits, will continue to monitor -11/10 blood cultures - preliminary report is negative x2 -11/10: Urine cultures pending -11/10: MRSA screen is pending -continue cefepime, vancomycin, Flagyl for empiric treatment of pneumonia and UTI (11/10), will deescalate once cultures have resulted (2) Acute on chronic systolic congestive heart failure: Code(s): I50.23 - Acute on chronic systolic (congestive) heart failure Status: Acute Assessment and Plan: Acute on chronic systolic heart failure echocardiogram with LV systolic dysfunction with EF of 35-40% with moderate eccentric MR, moderate to severe TR with severe pulmonary hypertension. Patient probably has right heart failure also secondary to cold pulmonale from severe pulmonary hypertension along with left heart failure -patient has been edematous, unable to diurese due to hypotension -patient on BiPAP, will continue while asleep during the day and at night -cardiology following the patient -Hold Entresto, metoprolol, spironolactone, furosemide (3) Atrial fibrillation: Code(s): I48.91 - Unspecified atrial fibrillation Status: Chronic Assessment and Plan: Patient has a history of atrial fibrillation, currently in AFib rate controlled -on apixaban, which was switched to heparin infusion, in case patient requires any procedures, -continue p.o. amiodarone (4) Mitral regurgitation: Code(s): I34.0 - Nonrheumatic mitral (valve) insufficiency Status: Inactive Assessment and Plan: Moderate eccentric MR on echocardiogram done in October 2022. Patient also has severe TR. According to the daughter patient was advised to go to [facility] at some point to get evaluated for his valves -cardiology following the patient -once blood pressures are more stable will likely start diuresis (5) Pulmonary hypertension: Code(s): I27.20 - Pulmonary hypertension, unspecified Status: Acute Assessment and Plan: RVSP of 80 mmHg likely causing cor pulmonale likely causing right heart failure along with left heart failure. -continue BiPAP support at this time -continue supplemental oxygen - (6) Paroxysmal supraventricular tachycardia: Code(s): I47.1 - Supraventricular tachycardia Status: Acute Assessment and Plan: Continue amiodarone -continue to monitor for SVTs (7) Nonischemic cardiomyopathy: Code(s): I42.8 - Other cardiomyopathies Status: Acute Assessment and Plan: Patient with history of nonischemic cardiomyopathy -likely secondary to reasons above (8) Obstructive sleep apnea: Code(s): G47.33 - Obstructive sleep apnea (adult) (pediatric) Status: Acute Assessment and Plan: Obstructive sleep apnea causing possible pulmonary hypertension, cor pulmonale, chronic respiratory failure, hypercapnia -will continue BiPAP when patient is sleeping and at night Plan DVT prophylaxis: Heparin infusion Stress ulcer prophylaxis: Not indicated as he is eating Nutrition: Heart healthy diet, low-salt Code Status: Full code Critical Care Time Spent: 34 minutes 11/11: Discussed with patient's two daughters and updated them with patient's condition and plan of care. I answered
[2022-11-11 12:10] LABS: Partial Thromboplastin Time 91.7 SECONDS (22.3-36.8)
[2022-11-11] MEDS: HEPARIN SOD/D5W 100 UNITS/ML 25,000 UNITS/250 ML BAG 10 UNITS IV CONT (15:13)
--- NOTE | 2022-11-11 15:32 | PM.PNCARD ---
Progress Note: A&P Assessment and Plan (1) Atrial fibrillation: Code(s): I48.91 - Unspecified atrial fibrillation Status: Acute (2) Acute on chronic systolic congestive heart failure: Code(s): I50.23 - Acute on chronic systolic (congestive) heart failure Status: Acute (3) Heart failure with reduced ejection fraction: Code(s): I50.20 - Unspecified systolic (congestive) heart failure Status: Acute Plan 82-year-old man with persistent atrial fibrillation and congestive heart failure also with MR TR. He was suspected by my partner/Dr. Toth to possibly have amyloidosis. This is discussed in his previous notes. Currently hospitalized with some volume overload/CHF. Transferred to the ICU yesterday because of problematic hypotension. Heart failure drugs are now on hold he a he is still receiving a low dose of epinephrine and is at the moment hemodynamically stable. When his epinephrine is withdrawn we will cautiously try to reintroduce heart failure medication. Very challenging management situation in this elderly gentleman who is rather tenuous hemodynamically. Luan Butler MD [facility] Subjective Date/time seen: Date of service: 11/11/22 15:32 Interval history: Follow-up for acute on chronic systolic CHF, AFib, MR/TR, nonischemic cardiomyopathy. Mild nonobstructive CAD. 11/07/2022: States he feels about the same today. Had symptomatic hypotension earlier today with therapy. He has some conversational dyspnea. No chest pain. 11/08/2022: No significant changes overnight. Feels about the same, perhaps slightly less short of breath. Had some hypotension again yesterday afternoon but he was asymptomatic. Date of service 11/09/2022: Family feels patient is more lethargic. Systolic blood pressure is 88. No significant diuresis, though no Canales is in place. Patient denies any shortness of breath. Daughter at bedside. Patient was actually alert and appeared stable; moved to IMU to start dobutamine drip. Date of service 11/10/2022: Yesterday evening and through the night the patient had trouble with low blood pressures, running in the 80s and 90s. He was given normal saline 200 cc, dobutamine discontinued, and started on midodrine. This morning his blood pressures worse, 70s and 80s, and the last 1 was 67/40 mmHg. Daughter reports that he ate a very good breakfast, and feels well, and appeared more oriented. Patient denies any chest pain or shortness of breath. Was started on BiPAP but continues to have low blood pressures. Date of service 11/11/2022: Patient resting in the ICU comfortably denies any shortness of breath at this time. Still receiving low dose of epinephrine and currently systolic blood pressure is 100/60 Exam Narrative: General: Very pleasant elderly gentleman sitting in chair, well developed, alert and oriented x2-3 appearing fatigued but less dyspneic, no apparent distress, pleasant, and cooperative, smiling. Head: atraumatic, normocephalic Eyes: EOM intact, sclerae anicteric, conjunctivae unremarkable Ears/Nose: external inspection of ears and nose were grossly normal Mouth/Throat: oral mucosa pink and moist Neck: supple, normal range of motion, + 8cm jugular venous distention, no carotid bruits bilaterally, thyroid nonpalpable, trachea midline. Cardiac: Irregularly irregular rate and rhythm, normal S1-S2, left upper sternal border grade 2/6 systolic murmur No gallops or rubs. Lungs: Diminished breath sounds diffusely, dullness to percussion bilateral lower 1/3 lung hong, faint crackles mid zone, no obvious rhonchi or wheezing. Abdomen: Soft, nontender, nondistended, positive bowel sounds throughout. No appreciable hepatosplenomegaly, rebound guarding or rigidity noted. Abdominal aorta nonpalpable, no appreciable bruits. Extremities: 2+ bilateral lower extremity edema, no clubbing, or cyanosis. There is hyperpigmentation
[2022-11-11 18:34] LABS: Partial Thromboplastin Time 86.5 SECONDS (22.3-36.8)
[2022-11-12] VITALS (15 sets, daily range): BP systolic 98–119; BP diastolic 65–85; PULSE 69–93; RESP 18–33; TEMP 36.4–36.9; O2SAT 92–99
[2022-11-12 00:12] LABS: Vancomycin Trough 15.2 ug/mL (10.0-20.0)
[2022-11-12] MEDS: AMIODARONE HCL 200 MG TABLET PO (05:54)
[2022-11-12] MEDS: metroNIDAZOLE 500 MG/ISO 100ML 500 MG/100 ML BAG 100 MG IVPB (05:54)
[2022-11-12] MEDS: HYDROCORTISONE SODIUM SUCCINATE 100 MG/2 ML VIAL IV PUSH (05:54)
[2022-11-12] MEDS: ATORVASTATIN 20 MG TABLET PO (05:54)
[2022-11-12] MEDS: ASPIRIN 81 MG ENTERIC TABLET PO (05:54)
[2022-11-12] MEDS: CENTRAL LINE FLUSH 10 ML IV PUSH ×3 (05:55→20:31)
[2022-11-12 06:11] LABS: Basophils Percent Auto 0.1 % (0.2-1.2); Hematocrit 32.4 % (42.0-52.0); Hemoglobin 10.2 g/dL (14.0-18.0); Immature Granulocyte Absolute 0.06 K/mm3 (0.00-0.031); Immature Granulocyte Percent A 0.7 % (0-0.5); Immature Platelet Fraction Pct 14.2 % (0.9-11.2); Lymphocytes Absolute Auto 0.34 K/mm3 (0.9-3.2); Mean Corpuscular HGB Conc 31.5 g/dl (32-36); Mean Corpuscular Hemoglobin 29.7 pg (26-34); Mean Corpuscular Volume 94.2 fl (80-100); Mean Platelet Volume 11.7 fl (7.4-10.4); Monocytes Absolute Auto 0.6 K/mm3 (0.1-0.6); Monocytes Percent Auto 7.4 % (2.6-8.5); Neutrophils Absolute Auto 7.4 K/mm3 (1.3-6.7); Neutrophils Percent Auto 87.8 % (45.5-73.1); Platelet Count Result 148 k/mm3 (150-375); Red Blood Count 3.44 M/mm3 (4.6-6.20); White Blood Count 8.4 K/mm3 (4.5-10.0)
[2022-11-12 06:21] LABS: Alanine Aminotransferase 24 U/L (6-50); Albumin Level 2.7 g/dL (3.5-5.1); Alkaline Phosphatase 64 U/L (38-126); Aspartate Amino Transferase 22 U/L (17-59); Bilirubin,Total 1.2 mg/dL (0.2-1.3); Blood Urea Nitrogen 19 mg/dL (9-20); Calcium 7.8 mg/dL (8.4-10.2); Carbon Dioxide > 40 mmol/L (22-30); Chloride 92 mmol/L (98-107); Estimated CRCL calculation 95 ml/min; Estimated Glomerular Filt Rate > 60; Glucose 120 mg/dL (65-110); Magnesium 2.1 mg/dL (1.6-2.3); Phosphorus 2.6 mg/dL (2.5-4.5); Potassium 3.9 mmol/L (3.4-5.0); Sodium 130 mmol/L (137-145)
[2022-11-12 07:05] LABS: Partial Thromboplastin Time 88.9 SECONDS (22.3-36.8)
[2022-11-12 08:20] LABS: Platelet Estimate Adequate (Adequate)
[2022-11-12 08:21] LABS: Burr Cells 1+ (NORMAL); Hypochromasia 1+ (NORMAL); Schistocytes None Seen (NORMAL)
[2022-11-12] MEDS: MIDODRINE HCL 10 MG TABLET PO ×3 (08:42→17:18)
[2022-11-12] MEDS: SODIUM CHLORIDE 500 MG TABLET PO (08:42)
[2022-11-12] MEDS: CEFEPIME 2 GM/NS 50 ML 2 GM/50 ML BAG IVPB (08:43)
[2022-11-12] MEDS: EUCERIN CREAM 120 GM JAR 1 APPLIC TOPICAL (08:43)
[2022-11-12] MEDS: POTASSIUM CHLORIDE 10 MEQ ER TABLET PO (08:43)
--- NOTE | 2022-11-12 09:22 | PM.IMPN ---
Progress Note: A&P Assessment and Plan (1) Hypotension: Code(s): I95.9 - Hypotension, unspecified Status: Acute Assessment and Plan: Patient had intermittently low BPs but became persistent. Patient without significant symptoms despite SBP 64. Etiology unclear. Consider sepsis from UTI and/or PNA but CRP and PCT normal. Consider dehydration from over diuresis and need for preload (Pulm HTN and RV hypokinesis noted). Probably cardiogenic or multifactorial. UOP better yesterday and today. Renal function normal. Able to wean off of the Epi. Discussed with optical effects layout person. Continue Midodrine. Resume PT/OT (2) Acute on chronic systolic congestive heart failure: Code(s): I50.23 - Acute on chronic systolic (congestive) heart failure Status: Acute Assessment and Plan: Patient presents with shortness of breath. Chest x-ray is consistent with pulmonary edema. BNP was 40439. Echo from July showing EF of 40-45% with grade 1 diastolic dysfunction and severe right ventricular enlargement with hypokinesis and severe biatrial enlargement (Echo in October with EF 35-40% with moderate MR). Patient with acute on chronic systolic/diastolic CHF with right sided failure as well. He was tolerating diuretic therapy but now on hold due to soft blood pressure. Edema better. CXR reviewed personally and showing persistent edema. Add back heart failure medications as tolerated. (3) Obstructive sleep apnea: Code(s): G47.33 - Obstructive sleep apnea (adult) (pediatric) Status: Acute Assessment and Plan: Patient was lethargic and serum bicarb>40 despite not receiving the Lasix. ABG ordered showing 7.27/95/71 on 3L with bicarb 42.5. No old blood gas to review. BiPAP started but settings were not sufficient to achieve appropriate TV so settings adjusted to 18/6, rate 14. Repeat ABG better. Patient was weaned to using BiPAP when sleeping and PRN. Will need BiPAP at home (4) Atrial fibrillation: Code(s): I48.91 - Unspecified atrial fibrillation Status: Acute Assessment and Plan: Heart rate controlled. Metoprolol held. Eliquis changed to Heparin drip. Continue Amio. Monitor on tele. (5) Chronic respiratory failure with hypoxia, on home oxygen therapy: Code(s): J96.11 - Chronic respiratory failure with hypoxia; Z99.81 - Dependence on supplemental oxygen Status: Acute Assessment and Plan: Patient on chronic home O2 at 2L. He also has severe pulm HTN. He was educated about the need to wear oxygen with activity and at rest. Explained the risks of not wearing oxygen as prescribed. He voices understanding of this. Back down to 2L. As above. Follow. (6) Nonischemic cardiomyopathy: Code(s): I42.8 - Other cardiomyopathies Status: Acute Assessment and Plan: See plan above. (7) Elevated bilirubin: Code(s): R17 - Unspecified jaundice Status: Acute Assessment and Plan: Liver enzymes okay. Bilirubin normal now (8) Pulmonary hypertension: Code(s): I27.20 - Pulmonary hypertension, unspecified Status: Acute Assessment and Plan: Patient with Echo showing moderate RV enlargement and hypokinesis with RVSP of 60 mmHg in July. Probably related to MARGARETTE. As above. Subjective Date/time seen: 11/12/22 09:22 Interval history: 82yo male with AFib, CHF and chronic respiratory failure here for shortness of breath. Patient able to come off Epi last evening. He feels well today. Eating normally. No CP. Slight SOB at times. Exam Narrative: AF 97.8 119/85 88 21 95% 2L Gen - NARD lying semi-recumbent in bed Chest - faint lower lung field inspiratory crackles CV - irregularly irregular. Telemetry showing AFib with controlled rate and PVCs. Abd - soft, NT, +BS -Canales secured draining clear yellow urine Ext - trace pitting pedal edema Psych - Nml mood and affect Skin - Warm and dry.
--- NOTE | 2022-11-12 12:06 | WPDINTPN ---
Progress Note: A&P Assessment and Plan (1) Shock: Code(s): R57.9 - Shock, unspecified Status: Acute Assessment and Plan: Patient with hypotension despite being off all cardiac meds -could be related to cardiogenic versus septic shock, hypovolemic shock -lactic acid is normal -procalcitonin is 0.1 -CRP is 0.7 -11/11: chest x-ray Moderate pulmonary edema pattern with small bilateral pleural effusions. Correlate clinically for infection. -patient adequately fluid-resuscitated -OFF epinephrine since 11/11/2022 evening -urine output significantly improved, renal function is within normal limits, will continue to monitor -11/10 blood cultures - preliminary report is negative x2 -11/10: Urine cultures growing Enterococcus, await susceptibility -11/10: MRSA screen is negative -will discontinue cefepime and Flagyl -continue vancomycin (11/10) (2) Acute on chronic systolic congestive heart failure: Code(s): I50.23 - Acute on chronic systolic (congestive) heart failure Status: Acute Assessment and Plan: Acute on chronic systolic heart failure echocardiogram with LV systolic dysfunction with EF of 35-40% with moderate eccentric MR, moderate to severe TR with severe pulmonary hypertension. Patient probably has right heart failure also secondary to cold pulmonale from severe pulmonary hypertension along with left heart failure -patient has been edematous, unable to diurese due to hypotension -patient on BiPAP, will continue while asleep during the day and at night -cardiology following the patient -Hold Entresto, metoprolol, spironolactone, furosemide -will gently diurese with Diamox today (3) Atrial fibrillation: Code(s): I48.91 - Unspecified atrial fibrillation Status: Chronic Assessment and Plan: Patient has a history of atrial fibrillation, currently in AFib rate controlled, on apixaban at home -started on heparin infusion in the ICU, in case patient requires any procedures, -continue p.o. amiodarone (4) Mitral regurgitation: Code(s): I34.0 - Nonrheumatic mitral (valve) insufficiency Status: Inactive Assessment and Plan: Moderate eccentric MR on echocardiogram done in October 2022. Patient also has severe TR. According to the daughter patient was advised to go to [facility] at some point to get evaluated for his valves -cardiology following the patient -once blood pressures are more stable will likely start diuresis (5) Pulmonary hypertension: Code(s): I27.20 - Pulmonary hypertension, unspecified Status: Acute Assessment and Plan: RVSP of 80 mmHg likely causing cor pulmonale likely causing right heart failure along with left heart failure. -continue BiPAP support at this time -continue supplemental oxygen - (6) Paroxysmal supraventricular tachycardia: Code(s): I47.1 - Supraventricular tachycardia Status: Acute Assessment and Plan: Continue amiodarone -continue to monitor for SVTs (7) Nonischemic cardiomyopathy: Code(s): I42.8 - Other cardiomyopathies Status: Acute Assessment and Plan: Patient with history of nonischemic cardiomyopathy -likely secondary to reasons above (8) Obstructive sleep apnea: Code(s): G47.33 - Obstructive sleep apnea (adult) (pediatric) Status: Acute Assessment and Plan: Obstructive sleep apnea causing possible pulmonary hypertension, cor pulmonale, chronic respiratory failure, hypercapnia -will continue BiPAP when patient is sleeping and at night Plan DVT prophylaxis: Heparin infusion Stress ulcer prophylaxis: Not indicated as he is eating Nutrition: Heart healthy diet, low-salt Code Status: Full code Critical Care Time Spent: 32 minutes 11/12: Discussed with patient's daughter and patient himself at bedside and updated them with his condition and plan of care. They are aware that he is off the blood pressure support medication, epine
[2022-11-12] MEDS: acetaZOLAMIDE SODIUM FOR INJ 500 MG VIAL 250 MG IV PUSH (12:14)
--- NOTE | 2022-11-12 14:12 | PM.PNCARD ---
Progress Note: A&P Assessment and Plan (1) Acute on chronic systolic congestive heart failure: Code(s): I50.23 - Acute on chronic systolic (congestive) heart failure Status: Acute Assessment and Plan: Acute on chronic left and right heart failure with LV systolic dysfunction EF 35-40%, with moderate eccentric MR moderate to severe TR with severe pulmonary hypertension.? Unable to diurese quickly because of hypotension.? However, edema is better, lungs are clear, and patient looks better. Chest x-ray however still shows CHF and still on oxygen. Not on much therapy for CHF. --try p.o. furosemide, 20 mg b.i.d., follow-up blood pressure --transfer to IMU? (2) Atrial fibrillation: Code(s): I48.91 - Unspecified atrial fibrillation Status: Acute Assessment and Plan: Chronic persistent atrial fibrillation, rate controlled. --continue amiodarone 20 mg daily --discontinue heparin and resume Eliquis since the patient does not appear to need any invasive procedures. (3) Nonischemic cardiomyopathy: Code(s): I42.8 - Other cardiomyopathies Status: Acute Assessment and Plan: History of nonobstructive CAD, LV dysfunction, EF 35-40% consistent with a nonischemic cardiomyopathy. (4) Mitral regurgitation: Code(s): I34.0 - Nonrheumatic mitral (valve) insufficiency Status: Inactive Assessment and Plan: Moderate to moderately severe mitral and tricuspid regurgitation as of October 2022. May eventually pursue mitral valve clip. (5) CAD (coronary artery disease): Code(s): I25.10 - Atherosclerotic heart disease of [place] coronary artery without angina pectoris Status: Acute Assessment and Plan: Nonobstructive CAD, stable, no angina. --continue Eliquis and statin therapy (6) Pulmonary hypertension: Code(s): I27.20 - Pulmonary hypertension, unspecified Status: Acute Assessment and Plan: Severe pulmonary hypertension by cardiac catheterization, RVSP 80 mmHg 10/2022. --continue home O2 for chronic respiratory failure (7) Shock: Code(s): R57.9 - Shock, unspecified Status: Acute Assessment and Plan: Transfer to ICU a couple days ago with severe hypotension and shock, on epinephrine, which has been weaned off yesterday. Still on midodrine. Unclear as to the cause of the worsening hypotension (for in cardiogenic shock versus sepsis? ) But urine grew Enterococcus so that may have played a role. --continue midodrine Subjective Date/time seen: 11/12/22 14:12 Interval history: Follow-up for acute on chronic systolic CHF, AFib, MR/TR, nonischemic cardiomyopathy. Mild nonobstructive CAD. 11/07/2022: States he feels about the same today. Had symptomatic hypotension earlier today with therapy. He has some conversational dyspnea. No chest pain. 11/08/2022: No significant changes overnight. Feels about the same, perhaps slightly less short of breath. Had some hypotension again yesterday afternoon but he was asymptomatic. Date of service 11/09/2022: Family feels patient is more lethargic. Systolic blood pressure is 88. No significant diuresis, though no Canales is in place. Patient denies any shortness of breath. Daughter at bedside. Patient was actually alert and appeared stable; moved to IMU to start dobutamine drip. Date of service 11/10/2022: Yesterday evening and through the night the patient had trouble with low blood pressures, running in the 80s and 90s. He was given normal saline 200 cc, dobutamine discontinued, and started on midodrine. This morning his blood pressure is worse, 70s and 80s, and the last 1 was 67/40 mmHg. Daughter reports that he ate a very good breakfast, and feels well, and appeared more oriented. Patient denies any chest pain or shortness of breath. Was started on BiPAP but continues to have low blood pressures. MOved to ICU for epinephrine gtt and antibiotic coverage expa
[2022-11-12] MEDS: FUROSEMIDE 20 MG TABLET PO (17:18)
[2022-11-12] MEDS: APIXABAN 5 MG TABLET PO (20:29)
[2022-11-13] VITALS (24 sets, daily range): BP systolic 95–126; BP diastolic 60–81; PULSE 60–119; RESP 20–32; TEMP 36.2–37.1; O2SAT 90–100
[2022-11-13] MEDS: ASPIRIN 81 MG ENTERIC TABLET PO (06:20)
[2022-11-13] MEDS: CENTRAL LINE FLUSH 10 ML IV PUSH ×3 (06:20→21:40)
[2022-11-13] MEDS: AMIODARONE HCL 200 MG TABLET PO (06:20)
[2022-11-13] MEDS: ATORVASTATIN 20 MG TABLET PO (06:20)
[2022-11-13 06:26] LABS: Alanine Aminotransferase 33 U/L (6-50); Albumin Level 2.6 g/dL (3.5-5.1); Alkaline Phosphatase 64 U/L (38-126); Aspartate Amino Transferase 30 U/L (17-59); Bilirubin,Total 1.2 mg/dL (0.2-1.3); Blood Urea Nitrogen 20 mg/dL (9-20); Calcium 8.1 mg/dL (8.4-10.2); Carbon Dioxide > 40 mmol/L (22-30); Chloride 92 mmol/L (98-107); Estimated CRCL calculation 75 ml/min; Estimated Glomerular Filt Rate > 60; Glucose 81 mg/dL (65-110); Potassium 3.5 mmol/L (3.4-5.0); Sodium 128 mmol/L (137-145)
[2022-11-13] MEDS: POTASSIUM CHLORIDE 10 MEQ ER TABLET PO (09:10)
[2022-11-13] MEDS: MIDODRINE HCL 10 MG TABLET PO ×3 (09:10→16:53)
[2022-11-13] MEDS: APIXABAN 5 MG TABLET PO ×2 (09:10→21:39)
[2022-11-13] MEDS: FUROSEMIDE 20 MG TABLET PO ×2 (09:10→16:53)
[2022-11-13] MEDS: POTASSIUM CHLORIDE 20 MEQ ER TABLET 40 MEQ PO (13:16)
[2022-11-13] MEDS: EUCERIN CREAM 120 GM JAR 1 APPLIC TOPICAL (13:17)
--- NOTE | 2022-11-13 13:48 | WPDINTPN ---
Progress Note: A&P Assessment and Plan (1) Shock: Code(s): R57.9 - Shock, unspecified Status: Acute Assessment and Plan: Patient with hypotension despite being off all cardiac meds -could be related to cardiogenic versus septic shock, hypovolemic shock -lactic acid is normal -procalcitonin is 0.1 -CRP is 0.7 -11/13: chest x-ray Moderate presumed pulmonary edema pattern, stable from prior exam. Correlate clinically for infection. Probable minimal pleural effusions. Right-sided PICC line.. -patient adequately fluid-resuscitated -OFF epinephrine since 11/11/2022 evening -urine output significantly improved, renal function is within normal limits, will continue to monitor -11/10 blood cultures - preliminary report is negative x2 -11/10: Urine cultures growing Enterococcus, await susceptibility -11/10: MRSA screen is negative -will discontinue cefepime and Flagyl -continue vancomycin (11/10) (2) Acute on chronic systolic congestive heart failure: Code(s): I50.23 - Acute on chronic systolic (congestive) heart failure Status: Acute Assessment and Plan: Acute on chronic systolic heart failure echocardiogram with LV systolic dysfunction with EF of 35-40% with moderate eccentric MR, moderate to severe TR with severe pulmonary hypertension. Patient probably has right heart failure also secondary to cold pulmonale from severe pulmonary hypertension along with left heart failure -patient has been edematous, unable to diurese due to hypotension -patient on BiPAP, will continue while asleep during the day and at night -cardiology following the patient -Hold Entresto, metoprolol, spironolactone, furosemide -11/12: Diuresed well with Diamox, negative 1060 mL fluid balance in the last 24 hours -cardiology has ordered low does furosemide 20 mg p.o. b.i.d. (3) Atrial fibrillation: Code(s): I48.91 - Unspecified atrial fibrillation Status: Chronic Assessment and Plan: Patient has a history of atrial fibrillation, currently in AFib rate controlled, on apixaban at home -started on heparin infusion in the ICU, in case patient requires any procedures, -continue p.o. amiodarone (4) Mitral regurgitation: Code(s): I34.0 - Nonrheumatic mitral (valve) insufficiency Status: Inactive Assessment and Plan: Moderate eccentric MR on echocardiogram done in October 2022. Patient also has severe TR. According to the daughter patient was advised to go to [facility] at some point to get evaluated for his valves -cardiology following the patient -once blood pressures are more stable will likely start diuresis (5) Pulmonary hypertension: Code(s): I27.20 - Pulmonary hypertension, unspecified Status: Acute Assessment and Plan: RVSP of 80 mmHg likely causing cor pulmonale likely causing right heart failure along with left heart failure. -continue BiPAP support at this time -continue supplemental oxygen - (6) Paroxysmal supraventricular tachycardia: Code(s): I47.1 - Supraventricular tachycardia Status: Acute Assessment and Plan: Continue amiodarone -continue to monitor for SVTs (7) Nonischemic cardiomyopathy: Code(s): I42.8 - Other cardiomyopathies Status: Acute Assessment and Plan: Patient with history of nonischemic cardiomyopathy -likely secondary to reasons above (8) Obstructive sleep apnea: Code(s): G47.33 - Obstructive sleep apnea (adult) (pediatric) Status: Acute Assessment and Plan: Obstructive sleep apnea causing possible pulmonary hypertension, cor pulmonale, chronic respiratory failure, hypercapnia -will continue BiPAP when patient is sleeping and at night Plan DVT prophylaxis: Eliquis Stress ulcer prophylaxis: Not indicated as he is eating Nutrition: Heart healthy diet, low-salt, fluid restriction to 1500 mL Code Status: Full code Critical Care Time Spent: 32 minutes -patient can mo
--- NOTE | 2022-11-13 15:41 | PM.PNCARD ---
Progress Note: A&P Assessment and Plan (1) Acute on chronic systolic congestive heart failure: Code(s): I50.23 - Acute on chronic systolic (congestive) heart failure Status: Acute Assessment and Plan: Acute on chronic left and right heart failure with LV systolic dysfunction EF 35-40%, with moderate eccentric MR moderate to severe TR with severe pulmonary hypertension.? Initially unable to diurese and with significant hypotension.? However, with treatment of bladder infection under couple days of epinephrine, he has turned around and diuresing. Blood pressure improved. Chest x-ray however still shows CHF and still on oxygen. Not on much therapy for CHF. --continue p.o. furosemide, 20 mg b.i.d., follow-up blood pressure --transfer to IMU? (2) Atrial fibrillation: Code(s): I48.91 - Unspecified atrial fibrillation Status: Acute Assessment and Plan: Chronic persistent atrial fibrillation, rate controlled. --continue amiodarone 200 mg daily --Resumed Eliquis since the patient does not appear to need any invasive procedures. (3) Nonischemic cardiomyopathy: Code(s): I42.8 - Other cardiomyopathies Status: Acute Assessment and Plan: History of nonobstructive CAD, LV dysfunction, EF 35-40% consistent with a nonischemic cardiomyopathy. (4) Mitral regurgitation: Code(s): I34.0 - Nonrheumatic mitral (valve) insufficiency Status: Inactive Assessment and Plan: Moderate to moderately severe mitral and tricuspid regurgitation as of October 2022. May eventually pursue mitral valve clip. (5) CAD (coronary artery disease): Code(s): I25.10 - Atherosclerotic heart disease of [place] coronary artery without angina pectoris Status: Acute Assessment and Plan: Nonobstructive CAD, stable, no angina. --continue Eliquis and statin therapy (6) Pulmonary hypertension: Code(s): I27.20 - Pulmonary hypertension, unspecified Status: Acute Assessment and Plan: Severe pulmonary hypertension by cardiac catheterization, RVSP 80 mmHg 10/2022. --continue home O2 for chronic respiratory failure (7) Shock: Code(s): R57.9 - Shock, unspecified Status: Acute Assessment and Plan: Transfered to ICU 11/10/2022 with severe hypotension and shock, on epinephrine, which has been weaned off 11/11/2022. Still on midodrine. Unclear as to the cause of the worsening hypotension (in cardiogenic shock versus sepsis? ) But urine grew Enterococcus so that may have played a role. --continue midodrine Subjective Date/time seen: 11/13/22 15:41 Interval history: Follow-up for acute on chronic systolic CHF, AFib, MR/TR, nonischemic cardiomyopathy. Mild nonobstructive CAD. 11/07/2022: States he feels about the same today. Had symptomatic hypotension earlier today with therapy. He has some conversational dyspnea. No chest pain. 11/08/2022: No significant changes overnight. Feels about the same, perhaps slightly less short of breath. Had some hypotension again yesterday afternoon but he was asymptomatic. 11/09/2022: Family feels patient is more lethargic. Moved to IMU to start dobutamine drip. 11/10/2022: Yesterday evening and through the night the patient had trouble with low blood pressures, running in the 80s and 90s. He was given normal saline 200 cc, dobutamine discontinued, and started on midodrine. This morning his blood pressure is worse, 70s and 80s, and the last one was 67/40 mmHg. Was started on BiPAP but continues to have low blood pressures. Moved to ICU for epinephrine gtt and antibiotic coverage expanded. 11/11/2022: Patient resting in the ICU comfortably denies any shortness of breath at this time. Still receiving low dose of epinephrine and currently systolic blood pressure is 100/60. 11/12/2022: Patient doing better, weaned off of epinephrine and on midodrine, systolic blood pressure 100-120 mmHg. Worked wi
--- NOTE | 2022-11-13 16:25 | PCPTNOTE ---
On 11/13/22, the student, LISSY Thao, provided care and completed [facility] documentation on this patient. I have reviewed the student's documentation and agree with the findings.
--- NOTE | 2022-11-13 20:17 | P.PNIM_ITS ---
Progress Note: A&P Assessment and Plan (1) Shock: Code(s): R57.9 - Shock, unspecified Status: Acute Assessment and Plan: Patient with hypotension despite being off all cardiac meds -could be related to cardiogenic versus septic shock, hypovolemic shock -lactic acid is normal -procalcitonin is 0.1 -CRP is 0.7 -11/13: chest x-ray Moderate presumed pulmonary edema pattern, stable from prior exam. Correlate clinically for infection. Probable minimal pleural effusions. Right-sided PICC line.. -patient adequately fluid-resuscitated -OFF epinephrine since 11/11/2022 evening -urine output significantly improved, renal function is within normal limits, will continue to monitor -11/10 blood cultures - preliminary report is negative x2 -11/10: Urine cultures growing Enterococcus, await susceptibility -11/10: MRSA screen is negative -will discontinue cefepime and Flagyl -continue vancomycin (11/10) (2) Acute on chronic systolic congestive heart failure: Code(s): I50.23 - Acute on chronic systolic (congestive) heart failure Status: Acute Assessment and Plan: Acute on chronic systolic heart failure echocardiogram with LV systolic dysfunction with EF of 35-40% with moderate eccentric MR, moderate to severe TR with severe pulmonary hypertension. Patient probably has right heart failure also secondary to cold pulmonale from severe pulmonary hypertension along with left heart failure -patient has been edematous, unable to diurese due to hypotension -patient on BiPAP, will continue while asleep during the day and at night -cardiology following the patient -Hold Entresto, metoprolol, spironolactone, furosemide -11/12: Diuresed well with Diamox, negative 1060 mL fluid balance in the last 24 hours -cardiology has ordered low does furosemide 20 mg p.o. b.i.d. (3) Atrial fibrillation: Code(s): I48.91 - Unspecified atrial fibrillation Status: Chronic Assessment and Plan: Patient has a history of atrial fibrillation, currently in AFib rate controlled, on apixaban at home -started on heparin infusion in the ICU, in case patient requires any procedures, -continue p.o. amiodarone (4) Mitral regurgitation: Code(s): I34.0 - Nonrheumatic mitral (valve) insufficiency Status: Inactive Assessment and Plan: Moderate eccentric MR on echocardiogram done in October 2022. Patient also has severe TR. According to the daughter patient was advised to go to [facility] at some point to get evaluated for his valves -cardiology following the patient -once blood pressures are more stable will likely start diuresis (5) Pulmonary hypertension: Code(s): I27.20 - Pulmonary hypertension, unspecified Status: Acute Assessment and Plan: RVSP of 80 mmHg likely causing cor pulmonale likely causing right heart failure along with left heart failure. -continue BiPAP support at this time -continue supplemental oxygen - (6) Paroxysmal supraventricular tachycardia: Code(s): I47.1 - Supraventricular tachycardia Status: Acute Assessment and Plan: Continue amiodarone -continue to monitor for SVTs (7) Nonischemic cardiomyopathy: Code(s): I42.8 - Other cardiomyopathies Status: Acute Assessment and Plan: Patient with history of nonischemic cardiomyopathy -likely secondary to reasons above (8) Obstructive sleep apnea: Code(s): G47.33 - Obstructive sleep apnea (adult) (pediatric) Status: Acute Assessment and Plan: Obstructive sleep apnea causing possible pulmonary hypertension
[2022-11-14] VITALS (13 sets, daily range): BP systolic 94–117; BP diastolic 57–72; PULSE 65–83; RESP 20–30; TEMP 35.8–37; O2SAT 95–100
[2022-11-14] MEDS: ASPIRIN 81 MG ENTERIC TABLET PO (05:45)
[2022-11-14] MEDS: AMIODARONE HCL 200 MG TABLET PO (05:45)
[2022-11-14] MEDS: ATORVASTATIN 20 MG TABLET PO (05:45)
[2022-11-14] MEDS: CENTRAL LINE FLUSH 20 ML IV PUSH (05:46)
[2022-11-14] MEDS: CENTRAL LINE FLUSH 10 ML IV PUSH ×3 (05:46→21:31)
[2022-11-14 06:00] LABS: Basophils Percent Auto 0.3 % (0.2-1.2); Eosinophils Percent Auto 0.1 % (0-4.4); Hematocrit 36.5 % (42.0-52.0); Hemoglobin 11.4 g/dL (14.0-18.0); Immature Granulocyte Absolute 0.05 K/mm3 (0.00-0.031); Immature Granulocyte Percent A 0.7 % (0-0.5); Lymphocytes Percent Auto 11.1 % (18.3-44.2); Mean Corpuscular HGB Conc 31.2 g/dl (32-36); Mean Corpuscular Hemoglobin 29.8 pg (26-34); Mean Corpuscular Volume 95.5 fl (80-100); Mean Platelet Volume 11.5 fl (7.4-10.4); Monocytes Absolute Auto 0.9 K/mm3 (0.1-0.6); Monocytes Percent Auto 12.9 % (2.6-8.5); Neutrophils Absolute Auto 5.4 K/mm3 (1.3-6.7); Neutrophils Percent Auto 74.9 % (45.5-73.1); Platelet Count Result 144 k/mm3 (150-375); Red Blood Count 3.82 M/mm3 (4.6-6.20); Red Cell Distribution Width 15.9 % (11.5-14.5); White Blood Count 7.2 K/mm3 (4.5-10.0)
[2022-11-14 06:17] LABS: Alanine Aminotransferase 38 U/L (6-50); Albumin Level 2.6 g/dL (3.5-5.1); Alkaline Phosphatase 69 U/L (38-126); Aspartate Amino Transferase 34 U/L (17-59); Bilirubin,Total 1.2 mg/dL (0.2-1.3); Blood Urea Nitrogen 20 mg/dL (9-20); Calcium 7.9 mg/dL (8.4-10.2); Carbon Dioxide > 40 mmol/L (22-30); Chloride 94 mmol/L (98-107); Estimated CRCL calculation 76 ml/min; Estimated Glomerular Filt Rate > 60; Glucose 85 mg/dL (65-110); Phosphorus 2.2 mg/dL (2.5-4.5); Potassium 3.6 mmol/L (3.4-5.0); Sodium 127 mmol/L (137-145)
[2022-11-14] MEDS: APIXABAN 5 MG TABLET PO ×2 (08:43→21:30)
[2022-11-14] MEDS: POTASSIUM CHLORIDE 10 MEQ ER TABLET PO (08:43)
[2022-11-14] MEDS: MIDODRINE HCL 10 MG TABLET PO ×3 (08:43→17:16)
[2022-11-14] MEDS: FUROSEMIDE 20 MG TABLET PO ×2 (08:44→17:16)
[2022-11-14] MEDS: EUCERIN CREAM 120 GM JAR 1 APPLIC TOPICAL (08:45)
--- NOTE | 2022-11-14 10:59 | PCNWS ---
Weekly nutritional screen. Patient is tolerating current diet with adequate intake. No weight loss reported. No nutritional needs at this time.
--- NOTE | 2022-11-14 11:11 | PM.IMPN ---
Progress Note: A&P Assessment and Plan (1) Shock: Code(s): R57.9 - Shock, unspecified Status: Acute Assessment and Plan: Patient with hypotension despite being off all cardiac meds -could be related to cardiogenic versus septic shock, hypovolemic shock -lactic acid is normal -procalcitonin is 0.1 -CRP is 0.7 -11/13: chest x-ray Moderate presumed pulmonary edema pattern, stable from prior exam. Correlate clinically for infection. Probable minimal pleural effusions. Right-sided PICC line.. -patient adequately fluid-resuscitated -OFF epinephrine since 11/11/2022 evening -urine output significantly improved, renal function is within normal limits, will continue to monitor -11/10 blood cultures - preliminary report is negative x2 -11/10: Urine cultures growing Enterococcus, await susceptibility -11/10: MRSA screen is negative -will discontinue cefepime and Flagyl -continue vancomycin (11/10) 11/14: Sepsis with source thought to be urine, Enterococcus species sensitive to ampicillin, will discontinue vancomycin in favor of amoxicillin today (2) Acute on chronic systolic congestive heart failure: Code(s): I50.23 - Acute on chronic systolic (congestive) heart failure Status: Acute Assessment and Plan: Acute on chronic systolic heart failure echocardiogram with LV systolic dysfunction with EF of 35-40% with moderate eccentric MR, moderate to severe TR with severe pulmonary hypertension. Patient probably has right heart failure also secondary to cold pulmonale from severe pulmonary hypertension along with left heart failure -patient has been edematous, unable to diurese due to hypotension -patient on BiPAP, will continue while asleep during the day and at night -cardiology following the patient -Hold Entresto, metoprolol, spironolactone, furosemide -11/12: Diuresed well with Diamox, negative 1060 mL fluid balance in the last 24 hours -cardiology has ordered low does furosemide 20 mg p.o. b.i.d. 11/14: transfer to IMU due to hypoxia, HF exacerbation and hypotension with recovery from enterococcus UTI per cardio recs (3) Atrial fibrillation: Code(s): I48.91 - Unspecified atrial fibrillation Status: Chronic Assessment and Plan: Patient has a history of atrial fibrillation, currently in AFib rate controlled, on apixaban at home -started on heparin infusion in the ICU, in case patient requires any procedures, -continue p.o. amiodarone (4) Mitral regurgitation: Code(s): I34.0 - Nonrheumatic mitral (valve) insufficiency Status: Inactive Assessment and Plan: Moderate eccentric MR on echocardiogram done in October 2022. Patient also has severe TR. According to the daughter patient was advised to go to [facility] at some point to get evaluated for his valves -cardiology following the patient 11/14: gentle diuresis per cardio (5) Pulmonary hypertension: Code(s): I27.20 - Pulmonary hypertension, unspecified Status: Acute Assessment and Plan: RVSP of 80 mmHg likely causing cor pulmonale likely causing right heart failure along with left heart failure. -continue BiPAP support at this time -continue supplemental oxygen (6) Paroxysmal supraventricular tachycardia: Code(s): I47.1 - Supraventricular tachycardia Status: Acute Assessment and Plan: Continue amiodarone -continue to monitor for SVTs (7) Nonischemic cardiomyopathy: Code(s): I42.8 - Other cardiomyopathies Status: Acute Assessment and Plan: Patient with history of nonischemic cardiomyopathy -likely secondary to reasons above (8) Obstructive sleep apnea: Code(s): G47.33 - Obstructive sleep apnea (adult) (pediatric) Status: Acute Assessment and Plan: Obstructive sleep apnea causing possible pulmonary hypertension, cor pulmonale, chronic respiratory failure, hypercapnia -will continue BiPAP when patient is sleeping and at night P
[2022-11-14 13:07] LABS: Vancomycin Trough 22.3 ug/mL (10.0-20.0)
--- NOTE | 2022-11-14 13:27 | PC.NURSE ---
Per hospitalist. Ok to keep pt on the floor with continuous pulse ox.
[2022-11-14] MEDS: AMOXICILLIN 500 MG CAPSULE PO ×2 (14:20→21:30)
--- NOTE | 2022-11-14 14:40 | PM.PNCARD ---
Progress Note: A&P Assessment and Plan (1) Acute on chronic systolic congestive heart failure: Code(s): I50.23 - Acute on chronic systolic (congestive) heart failure Status: Acute Assessment and Plan: Acute on chronic left and right heart failure with LV systolic dysfunction EF 35-40%, with moderate eccentric MR moderate to severe TR with severe pulmonary hypertension.? Initially unable to diurese and with significant hypotension.? However, with treatment of bladder infection and a couple days of epinephrine, he has turned around and diuresing. Blood pressure improved. --Repeat CXR in the morning. --continue p.o. furosemide, 20 mg b.i.d. (2) Atrial fibrillation: Code(s): I48.91 - Unspecified atrial fibrillation Status: Acute Assessment and Plan: Chronic persistent atrial fibrillation, rate controlled. --Metoprolol stopped because of hypotension, monitor for tachycardia --continue amiodarone 200 mg daily --Resumed Eliquis since the patient does not appear to need any invasive procedures. (3) Nonischemic cardiomyopathy: Code(s): I42.8 - Other cardiomyopathies Status: Acute Assessment and Plan: History of nonobstructive CAD, LV dysfunction, EF 35-40% consistent with a nonischemic cardiomyopathy. (4) Mitral regurgitation: Code(s): I34.0 - Nonrheumatic mitral (valve) insufficiency Status: Inactive Assessment and Plan: Moderate to moderately severe mitral and tricuspid regurgitation as of October 2022. May eventually pursue mitral valve clip. (5) CAD (coronary artery disease): Code(s): I25.10 - Atherosclerotic heart disease of [place] coronary artery without angina pectoris Status: Acute Assessment and Plan: Nonobstructive CAD, stable, no angina. --continue Eliquis and statin therapy (6) Pulmonary hypertension: Code(s): I27.20 - Pulmonary hypertension, unspecified Status: Acute Assessment and Plan: Severe pulmonary hypertension by cardiac catheterization, RVSP 80 mmHg 10/2022. --continue home O2 for chronic respiratory failure (7) Shock: Code(s): R57.9 - Shock, unspecified Status: Acute Assessment and Plan: Transfered to ICU 11/10/2022 with severe hypotension and shock, on epinephrine, which has been weaned off 11/11/2022. Still on midodrine. Unclear as to the cause of the worsening hypotension (in cardiogenic shock versus sepsis? ) But urine grew Enterococcus so that may have played a role. --continue midodrine Subjective Date/time seen: 11/14/22 14:40 Interval history: Follow-up for acute on chronic systolic CHF, AFib, MR/TR, nonischemic cardiomyopathy. Mild nonobstructive CAD. 11/07/2022: States he feels about the same today. Had symptomatic hypotension earlier today with therapy. He has some conversational dyspnea. No chest pain. 11/08/2022: No significant changes overnight. Feels about the same, perhaps slightly less short of breath. Had some hypotension again yesterday afternoon but he was asymptomatic. 11/09/2022: Family feels patient is more lethargic. Moved to IMU to start dobutamine drip. 11/10/2022: Yesterday evening and through the night the patient had trouble with low blood pressures, running in the 80s and 90s. He was given normal saline 200 cc, dobutamine discontinued, and started on midodrine. This morning his blood pressure is worse, 70s and 80s, and the last one was 67/40 mmHg. Was started on BiPAP but continues to have low blood pressures. Moved to ICU for epinephrine gtt and antibiotic coverage expanded. 11/11/2022: Patient resting in the ICU comfortably denies any shortness of breath at this time. Still receiving low dose of epinephrine and currently systolic blood pressure is 100/60. 11/12/2022: Patient doing better, weaned off of epinephrine and on midodrine, systolic blood pressure 100-120 mmHg. Worked with physical therapy today, dina
[2022-11-15] VITALS (10 sets, daily range): BP systolic 102–117; BP diastolic 62–86; PULSE 63–75; RESP 14–36; TEMP 36.1–36.6; O2SAT 94–99
[2022-11-15] MEDS: AMIODARONE HCL 200 MG TABLET PO (05:18)
[2022-11-15] MEDS: ATORVASTATIN 20 MG TABLET PO (05:19)
[2022-11-15] MEDS: ASPIRIN 81 MG ENTERIC TABLET PO (05:19)
[2022-11-15] MEDS: AMOXICILLIN 500 MG CAPSULE PO ×3 (05:20→21:21)
[2022-11-15] MEDS: CENTRAL LINE FLUSH 10 ML IV PUSH ×3 (05:22→21:26)
[2022-11-15 05:46] LABS: Basophils Percent Auto 0.3 % (0.2-1.2); Eosinophils Percent Auto 0.3 % (0-4.4); Hematocrit 33.5 % (42.0-52.0); Hemoglobin 10.5 g/dL (14.0-18.0); Immature Granulocyte Absolute 0.04 K/mm3 (0.00-0.031); Immature Granulocyte Percent A 0.6 % (0-0.5); Immature Platelet Fraction Pct 14.2 % (0.9-11.2); Lymphocytes Percent Auto 14.8 % (18.3-44.2); Mean Corpuscular HGB Conc 31.3 g/dl (32-36); Mean Corpuscular Hemoglobin 30.3 pg (26-34); Mean Corpuscular Volume 96.8 fl (80-100); Monocytes Absolute Auto 0.9 K/mm3 (0.1-0.6); Monocytes Percent Auto 13.4 % (2.6-8.5); Neutrophils Absolute Auto 4.8 K/mm3 (1.3-6.7); Neutrophils Percent Auto 70.6 % (45.5-73.1); Platelet Count Result 161 k/mm3 (150-375); Red Blood Count 3.46 M/mm3 (4.6-6.20); White Blood Count 6.7 K/mm3 (4.5-10.0)
[2022-11-15 06:15] LABS: Alanine Aminotransferase 36 U/L (6-50); Albumin Level 2.4 g/dL (3.5-5.1); Alkaline Phosphatase 61 U/L (38-126); Aspartate Amino Transferase 31 U/L (17-59); Blood Urea Nitrogen 21 mg/dL (9-20); Calcium 7.9 mg/dL (8.4-10.2); Carbon Dioxide > 40 mmol/L (22-30); Chloride 95 mmol/L (98-107); Estimated CRCL calculation 86 ml/min; Estimated Glomerular Filt Rate > 60; Glucose 84 mg/dL (65-110); Potassium 3.8 mmol/L (3.4-5.0); Sodium 132 mmol/L (137-145)
--- NOTE | 2022-11-15 08:46 | PM.IMPN ---
Progress Note: A&P Assessment and Plan (1) Shock: Code(s): R57.9 - Shock, unspecified Status: Acute Assessment and Plan: Patient with hypotension despite being off all cardiac meds -could be related to cardiogenic versus septic shock, hypovolemic shock -lactic acid is normal -procalcitonin is 0.1 -CRP is 0.7 -11/13: chest x-ray Moderate presumed pulmonary edema pattern, stable from prior exam. Correlate clinically for infection. Probable minimal pleural effusions. Right-sided PICC line.. -patient adequately fluid-resuscitated -OFF epinephrine since 11/11/2022 evening -urine output significantly improved, renal function is within normal limits, will continue to monitor -11/10 blood cultures - preliminary report is negative x2 -11/10: Urine cultures growing Enterococcus, await susceptibility -11/10: MRSA screen is negative -will discontinue cefepime and Flagyl -continue vancomycin (11/10) 11/14: Sepsis with source thought to be urine, Enterococcus species sensitive to ampicillin, will discontinue vancomycin in favor of amoxicillin today 11/15: sepsis resolving on amoxicillin (2) Acute on chronic systolic congestive heart failure: Code(s): I50.23 - Acute on chronic systolic (congestive) heart failure Status: Acute Assessment and Plan: Acute on chronic systolic heart failure echocardiogram with LV systolic dysfunction with EF of 35-40% with moderate eccentric MR, moderate to severe TR with severe pulmonary hypertension. Patient probably has right heart failure also secondary to cold pulmonale from severe pulmonary hypertension along with left heart failure -patient has been edematous, unable to diurese due to hypotension -patient on BiPAP, will continue while asleep during the day and at night -cardiology following the patient -11/12: Diuresed well with Diamox, negative 1060 mL fluid balance in the last 24 hours -cardiology has ordered low does furosemide 20 mg p.o. b.i.d. 11/14: transfer to IMU due to hypoxia, HF exacerbation and hypotension with recovery from enterococcus UTI per cardio recs 11/15: stabilizing, responding to oral diuretics (3) Atrial fibrillation: Code(s): I48.91 - Unspecified atrial fibrillation Status: Chronic Assessment and Plan: Patient has a history of atrial fibrillation, currently in AFib rate controlled, on apixaban at home -started on heparin infusion in the ICU, in case patient requires any procedures, -continue p.o. amiodarone (4) Mitral regurgitation: Code(s): I34.0 - Nonrheumatic mitral (valve) insufficiency Status: Inactive Assessment and Plan: Moderate eccentric MR on echocardiogram done in October 2022. Patient also has severe TR. According to the daughter patient was advised to go to [facility] at some point to get evaluated for his valves -cardiology following the patient 11/14: gentle diuresis per cardio 11/15: continue po lasix, stable for discharge per cardio (5) Pulmonary hypertension: Code(s): I27.20 - Pulmonary hypertension, unspecified Status: Acute Assessment and Plan: RVSP of 80 mmHg likely causing cor pulmonale likely causing right heart failure along with left heart failure. -continue BiPAP support at this time -continue supplemental oxygen (6) Paroxysmal supraventricular tachycardia: Code(s): I47.1 - Supraventricular tachycardia Status: Acute Assessment and Plan: Continue amiodarone -continue to monitor for SVTs (7) Nonischemic cardiomyopathy: Code(s): I42.8 - Other cardiomyopathies Status: Acute Assessment and Plan: Patient with history of nonischemic cardiomyopathy -likely secondary to reasons above (8) Obstructive sleep apnea: Code(s): G47.33 - Obstructive sleep apnea (adult) (pediatric) Status: Acute Assessment and Plan: Obstructive sleep apnea causing possible pulmonary hypertension, cor pulmonale, chronic r
[2022-11-15] MEDS: APIXABAN 5 MG TABLET PO ×2 (09:34→21:21)
[2022-11-15] MEDS: FUROSEMIDE 20 MG TABLET PO ×2 (09:34→17:24)
[2022-11-15] MEDS: MIDODRINE HCL 10 MG TABLET PO ×3 (09:34→17:24)
[2022-11-15] MEDS: POTASSIUM CHLORIDE 10 MEQ ER TABLET PO (09:34)
--- NOTE | 2022-11-15 10:09 | PM.PNCARD ---
Progress Note: A&P Assessment and Plan (1) Acute on chronic systolic congestive heart failure: Code(s): I50.23 - Acute on chronic systolic (congestive) heart failure Status: Acute Assessment and Plan: Acute on chronic left and right heart failure with LV systolic dysfunction EF 35-40%, with moderate eccentric MR moderate to severe TR with severe pulmonary hypertension.? Initially unable to diurese and with significant hypotension.? However, with treatment of bladder infection and a couple days of epinephrine, he has turned around and diuresing. Blood pressure improved. --CXR shows interval improvement of pleural effusions --continue p.o. furosemide, 20 mg b.i.d. --OK for discharge home today from a cardiac perspective with close cardiology follow up (2) Atrial fibrillation: Code(s): I48.91 - Unspecified atrial fibrillation Status: Acute Assessment and Plan: Chronic persistent atrial fibrillation, rate controlled. --Metoprolol stopped because of hypotension, monitor for tachycardia --continue amiodarone 200 mg daily --Resumed Eliquis since the patient does not appear to need any invasive procedures. (3) Nonischemic cardiomyopathy: Code(s): I42.8 - Other cardiomyopathies Status: Acute Assessment and Plan: History of nonobstructive CAD, LV dysfunction, EF 35-40% consistent with a nonischemic cardiomyopathy. (4) Mitral regurgitation: Code(s): I34.0 - Nonrheumatic mitral (valve) insufficiency Status: Inactive Assessment and Plan: Moderate to moderately severe mitral and tricuspid regurgitation as of October 2022. May eventually pursue mitral valve clip. (5) CAD (coronary artery disease): Code(s): I25.10 - Atherosclerotic heart disease of [place] coronary artery without angina pectoris Status: Acute Assessment and Plan: Nonobstructive CAD, stable, no angina. --continue Eliquis and statin therapy (6) Pulmonary hypertension: Code(s): I27.20 - Pulmonary hypertension, unspecified Status: Acute Assessment and Plan: Severe pulmonary hypertension by cardiac catheterization, RVSP 80 mmHg 10/2022. --continue home O2 for chronic respiratory failure, pulm consulted appreciate recs (7) Shock: Code(s): R57.9 - Shock, unspecified Status: Acute Assessment and Plan: Transfered to ICU 11/10/2022 with severe hypotension and shock, on epinephrine, which has been weaned off 11/11/2022. Still on midodrine. Unclear as to the cause of the worsening hypotension (in cardiogenic shock versus sepsis? ) But urine grew Enterococcus so that may have played a role. --continue midodrine Subjective Date/time seen: 11/15/22 10:09 Interval history: Follow-up for acute on chronic systolic CHF, AFib, MR/TR, nonischemic cardiomyopathy. Mild nonobstructive CAD. 11/07/2022: States he feels about the same today. Had symptomatic hypotension earlier today with therapy. He has some conversational dyspnea. No chest pain. 11/08/2022: No significant changes overnight. Feels about the same, perhaps slightly less short of breath. Had some hypotension again yesterday afternoon but he was asymptomatic. 11/09/2022: Family feels patient is more lethargic. Moved to IMU to start dobutamine drip. 11/10/2022: Yesterday evening and through the night the patient had trouble with low blood pressures, running in the 80s and 90s. He was given normal saline 200 cc, dobutamine discontinued, and started on midodrine. This morning his blood pressure is worse, 70s and 80s, and the last one was 67/40 mmHg. Was started on BiPAP but continues to have low blood pressures. Moved to ICU for epinephrine gtt and antibiotic coverage expanded. 11/11/2022: Patient resting in the ICU comfortably denies any shortness of breath at this time. Still receiving low dose of epinephrine and currently systolic blood pressure is 100/60. 11/12/2022: Gabriel
--- NOTE | 2022-11-15 10:39 | PM.CNPUL ---
Assessment and Plan Assessment and plan (1) Chronic respiratory failure with hypoxia, on home oxygen therapy: Code(s): J96.11 - Chronic respiratory failure with hypoxia; Z99.81 - Dependence on supplemental oxygen Status: Acute Assessment and Plan: He has been on oxygen since May, did not have arterial blood gases until this admission. He had an elevated HC03 indicating that he has had chronic respiratory acidosis with metabolic compensation, and he does need oxygen at least 2-3 liters/minute to maintain adequate oxygenation. He has used BiPAP at night. He has no known underlying lung disease, has not smoked. He has worsening changes on his chest CT from September 16. His chest x-ray in May was relatively clear. I am concerned that the amiodarone may be contributing to some interstitial lung changes. (2) Obstructive sleep apnea: Code(s): G47.33 - Obstructive sleep apnea (adult) (pediatric) Status: Acute Assessment and Plan: Moderate obstructive sleep apnea diagnosed October 2018, has not been on treatment, has used BiPAP since admission. The patient had a negative experience with CPAP an admission in 2018. ApneaLink tonight November 15 with auto PAP and no supplemental oxygen; this will show desaturations which is needed to show need for PAP at home; ABG in the morning, will determine if CPAP is sufficient; if not he may qualify for BiPAP to go home. Not a candidate for NPPV as he has no underlying lung disease that we know of but I am getting more concerned. (3) Congestive heart failure: Code(s): I50.9 - Heart failure, unspecified Status: Acute Assessment and Plan: Acute on chronic systolic congestive heart failure decompensated on this admission likely due to Enterococcus sepsis UTI Plans outlined by Cardiology, medications, diet, follow-up per Metalworking Instructor LV systolic dysfunction EF 35-40%, with moderate eccentric MR moderate to severe TR , (4) Pulmonary hypertension: Code(s): I27.20 - Pulmonary hypertension, unspecified Status: Acute Assessment and Plan: Severe pulmonary hypertension, RVSP 80 mmHg on a catheterization October 2022; this is not primary pulmonary hyperetnsio0 n; this is multifactorial, LV dysfunction, untreated sleep apnea, he may have other causes for hypoxemia, Plan ApneaLink tonight on no O2 and APAP 5-15 cm, ABG tomorrow morning November 16 This is to attempt to arrange CPAP / BiPAP for home use. Acetazolamide 500 mg IV x 1; 250 mg BID to waste bicarb before d/c Follow up pulm/sleep office visit in 2 weeks. He does not have known lung disease however chest CXR and chest CT suggest possible ILD; he has been diagnosed with pneumonia repeatedly without any organisms recovered, always has a negative procalcitonin. It is possible his oxygen requirement and increased shortness of breath may be due to undiagnosed process such as interstitial lung disease. He does not have to stay in the hospital to finish the workup. NATO cascade; this is evaluate his pulmonary hypertension, possible ILD urine for Legionella and pneumococcus to evaluate for pneumonia as he has been on antibiotics; modified barium swallow to evaluate for aspiration; possible recurrent pneumonias Not clear if need will need O2 bed bug exterminator. He is sick right now, definitely needs. He will need testing when he gets more stable. Oxygen was started in May 05-2022, after he went home; was admitted with new onset afib with RVR with side order or pneumonia; was not formally retested after discharge. He continue to use oxygen 2 L at rest and sleep, 3-5 L during the day but not out in public. He has elevated Dunstan/Lambd
[2022-11-15] MEDS: acetaZOLAMIDE SODIUM FOR INJ 500 MG VIAL IV PUSH (13:05)
[2022-11-15] MEDS: acetaZOLAMIDE TAB 250 MG TABLET PO (17:24)
[2022-11-15] MEDS: WATER FOR IRRIGATION, STERILE 1,000 ML BOTTLE 1000 ML (23:17)
[2022-11-16] MEDS: ASPIRIN 81 MG ENTERIC TABLET PO (06:25)
[2022-11-16] MEDS: acetaZOLAMIDE TAB 250 MG TABLET PO ×2 (06:25→17:34)
[2022-11-16 06:26] VITALS: PULSE 68
[2022-11-16] MEDS: AMIODARONE HCL 200 MG TABLET PO (06:26)
[2022-11-16] MEDS: CENTRAL LINE FLUSH 10 ML IV PUSH ×2 (06:26→13:02)
[2022-11-16] MEDS: ATORVASTATIN 20 MG TABLET PO (06:26)
[2022-11-16] MEDS: AMOXICILLIN 500 MG CAPSULE PO ×2 (06:26→13:01)
[2022-11-16 06:43] VITALS: BP 105/64; PULSE 61; RESP 16; TEMP 35.9; O2SAT 12
[2022-11-16 06:49] LABS: Basophils Percent Auto 0.4 % (0.2-1.2); Eosinophils Percent Auto 0.5 % (0-4.4); Hematocrit 33.5 % (42.0-52.0); Hemoglobin 10.4 g/dL (14.0-18.0); Immature Granulocyte Absolute 0.04 K/mm3 (0.00-0.031); Immature Granulocyte Percent A 0.5 % (0-0.5); Immature Platelet Fraction Pct 12.1 % (0.9-11.2); Lymphocytes Absolute Auto 1.01 K/mm3 (0.9-3.2); Lymphocytes Percent Auto 13.4 % (18.3-44.2); Mean Corpuscular Hemoglobin 29.7 pg (26-34); Mean Corpuscular Volume 95.7 fl (80-100); Mean Platelet Volume 11.2 fl (7.4-10.4); Monocytes Percent Auto 12.8 % (2.6-8.5); Neutrophils Absolute Auto 5.4 K/mm3 (1.3-6.7); Neutrophils Percent Auto 72.4 % (45.5-73.1); Platelet Count Result 152 k/mm3 (150-375); Red Cell Distribution Width 16.3 % (11.5-14.5); White Blood Count 7.5 K/mm3 (4.5-10.0)
[2022-11-16 07:02] LABS: Alanine Aminotransferase 36 U/L (6-50); Albumin Level 2.5 g/dL (3.5-5.1); Alkaline Phosphatase 63 U/L (38-126); Aspartate Amino Transferase 30 U/L (17-59); Bilirubin,Total 1.1 mg/dL (0.2-1.3); Blood Urea Nitrogen 21 mg/dL (9-20); Calcium 7.9 mg/dL (8.4-10.2); Carbon Dioxide > 40 mmol/L (22-30); Chloride 95 mmol/L (98-107); Estimated CRCL calculation 87 ml/min; Estimated Glomerular Filt Rate > 60; Glucose 87 mg/dL (65-110); Potassium 3.5 mmol/L (3.4-5.0); Sodium 133 mmol/L (137-145)
[2022-11-16 08:00] VITALS: BP 120/66; PULSE 95; RESP 18; TEMP 36.3; O2SAT 93
--- NOTE | 2022-11-16 09:03 | PM.PNPUL ---
Progress Note: A&P Assessment and Plan (1) Chronic respiratory failure with hypoxia, on home oxygen therapy: Code(s): J96.11 - Chronic respiratory failure with hypoxia; Z99.81 - Dependence on supplemental oxygen Status: Acute Assessment and Plan: He has been on oxygen since May, did not have arterial blood gases until this admission.? He had an elevated HC03 indicating that he has had chronic respiratory acidosis with metabolic compensation, and he does need oxygen at least 2-3 liters/minute to maintain adequate oxygenation.? He has used BiPAP at night.? He has no known underlying lung disease, has not smoked.? He has worsening changes on his chest CT from September 16.? His chest x-ray in May was relatively clear.? I am concerned that the amiodarone may be contributing to some interstitial lung changes. (2) Obstructive sleep apnea: Code(s): G47.33 - Obstructive sleep apnea (adult) (pediatric) Status: Acute Assessment and Plan: Moderate obstructive sleep apnea diagnosed October 2018, has not been on treatment, has used BiPAP since admission.? The patient had a negative experience with CPAP an admission in 2018. Last night he had ApneaLink showing desaturation index 27 with drop in saturation to ... on room air. Used APAP without success, did not sleep, struggled. Did not have an ABG today. Not a candidate for NPPV as he has no underlying lung disease that we know, may have lung disease that is not diagnosed. (3) CHF exacerbation: Code(s): I50.9 - Heart failure, unspecified Status: Acute Assessment and Plan: Acute on chronic systolic congestive heart failure decompensated on this admission likely due to Enterococcus sepsis UTI Plans outlined by Cardiology, medications, diet, follow-up per Meal Attendant LV systolic dysfunction EF 35-40%, with moderate eccentric MR moderate to severe TR , (4) Pulmonary hypertension: Code(s): I27.20 - Pulmonary hypertension, unspecified Status: Acute Assessment and Plan: Severe pulmonary hypertension, RVSP 80 mmHg on a catheterization October 2022; this is not primary pulmonary hypertension; this is multifactorial, LV dysfunction, untreated sleep apnea, he may have other causes for hypoxemia, Plan We are not able to set up PAP today however he does qualify for it with his desaturations. He is otherwise ready to go home, so will work on this Friday. November 18 BIPAP with a back up rate. Can use O2 with a cannula under it. Another option is BiPAP titration in sleep lab for specific numbers needed and O2 flow. Was admitted w Enterococcus UTI with sepsis and shock; much better form that. Stop diamox, HCO3 still > 40. Follow up pulm/sleep office visit in 1-2 weeks. He does not have known lung disease however chest CXR and chest CT suggest possible ILD; he has been diagnosed with pneumonia repeatedly without any organisms recovered, always has a negative procalcitonin.? It is possible his oxygen requirement and increased shortness of breath may be due to undiagnosed process such as interstitial lung disease or aspiration.? He does not have to stay in the hospital to finish the workup. NATO cascade ordered; this is evaluate his pulmonary hypertension, possible ILD urine for Legionella and pneumococcus ordered to evaluate for pneumonia as he has been on antibiotics; modified barium swallow ordered but not performed yet; will get out patient; this is to evaluate for aspiration; possible recurrent pneumonias Not clear if need will need O2 non destructive evaluation specialist. He is sick right now, definitely needs. He will need re-testing when he gets more stable. Oxygen was started in May 05-2022, after he went home;
[2022-11-16] MEDS: FUROSEMIDE 20 MG TABLET PO ×2 (09:27→17:34)
[2022-11-16] MEDS: MIDODRINE HCL 10 MG TABLET PO ×3 (09:27→17:34)
[2022-11-16] MEDS: APIXABAN 5 MG TABLET PO (09:27)
[2022-11-16] MEDS: POTASSIUM CHLORIDE 10 MEQ ER TABLET PO (09:27)
[2022-11-16] MEDS: EUCERIN CREAM 120 GM JAR 1 APPLIC TOPICAL (09:28)
--- NOTE | 2022-11-16 13:52 | P.DS_ITS ---
DS: Admitting Diagnosis Discharge Date 11/16/22 Admitting Diagnosis sob DS: Discharge Diagnosis Discharge Diagnosis (1) Shock: Code(s): R57.9 - Shock, unspecified Status: Acute Assessment and Plan: Patient with hypotension despite being off all cardiac meds -could be related to cardiogenic versus septic shock, hypovolemic shock -lactic acid is normal -procalcitonin is 0.1 -CRP is 0.7 -11/13: chest x-ray Moderate presumed pulmonary edema pattern, stable from prior exam. Correlate clinically for infection. Probable minimal pleural effusions. Right-sided PICC line.. -patient adequately fluid-resuscitated -OFF epinephrine since 11/11/2022 evening -urine output significantly improved, renal function is within normal limits, will continue to monitor -11/10 blood cultures - preliminary report is negative x2 -11/10: Urine cultures growing Enterococcus, await susceptibility -11/10: MRSA screen is negative -will discontinue cefepime and Flagyl -continue vancomycin (11/10) 11/14: Sepsis with source thought to be urine, Enterococcus species sensitive to ampicillin, will discontinue vancomycin in favor of amoxicillin today 11/15: sepsis resolving on amoxicillin (2) Acute on chronic systolic congestive heart failure: Code(s): I50.23 - Acute on chronic systolic (congestive) heart failure Status: Acute Assessment and Plan: Acute on chronic systolic heart failure echocardiogram with LV systolic dysfunction with EF of 35-40% with moderate eccentric MR, moderate to severe TR with severe pulmonary hypertension. Patient probably has right heart failure also secondary to cold pulmonale from severe pulmonary hypertension along with left heart failure -patient has been edematous, unable to diurese due to hypotension -patient on BiPAP, will continue while asleep during the day and at night -cardiology following the patient -11/12: Diuresed well with Diamox, negative 1060 mL fluid balance in the last 24 hours -cardiology has ordered low does furosemide 20 mg p.o. b.i.d. 11/14: transfer to IMU due to hypoxia, HF exacerbation and hypotension with recovery from enterococcus UTI per cardio recs 11/15: stabilizing, responding to oral diuretics (3) Atrial fibrillation: Code(s): I48.91 - Unspecified atrial fibrillation Status: Chronic Assessment and Plan: Patient has a history of atrial fibrillation, currently in AFib rate controlled, on apixaban at home -started on heparin infusion in the ICU, in case patient requires any procedures, -continue p.o. amiodarone (4) Mitral regurgitation: Code(s): I34.0 - Nonrheumatic mitral (valve) insufficiency Status: Inactive Assessment and Plan: Moderate eccentric MR on echocardiogram done in October 2022. Patient also has severe TR. According to the daughter patient was advised to go to [facility] at some point to get evaluated for his valves -cardiology following the patient 11/14: gentle diuresis per cardio 11/15: continue po lasix, stable for discharge per cardio (5) Pulmonary hypertension: Code(s): I27.20 - Pulmonary hypertension, unspecified Status: Acute Assessment and Plan: RVSP of 80 mmHg likely causing cor pulmonale likely causing right heart failure along with left heart failure. -continue BiPAP support at this time -continue supplemental oxygen (6) Paroxysmal supraventricular tachycardia: Code(s): I47.1 - Supraventricular tachycardia Status: Acute Assessment and Plan: Continue amiodarone -continue to monito
[2022-11-16 15:09] LABS: Appearance Urine Cloudy (Clear); Bacteria Urine None Seen /hpf; Bilirubin Urine Negative (Negative); Blood Urine 3+ (Negative); Color Urine Yellow (Yellow); Glucose Urine UA Negative (Negative); Ketones Urine Negative (Negative); Leukocyte Esterase Ur 3+ LEU/UL (Negative); Nitrate Urine Negative (Negative); Non Pathogenic Casts 0-2; Protein Urine Trace mg/dL (Negative); RBC Urine >100 /hpf (0-2); Specific Grav Ur 1.011 (1.001-1.035); Squamous Epithelial Cell Urine None seen /hpf (Few); WBC Urine 21-50 /hpf; pH Urine 8.5 (5.0-9.0)
[2022-11-16 15:11] LABS: Add Urine Microscopic? YES
[2022-11-16 15:32] VITALS: BP 117/63
[2022-11-16 15:33] VITALS: BP 117/63
--- NOTE | 2022-11-16 17:58 | PC.NURSE ---
Pt was seen by Dr Cho today and she verbalized she would work on coordinating machine he will need at home . There after, Dr Houston rounded and put in a discharge plan for patient. Senior Manager Mmcoe discontinued catheter and conducted a voiding trial as ordered before discharge. Senior Manager Mmcoe contacted hospitalist to report patient had not voided more than 20ml since catheter was removed two hours prior. Hospitalist, Dr Houston gave telephone orders to bladder scan patient. Senior Manager Mmcoe reached out to Dr Houston with update, but unable to reach Dr Houston. Senior Manager Mmcoe also had questions regarding orders/instructions for home pap machine after reading Dr Cho note that they would work on pap machine Friday, November 18 (typewriter tester assuming since today was weekend). Senior Manager Mmcoe was unable to reach discharging hospitalist at [phone],so typewriter tester called the electric motors salesperson hospitalist for [phone], Dr Yanez for direction. Senior Manager Mmcoe detailed concern with no pap machine instructions for discharge and Dr Yanez confirmed patient should not discharge until we have orders regarding whether patient should or should not discharge with pap machine. Senior Manager Mmcoe shared that patient had not voided and now held 350ml of urine. Telephone orders were given by Dr Yanez to straight cath. Once typewriter tester returned to patient room he had voided 600ml having drinking additional vera o straight cath was not initiated. Bladder scan should 0 mls Patient has been voiding since that time. Senior Manager Mmcoe explained to patient and daughter that patient would not discharge today.
--- NOTE | 2022-11-16 20:07 | PC.NURSE ---
Mechanical Fitter was able to contact Dr Cho by phone and clarify that patient will discharge without pap machine. Patient will follow up with Dr Cho to arrange machine on November 18
--- NOTE | 2022-11-18 08:09 | PCRCNOTE ---
Home bipap arrangements being made with patient's DME, [facility], per Dr. Cho's request.
[2022-11-19 18:58] LABS: Pneumococcal Antigen Urine Not Detected (Not Detected)
[2022-11-20 02:53] LABS: Legionella pneumophila Ag Ur Not Detected (Not Detected)
== END 2022-11-16 19:45 | disposition home health service (06) | DRG 291 ==
LOC: ANHED 13:43 → ANH2MED 14:38 → ANHIMU 11-09 11:24 → ANHICU 11-10 11:09 → ANH3MED 11-13 17:58
PROVIDERS: Emergency Medicine; Internal Medicine; Internal Medicine Cardiovascular Disease; Internal Medicine Critical Care Medicine; Physician Assistant; Admitting Provider Chiropractor; Emergency Provider Emergency Medicine; PCP Family Medicine; Visit Provider Student in an Organized Health Care Education/Training Program
DX: I11.0 Hypertensive heart disease with heart failure (principal); A41.9 Sepsis, unspecified organism; I50.43 Acute on chronic combined systolic (congestive) and diastolic (congestive) heart failure; R65.21 Severe sepsis with septic shock; I48.20 Chronic atrial fibrillation, unspecified; J96.11 Chronic respiratory failure with hypoxia; I47.1 Supraventricular tachycardia; N39.0 Urinary tract infection, site not specified; I50.814 Right heart failure due to left heart failure; I42.8 Other cardiomyopathies; I27.81 Cor pulmonale (chronic); I08.1 Rheumatic disorders of both mitral and tricuspid valves; I87.8 Other specified disorders of veins; I27.20 Pulmonary hypertension, unspecified; E87.6 Hypokalemia; E78.5 Hyperlipidemia, unspecified; M19.90 Unspecified osteoarthritis, unspecified site; N40.0 Benign prostatic hyperplasia without lower urinary tract symptoms; G47.33 Obstructive sleep apnea (adult) (pediatric); Z79.01 Long term (current) use of anticoagulants; Z79.82 Long term (current) use of aspirin; Z99.81 Dependence on supplemental oxygen; Z85.46 Personal history of malignant neoplasm of prostate
CPT/HCPCS: 36415; 36569; 36600; 71045; 71046; 80048; 80053; 80069; 80202; 81001; 82805; 83605; 83735; 83880; 83883; 84100; 84145; 84443; 84484; 85025; 85027; 85055; 85610; 85730; 86140; 86334; 87040; 87077; 87081; 87086; 87088; 87186; 87449; 87899; 92610; 93005; 94002; 94003; 94660; 94762; 96374; 96376; 97110; 97116; 97161; 97162; 97164; 97165; 97166; 97530; 97535; 99285; A9270; C1751; G0378; J0171; J0692; J0696; J1120; J1250; J1644; J1720; J1836; J1940; J3370; J7050; J7060; P9047

== ENCOUNTER 2022-11-20 11:31 | Outpatient (CLI) | payer MEDICARE, SELFPAY ==
--- NOTE | ~2022-11-20 | XR_ITS ---
XR chest 2V DATE: 11/20/2022 11:49 INDICATION: Acute on chronic systolic congestive heart failure TECHNIQUE: AP and lateral views COMPARISON: 11/15/2022 portable AP chest FINDINGS: Cardiomegaly. There is pulmonary vascular congestion and redistribution. There are bilatera l perihilar and to a greater extent basilar infiltrates and/or atelectasis. Infiltrates may be due to pulmonary edema, atelectasis and/or pneumonia or aspiration pneumonitis. Small pleural effusions. No pneumothorax. Diffuse osteopenia. IMPRESSION: Congestive changes, mildly improved since 11/15/2022 Bilateral perihilar and particularly basilar infiltrates and/or atelectasis, which may be due to pulm onary edema. Pneumonia and aspiration pneumonitis is not excluded Reviewed, dictated and finalized at location B. IMPRESSION: Congestive changes, mildly improved since 11/15/2022 Bilateral perihilar and particularly basilar infiltrates and/or atelectasis, wh ich may be due to pulmonary edema. Pneumonia and aspiration pneumonitis is not excluded
== END 2022-11-20 11:32 | disposition home or self-care (01) ==
PROVIDERS: PCP Family Medicine; Visit Provider Internal Medicine Cardiovascular Disease
DX: I50.23 Acute on chronic systolic (congestive) heart failure (principal)
CPT/HCPCS: 71046

== ENCOUNTER 2022-11-21 10:18 | Outpatient (NON) | payer MEDICARE, SELFPAY ==
[2022-11-21 11:13] LABS: Anion Gap 5 mmol/L (8-16); Blood Urea Nitrogen 17 mg/dL (9-20); Calcium 8.2 mg/dL (8.4-10.2); Carbon Dioxide 36 mmol/L (22-30); Chloride 97 mmol/L (98-107); Estimated Glomerular Filt Rate > 60; Glucose 91 mg/dL (65-110); Potassium 3.4 mmol/L (3.4-5.0); Sodium 138 mmol/L (137-145)
== END 2022-11-21 10:19 | disposition home or self-care (01) ==
PROVIDERS: PCP Family Medicine; Visit Provider Student in an Organized Health Care Education/Training Program
DX: R57.9 Shock, unspecified (principal); I48.91 Unspecified atrial fibrillation; I50.23 Acute on chronic systolic (congestive) heart failure; I34.0 Nonrheumatic mitral (valve) insufficiency; E87.1 Hypo-osmolality and hyponatremia
CPT/HCPCS: 80048

== ENCOUNTER 2022-11-29 00:38 | Emergency (ER) | payer MEDICARE, SELFPAY ==
--- NOTE | ~2022-11-29 | CT_ITS ---
Noncontrast CT scan of the cervical spine Technique: Multiple contiguous axial [address] images of the cervical spine were obtained and rec onstructed in 2D sagittal and coronal planes on the acquisition scanner. Dose reduction technique was used on this scan by utilizing automated exposure control, adjustment of the mA and/or kV according to patient size. The dose-length product (DLP) was 517.26 mGy-cm. Clinical History: Pain Findings: No fractures or dislocations. There is advanced degenerative disc change at C4-C5, C5-C6, and C6-C7. There are uncovertebral degenerative changes at these levels. There is degenerative change at the articulation of the odontoid process with the anterior arch of C1. There is probable mild can al stenosis and bilateral neural foraminal narrowing at C4-C5. There is probable disc bulge and assoc iated mild canal stenosis at C3-C4. No prevertebral soft tissue swelling. There are partially imaged small bilateral pleural effusions. There is patchy groundglass opacity susan g apices, which could reflect pulmonary edema or infection. Impression: No fracture or subluxation of the cervical spine. Degenerative spondylosis, as above. Partially imaged small bilateral pleural effusions and patchy probable pulmonary edema in the lung ap ices. Correlate clinically for pneumonia. Reviewed, dictated and finalized at location . Impression: No fracture or subluxation of the cervical spine. Degenerative spondylosis, as above. Partially imaged small bilateral pleural effusions and patchy probable pulmonar y edema in the lung apices. Correlate clinically for pneumonia.
--- NOTE | ~2022-11-29 | CT_ITS ---
CT head without contrast Indication: Status post fall Technique: Serial scans were obtained through the brain without the administration of contrast. Dose reduction technique was used on this scan by utilizing automated exposure control and iterative recon struction technique. The dose-length product (DLP) was 832.33 mGy-cm. Findings: There is no evidence of intracranial hemorrhage, mass lesion, or acute infarct. The ventri cles and subarachnoid spaces are dilated, consistent with mild atrophy. Low attenuation regions are seen within the periventricular white matter bilaterally, likely representing changes from chronic mi crovascular ischemic disease. There is no evidence of edema, mass effect or midline shift. The visu alized paranasal sinuses and mastoid air cells are clear. Impression: No intracranial hemorrhage, mass, or acute infarct. Atrophy and chronic white matter changes, as above. Reviewed, dictated and finalized at location . Impression: No intracranial hemorrhage, mass, or acute infarct. Atrophy and chronic white matter changes, as above.
--- NOTE | ~2022-11-29 | XR_ITS ---
AP and oblique views of the right ribs, and PA and lateral chest radiographs Clinical History: Pain Findings: No rib fracture is seen. Osseous alignment is anatomic. There are small bilateral pleural e ffusions with probable mild pulmonary edema pattern. Cardiomediastinal contour is within normal limit s. Soft tissues are unremarkable. Impression: No rib fracture is seen. Small bilateral pleural effusions with mild pulmonary edema pattern. Correlate for chronic interstiti al disease. Reviewed, dictated and finalized at location . Impression: No rib fracture is seen. Small bilateral pleural effusions with mild pulmonary edema pattern. Correlate for chronic interstitial disease.
[2022-11-29 00:42] VITALS: BP 129/90; PULSE 100; RESP 15; TEMP 36.5; O2SAT 99
[2022-11-29] MEDS: TETANUS,DIPHTHERIA,AC PERTUSSIS ADULT (0.5 ML) BOOSTRIX IM (03:06)
--- NOTE | 2022-11-29 04:01 | ED.GENADULT ---
HPI - General Adult General Chief complaint: Fall Stated complaint: GLF Time Seen by Provider: 11/29/22 02:44 History of Present Illness HPI narrative: Patient 82-year-old gentleman who presents the emergency department with chief complaint of fall. Patient reports that he is currently on Eliquis and presents tangled up and fell. Patient reports that he has a skin tear to his left elbow reports that he has an abrasion to his back reports that he does have some pain with movement in his thoracic area the patient reports that he did strike his head and is on a anticoagulant patient reports he is unsure of his last tetanus shot Related Data Home Medications Medication Instructions Recorded Confirmed aspirin 81 mg tablet,delayed 81 mg PO DAILY 03/15/19 11/05/22 release (Adult Aspirin Regimen) tamsulosin 0.4 mg capsule 0.4 mg PO BID 11/04/22 11/05/22 Allergies Allergy/AdvReac Type Severity Reaction Status Date / Time No Known Allergies Allergy Verified 10/23/22 13:35 Review of Systems Review of Systems: A 10 system review of systems was completed on the patient and is negative except for what is stated in the HPI. Nursing and ancillary documentation was reviewed. [facility] Past Medical History Medical History Arthritis Atrial fibrillation Benign prostate hyperplasia Chronic anticoagulation Chronic respiratory failure with hypoxia, on home oxygen therapy Heart failure with reduced ejection fraction EF was 30 to 35% in 10/2022. History of prostate cancer Status post cryotherapy. Hypertension Mixed hyperlipidemia Nonischemic cardiomyopathy Concerns for cardiac amyloidosis or other infiltrative process however he has refused further workup. Obstructive sleep apnea Paroxysmal supraventricular tachycardia Pulmonary hypertension Moderate RV enlargement and hypokinesis with severe pulmonary hypertension and and RVSP of 80 mmHg. Valvular heart disease Moderate to severe mitral and tricuspid regurgitation. Surgical History Surgical History History of cataract extraction History of colonoscopy History of hip surgery History of inguinal hernia repair Family History Family History Father Carcinoma of colon Sibling Kidney carcinoma Cancer Social History Social History Social History: Surrogate medical decision maker: Caryn St. Yessica, daughter. Code status: Full code. Smoking status: Never smoker Second hand tobacco smoke exposure: No Alcohol intake: current Drinks per week: 2 Substance use: never Substance use type: does not use Lack of Transportation: No Lack of Food: Never True Current Housing: I Have Housing Concerned About Future Housing: No Difficulty Paying Gas/Electric Bills: No Difficulty Paying for Meds: No Currently Unemployed: No Education: High School Diploma/GED Difficulty w/ Childcare or Family Care: No Living arrangements: with family Additional living arrangements comments: Lives with and daughter. Has 2 children. 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 Spiritual care concerns: No Exam Narrative: GENERAL: Well-appearing, well-nourished, and in no acute distress. HEAD: Normocephalic, atraumatic. EYES: PERRLA and EOMI. ENT: Nares clear, no rhinorrhea or epistaxis. Mucous membranes moist. NECK: Supple. CHEST: Clear to auscultation. No respiratory distress. HEART: Regular rate and rhythm. No murmur heard. Normal peripheral pulses. ABDOMEN: Soft, nontender, nondistended, normal active bowel sounds. Back: There is a abrasion/contusion present to the right posterior chest wall/flank there is no subcu emphysema no crepitance EXTREMITIES: Normal range
[2022-11-29 04:28] VITALS: BP 124/90; PULSE 86; RESP 15; O2SAT 99
[2022-11-29 05:19] VITALS: BP 122/78; PULSE 88; RESP 14; O2SAT 98
== END 2022-11-29 05:20 | disposition home or self-care (01) ==
PROVIDERS: Emergency Provider Emergency Medicine; PCP Family Medicine
DX: S51.012A Laceration without foreign body of left elbow, initial encounter (principal); S20.221A Contusion of right back wall of thorax, initial encounter; S09.90XA Unspecified injury of head, initial encounter; Z23 Encounter for immunization; I48.91 Unspecified atrial fibrillation; I50.9 Heart failure, unspecified; I42.8 Other cardiomyopathies; I27.20 Pulmonary hypertension, unspecified; I08.1 Rheumatic disorders of both mitral and tricuspid valves; N40.0 Benign prostatic hyperplasia without lower urinary tract symptoms; E78.2 Mixed hyperlipidemia; G47.33 Obstructive sleep apnea (adult) (pediatric); Z85.46 Personal history of malignant neoplasm of prostate; Z98.49 Cataract extraction status, unspecified eye; Z79.01 Long term (current) use of anticoagulants; R91.8 Other nonspecific abnormal finding of lung field; W18.39XA Other fall on same level, initial encounter
CPT/HCPCS: 70450; 71046; 71100; 72125; 90471; 90715; 99284

== ENCOUNTER 2022-12-17 14:10 | Outpatient (NON) | payer MEDICARE, SELFPAY ==
[2022-12-17 15:40] LABS: Anion Gap 3 mmol/L (8-16); Blood Urea Nitrogen 18 mg/dL (9-20); Carbon Dioxide 33 mmol/L (22-30); Chloride 94 mmol/L (98-107); Estimated Glomerular Filt Rate > 60; Glucose 96 mg/dL (65-110); Potassium 4.7 mmol/L (3.4-5.0); Sodium 130 mmol/L (137-145)
== END 2022-12-17 14:11 | disposition home or self-care (01) ==
PROVIDERS: PCP Family Medicine; Visit Provider Nurse Practitioner
DX: I42.8 Other cardiomyopathies (principal)
CPT/HCPCS: 80048

== ENCOUNTER 2022-12-19 10:55 | Outpatient (CLI) | payer MEDICARE, SELFPAY ==
--- NOTE | ~2022-12-19 | XR_ITS ---
MODIFIED ESOPHAGRAM HISTORY: Unspecified interstitial pulmonary disease. TECHNIQUE: Modified barium esophagram was performed on 12/19/2022. I administered fluoroscopy and perf ormed the exam with speech pathologist. Patient was seated for lateral fluoroscopic imaging for jackie stion of thin liquids, pudding, solids and quantified amounts, followed by thin liquids in uncontroll ed amounts. This was recorded on tape. A single fluoroscopic spot image was also recorded. The DAP fo r this procedure was 0.382 Gycm2. The amount of fluoroscopy time used during this procedure was 0.6 m inutes. FINDINGS: Oral stage: Adequate function. Pharyngeal stage: Adequate function. Cervical/esophageal stage: Adequate function. IMPRESSION: Patient tolerated regular consistency oral feedings in the upright position. Please yin elate with speech pathologist findings and specific feeding recommendations. Reviewed, dictated and finalized at location A. IMPRESSION: Patient tolerated regular consistency oral feedings in the upright position. Please correlate with speech pathologist findings and specific feedi ng recommendations.
--- NOTE | 2022-12-19 11:42 | REHSTMBS ---
Assessment and note entered by Grace Reyes, INSEAMER Modified Barium Swallow Evaluation ST Clinical Summary MODIFIED BARIUM SWALLOW STUDY This patient was seen for a Modified Barium Swallow study at the request of his physician. Patient denied difficulty swallowing today but stated that he has had pneumonia in the past. Patient was seen [facility] at [facility] on November 11, with diagnosis of pneumonia, for an inpatient Bedside Swallow Evaluation. No clinical signs of aspiration were noted at bedside other than one episode of a throat clear. Today the patient was viewed in the lateral position to the level of C5/C6. Patient was presented first with one small sip of thin liquid contrast medium, then thin liquid contrast medium per cup and per straw. He exhibited quick swallows with no evidence of or risk for aspiration. He also tolerated pudding mixed with semi-solid contrast medium, then fruit cocktail pieces coated with the semi-solid mixture. Results indicate this patient's swallowing skills are within normal limits and there is no significant risk for aspiration at this time. No further Speech Therapy is indicated. Thank you for this referral.
== END 2022-12-19 10:56 | disposition home or self-care (01) ==
LOC: ANHIMG 10:56
PROVIDERS: PCP Family Medicine; Visit Provider Internal Medicine Critical Care Medicine
DX: J84.9 Interstitial pulmonary disease, unspecified (principal)
CPT/HCPCS: 92611

== ENCOUNTER 2022-12-25 08:14 | Outpatient (CLI) | payer MEDICARE, SELFPAY ==
--- NOTE | 2023-01-17 12:46 | WPDSLEEPSTUD ---
Sleep Study Date of Study: 12/25/22 Ordering Provider: Grace Cho MD Interpreting Physician: Joann Cho DO Sleep Study Type: Split Polysomnogram Height: 1.91 m Weight: 91.626 kg Body Mass Index: 25.2 Neck Circumference (inches): 15 [place]: 12 Reason for Sleep Study Previously diagnosed with MARGARETTE in 2019 but never had PAP Titration. Required BPAP on recent hospitalization and is oxygen dependent. Sleep History The patient is an 82-year-old male that had a sleep study ordered by his material scheduler to treat his sleep apnea. The patient denies awakening from sleep short of breath. He denies awakening at night with heartburn, belching or cough. He rarely snores but it is never loud enough that others complain he denies having sleeping when he has a cold. He denies waking up gasping for air throughout the night. He denies having breathing problems at night observed by himself or others. He occasionally sweats excessively at night. He denies having heart palpitations or irregular heartbeats during the night. He frequently falls asleep during the day but never while driving. He sleep paralysis, cataplexy and hypnagogic/ hypnopompic hallucinations. He denies having trouble at school work due to sleepiness. He denies feeling afraid of going to sleep. He denies having nightmares. He rarely remembers his dreams. He denies having thoughts racing through his. He denies feeling sad depressed or anxious. He denies having muscular tension. He denies noticing parts of his body. He denies kicking the night. He denies having crawling and aching feelings in his legs and denies having leg pain during the night. He denies grinding his teeth during sleep denies awakening morning jaw pain. He is occasionally bothered by pain during the day but never awakened by pain during the night. He occasionally wakes up feeling stiff in morning. He rarely wakes up with sore achy muscles. He denies waking up with pain in the neck, spine or other joints. The patient goes to bed at 11:00 p.m. on both weekdays and weekends. It takes him 10 minutes to fall asleep. He wakes up 3 times throughout the night to urinate and is able to fall back asleep immediately. He wakes up at 5:00 a.m. on both weekdays and weekends. He typically gets 6 hours of sleep per night. He does not stay in bed after waking up in the morning. He currently lives with his and adult daughter. He denies consuming any caffeinated beverages within 2 hours of bedtime. He denies engaging in physical exercise before bedtime. He will read and watch television before falling asleep. He will take naps in the afternoon the evening and they are refreshing. He consumes 4 oz of caffeinated beverage per day. He denies tobacco, alcohol and recreational drug use. [facility] Past Medical History Medical History Arthritis Atrial fibrillation Benign prostate hyperplasia Chronic anticoagulation Chronic respiratory failure with hypoxia, on home oxygen therapy Heart failure with reduced ejection fraction EF was 30 to 35% in 10/2022. History of prostate cancer Status post cryotherapy. Hypertension Mixed hyperlipidemia Nonischemic cardiomyopathy Concerns for cardiac amyloidosis or other infiltrative process however he has refused further workup. Obstructive sleep apnea Paroxysmal supraventricular tachycardia Pulmonary hypertension Moderate RV enlargement and hypokinesis with severe pulmonary hypertension and and RVSP of 80 mmHg. Valvular heart disease Moderate to severe mitral and tricuspid regurgitation. Surgical History Surgical History History of cataract extraction History of colonoscopy History of hip surgery History of inguinal hernia repair Family History Family History Father Carcinoma of colon Sibli
[2023-01-17 12:51] VITALS: BMI 25.2
== END 2022-12-26 06:45 | disposition home or self-care (01) ==
LOC: ANHCSM 08:14
PROVIDERS: PCP Family Medicine; Visit Provider Internal Medicine Critical Care Medicine
DX: G47.33 Obstructive sleep apnea (adult) (pediatric) (principal); I27.20 Pulmonary hypertension, unspecified; J96.11 Chronic respiratory failure with hypoxia; J18.9 Pneumonia, unspecified organism; Z09 Encounter for follow-up examination after completed treatment for conditions other than malignant neoplasm
CPT/HCPCS: 95811

== ENCOUNTER 2023-01-02 12:23 | Outpatient (NON) | payer MEDICARE, SELFPAY ==
[2023-01-02 13:52] LABS: Prostate Specific Antigen 4.6 ng/mL (< OR = 4.0)
== END 2023-01-02 12:24 | disposition home or self-care (01) ==
PROVIDERS: PCP Family Medicine
DX: C61 Malignant neoplasm of prostate (principal)
CPT/HCPCS: 84153

== ENCOUNTER 2023-01-02 12:38 | Outpatient (NON) | payer MEDICARE, SELFPAY ==
[2023-01-02 13:20] LABS: Anion Gap 1 mmol/L (8-16); Blood Urea Nitrogen 23 mg/dL (9-20); Calcium 8.6 mg/dL (8.4-10.2); Carbon Dioxide 33 mmol/L (22-30); Chloride 100 mmol/L (98-107); Estimated Glomerular Filt Rate > 60; Glucose 92 mg/dL (65-110); Potassium 4.5 mmol/L (3.4-5.0); Sodium 134 mmol/L (137-145)
[2023-01-02 13:22] LABS: Rheumatoid Factor < 12.0 IU/ML (<12)
[2023-01-02 13:32] LABS: Erythrocyte Sedimentation Rate 17 mm/hr (0-20)
== END 2023-01-02 12:39 | disposition home or self-care (01) ==
LOC: HOME HLTH 12:42
PROVIDERS: PCP Family Medicine; Visit Provider Internal Medicine Critical Care Medicine
DX: I27.20 Pulmonary hypertension, unspecified (principal); I50.9 Heart failure, unspecified; J84.9 Interstitial pulmonary disease, unspecified; Z51.81 Encounter for therapeutic drug level monitoring
CPT/HCPCS: 80048; 84153; 85652; 86038; 86430

== ENCOUNTER 2023-03-18 08:00 | Outpatient (NON) | payer MEDICARE, SELFPAY | END 2023-03-18 08:01 | disposition home or self-care (01) | LOC: ANHLAB 03-19 14:37 | PROVIDERS: PCP Family Medicine; Visit Provider Nurse Practitioner | DX: C44.319 Basal cell carcinoma of skin of other parts of face (principal) | CPT/HCPCS: 88305 ==

== ENCOUNTER 2023-04-10 11:42 | Outpatient (CLI) | payer MEDICARE, SELFPAY ==
--- NOTE | ~2023-04-10 | XR_ITS ---
AP and lateral views of the right hip Clinical history: Pain Findings: No acute fracture or dislocation is seen. Osseous alignment is anatomic. There is moderate degenerative change of the right hip joint. Soft tissues are unremarkable. Impression: Moderate osteoarthritis of the right hip joint. Reviewed, dictated and finalized at location . NT ANALYST Impression: Moderate osteoarthritis of the right hip joint.
--- NOTE | ~2023-04-10 | XR_ITS ---
Lumbosacral Spine: AP, oblique, and lateral views Clinical History: Pain COMPARISON: 05/19/2018 Findings: The normal lordotic curve is maintained. No fracture or subluxation seen. There is advanced degenerative disc narrowing at L5-S1. There is severe facet arthropathy from L3 through S1. The sacr oiliac joints are normally outlined. Impression: Moderate to advanced degenerative spondylosis, as above. Reviewed, dictated and finalized at location M. T ARM[employer]ED [employer] OFFICER Impression: Moderate to advanced degenerative spondylosis, as above.
== END 2023-04-10 11:43 | disposition home or self-care (01) ==
PROVIDERS: PCP Family Medicine; Visit Provider Family Medicine
DX: M47.896 Other spondylosis, lumbar region (principal); M16.11 Unilateral primary osteoarthritis, right hip
CPT/HCPCS: 72110; 73502

== ENCOUNTER → 2023-04-14 09:08 | Outpatient (CLI) | payer MEDICARE, SELFPAY ==
--- NOTE | ~2023-04-14 | US_ITS ---
EXAMINATION: US thyroid DATE: 04/14/2023 09:22 INDICATION: Nontoxic single thyroid nodule. TECHNIQUE: Multiple ultrasound images of the thyroid were obtained. COMPARISON: Ultrasound 09/24/2022 FINDINGS: The right thyroid lobe measures 5.0 x 2.1 x 3.2 cm. The left thyroid lobe measures 4.1 x 1.4 x 2.0 c m. In the right thyroid lobe, there is a 3.1 cm mixed cystic and solid, hypoechoic, wider than tall nodule with smooth margin without echogenic foci (TI-RADS TR3). In the left thyroid lobe, there is a 14 mm solid, hypoechoic, wider than tall nodule with lobulated margin without echogenic foci (TR4). IMPRESSION: 1. Stable multinodular goiter. Ultrasound-guided fine-needle aspiration of the 3.1 cm right thyroid n odule is recommended. Reviewed, dictated and finalized at location A. AGE MECHANIC IMPRESSION: 1. Stable multinodular goiter. Ultrasound-guided fine-needle aspiration of the 3.1 cm right thyroid nodule is recommended.
== END ==
PROVIDERS: PCP Family Medicine; Visit Provider Otolaryngology
DX: E04.2 Nontoxic multinodular goiter (principal)
CPT/HCPCS: 76536

== ENCOUNTER 2023-04-14 15:29 | Outpatient (NON) | payer MEDICARE, SELFPAY | END 2023-04-14 15:30 | disposition home or self-care (01) | LOC: ANHLAB 15:29 | PROVIDERS: PCP Family Medicine; Visit Provider Nurse Practitioner | DX: C44.319 Basal cell carcinoma of skin of other parts of face (principal) | CPT/HCPCS: 88305; 88331 ==

== ENCOUNTER 2023-08-05 13:45 | Outpatient (CLI) | payer MEDICARE, SELFPAY | END 2023-08-05 13:46 | disposition home or self-care (01) | LOC: ANHAUDIO 13:46 | PROVIDERS: PCP Family Medicine; Visit Provider Otolaryngology | DX: H90.3 Sensorineural hearing loss, bilateral (principal); R07.9 Chest pain, unspecified | CPT/HCPCS: 92557; 92567 ==

== ENCOUNTER 2024-01-19 11:05 | Outpatient (CLI) | payer MEDICARE, SELFPAY ==
[2024-01-19 11:29] LABS: Basophils Percent Auto 0.4 % (0.2-1.2); Eosinophils Percent Auto 0.1 % (0-4.4); Hematocrit 35.7 % (42.0-52.0); Hemoglobin 11.6 g/dL (14.0-18.0); Immature Granulocyte Absolute 0.02 K/mm3 (0.00-0.031); Immature Granulocyte Percent A 0.3 % (0-0.5); Lymphocytes Absolute Auto 0.89 K/mm3 (0.9-3.2); Mean Corpuscular HGB Conc 32.5 g/dl (32-36); Mean Corpuscular Hemoglobin 31.5 pg (26-34); Mean Platelet Volume 11.2 fl (7.4-10.4); Monocytes Absolute Auto 0.8 K/mm3 (0.1-0.6); Monocytes Percent Auto 11.3 % (2.6-8.5); Neutrophils Absolute Auto 5.7 K/mm3 (1.3-6.7); Neutrophils Percent Auto 75.9 % (45.5-73.1); Platelet Count Result 142 k/mm3 (150-375); Red Blood Count 3.68 M/mm3 (4.6-6.20); Red Cell Distribution Width 14.7 % (11.5-14.5); White Blood Count 7.4 K/mm3 (4.5-10.0)
[2024-01-19 12:42] LABS: Immunoglobulin A 127 mg/dL (70-400); Immunoglobulin G 1036 mg/dL (700-1600); Immunoglobulin M 69 mg/dL (40-230)
[2024-01-19 12:47] LABS: Alanine Aminotransferase 21 U/L (6-50); Albumin Level 3.6 g/dL (3.5-5.1); Alkaline Phosphatase 62 U/L (38-126); Anion Gap 5 mmol/L (4-12); Aspartate Amino Transferase 29 U/L (17-59); Bilirubin,Total 1.1 mg/dL (0.2-1.3); Blood Urea Nitrogen 21 mg/dL (9-20); Calcium 8.9 mg/dL (8.4-10.2); Carbon Dioxide 30 mmol/L (22-30); Chloride 98 mmol/L (98-107); Estimated Glomerular Filt Rate > 60; Glucose 96 mg/dL (65-110); Potassium 4.4 mmol/L (3.4-5.0); Sodium 133 mmol/L (137-145)
[2024-01-21 13:39] LABS: Kappa\\Lambda Light Chains 3.04 (0.26-1.65); Lambda Light Chain 16.7 mg/L (5.7-26.3)
[2024-01-22 15:24] LABS: Albumin 3.6 g/dL (3.8-4.8); Alpha 1 Globulin 0.3 g/dL (0.2-0.3); Alpha 2 Globulin 0.5 g/dL (0.5-0.9); Beta 1 Globulin 0.4 g/dL (0.4-0.6); Gamma Globulin 0.9 g/dL (0.8-1.7)
== END 2024-01-19 11:06 | disposition home or self-care (01) ==
PROVIDERS: PCP Family Medicine; Visit Provider Internal Medicine Hematology & Oncology
DX: D72.9 Disorder of white blood cells, unspecified (principal)
CPT/HCPCS: 36415; 80053; 82784; 83883; 84155; 84165; 85025; 85055

== ENCOUNTER 2024-01-20 10:25 | Outpatient (CLI) | payer MEDICARE, SELFPAY ==
--- NOTE | ~2024-01-20 | XR_ITS ---
EXAMINATION: XR chest 2V DATE: 01/20/2024 10:46 INDICATION: Assess for amiodarone toxicity TECHNIQUE: PA and lateral views of the chest were obtained. COMPARISON: None FINDINGS: The lungs are clear with no focal airspace opacities, pulmonary edema, pleural effusion or pneumothor ax. Mild cardiomegaly. Tortuous and atherosclerotic thoracic aorta. Moderate thoracic spondylosis. IMPRESSION: 1. Mild cardiomegaly. No acute cardiopulmonary disease. Reviewed, dictated and finalized at location B.
== END 2024-01-20 10:26 | disposition home or self-care (01) ==
PROVIDERS: PCP Family Medicine; Visit Provider Nurse Practitioner Adult Health
DX: Z91.89 Other specified personal risk factors, not elsewhere classified (principal); Z79.899 Other long term (current) drug therapy; I51.7 Cardiomegaly
CPT/HCPCS: 71046

== ENCOUNTER 2024-07-26 14:13 | Outpatient (CLI) | payer MEDICARE, SELFPAY ==
--- NOTE | ~2024-07-26 | XR_ITS ---
XR ankle LT min 3V Ordering provider: Mackenzie Barr MD History: . M25.572 - Pain in left ankle and joints of left foot . Comparison: None. FINDINGS: BONES: Undisplaced fracture is seen in the distal fibula. JOINT SPACES: The ankle mortise is normal. Osteoarthritic changes in the foot bones. SOFT TISSUES: Soft tissue swelling is seen over the medial and lateral malleoli. Calcaneal spur. IMPRESSION: Fracture in the lateral malleolus Reviewed, dictated and finalized at location A.
--- OUTSIDE RECORDS SUMMARY | 2024-07-26 16:21 | XMS_ITS | Clinical Summary ---
Author Organization [facility] Address [address] [place] [address] Care Team Providers Care Metrology Specialist Name Role Phone Mackenzie Barr MD Primary Care Provider [phone] Allergies No known active allergies Medications MAGNESIUM ORAL Take 1 Tablet by mouth daily in the morning. Active atorvastatin (LIPITOR) 20 mg tablet Take 20 mg by mouth daily. 12/09/2022 Active amiodarone (CORDARONE) 200 mg tablet Take 200 mg by mouth daily. 12/05/2023 Active apixaban (Eliquis) 5 mg tablet Take 5 mg by mouth 2 times daily. 07/29/2023 Active furosemide (LASIX) 40 mg tablet Take 40 mg by mouth daily. 11/03/2023 Active midodrine (PROAMATINE) 2.5 mg Tablet Take 2.5 mg by mouth 2 times daily. 02/21/2023 Active tamsulosin (FLOMAX) 0.4 mg capsule Take 0.4 mg by mouth 2 times daily. 01/09/2024 Active VITAMIN B COMPLEX ORAL Take 1 Capsule by mouth. Active potassium chloride (KLOR-CON) 10 mEq Extended Release tablet Take 20 mEq by mouth daily. 12/22/2023 Active aspirin (ECOTRIN EC) 81 mg Tablet, Delayed Release (E.C.) Take 81 mg by mouth daily. Active ASCORBIC ACID, VITAMIN C, ORAL Take by mouth. Active CALCIUM CARBONATE ORAL Take by mouth. Active Active Problems No known active problems Encounters Date Type Department Care Team Description 07/21/2024 External Device Data [facility] ABSTRACTION Provider, Abstract 07/10/2024 External Device Data [facility] ABSTRACTION Provider, Abstract 07/09/2024 External Device Data [facility] ABSTRACTION Provider, Abstract 07/07/2024 Abstract [facility] Luis Antonio [address] [place] [address] Jens Healy MD 06/23/2024 External Device Data [facility] ABSTRACTION Provider, Abstract 05/26/2024 External Device Data [facility] ABSTRACTION Provider, Abstract 05/26/2024 External Device Data [facility] ABSTRACTION Provider, Abstract from Last 3 Months Family History Medical History Relation Name Comments Breast Cancer Child 1 No Known Problems Child 2 No Known Problems Father No Known Problems Mother Breast Cancer Sister Relation Name Status Comments Child 1 Alive Child 2 Alive Father Mother Sister Social History Tobacco Use Types Packs/Day Years Used Date Smoking Tobacco: Never Smokeless Tobacco: Former Chew Quit: 2020 Alcohol Use Standard Drinks/Week Comments Yes 0 (1 standard drink = 0.6 oz pur e alcohol) occasionally Sex and Gender Information Value Date Recorded Sex Assigned at Not on file Legal Sex Male 1:23 PM CDT Gender Identity Not on file Sexual Orientation Not on file Last Filed Vital Signs Vital Sign Reading Time Taken Comments Blood Pressure 105/69 01/19/2024 10:30 AM CDT Pulse 61 01/19/2024 10:30 AM CDT Temperature 36.8 C (98.2 F) 01/19/2024 10:30 AM CDT Respiratory Rate 18 01/19/2024 10:30 AM CDT Oxygen Saturation 96% 01/19/2024 10:30 AM CDT Inhaled Oxygen Concentration - - Weight 107 kg (236 lb) 01/19/2024 10:30 AM CDT Height 185.4 cm (6' 1 ) 01/19/2024 10:30 AM CDT Body Mass Index 31.14 01/19/2024 10:30 AM CDT Plan of Treatment Upcoming Encounters Date Type Department Care Team (Late st Contact Info) Description 08/03/2024 11:00 AM CDT Office Visit [facility] Luis Antonio [address] [place] [address] Jens Healy MD [address] [facility] [address] [place] [address] Health Maintenance Due Date Last Done Comments DTAP/TDAP/TD VACCINES (1 - Tdap) 02/14/1959 ZOSTER VACCINE (1 of 2) 02/14/1990 PNEUMOCOCCAL VACCINE 50+ YEA RS (2 of 2 - PPSV23) 06/20/2011 04/25/2011 RSV VACCINE (60+ or ) (1 - 1-dose 75+ series) 02/14/2015 INFLUENZA VACCINE (#1) 2023 6, 01/10/2015, 04/29/2013, Additional history exists Medicare [place] Preventative Visit/Annual Wellness Visit 05/05/2024 Insurance [facility] [id number] Care Teams Metrology Specialist Relationship Specialty Start Date End Date Mackenzie Barr MD [address] [place] [phone] PCP - General Family Practice 12/22/23
--- OUTSIDE RECORDS SUMMARY | 2024-07-26 16:21 | XMS_ITS | Referral Summary ---
Author Organization [facility] Address [address] [place] [address] Care Team Providers Care Puppet Developer Name Role Phone Mackenzie Barr MD Primary Care Provider [phone] Gerard Knott MD Unavailable Rena Kaufman RN Unavailable Encounters Date Type Department Care Team Description 07/08/2024 Results Follow-Up [facility] Medical Group Cardiology [address] [place] [address] [place] [phone] Jaimee Rodriguez NP 07/06/2024 2:00 PM GENERAL ASSEMBLER Ancillary Procedure [facility] Medical [facility] Cardiology [address] [place] [address] [place] [phone] Nonischemic cardiomyopathy (HCC) 06/30/2024 1:30 PM GENERAL ASSEMBLER Office Visit [facility] Orthopaedic Surgery [address] [facility] 2nd Floor [address] [place] [address] Katheryn Glez PA Primary osteoarthritis of both knees (Primary Dx) 06/22/2024 9:30 AM GENERAL ASSEMBLER Office Visit [facility] Medical [facility] Cardiology [address] [place] [address] [place] [phone] Prasanna Goldman MD Paroxysmal atrial fibrillation (HCC) (Primary Dx); Nonrheumatic tricuspid valve regurgitation; Nonischemic cardiomyopathy (HCC); Coronary artery disease involving la posta coronary artery of la posta heart without angina pectoris; Chronic anticoagulation from Last 3 Months Allergies No known active allergies Medications aspirin (Adult Low Dose Aspirin) 81 mg enteric coated tablet Take 1 tablet (81 mg total) by mouth daily 1 Active atorvastatin (LIPITOR) 20 mg tabletIndications:h yperlipidemia Take 1 tablet (20 mg total) by mouth every morning 3 Active MAGNESIUM ORALIndications:sup plement Take 1 tablet by mouth every morning Active vitamin B complex capsuleIndications: Vitamin Deficiency Prevention Take 1 capsule by mouth every morning Super B Active COQ10, UBIQUINOL, ORALIndications:sup plement Take 1 tablet by mouth every morning Active furosemide (LASIX) 40 mg tablet TAKE 1 TABLET BY MOUTH ONCE DAILY IN THE MORNING 90 tablet 2 4 Active vit B complex no.12/niacin,B3, (VITAMIN B COMPLEX NO.12-NIACIN ORAL) Take by mouth Active ascorbic acid (ascorbic acid with noel hips) 500 mg tablet,chewable Acti ve amiodarone (PACERONE) 200 mg tablet Take 1 tablet by mouth once daily 90 tablet 1 4 Active tamsulosin (FLOMAX) 0.4 mg extended release capsuleIndications: History of urinary retention Take 1 capsule by mouth twice daily 180 capsule 4 Active tamsulosin (FLOMAX) 0.4 mg extended release capsuleIndications: History of urinary retention Take 1 capsule (0.4 mg total) by mouth 2 (two) times a day 180 capsule 4 Active apixaban (Eliquis) 5 mg tablet Take 1 tablet (5 mg total) by mouth 2 (two) times a day 180 tablet 4 Active midodrine (PROAMATINE) 2.5 mg tabletIndications:H ypotension due to drugs Take 1 tablet by mouth twice daily 180 tablet 5 Active potassium chloride ER 10 mEq CR tabletIndications:N onischemic cardiomyopathy (HCC) Take 2 tablets by mouth once daily 180 tablet 3 5 Active Hospital, Clinic, or Other Facility Administered Medication Ordered Dose Route Frequency Start Date End Date Status BUPivacaine HCl (MARCAINE) 0.5 % (5 mg/mL) injection 4 mLIndications:Primar y osteoarthritis of both knees 4 mL OTHER One-Time Injection 06/30/2024 5 Ended BUPivacaine HCl (MARCAINE) 0.5 % (5 mg/mL) injection 4 mLIndications:Primar y osteoarthritis of both knees 4 mL OTHER One-Time Injection 06/30/2024 5 Ended triamcinolone (KENALOG) 40 mg/mL injection 80 mgIndications:Primar y osteoarthritis of both knees 80 mg intra-artic One-Time Injection 06/30/2024 5 Ended triamcinolone (KENALOG) 40 mg/mL injection 80 mgIndications:Primar y osteoarthritis of both knees 80 mg intra-artic One-Time Injection 06/30/2024 5 Ended Active Problems Problem Noted Date Diagnosed Date At risk for amiodarone toxicity with shelter u se 05/27/2023 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 Prostate cancer 02/06/2023 Heart failure with reduced ejection fraction Nonrheumatic tricuspid valve regurgitation 10/29 Pulmonary HTN 10/29/2022 Chronic anticoagulation 10/29/2022 Chronic respiratory failure with hypoxia 023 Paroxysmal atrial fibrillation 05/16/2022 Noncompliance 05/16/2022 Hypotension due to drugs 11/14/2020 History of urinary retention 03/09/2019 Asthma 02/22/2019 MARGARETTE (obstructive sleep apnea) 01/13/2019 Preoperative cardiovascular examination 01/14/20 19 Nonischemic cardiomyopathy 10/26/2018 PSVT (paroxysmal supraventricular tachycardia) 0 10/26/2018 Coronary artery disease invo lving la posta coronary artery of la posta heart without angina pectoris 10/26/2018 Mitral valve insufficiency 10/26/2018 Primary osteoarthritis of left hip 10/09/2018 Overview (10/09/2018): Added automatically from request for surgery [id number] Malignant neoplasm of prostate 09/22/2009 Overview (08/14/2017): Description: s/p cryoablation 6/14/10; [place] 7. PSA at diagnosis=7.05 Resolved Problems Problem Noted Date Diagnosed Date Resolved Date Acute on chronic HFrEF (hear t failure with reduced ejection fraction) 01/12/2019 01/24/2023 Immunizations Immunization Administration Dates Next Due Influenza, Quadrivalent, Split, Intramuscular Influenza, Trivalent, High D ose, Split, Preservative Free, Intramuscular 04/29/2013 Influenza, Trivalent, IM (MDV) 04/10/2012,2010 Influenza, Trivalent, Preservative Free, Intramu scular 01/10/2015 Pneumococcal Conjugate PCV 13 04/25/2011 Social History Tobacco Use Types Packs/Day Years Used Date Smoking Tobacco: Never Passive Smoke Exposure: Past Smokeless Tobacco: Former Chew Quit: 09/02/2018 Alcohol Use Standard Drinks/Week Comments Yes 2 (1 standard drink = 0.6 oz pur e alcohol) Ocassionally AUDIT-C Answer Date Recorded Q1: How often do you have a drink containing alc ohol? 2-4 times a month 02/25/2023 Q2: How many drinks containi ng alcohol do you have on a typical day when you are drinking? 1 or 2 02/25/2023 Q3: How often do you have si x or more drinks on one occasion? Never 02/25/2023 Sex and Gender Information Value Date Recorded Sex Assigned at Not on file Legal Sex Male 2:51 AM GENERAL ASSEMBLER Gender Identity Not on file Sexual Orientation Not on file Last Filed Vital Signs Vital Sign Reading Time Taken Comments Blood Pressure 122/68 06/22/2024 10:09 AM GENERAL ASSEMBLER Pulse 63 06/22/2024 10:09 AM GENERAL ASSEMBLER Temperature 36.5 C (97.7 F) 05/23/2020 2:58 PM GENERAL ASSEMBLER Respiratory Rate 18 03/03/2019 11:22 AM CDT Oxygen Saturation 97% 06/22/2024 10:09 AM GENERAL ASSEMBLER Inhaled Oxygen Concentration - - Weight 109.8 kg (242 lb) 06/22/2024 10:09 AM GENERAL ASSEMBLER Height 190.5 cm (6' 3 ) 06/22/2024 10:09 AM GENERAL ASSEMBLER Body Mass Index 30.25 06/22/2024 10:09 AM GENERAL ASSEMBLER Plan of Treatment Not on file Medical Devices Implanted Type Area Nuclear Technologist Device Identifier Shelf Expiration Date Model / Serial / Lot [employer] [id number] Procotyl Prime 56mm Shell Acetabular Sterile - S0 - [id number] Implanted:Qty: 1 on 03/01/2019 by Lawrence Goss MD at [facility] Other - see comments Left: Hip [employer] 10/27/2026 [id number] / 0 / [id number] [employer] [id number] Procotyl Prime 36mm Liner Acetabular Sterile Latex Free - S0 - [id number] Implanted:Qty: 1 on 03/01/2019 by Lawrence Goss MD at [facility] Other - see comments Left: Hip [employer] 04/22/2026 [id number] / 0 / [id number] [employer] [id number] Profemur Tl Classic Long Varus Neck Hip 8d 7 Stem Femoral Sterile - S0 - [id number] Implanted:Qty: 1 on 03/01/2019 by Lawrence Goss MD at [facility] Other - see comments Left: Hip [employer] 03/04/2023 [id number] / 0 / [id number] [employer] [id number] Dynasty Lineage 6.5mm 25mm Acetabular Screw Bone Biofoam - S0 - [id number] Implanted:Qty: 1 on 03/01/2019 by Lawrence Goss MD at [facility] Screw Left: Hip [employer] 11/14/2025 [id number] / 0 / [id number] [employer] [id number] Dynasty Lineage 6.5mm 35mm Acetabular Screw Bone Biofoam - S0 - [id number] Implanted:Qty: 1 on 03/01/2019 by Lawrence Goss MD at [facility] Screw Left: Hip [employer] 02/01/2022 [id number] / 0 / [id number] [employer] [id number] 36mm -3.5mm 04/17 Short Neck Taper Head Femoral Biolox Delta - [id number] Implanted:Qty: 1 on 03/01/2019 by Lawrence Goss MD at [facility] Left: Hip [employer] 10/14/2026 [id number] / / [id number] Procedures Procedure Name Priority Date/Time Associated Diagnosis Comments TRANSTHORACIC ECHO (TTE) COMPLETE W DOPPLER/CF WO CONTRAST Routine 07/06/2024 2:35 PM GENERAL ASSEMBLER Nonischemic cardiomyopathy (HCC) PA ARTHROCENTESIS ASPIR&/INJ MAJOR JT/BURSA W/O US Routine 06/30/2024 1:30 PM GENERAL ASSEMBLER Primary osteoarthritis of both knees from Last 3 Months Results * TRANSTHORACIC ECHO (TTE) COMPLETE W DOPPLER/CF WO CONTRAST (07/06/2024 2:35 PM GENERAL ASSEMBLER) Anatomical Region Laterality Modality Ultrasound 07/06/2024 1:52 PM GENERAL ASSEMBLER Narrative 07/07/2024 8:46 AM GENERAL ASSEMBLER [facility] Medical Group Cardiology [address] [facility] [address] [address] [address] [facility] [address], [place] [address] P:[phone] P:[phone] Echocardiographic Report Patient Name: YONATHAN PEDERSEN E : 1940 Study Date: 07/06/2024 1:52:17 PM Gender: M Tech: Location: [facility] Provider: JAIMEE RODRIGUEZ Height(Cm): 190 BSA: 2.41 Weight(Kg): 109.8 Heart Rate: 65 BP: 122 / 68 Quality: Good Order Provider: JAIMEE RODRIGUEZ PROCEDURES: Echocardiographic Report: Transthoracic echocardiogram with complete 2D, M-Mode, color Doppler examination and Definity contrast. With Strain Analysis. INDICATIONS: Nonischemic cardiomyopathy, Pulmonary Hypertension, and Mitral Regurgitation. MEASUREMENTS: 2D/MM Value Range Doppler Value Range EF Mod BP 56 % [ 52 - 72 ] WILLIE Vmax 1.63 cm2 [ 2.00 - 4.00 ] EF Teich MM 54 % [ 52 - 72 ] AV Mean PG 7 mmHg LVIDd 2D 5.80 cm [ 4.20 - 5.80 ] AV Peak Logan 1.75 m/s [ 1.00 - 1.70 ] LVIDd MM 7.16 cm [ 4.20 - 5.80 ] AV Peak PG 12 mmHg LVIDs 2D 4.49 cm [ 2.50 - 4.00 ] AV VTI 40.37 cm LVIDs MM 5.10 cm [ 2.50 - 4.00 ] LVOT Diam 2.07 cm [ 1.70 - 2.10 ] LVPWd 2D 1.54 cm [ 0.60 - 1.00 ] LVOT Peak Logan 0.85 m/s [ 0.70 - 1.10 ] LVPWd MM 1.10 cm [ 0.60 - 1.00 ] LVOT VTI 20.18 cm IVSd 2D 1.47 cm [ 0.60 - 1.00 ] MV E Peak Logan 0.67 m/s [ 0.60 - 1.30 ] IVSd MM 0.96 cm [ 0.60 - 1.00 ] MV A Peak Logan 0.59 m/s [ 1.00 - 1.20 ] LA Dimension MM 5.72 cm [ 3.00 - 4.00 ] MV Decel Time 263 msec [ 104 - 258 ] AoR Diam MM 4.31 cm [ 3.10 - 3.70 ] PV Peak Logan 1.13 m/s [ 0.40 - 0.80 ] LA Volume Index 40 cc/m2 [ 16 - 34 ] TR Peak Logan 2.93 m/s [ 1.00 - 2.80 ] TR Peak PG 34 mmHg Lateral E` 0.09 m/s [ 0.10 - 0.15 ] E` 0.03 m/s E/E` 7 2D/MM Value Range Doppler Value Range - FINDINGS: Interpretation Site: Exam was interpreted at [facility]. Left Ventricle: Definity contrast agent used to visually enhance endocardial wall motion and contractility. Lot Number: [id number]. Moderate concentric left ventricular hypertrophy. Mild enlargement of left ventricle cavity. Left ventricular systolic function at the lower limit of normal. Diastolic dysfunction is present. Increased left heart filling pressures based on elevated E/E`. Ejection fraction is measured at 56 %. Global Longitudinal Strain is -14 %. Right Ventricle: Normal right ventricular size. Normal right ventricular systolic function. Left Atrium: There is mild enlargement of left atrium. Right Atrium: The right atrium is normal in size. Atrial Septum: Bidirectional shunt by color Doppler consistent with PFO vs. ASD. Mitral Valve: Normal appearance of the mitral valve. Mild mitral valve regurgitation. Aortic Valve: Mild aortic stenosis. Peak Velocity of 1.70 m/s. Mean gradient of 7.0 mmHg. Valve area of 1.7 cm2. Aortic cusps appear moderately sclerotic. Mild aortic valve regurgitation. Tricuspid Valve: Normal appearance of the tricuspid valve. Mild pulmonary hypertension based on right ventricular systolic pressure. Estimated peak RVSP is 42 mmHg. Mild tricuspid regurgitation. Pulmonic Valve: Normal appearance of the pulmonic valve. Mild pulmonic regurgitation. Pericardium: Normal pericardium with no significant pericardial effusion. Aorta: Normal aortic root. IVC: The IVC is not well visualized. CONCLUSIONS: Definity echo contrast used. Moderate concentric left ventricular hypertrophy. Mild enlargement of left ventricle cavity. Left ventricular systolic function at the lower limit of normal. Diastolic dysfunction is present. Increased left heart filling pressures based on elevated E/E`. Ejection fraction is measured at 56 %. Global Longitudinal Strain is abnormal at -14 %. Normal RV size and systolic function. Mild left atrial enlargement. Bidirectional shunt by color Doppler suggestive of PFO vs. ASD. Normal appearance of the mitral valve. Mild mitral valve regurgitation. Aortic valve appears sclerotic. Mild aortic stenosis. Peak Velocity of 1.70 m/s. Mean gradient of 7.0 mmHg. Valve area of 1.7 cm2. Mild aortic valve regurgitation. Mild pulmonary hypertension, RVSP 42 mmHg. Mild tricuspid regurgitation. Electronically Signed By: Zeyad Amezquita MD, [facility] 07/07/2024 8:45:32 AM GENERAL ASSEMBLER Procedure Note Zeyad Amezquita MD - 07/07/2024 [facility] Medical Group Cardiology [address], [place] [address] [address] [facility] [address], [place] [address] [phone] P:[phone] Echocardiographic Report Patient Name: YONATHAN PEDERSEN E : 1940 Study Date: 07/06/2024 1:52:17 PM Gender: M Tech: Location: [facility] Provider: JAIMEE RODRIGUEZ Height(Cm): 190 BSA: 2.41 Weight(Kg): 109.8 Heart Rate: 65 BP: 122 / 68 Quality: Good Order Provider: JAIMEE RODRIGUEZ PROCEDURES: Echocardiographic Report: Transthoracic echocardiogram with complete 2D, M-Mode, color Dopplerexamination and Definity contrast. With Strain Analysis. INDICATIONS: Nonischemic cardiomyopathy, Pulmonary Hypertension, and MitralRegurgitation. MEASUREMENTS: 2D/MM Value Range Doppler ValueRange EF Mod BP 56 % [ 52 - 72 ] WILLIE Vmax 1.63cm2 [ 2.00 - 4.00 ] EF Teich MM 54 % [ 52 - 72 ] AV Mean PG 7mmHg LVIDd 2D 5.80 cm [ 4.20 - 5.80 ] AV Peak Logan 1.75m/s [ 1.00 - 1.70 ] LVIDd MM 7.16 cm [ 4.20 - 5.80 ] AV Peak PG 12mmHg LVIDs 2D 4.49 cm [ 2.50 - 4.00 ] AV VTI 40.37cm LVIDs MM 5.10 cm [ 2.50 - 4.00 ] LVOT Diam 2.07 cm[ 1.70 - 2.10 ] LVPWd 2D 1.54 cm [ 0.60 - 1.00 ] LVOT Peak Logan 0.85m/s [ 0.70 - 1.10 ] LVPWd MM 1.10 cm [ 0.60 - 1.00 ] LVOT VTI 20.18cm IVSd 2D 1.47 cm [ 0.60 - 1.00 ] MV E Peak Logan 0.67m/s [ 0.60 - 1.30 ] IVSd MM 0.96 cm [ 0.60 - 1.00 ] MV A Peak Logan 0.59m/s [ 1.00 - 1.20 ] LA Dimension MM 5.72 cm [ 3.00 - 4.00 ] MV Decel Time 263msec [ 104 - 258 ] AoR Diam MM 4.31 cm [ 3.10 - 3.70 ] PV Peak Logan 1.13m/s [ 0.40 - 0.80 ] LA Volume Index 40 cc/m2 [ 16 - 34 ] TR Peak Logan 2.93m/s [ 1.00 - 2.80 ] TR Peak PG 34 mmHg Lateral E` 0.09 m/s [ 0.10 - 0.15 ] E` 0.03 m/s E/E` 7 2D/MM Value Range Doppler ValueRange - FINDINGS: Interpretation Site: Exam was interpreted at [facility]. Left Ventricle: Definity contrast agent used to visually enhance endocardial wall motionand contractility. Lot Number: [id number]. Moderate concentric left ventricularhypertrophy. Mild enlargement of left ventricle cavity. Left ventricular systolic functionat the lower limit of normal. Diastolic dysfunction is present. Increased left heartfilling pressures based on elevated E/E`. Ejection fraction is measured at 56 %. GlobalLongitudinal Strain is -14 %. Right Ventricle: Normal right ventricular size. Normal right ventricular systolicfunction. Left Atrium: There is mild enlargement of left atrium. Right Atrium: The right atrium is normal in size. Atrial Septum: Bidirectional shunt by color Doppler consistent with PFO vs. ASD. Mitral Valve: Normal appearance of the mitral valve. Mild mitral valve regurgitation. Aortic Valve: Mild aortic stenosis. Peak Velocity of 1.70 m/s. Mean gradient of 7.0mmHg. Valve area of 1.7 cm2. Aortic cusps appear moderately sclerotic. Mild aortic valveregurgitation. Tricuspid Valve: Normal appearance of the tricuspid valve. Mild pulmonary hypertensionbased on right ventricular systolic pressure. Estimated peak RVSP is 42 mmHg. Mildtricuspid regurgitation. Pulmonic Valve: Normal appearance of the pulmonic valve. Mild pulmonic regurgitation. Pericardium: Normal pericardium with no significant pericardial effusion. Aorta: Normal aortic root. IVC: The IVC is not well visualized. CONCLUSIONS: Definity echo contrast used. Moderate concentric left ventricularhypertrophy. Mild enlargement of left ventricle cavity. Left ventricular systolic functionat the lower limit of normal. Diastolic dysfunction is present. Increased left heartfilling pressures based on elevated E/E`. Ejection fraction is measured at 56 %. GlobalLongitudinal Strain is abnormal at -14 %. Normal RV size and systolic function. Mild left atrial enlargement. Bidirectional shunt by color Doppler suggestive of PFO vs. ASD. Normal appearance of the mitral valve. Mild mitral valve regurgitation. Aortic valve appears sclerotic. Mild aortic stenosis. Peak Velocity of1.70 m/s. Mean gradient of 7.0 mmHg. Valve area of 1.7 cm2. Mild aortic valveregurgitation. Mild pulmonary hypertension, RVSP 42 mmHg. Mild tricuspid regurgitation. Electronically Signed By: Zeyad Amezquita MD, [facility] 07/07/2024 8:45:32 AM GENERAL ASSEMBLER Jaimee Rodriguez NP CV ECHO PROCEDURES Final Result * PA ARTHROCENTESIS ASPIR&/INJ MAJOR JT/BURSA W/O US (06/30/2024 1:30 PM GENERAL ASSEMBLER) Narrative Katheryn Glez PA - 06/30/2024 1:30 PM GENERAL ASSEMBLER Katheryn Glez PA 06/30/2024 2:01 PM Large Joint Injection: bilateral knee Performed by: Katheryn Glez PA Authorized by: Katheryn Glez PA Large Joint Injection/Aspiration: Consent Given by: Patient Site marked: the procedure site was marked Verbal consent obtained: Yes Supporting Documentation: Indications: Pain Procedure Details: Location: Knee Site: Bilateral knee Prep: patient was prepped and draped in usual sterile fashion Prep: patient was prepped using a clean technique Needle Size: 21 G Approach: Anterolateral Ultrasound guided: No Fluroscopic guidance: No Medications Right Large Joint Injection: 4 mL BUPivacaine HCl 0.5 % (5 mg/mL); 80 mg triamcinolone 40 mg/mL Medications Left Large Joint Injection: 4 mL BUPivacaine HCl 0.5 % (5 mg/mL); 80 mg triamcinolone 40 mg/mL Patient tolerance: Patient tolerated the procedure well with no immediate complications us Katheryn GONZALES IN CLINIC/BEDSIDE OR DERABLES Final Result from Last 3 Months Insurance [facility] MEDICARE [facility]ANT[facility] Address: [address] [address] [place] [address] [facility] MEDICARE [facility]AGE [facility] Address: [address] [address] [place] [address] [facility]IC[facility] Address: [address] [address] [place] [address] Advance Directives For more information, please contact: [phone] * Full Code (Latest Code Status on File) Date Activated Date Inactivated Comments 03/01/2019 3:44 PM 03/03/2019 5:38 PM Care Teams Puppet Developer Relationship Specialty Start Date End Date Mackenzie Barr MD PCP - General Family Medicine 11/07/17 Gerard Knott MD Asp Net Developer Transplant 01/15/23 Rena Kaufman, RN [address] [facility] [address] [place] [id number] Registered Nurse Retail Loan Officer 01/15/23
--- OUTSIDE RECORDS SUMMARY | 2024-07-26 16:22 | XMS_ITS | Clinical Summary ---
Author Organization [facility] Address [address] [place], [address] [address] Phone Care Team Providers Care Liquid Natural Gas Plant Operator Name Role Phone Mackenzie Barr MD Primary Care Provider [phone] Social History Tobacco Use Types Packs/Day Years Used Date Smoking Tobacco: Never Assessed Sex and Gender Information Value Date Recorded Sex Assigned at Not on file Legal Sex Male 8:05 AM MUD MIXER Gender Identity Not on file Sexual Orientation Not on file Plan of Treatment Health Maintenance Due Date Last Done Comments Hepatitis C Virus (HCV) Screening 1940 TdaP Immunization 1940 Pneumococcal Immunization (5 0+ years) (1 of 1 - PCV) 02/14/1990 Zoster Immunization (1 of 2) 02/14/1990 Respiratory Syncytial Virus (RSV) Immunization (Adult) (1 - 1-dose 75+ series) 02/14/2015 Influenza Immunization (#1) 2024 SARS-COV-2 Immunization ( season) 2024 Hepatitis B Immunization Aged Out No longer eligible based on patient's age to complete this topic Meningococcal Immunization (ACWY) Aged Out No longer eligible based on patient's age to complete this topic Rotavirus Immunization Aged Out No lo nger eligible based on patient's age to complete this topic Insurance MEDICARE [facility] on file Care Teams Liquid Natural Gas Plant Operator Relationship Specialty Start Date End Date Mackenzie Barr MD [address] [place] [address] PCP - General Family Medicine 06/09/18
--- OUTSIDE RECORDS SUMMARY | 2024-07-26 16:22 | XMS_ITS | Clinical Summary ---
Author Organization [facility] Address [address] [place] [address] Care Team Providers Care Director Cloud Transformation Name Role Phone Unavailable Primary Care Provider Unavailabl e Social History Tobacco Use Types Packs/Day Years Used Date Smoking Tobacco: Never Sex and Gender Information Value Date Recorded Sex Assigned at Not on file Legal Sex Male 10:47 PM CDT Gender Identity Not on file Sexual Orientation Not on file Last Filed Vital Signs Vital Sign Reading Time Taken Comments Blood Pressure 128/75 06/12/2012 10:36 AM CHILD CARE DIRECTOR Pulse 52 06/12/2012 10:36 AM CHILD CARE DIRECTOR Temperature - - Respiratory Rate 18 06/12/2012 10:36 AM CHILD CARE DIRECTOR Oxygen Saturation - - Inhaled Oxygen Concentration - - Weight 104.3 kg (230 lb) 06/12/2012 10:36 AM CHILD CARE DIRECTOR Height 190.5 cm (6' 3 ) 06/12/2012 10:36 AM CHILD CARE DIRECTOR Body Mass Index 28.75 06/12/2012 10:36 AM CHILD CARE DIRECTOR Plan of Treatment Health Maintenance Due Date Last Done Comments DTaP, Tdap and Td Vaccines ( 1 - Tdap) 02/14/1959 Zoster Vaccines (1 of 2) 02/14/1990 Pneumococcal Vaccine: 65+ Ye ars (1 of 1 - PCV) 02/14/2005 RSV Immunization or 60+ Years (1 - 1-dose 75+ series) 02/14/2015 COVID-19 Vaccine ( - 2023-2 5 season) 2024 Influenza Adult (#1) 2024 Meningococcal B Vaccine Aged Out No l onger eligible based on patient's age to complete this topic Meningococcal Vaccine Aged Out No gurdeep gelacio eligible based on patient's age to complete this topic RSV Immunizations Under 20 Months Aged Out No longer eligible based on patient's age to complete this topic
--- OUTSIDE RECORDS SUMMARY | 2024-07-26 16:22 | XMS_ITS | Encounter Summary ---
Author Organization [facility] Address [address] [place] [address] Care Team Providers Care Splitter Operator Name Role Phone Mackenzie Barr MD Primary Care Provider [phone] Gerard Knott MD Unavailable Rena Kaufman RN Unavailable [phone] Encounter Details Date Type Department Care Team (Late st Contact Info) Description 04/12/2021 Telephone [facility] Radiology [address] [place] [address] Elsa Gustafson, PATTERN SETTER [address] [facility] [address] [place] [address] Social History Tobacco Use Types Packs/Day Years Used Date Smoking Tobacco: Never Smokeless Tobacco: Former Quit: 09/2018 Alcohol Use Standard Drinks/Week Comments Yes 2 (1 standard drink = 0.6 oz pur e alcohol) Ocassionally Sex and Gender Information Value Date Recorded Sex Assigned at Not on file Legal Sex Male 2:51 AM MERCHANDISING CONSULTANT Gender Identity Not on file Sexual Orientation Not on file documented as of this encounter Plan of Treatment Not on file documented as of this encounter Visit Diagnoses Not on filedocumented in this encounter Care Teams Splitter Operator Relationship Specialty Start Date End Date Mackenzie Barr MD PCP - General Family Medicine 11/07/17 Gerard Knott MD Pole Shaver Helper Transplant 01/15/23 Rena Kaufman, RN [address] [address] Registered Nurse Senior Web Services Developer 01/15/23 documented as of this encounter
--- OUTSIDE RECORDS SUMMARY | 2024-07-26 16:22 | XMS_ITS | Clinical Summary ---
Author Organization [facility] Address [address] [place] [address] Care Team Providers Care Retail Worker Name Role Phone Mackenzie Barr MD Primary Care Provider [phone] Gerard Knott MD Unavailable [phone] Rena Kaufman RN Unavailable [phone] Allergies No known active allergies Medications aspirin [...] Date At risk for amiodarone toxicity with truss maker u se 05/27/2023 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 [...] 0 10/26/2018 Coronary artery disease invo lving [place] coronary artery of [place] heart without angina pectoris 10/26/2018 Mitral valve insufficiency 10/26/2018 Primary osteoarthritis of left hip 10/09/2018 Overview (10/09/2018): Added automatically from request for surgery [id number] Malignant neoplasm of prostate 09/22/2009 Overview (08/14/2017): Description: s/p cryoablation 10/16/09; [place] 7. PSA at diagnosis=7.05 Resolved Problems Problem Noted Date Diagnosed Date Resolved Date Acute on chronic HFrEF (hear t failure with reduced ejection fraction) 01/12/2019 01/24/2023 Encounters Date Type Department Care Team Description 07/08/2024 Results Follow-Up [facility] [address] [place] [address] [place] [phone] Jaimee Rodriguez NP 07/06/2024 2:00 PM NET MAKER Ancillary Procedure [facility] [address] [place] [address] [place] [phone] Nonischemic cardiomyopathy (HCC) 06/30/2024 1:30 PM NET MAKER Office Visit [facility] Orthopaedic Surgery [address] [facility] [address] [place] [phone] Katheryn Glez PA Primary osteoarthritis of both knees (Primary Dx) 06/22/2024 9:30 AM NET MAKER Office Visit [facility] [address] [place] [address] [address] [place] [address] Prasanna Goldman MD Paroxysmal atrial fibrillation (HCC) (Primary Dx); Nonrheumatic tricuspid valve regurgitation; Nonischemic cardiomyopathy (HCC); Coronary artery disease involving [place] coronary artery of [place] heart without angina pectoris; Chronic anticoagulation from Last 3 Months Immunizations Immunization Administration Dates Next Due Influenza, Quadrivalent, Split, Intramuscular Influenza, Trivalent, High D ose, Split, Preservative Free, Intramuscular 04/29/2013 Influenza, Trivalent, IM (MDV) 04/10/2012,2010 Influenza, Trivalent, Preservative Free, Intramu scular 01/10/2015 Pneumococcal Conjugate PCV 13 04/25/2011 Surgical History Surgery Date Site/Laterality Comments COLONOSCOPY long time ago PROSTATE SURGERY 05/05/2007 - 05/04/2008 CARDIAC CATHETERIZATION 05/05/2014 - 05/04/2015 TOTAL HIP ARTHROPLASTY 02/02/2019 - 03/04/2019 Left ABDOMINAL SURGERY 05/05/2011 - 05/04/2012 Bowel and hernia surgery CATARACT EXTRACTION 05/05/2012 - 05/04/2013 Bilateral CARDIOVERSION 04/04/2022 - 05/04/2022 COLON SURGERY HERNIA REPAIR JOINT REPLACEMENT Mar 03 2019 Hip Replacement Medical History Medical History Date Comments Arthritis Asthma Cancer (HCC) prostate, cryoge danyelle NICM (nonischemic cardiomyopathy) (HCC) PSVT (paroxysmal supraventri cular tachycardia) MARGARETTE (obstructive sleep apnea) Wa iting on CPAP machine currently. BPH (benign prostatic hyperplasia) Motion sickness Family History Medical History Relation Name Comments Cancer Brother 1 Conor Seizures Brother 1 Conor Cancer Brother 2 Refugio Cancer Brother 3 Herbert Alcohol abuse Father Hair Heart failure Mother Anesthesia problems Neg Hx Relation Name Status Comments Brother 1 Conor Brother 2 Refugio Brother 3 Herbert Father Hair Mother Social History Tobacco Use Types Packs/Day Years [...] on file Legal Sex Male 2:51 AM NET MAKER Gender Identity Not on file Sexual Orientation Not on file Obstetrics History Last Filed Vital Signs Vital Sign Reading Time Taken Comments Blood Pressure 122/68 06/22/2024 10:09 AM NET MAKER Pulse 63 06/22/2024 10:09 AM NET MAKER Temperature 36.5 C (97.7 F) 05/23/2020 2:58 PM NET MAKER Respiratory Rate 18 03/03/2019 11:22 AM CDT Oxygen Saturation 97% 06/22/2024 10:09 AM NET MAKER Inhaled Oxygen Concentration - - Weight 109.8 kg (242 lb) 06/22/2024 10:09 AM NET MAKER Height 190.5 cm (6' 3 ) 06/22/2024 10:09 AM NET MAKER Body Mass Index 30.25 06/22/2024 10:09 AM NET MAKER Plan of Treatment Health Maintenance Due Date Last Done Comments Depression Screening 1940 Fall Risk Assessment 1940 DTaP/Tdap/Td Vaccine (1 - Tdap) 02/14/1951 Hepatitis B Screening 02/14/1958 Zoster Vaccine (1 of 2) 02/14/1990 Well Visit 65+ 02/14/2005 Pneumococcal vaccine 65+ (2 of 2 - PPSV23) 06/20/2011 04/25/2011 Influenza Vaccine (#1) 2024 6, 01/10/2015, 04/29/2013, Additional history exists Medical Devices Implanted Type Area System Planning Engineer Device Identifier Shelf Expiration Date Model / Serial / Lot [employer] [id number] Procotyl Prime 56mm Shell Acetabular Sterile - S0 - [id number] Implanted:Qty: 1 on 03/01/2019 by Lawrence Goss MD at [facility] Other - see comments Left: Hip [employer] 10/27/2026 [id number] / 0 / [id number] [employer] [id number] Procotyl Prime 36mm Liner Acetabular Sterile Latex Free - S0 - [id number] Implanted:Qty: 1 on 03/01/2019 by Lawrence Goss MD at [facility] Other - see comments Left: Hip [employer] 04/22/2026 [id number] / 0 / [id number] [employer] [id number] Profemur Tl Classic Long Varus Neck Hip 8d 7 Stem Femoral Sterile - S0 - [id number] Implanted:Qty: 1 on 03/01/2019 by Lawrence Goss MD at [facility] Other - see comments Left: Hip [employer] 03/04/2023 [id number] / 0 / [id number] [employer] [id number] Dynasty Lineage 6.5mm 25mm Acetabular Screw Bone Biofoam - S0 - [id number] Implanted:Qty: 1 on 03/01/2019 by Lawrence Goss MD at [facility] Screw Left: Hip [employer] 11/14/2025 [id number] / 0 / [id number] [employer] [id number] Dynasty Lineage 6.5mm 35mm Acetabular Screw Bone Biofoam - S0 - [id number] Implanted:Qty: 1 on 03/01/2019 by Lawrence Goss MD at [facility] Screw Left: Hip [employer] 02/01/2022 [id number] / 0 / [id number] [employer] [id number] 36mm -3.5mm 04/17 Short Neck Taper Head Femoral Biolox Delta - [id number] Implanted:Qty: 1 on 03/01/2019 by Lawrence Goss MD at [facility] Left: Hip [employer] 10/14/2026 [id number] / / [id number] Procedures Procedure Name Priority Date/Time Associated Diagnosis Comments TRANSTHORACIC ECHO (TTE) COMPLETE W DOPPLER/CF WO CONTRAST Routine 07/06/2024 2:35 PM NET MAKER Nonischemic cardiomyopathy (HCC) WA ARTHROCENTESIS ASPIR&/INJ MAJOR JT/BURSA W/O US Routine 06/30/2024 1:30 PM NET MAKER Primary osteoarthritis of both knees from Last 3 Months Results * TRANSTHORACIC ECHO (TTE) COMPLETE W DOPPLER/CF WO CONTRAST (07/06/2024 2:35 PM NET MAKER) Anatomical Region Laterality Modality Ultrasound 07/06/2024 1:52 PM NET MAKER Narrative 07/07/2024 8:[address] [facility] Cardiology [address], [place] [address] [address], [place] [address] P:[phone] P:[phone] Echocardiographic Report Patient Name: YONATHAN PEDERSEN E : 1940 Study Date: 07/06/2024 1:52:17 PM Gender: M Tech: Location: OR Ref Provider: JAIMEE RODRIGUEZ Height(Cm): 190 BSA: 2.41 [...] FINDINGS: Interpretation Site: Exam was interpreted at [facility]. Left Ventricle: Definity contrast agent used to [...] regurgitation. Electronically Signed By: Zeyad Amezquita MD, [facility] 07/07/2024 8:45:32 AM NET MAKER Procedure Note Zeyad Amezquita MD - 07/07/2024 [facility] Cardiology [address] [facility] [address] [id number] [facility] [address] [place] [address] P:[phone] P:[phone] Echocardiographic Report Patient Name: YONATHAN PEDERSEN E : 1940 Study Date: 07/06/2024 1:52:17 PM Gender: M Tech: Location: [facility] Provider: JAIMEE RODRIGUEZ Height(Cm): 190 BSA: 2.41 [...] FINDINGS: Interpretation Site: Exam was interpreted at [facility]. Left Ventricle: Definity contrast agent used to [...] regurgitation. Electronically Signed By: Zeyad Amezquita MD, [facility] 07/07/2024 8:45:32 AM NET MAKER Jaimee Rodriguez NP CV ECHO PROCEDURES Final Result * [place] ARTHROCENTESIS ASPIR&/INJ MAJOR JT/BURSA W/O US (06/30/2024 1:30 PM NET MAKER) Narrative Katheryn Glez PA - 06/30/2024 1:30 PM NET MAKER Katheryn Glez PA 06/30/2024 2:01 PM Large [...] the procedure well with no immediate complications Katheryn GONZALES IN CLINIC/BEDSIDE OR DERABLES Final Result from Last 3 Months Insurance [facility] MEDICARE ADVANTAGE [place] [id number] [place] [id number] Advance Directives For more information, please contact: [phone] * Full Code (Latest Code Status on File) Date Activated Date Inactivated Comments 03/01/2019 3:44 PM 03/03/2019 5:38 PM Care Teams Retail Worker Relationship Specialty Start Date End Date Mackenzie Barr MD PCP - General Family Medicine 11/07/17 Gerard Knott MD Coconut Candy Maker Transplant 01/15/23 Rena Kaufman, BERENICE [address] [address] Registered Nurse Clinical Account Specialist 01/15/23
--- OUTSIDE RECORDS SUMMARY | 2024-07-26 16:22 | XMS_ITS | Encounter Summary ---
Author Organization [facility] Address [address] [place] [address] Care Team Providers Care School Counselor Name Role Phone Mackenzie Barr MD Primary Care Provider [phone] Gerard Knott MD Unavailable Rena Kaufman RN Unavailable [phone] Encounter Details Date Type Department Care Team (Late st Contact Info) Description 07/08/2024 Results Follow-Up [facility] Cardiology [address] [phone] Jaimee Moore NP [address] [facility] [address] [place] [address] Social History Tobacco Use Types Packs/Day Years [...] on file Legal Sex Male 2:51 AM SLUBBER HAND Gender Identity Not on file Sexual Orientation Not on file documented as of this encounter Plan of Treatment Not on file documented as of this encounter Visit Diagnoses Not on filedocumented in this encounter Care Teams School Counselor Relationship Specialty Start Date End Date Mackenzie Barr MD PCP - General Family Medicine 11/07/17 Gerard Knott MD Flue Gas Analyst Transplant 01/15/23 Rena Kaufman RN [address] [address] Registered Nurse Proposal Analyst 01/15/23 documented as of this encounter
== END 2024-07-26 14:14 | disposition home or self-care (01) ==
PROVIDERS: PCP Family Medicine; Visit Provider Family Medicine
DX: S82.62XA Displaced fracture of lateral malleolus of left fibula, initial encounter for closed fracture (principal); X58.XXXA Exposure to other specified factors, initial encounter
CPT/HCPCS: 73610

== ENCOUNTER 2024-07-26 14:50 | Emergency (ER) | payer MEDICARE, SELFPAY ==
[2024-07-26 14:51] VITALS: BP 121/67; PULSE 62; RESP 15; TEMP 36.4; O2SAT 99
--- OUTSIDE RECORDS SUMMARY | 2024-07-26 17:11 | XMS_ITS | Clinical Summary ---
Author Organization [facility] Address [address] [address] Care Team Providers Care Life Insurance Agent Name Role Phone Mackenzie Barr MD Primary Care Provider [phone] Allergies No known active allergies Medications MAGNESIUM [...] Data STL ABSTRACTION Provider, Abstract 07/07/2024 Abstract [facility] Luis Antonio [address] [place] [address] Jens Healy MD 06/23/2024 External [...] Description 08/03/2024 11:00 AM CDT Office Visit [facility] Luis Antonio [address] [place] [address] Jens Healy MD [address] [facility] [address] [place] [address] Health Maintenance Due Date Last [...] Preventative Visit/Annual Wellness Visit 05/05/2024 Insurance [facility] [id number] Care Teams Life Insurance Agent Relationship Specialty Start Date End Date Mackenzie Barr MD [address] [place] [phone] PCP - General Family Practice 12/22/23
--- OUTSIDE RECORDS SUMMARY | 2024-07-26 17:12 | XMS_ITS | Encounter Summary ---
Author Organization [facility] Healthcare Address [address] [place] [address] Care Team Providers Care Buildings And Grounds Coordinator Name Role Phone Mackenzie Barr MD Primary Care Provider [phone] Gerard Knott MD Unavailable Rena Kaufman RN Unavailable [phone] Encounter Details Date Type Department Care Team (Late st Contact Info) Description 04/12/2021 Telephone [facility] Radiology [address] [place] [address] Elsa Gustafson, BUILDER BEAM [address] [facility] [address] [place] [address] Social History Tobacco Use Types Packs/Day Years Used Date Smoking Tobacco: Never Smokeless Tobacco: Former Quit: 09/2018 Alcohol Use Standard Drinks/Week Comments Yes 2 (1 standard drink = 0.6 oz pur e alcohol) Ocassionally Sex and Gender Information Value Date Recorded Sex Assigned at Not on file Legal Sex Male 2:51 AM ADMINISTRATIVE SECRETARY Gender Identity Not on file Sexual Orientation Not on file documented as of this encounter Plan of Treatment Not on file documented as of this encounter Visit Diagnoses Not on filedocumented in this encounter Care Teams Buildings And Grounds Coordinator Relationship Specialty Start Date End Date Mackenzie Barr MD PCP - General Family Medicine 11/07/17 Gerard Knott MD Recreation Specialist Transplant 01/15/23 Rena Kaufman, RN [address] [address] Registered Nurse Assurance Senior 01/15/23 documented as of this encounter
--- OUTSIDE RECORDS SUMMARY | 2024-07-26 17:12 | XMS_ITS | Encounter Summary ---
Author Organization [facility] Healthcare Address [address] [place] [address] Care Team Providers Care Clinical Data Abstractor Name Role Phone Mackenzie Barr MD Primary Care Provider [phone] Gerard Knott MD Unavailable [phone] Rena Kaufman RN Unavailable [phone] Encounter Details Date Type Department Care Team (Late st Contact Info) Description 07/08/2024 Results Follow-Up [facility] Cardiology [address] [phone] Jaimee Moore NP [address] [facility] [address] [place] [address] Social History Tobacco Use Types Packs/Day [...] on file Legal Sex Male 2:51 AM TUCK POINTER Gender Identity Not on file Sexual Orientation Not on file documented as of this encounter Plan of Treatment Not on file documented as of this encounter Visit Diagnoses Not on filedocumented in this encounter Care Teams Clinical Data Abstractor Relationship Specialty Start Date End Date Mackenzie Barr MD PCP - General Family Medicine 11/07/17 Gerard Knott MD Assembler Bicycle Transplant 01/15/23 Rena Kaufman RN [address] [address] Registered Nurse Claims Account Specialist 01/15/23 documented as of this encounter
--- OUTSIDE RECORDS SUMMARY | 2024-07-26 17:12 | XMS_ITS | Clinical Summary ---
Author Organization [facility] Address [address] [place] [address] Care Team Providers Care It Business Systems Analyst Name Role Phone Unavailable Primary Care Provider [...] Comments Blood Pressure 128/75 06/12/2012 10:36 AM PBX INSTALLER Pulse 52 06/12/2012 10:36 AM PBX INSTALLER Temperature - - Respiratory Rate 18 06/12/2012 10:36 AM PBX INSTALLER Oxygen Saturation - - Inhaled Oxygen Concentration - - Weight 104.3 kg (230 lb) 06/12/2012 10:36 AM PBX INSTALLER Height 190.5 cm (6' 3 ) 06/12/2012 10:36 AM PBX INSTALLER Body Mass Index 28.75 06/12/2012 10:36 AM PBX INSTALLER Plan of Treatment Health Maintenance Due Date [...]
--- OUTSIDE RECORDS SUMMARY | 2024-07-26 17:12 | XMS_ITS | Clinical Summary ---
Author Organization [facility] Address [address], [address] [address] Phone Care Team Providers Care Firefighting Equipment Specialist Name Role Phone Mackenzie Barr MD Primary Care Provider [phone] Social History Tobacco Use Types Packs/Day Years Used Date Smoking Tobacco: Never Assessed Sex and Gender Information Value Date Recorded Sex Assigned at Not on file Legal Sex Male 8:05 AM LEATHER PARTS MATCHER Gender Identity Not on file Sexual Orientation [...] to complete this topic Insurance MEDICARE C [facility] on file Care Teams Firefighting Equipment Specialist Relationship Specialty Start Date End Date Mackenzie Barr MD [address] [place] [address] PCP - General Family Medicine 06/09/18
--- OUTSIDE RECORDS SUMMARY | 2024-07-26 17:12 | XMS_ITS | Clinical Summary ---
Author Organization [facility] Address [address] [place] [address] Care Team Providers Care Surgical Technician Name Role Phone Mackenzie Barr MD Primary Care Provider [phone] Gerard Knott MD Unavailable [phone] Rena Kaufman RN Unavailable [phone] Allergies No known active allergies Medications aspirin [...] Date At risk for amiodarone toxicity with terminal makeup operator u se 05/27/2023 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 [...] 0 10/26/2018 Coronary artery disease invo lving [place] coronary artery of [place] heart without angina pectoris 10/26/2018 Mitral valve insufficiency 10/26/2018 Primary osteoarthritis of left hip 10/09/2018 Overview (10/09/2018): Added automatically from request for surgery [id number] Malignant neoplasm of prostate 09/22/2009 Overview (08/14/2017): Description: s/p cryoablation 10/16/09; [place] 7. PSA at diagnosis=7.05 Resolved Problems Problem Noted Date Diagnosed Date Resolved Date Acute on chronic HFrEF (hear t failure with reduced ejection fraction) 01/12/2019 01/24/2023 Encounters Date Type Department Care Team Description 07/08/2024 Results Follow-Up [facility] Cardiology [address] [place] [address] [place] [phone] Jaimee Rodriguez NP 07/06/2024 2:00 PM AFTERNOON BABYSITTER Ancillary Procedure [facility] Cardiology [address] [place] [address] [place] [phone] Nonischemic cardiomyopathy (HCC) 06/30/2024 1:30 PM AFTERNOON BABYSITTER Office Visit [facility] Orthopaedic Surgery [address] [facility] 2nd Floor [address] [place] [phone] Katheryn Glez PA Primary osteoarthritis of both knees (Primary Dx) 06/22/2024 9:30 AM AFTERNOON BABYSITTER Office Visit [facility] Cardiology [address] [place] [address] [address] [place] [address] Prasanna Goldman MD Paroxysmal atrial fibrillation (HCC) (Primary Dx); Nonrheumatic tricuspid valve regurgitation; Nonischemic cardiomyopathy (HCC); Coronary artery disease involving [place] coronary artery of [place] heart without angina pectoris; Chronic anticoagulation from [...] on file Legal Sex Male 2:51 AM AFTERNOON BABYSITTER Gender Identity Not on file Sexual Orientation Not on file Obstetrics History Last Filed Vital Signs Vital Sign Reading Time Taken Comments Blood Pressure 122/68 06/22/2024 10:09 AM AFTERNOON BABYSITTER Pulse 63 06/22/2024 10:09 AM AFTERNOON BABYSITTER Temperature 36.5 C (97.7 F) 05/23/2020 2:58 PM AFTERNOON BABYSITTER Respiratory Rate 18 03/03/2019 11:22 AM CDT Oxygen Saturation 97% 06/22/2024 10:09 AM AFTERNOON BABYSITTER Inhaled Oxygen Concentration - - Weight 109.8 kg (242 lb) 06/22/2024 10:09 AM AFTERNOON BABYSITTER Height 190.5 cm (6' 3 ) 06/22/2024 10:09 AM AFTERNOON BABYSITTER Body Mass Index 30.25 06/22/2024 10:09 AM AFTERNOON BABYSITTER Plan of Treatment Health Maintenance Due Date Last Done Comments Depression Screening 1940 Fall Risk Assessment 1940 DTaP/Tdap/Td Vaccine (1 - Tdap) 02/14/1951 Hepatitis B Screening 02/14/1958 Zoster Vaccine (1 of 2) 02/14/1990 Well Visit 65+ 02/14/2005 Pneumococcal vaccine 65+ (2 of 2 - PPSV23) 06/20/2011 04/25/2011 Influenza Vaccine (#1) 2024 6, 01/10/2015, 04/29/2013, Additional history exists Medical Devices Implanted Type Area Ethylene Compressor Operator Device Identifier Shelf Expiration Date Model / Serial / Lot [employer] [id number] Procotyl Prime 56mm Shell Acetabular Sterile - S0 - [id number] Implanted:Qty: 1 on 03/01/2019 by Lawrence Goss MD at [facility] Other - see comments Left: Hip [employer] 10/27/2026 [id number] / 0 / [id number] [employer] [id number] Procotyl Prime 36mm Liner Acetabular Sterile Latex Free - S0 - [id number] Implanted:Qty: 1 on 03/01/2019 by Lawrence Goss MD at [facility] Other - see comments Left: Hip [employer] 04/22/2026 [id number] / 0 / [id number] [employer] [id number] Profemur Tl Classic Long Varus Neck Hip 8d 7 Stem Femoral Sterile - S0 - [id number] Implanted:Qty: 1 on 03/01/2019 by Lawrence Goss MD at [facility] Other - see comments Left: Hip [employer] 03/04/2023 [id number] / 0 / [id number] [employer] [id number] Dynasty Lineage 6.5mm 25mm Acetabular Screw Bone Biofoam - S0 - [id number] Implanted:Qty: 1 on 03/01/2019 by Lawrence Goss MD at [facility] Screw Left: Hip [employer] 11/14/2025 [id number] / 0 / [id number] [employer] [id number] Dynasty Lineage 6.5mm 35mm Acetabular Screw Bone Biofoam - S0 - [id number] Implanted:Qty: 1 on 03/01/2019 by Lawrence Goss MD at [facility] Screw Left: Hip [employer] 02/01/2022 [id number] / 0 / [id number] [employer] [id number] 36mm -3.5mm 04/17 Short Neck Taper Head Femoral Biolox Delta - [id number] Implanted:Qty: 1 on 03/01/2019 by Lwarence Goss MD at [facility] Left: Hip [employer] 10/14/2026 [id number] / / [id number] Procedures Procedure Name Priority Date/Time Associated Diagnosis Comments TRANSTHORACIC ECHO (TTE) COMPLETE W DOPPLER/CF WO CONTRAST Routine 07/06/2024 2:35 PM AFTERNOON BABYSITTER Nonischemic cardiomyopathy (HCC) OR ARTHROCENTESIS ASPIR&/INJ MAJOR JT/BURSA W/O US Routine 06/30/2024 1:30 PM AFTERNOON BABYSITTER Primary osteoarthritis of both knees from Last 3 Months Results * TRANSTHORACIC ECHO (TTE) COMPLETE W DOPPLER/CF WO CONTRAST (07/06/2024 2:35 PM AFTERNOON BABYSITTER) Anatomical Region Laterality Modality Ultrasound 07/06/2024 1:52 PM AFTERNOON BABYSITTER Narrative 07/07/2024 8:46 AM AFTERNOON BABYSITTER [facility] Medical [facility] Cardiology [address], [place] [address] [address], [place] [address] P:[phone] P:[phone] Echocardiographic Report Patient Name: YONATHAN PEDERSEN E : 1940 Study Date: 07/06/2024 1:52:17 PM Gender: M Tech: Location: [place] Ref Provider: JAIMEE RODRIGUEZ Height(Cm): 190 BSA: [...] FINDINGS: Interpretation Site: Exam was interpreted at [facility]. Left Ventricle: Definity contrast agent used [...] regurgitation. Electronically Signed By: Zeyad Amezquita MD, [facility] 07/07/2024 8:45:32 AM AFTERNOON BABYSITTER Procedure Note Zeyad Amezquita MD - 07/07/2024 [facility] Medical Group Cardiology [address] [facility] [address] [id number] [facility] [address], [place], [place] [address] P:[phone] P:[phone] Echocardiographic Report Patient Name: YONATHAN PEDERSEN E : 1940 Study Date: 07/06/2024 1:52:17 PM Gender: M Tech: Location: [facility] Provider: JAIMEE RODRIGUEZ Height(Cm): 190 BSA: [...] 0.60 - 1.00 ] MV E Peak Lgoan 0.67m/s [ 0.60 - 1.30 ] IVSd [...] FINDINGS: Interpretation Site: Exam was interpreted at [facility]. Left Ventricle: Definity contrast agent used [...] regurgitation. Electronically Signed By: Zeyad Amezquita MD, [facility] 07/07/2024 8:45:32 AM AFTERNOON BABYSITTER Jaimee Rodriguez NP CV ECHO PROCEDURES Final Result * [place] ARTHROCENTESIS ASPIR&/INJ MAJOR JT/BURSA W/O US (06/30/2024 1:30 PM AFTERNOON BABYSITTER) Narrative Katheryn Glez PA - 06/30/2024 1:30 PM AFTERNOON BABYSITTER Katheryn Glez PA 06/30/2024 2:01 PM Large [...] Result from Last 3 Months Insurance [facility] MEDICARE ADVANTAGE [facility] MEDIC[facility] Address: [address] [address] [place] [address] [facility] Address: [address] [address] [place] [address] [facility] Address: [address] [address] [place] [address] Advance Directives For more information, please contact: [phone] * Full Code (Latest Code Status on File) Date Activated Date Inactivated Comments 03/01/2019 3:44 PM 03/03/2019 5:38 PM Care Teams Surgical Technician Relationship Specialty Start Date End Date Mackenzie Barr MD PCP - General Family Medicine 11/07/17 Gerard Knott MD Lay Out Technician Transplant 01/15/23 Rena Kaufman, BERENICE [address] [address] Registered Nurse Corporate Compliance Director 01/15/23
--- OUTSIDE RECORDS SUMMARY | 2024-07-26 17:12 | XMS_ITS | Referral Summary ---
Author Organization [facility] Address [address] [place] [address] Care Team Providers Care Numerical Control Router Operator Name Role Phone Mackenzie Barr MD Primary Care Provider [phone] Gerard Knott MD Unavailable Rena Kaufman RN Unavailable [phone] Encounters Date Type Department Care Team Description 07/08/2024 Results Follow-Up [facility] Medical [facility] Cardiology [address] [place] [address] [place] [phone] Jaimee Rodriguez NP 07/06/2024 2:00 PM TEXTILE PIN WORKER Ancillary Procedure [facility] Cardiology [address] [place] [address] [place] [phone] Nonischemic cardiomyopathy (HCC) 06/30/2024 1:30 PM TEXTILE PIN WORKER Office Visit [facility] Orthopaedic Surgery [address] [facility] 2nd Floor [address] [place] [address] Katheryn Glez PA Primary osteoarthritis of both knees (Primary Dx) 06/22/2024 9:30 AM TEXTILE PIN WORKER Office Visit [facility] Medical [facility] Cardiology [address] [place] [address] [place] [phone] Prasanna Goldman MD Paroxysmal atrial fibrillation (HCC) (Primary Dx); Nonrheumatic tricuspid valve regurgitation; Nonischemic cardiomyopathy (HCC); Coronary artery disease involving [place] coronary artery of [place] heart without angina pectoris; Chronic anticoagulation from [...] Date At risk for amiodarone toxicity with detention u se 05/27/2023 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 [...] 0 10/26/2018 Coronary artery disease invo lving [place] coronary artery of [place] heart without angina pectoris 10/26/2018 Mitral valve insufficiency 10/26/2018 Primary osteoarthritis of left hip 10/09/2018 Overview (10/09/2018): Added automatically from request for surgery [id number] Malignant neoplasm of prostate 09/22/2009 Overview (08/14/2017): Description: s/p cryoablation 6/14/10; [place] 7. PSA at diagnosis=7.05 Resolved Problems Problem [...] on file Legal Sex Male 2:51 AM TEXTILE PIN WORKER Gender Identity Not on file Sexual Orientation Not on file Last Filed Vital Signs Vital Sign Reading Time Taken Comments Blood Pressure 122/68 06/22/2024 10:09 AM TEXTILE PIN WORKER Pulse 63 06/22/2024 10:09 AM TEXTILE PIN WORKER Temperature 36.5 C (97.7 F) 05/23/2020 2:58 PM TEXTILE PIN WORKER Respiratory Rate 18 03/03/2019 11:22 AM CDT Oxygen Saturation 97% 06/22/2024 10:09 AM TEXTILE PIN WORKER Inhaled Oxygen Concentration - - Weight 109.8 kg (242 lb) 06/22/2024 10:09 AM TEXTILE PIN WORKER Height 190.5 cm (6' 3 ) 06/22/2024 10:09 AM TEXTILE PIN WORKER Body Mass Index 30.25 06/22/2024 10:09 AM TEXTILE PIN WORKER Plan of Treatment Not on file Medical Devices Implanted Type Area Press Tender Star Signal Device Identifier Shelf Expiration Date Model / Serial / Lot [employer] [id number] Procotyl Prime 56mm Shell Acetabular Sterile - S0 - [id number] Implanted:Qty: 1 on 03/01/2019 by Lawrence Goss MD at [facility] Other - see comments Left: Hip [employer] 10/27/2026 [id number] / 0 / [id number] [employer] [id number] Procotyl Prime 36mm Liner Acetabular Sterile Latex Free - S0 - [id number] Implanted:Qty: 1 on 03/01/2019 by Lawrence Goss MD at [facility] Other - see comments Left: Hip [employer] 04/22/2026 [id number] / 0 / [id number] [employer] [id number] Profemur Tl Classic Long Varus Neck Hip 8d 7 Stem Femoral Sterile - S0 - [id number] Implanted:Qty: 1 on 03/01/2019 by Lawrence Goss MD at [facility] Other - see comments Left: Hip [employer] 03/04/2023 [id number] / 0 / [id number] [employer] [id number] Dynasty Lineage 6.5mm 25mm Acetabular Screw Bone Biofoam - S0 - [id number] Implanted:Qty: 1 on 03/01/2019 by Lawrence Goss MD at [facility] Screw Left: Hip [employer] 11/14/2025 [id number] / 0 / [id number] [employer] [id number] Dynasty Lineage 6.5mm 35mm Acetabular Screw Bone Biofoam - S0 - [id number] Implanted:Qty: 1 on 03/01/2019 by Lawrence Goss MD at [facility] Screw Left: Hip [employer] 02/01/2022 [id number] / 0 / [id number] [employer] [id number] 36mm -3.5mm 04/17 Short Neck Taper Head Femoral Biolox Delta - [id number] Implanted:Qty: 1 on 03/01/2019 by Lawrence Goss MD at [facility] Left: Hip [employer] 10/14/2026 [id number] / / [id number] Procedures Procedure Name Priority Date/Time Associated Diagnosis Comments TRANSTHORACIC ECHO (TTE) COMPLETE W DOPPLER/CF WO CONTRAST Routine 07/06/2024 2:35 PM TEXTILE PIN WORKER Nonischemic cardiomyopathy (HCC) [place] ARTHROCENTESIS ASPIR&/INJ MAJOR JT/BURSA W/O US Routine 06/30/2024 1:30 PM TEXTILE PIN WORKER Primary osteoarthritis of both knees from Last 3 Months Results * TRANSTHORACIC ECHO (TTE) COMPLETE W DOPPLER/CF WO CONTRAST (07/06/2024 2:35 PM TEXTILE PIN WORKER) Anatomical Region Laterality Modality Ultrasound 07/06/2024 1:52 PM TEXTILE PIN WORKER Narrative 07/07/2024 8:46 AM TEXTILE PIN WORKER [facility] Medical Group Cardiology [address] [facility] [address] [address] [address] [facility] [address], [place] [address] P:[phone] P:[phone] Echocardiographic Report Patient Name: YONATHAN PEDERSEN E : 1940 Study Date: 07/06/2024 1:52:17 PM Gender: M Tech: Location: [facility] Provider: JAIMEE RODRIGUEZ Height(Cm): 190 BSA: 2.41 [...] [ 3.10 - 3.70 ] PV Peak Log[place] 1.13 m/s [ 0.40 - 0.80 ] LA Volume Index 40 cc/m2 [ 16 - 34 ] TR Peak [place] 2.93 m/s [ 1.00 - 2.80 ] TR Peak PG 34 mmHg Lateral E` 0.09 m/s [ 0.10 - 0.15 ] E` 0.03 m/s E/E` 7 2D/MM Value Range Doppler Value Range - FINDINGS: Interpretation Site: Exam was interpreted at [facility]. Left Ventricle: Definity contrast agent used [...] regurgitation. Electronically Signed By: Zeyad Amezquita MD, [facility] 07/07/2024 8:45:32 AM TEXTILE PIN WORKER Procedure Note Zeyad Amezquita MD - 07/07/2024 [facility] Medical Group Cardiology [address], [place] [address] [address] [facility] [address], [place] [address] P:[phone] P:[phone] Echocardiographic Report Patient Name: YONATHAN PEDERSEN E : 1940 Study Date: 07/06/2024 1:52:17 PM Gender: M Tech: Location: [facility] Provider: JAIMEE RODRIGUEZ Height(Cm): 190 BSA: 2.41 [...] FINDINGS: Interpretation Site: Exam was interpreted at [facility]. Left Ventricle: Definity contrast agent used [...] regurgitation. Electronically Signed By: Zeyad Amezquita MD, [facility] 07/07/2024 8:45:32 AM TEXTILE PIN WORKER Jaimee Rodriguez NP CV ECHO PROCEDURES Final Result * [place] ARTHROCENTESIS ASPIR&/INJ MAJOR JT/BURSA W/O US (06/30/2024 1:30 PM TEXTILE PIN WORKER) Narrative Katheryn Glez PA - 06/30/2024 1:30 PM TEXTILE PIN WORKER Katheryn Glez PA 06/30/2024 2:01 PM Large [...] Final Result from Last 3 Months Insurance [facility] MEDICARE ADVANTAGE [facility] MEDICARE ADVANTAGE [facility] MEDICARE ADVANTAGE Advance Directives For more information, please contact: [phone] * Full Code (Latest Code Status on File) Date Activated Date Inactivated Comments 03/01/2019 3:44 PM 03/03/2019 5:38 PM Care Teams Numerical Control Router Operator Relationship Specialty Start Date End Date Mackenzie Barr MD PCP - General Family Medicine 11/07/17 Gerard Knott MD Lamp Decorator Transplant 01/15/23 Rena Kaufman, RN [address] [facility] [address] [place] [address] Registered Nurse Recoating Machine Operator 01/15/23
--- NOTE | 2024-07-26 17:47 | ED.LOWEXIN ---
HPI - Extremity Injury (Lower) General Chief Complaint: Extremity Injury, Lower Stated Complaint: I twisted my left ankle Time Seen by Provider: 07/26/24 16:56 Source: patient Mode of arrival: ambulatory Limitations: no limitations History of Present Illness HPI Narrative: This is an 84-year-old male who presents to the ED for chief complaint of left ankle injury that occurred 1 week ago. Patient states he was seen by his PCP a patient who ordered x-rays and found that there was an ankle fracture and was told to come to the ER. Patient states that he has been trying to ambulate on this ankle for the past week thinking it was and ankle sprain. States that he initially did this while he was at the gym and accidentally slid down 1 of the seated machines. Denies numbness, weakness or any further injury. Related Data Home Medications ?Medication ?Instructions ?Recorded ?Confirmed ?Last Taken ?Type aspirin 81 mg tablet,delayed 81 mg PO DAILY 03/15/19 03/25/24 07/16/22 History release (Adult Aspirin Regimen) tamsulosin 0.4 mg capsule 0.4 mg PO BID 11/04/22 03/25/24 Unknown History furosemide 20 mg tablet 40 mg PO DAILY 12/24/22 03/25/24 Unknown History Allergies Allergy/AdvReac Type Severity Reaction Status Date / Time No Known Allergies Allergy Verified 03/25/24 10:10 Review of Systems Review of Systems: All systems as dictated in [facility] Past Medical History Medical History Arthritis Atrial fibrillation Basal cell carcinoma, face Benign prostate hyperplasia Chronic anticoagulation Chronic respiratory failure with hypoxia, on home oxygen therapy Heart failure with reduced ejection fraction EF was 30 to 35% in 10/2022. History of prostate cancer Status post cryotherapy. Hypertension Mixed hyperlipidemia Nonischemic cardiomyopathy Concerns for cardiac amyloidosis or other infiltrative process however he has refused further workup. Obstructive sleep apnea Paroxysmal supraventricular tachycardia Pulmonary hypertension Moderate RV enlargement and hypokinesis with severe pulmonary hypertension and and RVSP of 80 mmHg. Valvular heart disease Moderate to severe mitral and tricuspid regurgitation. Surgical History Surgical History History of cataract extraction History of colonoscopy History of hip surgery History of inguinal hernia repair Family History Family History Father Carcinoma of colon Sibling Kidney carcinoma Cancer Social History Social History Social History: Surrogate medical decision maker: Caryn Everett, daughter. Code status: Full code. Smoking status: Never smoker Second hand tobacco smoke exposure: No Alcohol intake: current Drinks per week: 2 Substance use: never Substance use type: does not use Lack of Transportation: No Lack of Food: Never True Current Housing: I Have Housing Concerned About Future Housing: No Difficulty Paying Gas/Electric Bills: No Difficulty Paying for Meds: No Currently Unemployed: No Education: High School Diploma/GED Difficulty w/ Childcare or Family Care: No Living arrangements: with family Additional living arrangements comments: Lives with and daughter. Has 2 children. 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 Spiritual care concerns: No Exam Narrative: GENERAL: Well-appearing, well-nourished, and in no acute distress. MSK: LLE: Tenderness and swelling noted to the left ankle diffusely. There is tenderness to the left lateral ankle. Neurovascular intact distally. No deformity. Compartments are soft RLE: Benign SKIN: Warm, dry, no rash. NEURO: Alert and oriented x4. No focal deficits. PSYCH: Normal mood and affect. Course Vital Signs Vital signs: Vital Signs Temperature 97.5 F L 07/26/24 14:51 Pulse Rate 62 07/26/24 14:51 Respiratory Rate 15 07/26/24 14:51 Blood Pressure 121/67 07/26/24 14:51 Pulse Oximetry 99 07/26/24 14:51 Oxygen Delivery Room Air 07/26/24 14:51 Temperature 97.5 F L 07/26/24 14:51 Pulse Rate 62 07/26/24 14:51 Respiratory Rate 15 07/26/24 14:51 Blood Pressure 121/67 07/26/24 14:51 Pulse Oximetry 99 07/26/24 14:51 Oxygen Delivery Room Air 07/26/24 14:51 MDM - Extremity Injury (Lower) MDM Narrative Medical decision making narrative: This is a 84-year-old male who presents to the ED for chief complaint of left ankle injury that occurred 1 week ago. He had x-rays done outpatient today. Vitals are normal. Exam remarkable for swelling and tenderness to the left lateral ankle. Neurovascularly intact. Left ankle x-ray show oblique left lateral malleolus fracture. Patient will be placed in short leg posterior splint. Rx for [place] given for breakthrough pain. Ortho referral given. Patient will be discharged in stable condition. Supportive measures discussed and return precautions given. Patient is understanding and agreeable with plan for discharge with ortho follow-up. Discharge Plan Discharge Clinical Impression: Ankle fracture, lateral malleolus, closed Qualifiers: Laterality: left Patient Disposition: Home, Self-Care Condition: Stable Instructions: Antibiotic Form Additional Instructions: Your exam today shows fracture of the lateral malleolus. We will place a splint here in the ER but this needs to be followed up closely with Orthopedics. Continue with Tylenol and Aleve [id number] for pain control. Use [place] for breakthrough pain. Return to the ER for any new or worsening symptoms. Patient Language: Arabic Prescriptions: New hydrocodone-acetaminophen 5-325 mg tablet 1 tablet PO Q8H PRN (Reason: pain) Qty: 14 0RF No Action midodrine 2.5 mg tablet 2.5 mg PO TID Qty: 30 0RF Rx Instructions: do not give last dose of day after 6PM or within 4 hrs of bedtime furosemide 20 mg tablet 40 mg PO DAILY potassium chloride 10 mEq capsule, extended release 20 meq PO DAILY Qty: 60 0RF aspirin [Adult Aspirin Regimen] 81 mg tablet,delayed release (DR/EC) 81 mg PO DAILY Rx Instructions: PT STATES HE MUST TAKE AT 0600. Eliquis 5 mg Tablet 5 mg PO Q12HR Qty: 60 1RF Rx Instructions: PT STATES HE MUST TAKE AT 0600 AND 1800. tamsulosin 0.4 mg capsule 0.4 mg PO BID Rx Instructions: PT STATES HE MUST TAKE AT 0600. amiodarone 200 mg tablet 200 mg PO DAILY Qty: 30 1RF Rx Instructions: PT STATES HE MUST TAKE AT 0600. atorvastatin 20 mg tablet 20 mg PO DAILY Qty: 90 2RF Rx Instructions: PT STATES HE MUST TAKE AT 0600. Follow-up/Referrals: Mackenzie Barr MD [Primary Care Provider] - Sourav Bill MD [Physician] - Time of Disposition: 18:15
--- OUTSIDE RECORDS SUMMARY | 2024-07-26 18:53 | XMS_ITS | Clinical Summary ---
Author Organization [facility] Address [address] [place] [address] Care Team Providers Care Brazer Induction Name Role Phone Mackenzie Barr MD Primary Care Provider [phone] Gerard Knott MD Unavailable [phone] Rena Kaufman RN Unavailable [phone] Allergies No known active allergies Medications aspirin [...] Date At risk for amiodarone toxicity with lobsterman u se 05/27/2023 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 [...] 0 10/26/2018 Coronary artery disease invo lving [place] coronary artery of [place] heart without angina pectoris 10/26/2018 Mitral valve insufficiency 10/26/2018 Primary osteoarthritis of left hip 10/09/2018 Overview (10/09/2018): Added automatically from request for surgery [id number] Malignant neoplasm of prostate 09/22/2009 Overview (08/14/2017): Description: s/p cryoablation 10/16/09; [place] 7. PSA at diagnosis=7.05 Resolved Problems Problem Noted Date Diagnosed Date Resolved Date Acute on chronic HFrEF (hear t failure with reduced ejection fraction) 01/12/2019 01/24/2023 Encounters Date Type Department Care Team Description 07/08/2024 Results Follow-Up [facility] Cardiology [address] [place] [address] [place] [phone] Jaimee Rodriguez NP 07/06/2024 2:00 PM STATION EXAMINER Ancillary Procedure [facility] Cardiology [address] [place] [address] [place] [phone] Nonischemic cardiomyopathy (HCC) 06/30/2024 1:30 PM STATION EXAMINER Office Visit [facility] Orthopaedic Surgery [address] [facility] 2nd Floor [address] [place] [phone] Katheryn Glez PA Primary osteoarthritis of both knees (Primary Dx) 06/22/2024 9:30 AM STATION EXAMINER Office Visit [facility] Cardiology [address] [place] [address] [address] [place] [address] Prasanna Goldman MD Paroxysmal atrial fibrillation (HCC) (Primary Dx); Nonrheumatic tricuspid valve regurgitation; Nonischemic cardiomyopathy (HCC); Coronary artery disease involving [place] coronary artery of [place] heart without angina pectoris; Chronic anticoagulation from [...] on file Legal Sex Male 2:51 AM STATION EXAMINER Gender Identity Not on file Sexual Orientation Not on file Obstetrics History Last Filed Vital Signs Vital Sign Reading Time Taken Comments Blood Pressure 122/68 06/22/2024 10:09 AM STATION EXAMINER Pulse 63 06/22/2024 10:09 AM STATION EXAMINER Temperature 36.5 C (97.7 F) 05/23/2020 2:58 PM STATION EXAMINER Respiratory Rate 18 03/03/2019 11:22 AM CDT Oxygen Saturation 97% 06/22/2024 10:09 AM STATION EXAMINER Inhaled Oxygen Concentration - - Weight 109.8 kg (242 lb) 06/22/2024 10:09 AM STATION EXAMINER Height 190.5 cm (6' 3 ) 06/22/2024 10:09 AM STATION EXAMINER Body Mass Index 30.25 06/22/2024 10:09 AM STATION EXAMINER Plan of Treatment Health Maintenance Due Date Last Done Comments Depression Screening 1940 Fall Risk Assessment 1940 DTaP/Tdap/Td Vaccine (1 - Tdap) 02/14/1951 Hepatitis B Screening 02/14/1958 Zoster Vaccine (1 of 2) 02/14/1990 Well Visit 65+ 02/14/2005 Pneumococcal vaccine 65+ (2 of 2 - PPSV23) 06/20/2011 04/25/2011 Influenza Vaccine (#1) 2024 6, 01/10/2015, 04/29/2013, Additional history exists Medical Devices Implanted Type Area High Density Finishing Operator Device Identifier Shelf Expiration Date Model / Serial / Lot [employer] [id number] Procotyl Prime 56mm Shell Acetabular Sterile - S0 - [id number] Implanted:Qty: 1 on 03/01/2019 by Lawrence Goss MD at [facility] Other - see comments Left: Hip [employer] 10/27/2026 [id number] / 0 / [id number] [employer] [id number] Procotyl Prime 36mm Liner Acetabular Sterile Latex Free - S0 - [id number] Implanted:Qty: 1 on 03/01/2019 by Lawrence Goss MD at [facility] Other - see comments Left: Hip [employer] 04/22/2026 [id number] / 0 / [id number] [employer] [id number] Profemur Tl Classic Long Varus Neck Hip 8d 7 Stem Femoral Sterile - S0 - [id number] Implanted:Qty: 1 on 03/01/2019 by Lawrence Goss MD at [facility] Other - see comments Left: Hip [employer] 03/04/2023 [id number] / 0 / [id number] [employer] [id number] Dynasty Lineage 6.5mm 25mm Acetabular Screw Bone Biofoam - S0 - [id number] Implanted:Qty: 1 on 03/01/2019 by Lawrence Goss MD at [facility] Screw Left: Hip [employer] 11/14/2025 [id number] / 0 / [id number] [employer] [id number] Dynasty Lineage 6.5mm 35mm Acetabular Screw Bone Biofoam - S0 - [id number] Implanted:Qty: 1 on 03/01/2019 by Lawrence Goss MD at [facility] Screw Left: Hip [employer] 02/01/2022 [id number] / 0 / [id number] [employer] [id number] 36mm -3.5mm 04/17 Short Neck Taper Head Femoral Biolox Delta - [id number] Implanted:Qty: 1 on 03/01/2019 by Lawrence Goss MD at [facility] Left: Hip [employer] 10/14/2026 [id number] / / [id number] Procedures Procedure Name Priority Date/Time Associated Diagnosis Comments TRANSTHORACIC ECHO (TTE) COMPLETE W DOPPLER/CF WO CONTRAST Routine 07/06/2024 2:35 PM STATION EXAMINER Nonischemic cardiomyopathy (HCC) [place] ARTHROCENTESIS ASPIR&/INJ MAJOR JT/BURSA W/O US Routine 06/30/2024 1:30 PM STATION EXAMINER Primary osteoarthritis of both knees from Last 3 Months Results * TRANSTHORACIC ECHO (TTE) COMPLETE W DOPPLER/CF WO CONTRAST (07/06/2024 2:35 PM STATION EXAMINER) Anatomical Region Laterality Modality Ultrasound 07/06/2024 1:52 PM STATION EXAMINER Narrative 07/07/2024 8:46 AM STATION EXAMINER [facility] Cardiology [address], [place] [address] [address], [place] [address] P:[phone] P:[phone] Echocardiographic Report Patient Name: YONATHAN PEDERSEN E : 1940 Study Date: 07/06/2024 1:52:17 PM Gender: M Tech: Location: [place] Ref Provider: JAIMEE RODRIGUEZ Height(Cm): 190 BSA: [...] FINDINGS: Interpretation Site: Exam was interpreted at [facility]. Left Ventricle: Definity contrast agent used to [...] regurgitation. Electronically Signed By: Zeyad Amezquita MD, [facility] 07/07/2024 8:45:32 AM STATION EXAMINER Procedure Note Zeyad Amezquita MD - 07/07/2024 [facility] Cardiology [address] [facility] [address] [id number] [address] [facility] [address], [place] [address] P:[phone] P:[phone] Echocardiographic Report Patient Name: YONATHAN PEDERSEN E : 1940 Study Date: 07/06/2024 1:52:17 PM Gender: M Tech: Location: [facility] Provider: JAIMEE RODRIGUEZ Height(Cm): 190 BSA: [...] FINDINGS: Interpretation Site: Exam was interpreted at [facility]. Left Ventricle: Definity contrast agent used to [...] regurgitation. Electronically Signed By: Zeyad Amezquita MD, [facility] 07/07/2024 8:45:32 AM STATION EXAMINER Jaimee Rodriguez NP CV ECHO PROCEDURES Final Result * [place] ARTHROCENTESIS ASPIR&/INJ MAJOR JT/BURSA W/O US (06/30/2024 1:30 PM STATION EXAMINER) Narrative Katheryn Glez PA - 06/30/2024 1:30 PM STATION EXAMINER Katheryn Glez PA 06/30/2024 2:01 PM Large [...] Final Result from Last 3 Months Insurance [facility] MEDICARE ADVANTAGE [place] [id number] [place] [id number] Advance Directives For more information, please contact: [phone] * Full Code (Latest Code Status on File) Date Activated Date Inactivated Comments 03/01/2019 3:44 PM 03/03/2019 5:38 PM Care Teams Brazer Induction Relationship Specialty Start Date End Date Mackenzie Barr MD PCP - General Family Medicine 11/07/17 Gerard Knott MD Plastic Machine Operator Transplant 01/15/23 Rena Kaufman, BERENICE [address] [address] Registered Nurse Piano Regulator 01/15/23
--- OUTSIDE RECORDS SUMMARY | 2024-07-26 18:53 | XMS_ITS | Encounter Summary ---
Author Organization [facility] Healthcare Address [address] [place] [address] Care Team Providers Care Line Driver Name Role Phone Mackenzie Barr MD Primary Care Provider [phone] Gerard Knott MD Unavailable Rena Kaufman RN Unavailable [phone] Encounter Details Date Type Department Care Team (Late st Contact Info) Description 07/08/2024 Results Follow-Up [facility] Cardiology [address] [phone] Jaimee Moore NP [address] [facility] [address] [place] [address] Social History Tobacco Use Types Packs/Day [...] on file Legal Sex Male 2:51 AM LITHOGRAPHING MACHINE OPERATOR Gender Identity Not on file Sexual Orientation Not on file documented as of this encounter Plan of Treatment Not on file documented as of this encounter Visit Diagnoses Not on filedocumented in this encounter Care Teams Line Driver Relationship Specialty Start Date End Date Mackenzie Barr MD PCP - General Family Medicine 11/07/17 Gerard Knott MD Burling And Joining Supervisor Transplant 01/15/23 Rena Kaufman RN [address] [address] Registered Nurse Branch Director 01/15/23 documented as of this encounter
--- OUTSIDE RECORDS SUMMARY | 2024-07-26 18:53 | XMS_ITS | Clinical Summary ---
Author Organization [facility] Address [address] [place] [address] Care Team Providers Care Elementary School Director Name Role Phone Mackenzie Barr MD Primary Care Provider [phone] Allergies No known active allergies Medications MAGNESIUM [...] Data STL ABSTRACTION Provider, Abstract 07/07/2024 Abstract [facility] Luis Antonio [address] [place] [address] Jens Healy MD 06/23/2024 External [...] Description 08/03/2024 11:00 AM CDT Office Visit [facility] Luis Antonio [address] [place] [address] Jens Healy MD [address] [facility] [address] [place] [address] Health Maintenance Due Date Last Done Comments DTAP/TDAP/TD VACCINES (1 - Tdap) 02/14/1959 ZOSTER VACCINE (1 of 2) 02/14/1990 PNEUMOCOCCAL VACCINE 50+ YEA RS (2 of 2 - PPSV23) 06/20/2011 04/25/2011 RSV VACCINE (60+ or ) (1 - 1-dose 75+ series) 02/14/2015 INFLUENZA VACCINE (#1) 2023 6, 01/10/2015, 04/29/2013, Additional history exists Medicare [place] ([place]) Preventative Visit/Annual Wellness Visit 05/05/2024 Insurance [facility] [id number] Care Teams Elementary School Director Relationship Specialty Start Date End Date Mackenzie Barr MD [address] [place] [phone] PCP - General Family Practice 12/22/23
--- OUTSIDE RECORDS SUMMARY | 2024-07-26 18:53 | XMS_ITS | Referral Summary ---
Author Organization [facility] Address [address] [place] [address] Care Team Providers Care Cargo Station Worker Name Role Phone Mackenzie Barr MD Primary Care Provider [phone] Gerard Knott MD Unavailable Rena Kaufman RN Unavailable [phone] Encounters Date Type Department Care Team Description 07/08/2024 Results Follow-Up [facility] Cardiology [address] [place] [address] [place] [phone] Jaimee Rodriguez NP 07/06/2024 2:00 PM FREELANCE DESIGNER Ancillary Procedure [facility] Cardiology [address] [place] [address] [place] [phone] Nonischemic cardiomyopathy (HCC) 06/30/2024 1:30 PM FREELANCE DESIGNER Office Visit [facility] Orthopaedic Surgery 9 [facility] 2nd Floor [address] [place] [address] Katheryn Glez PA Primary osteoarthritis of both knees (Primary Dx) 06/22/2024 9:30 AM FREELANCE DESIGNER Office Visit [facility] Medical [facility] Cardiology [address] [place] [address] [place] [phone] Prasanna Goldman MD Paroxysmal atrial fibrillation (HCC) (Primary Dx); Nonrheumatic tricuspid valve regurgitation; Nonischemic cardiomyopathy (HCC); Coronary artery disease involving [place] coronary artery of [place] heart without angina pectoris; Chronic anticoagulation from [...] Date At risk for amiodarone toxicity with intermediate u se 05/27/2023 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 [...] 0 10/26/2018 Coronary artery disease invo lving [place] coronary artery of [place] heart without angina pectoris 10/26/2018 Mitral valve insufficiency 10/26/2018 Primary osteoarthritis of left hip 10/09/2018 Overview (10/09/2018): Added automatically from request for surgery [id number] Malignant neoplasm of prostate 09/22/2009 Overview (08/14/2017): Description: s/p cryoablation 6/14/10; [place] 7. PSA at diagnosis=7.05 Resolved Problems Problem [...] on file Legal Sex Male 2:51 AM FREELANCE DESIGNER Gender Identity Not on file Sexual Orientation Not on file Last Filed Vital Signs Vital Sign Reading Time Taken Comments Blood Pressure 122/68 06/22/2024 10:09 AM FREELANCE DESIGNER Pulse 63 06/22/2024 10:09 AM FREELANCE DESIGNER Temperature 36.5 C (97.7 F) 05/23/2020 2:58 PM FREELANCE DESIGNER Respiratory Rate 18 03/03/2019 11:22 AM CDT Oxygen Saturation 97% 06/22/2024 10:09 AM FREELANCE DESIGNER Inhaled Oxygen Concentration - - Weight 109.8 kg (242 lb) 06/22/2024 10:09 AM FREELANCE DESIGNER Height 190.5 cm (6' 3 ) 06/22/2024 10:09 AM FREELANCE DESIGNER Body Mass Index 30.25 06/22/2024 10:09 AM FREELANCE DESIGNER Plan of Treatment Not on file Medical Devices Implanted Type Area Clay Processing Labourer Device Identifier Shelf Expiration Date Model / Serial / Lot [employer] [id number] Procotyl Prime 56mm Shell Acetabular Sterile - S0 - [id number] Implanted:Qty: 1 on 03/01/2019 by Lawrence Goss MD at [facility] Other - see comments Left: Hip [employer] 10/27/2026 [id number] / 0 / [id number] [employer] [id number] Procotyl Prime 36mm Liner Acetabular Sterile Latex Free - S0 - [id number] Implanted:Qty: 1 on 03/01/2019 by Lawrence Goss MD at [facility] Other - see comments Left: Hip [employer] 04/22/2026 [id number] / 0 / [id number] [employer] [id number] Profemur Tl Classic Long Varus Neck Hip 8d 7 Stem Femoral Sterile - S0 - [id number] Implanted:Qty: 1 on 03/01/2019 by Lawrence Goss MD at [facility] Other - see comments Left: Hip [employer] 03/04/2023 [id number] / 0 / [id number] [employer] [id number] Dynasty Lineage 6.5mm 25mm Acetabular Screw Bone Biofoam - S0 - [id number] Implanted:Qty: 1 on 03/01/2019 by Lawrence Goss MD at [facility] Screw Left: Hip [employer] 11/14/2025 [id number] / 0 / [id number] [employer] [id number] Dynasty Lineage 6.5mm 35mm Acetabular Screw Bone Biofoam - S0 - [id number] Implanted:Qty: 1 on 03/01/2019 by Lawrence Goss MD at [facility] Screw Left: Hip [employer] 02/01/2022 [id number] / 0 / [id number] [employer] [id number] 36mm -3.5mm 04/17 Short Neck Taper Head Femoral Biolox Delta - [id number] Implanted:Qty: 1 on 03/01/2019 by Lawrence Goss MD at [facility] Left: Hip [employer] 10/14/2026 [id number] / / [id number] Procedures Procedure Name Priority Date/Time Associated Diagnosis Comments TRANSTHORACIC ECHO (TTE) COMPLETE W DOPPLER/CF WO CONTRAST Routine 07/06/2024 2:35 PM FREELANCE DESIGNER Nonischemic cardiomyopathy (HCC) [place] ARTHROCENTESIS ASPIR&/INJ MAJOR JT/BURSA W/O US Routine 06/30/2024 1:30 PM FREELANCE DESIGNER Primary osteoarthritis of both knees from Last 3 Months Results * TRANSTHORACIC ECHO (TTE) COMPLETE W DOPPLER/CF WO CONTRAST (07/06/2024 2:35 PM FREELANCE DESIGNER) Anatomical Region Laterality Modality Ultrasound 07/06/2024 1:52 PM FREELANCE DESIGNER Narrative 07/07/2024 8:46 AM FREELANCE DESIGNER [facility] Medical Group Cardiology [address] [facility] [address] [address] [address] [facility] [address], [place] [address] P:[phone] P:[phone] Echocardiographic Report Patient Name: YONATHAN PEDERSEN E : 1940 Study Date: 07/06/2024 1:52:17 PM Gender: M Tech: Location: [facility] Provider: JAIMEE RODRIGUEZ Height(Cm): 190 [...] FINDINGS: Interpretation Site: Exam was interpreted at [facility]. Left Ventricle: Definity contrast agent used to [...] Electronically Signed By: Zeyad Amezquita MD, [facility] 07/07/2024 8:45:32 AM FREELANCE DESIGNER Procedure Note Zeyad Amezquita MD - 07/07/2024 [facility] Medical Group Cardiology [address], [place] [address] [address] [facility] [address], [place] [address] P:[phone] P:[phone] Echocardiographic Report Patient Name: YONATHAN PEDERSEN E : 1940 Study Date: 07/06/2024 1:52:17 PM Gender: M Tech: Location: [facility] Provider: JAIMEE RODRIGUEZ Height(Cm): 190 [...] FINDINGS: Interpretation Site: Exam was interpreted at [facility]. Left Ventricle: Definity contrast agent used to [...] Electronically Signed By: Zeyad Amezquita MD, [facility] 07/07/2024 8:45:32 AM FREELANCE DESIGNER Jaimee Rodriguez NP CV ECHO PROCEDURES Final Result * [place] ARTHROCENTESIS ASPIR&/INJ MAJOR JT/BURSA W/O US (06/30/2024 1:30 PM FREELANCE DESIGNER) Narrative Katheryn Glez PA - 06/30/2024 1:30 PM FREELANCE DESIGNER Katheryn Glez PA 06/30/2024 2:01 PM Large [...] Final Result from Last 3 Months Insurance [facility] MEDICARE ADVANTAGE [facility] MEDICARE ADVANTAGE [facility] MEDICARE ADVANTAGE Advance Directives For more information, please contact: [phone] * Full Code (Latest Code Status on File) Date Activated Date Inactivated Comments 03/01/2019 3:44 PM 03/03/2019 5:38 PM Care Teams Cargo Station Worker Relationship Specialty Start Date End Date Mackenzie Barr MD PCP - General Family Medicine 11/07/17 Gerard Knott MD Telecommunications Operator Transplant 01/15/23 Rena Kaufman, RN [address] [facility] [address] [place] [address] Registered Nurse Package Crimper 01/15/23
--- OUTSIDE RECORDS SUMMARY | 2024-07-26 18:53 | XMS_ITS | Encounter Summary ---
Author Organization [facility] Healthcare Address [address] [place] [address] Care Team Providers Care Metal Crafts Teacher Name Role Phone Mackenzie Barr MD Primary Care Provider [phone] Gerard Knott MD Unavailable [phone] Rena Kaufman RN Unavailable Encounter Details Date Type Department Care Team (Late st Contact Info) Description 04/12/2021 Telephone [facility] Radiology [address] [place] [address] Elsa Gustafson, FIRE WATCHMAN [address] [facility] [address] [place] [address] Social History Tobacco Use Types Packs/Day Years Used Date Smoking Tobacco: Never Smokeless Tobacco: Former Quit: 09/2018 Alcohol Use Standard Drinks/Week Comments Yes 2 (1 standard drink = 0.6 oz pur e alcohol) Ocassionally Sex and Gender Information Value Date Recorded Sex Assigned at Not on file Legal Sex Male 2:51 AM HIGH SCHOOL BAND DIRECTOR Gender Identity Not on file Sexual Orientation Not on file documented as of this encounter Plan of Treatment Not on file documented as of this encounter Visit Diagnoses Not on filedocumented in this encounter Care Teams Metal Crafts Teacher Relationship Specialty Start Date End Date Mackenzie Barr MD PCP - General Family Medicine 11/07/17 Gerard Knott MD Meter/Relay Technician Transplant 01/15/23 Rena Kaufman, RN [address] [address] Registered Nurse Education Department Registrar 01/15/23 documented as of this encounter
--- OUTSIDE RECORDS SUMMARY | 2024-07-26 18:53 | XMS_ITS | Clinical Summary ---
Author Organization [facility] Address [address] [place] [address] Care Team Providers Care Industrial Maintenance Repairer Name Role Phone Unavailable Primary Care Provider [...] Comments Blood Pressure 128/75 06/12/2012 10:36 AM TEACHING MANAGER Pulse 52 06/12/2012 10:36 AM TEACHING MANAGER Temperature - - Respiratory Rate 18 06/12/2012 10:36 AM TEACHING MANAGER Oxygen Saturation - - Inhaled Oxygen Concentration - - Weight 104.3 kg (230 lb) 06/12/2012 10:36 AM TEACHING MANAGER Height 190.5 cm (6' 3 ) 06/12/2012 10:36 AM TEACHING MANAGER Body Mass Index 28.75 06/12/2012 10:36 AM TEACHING MANAGER Plan of Treatment Health Maintenance Due Date [...]
--- OUTSIDE RECORDS SUMMARY | 2024-07-26 18:53 | XMS_ITS | Clinical Summary ---
Author Organization [facility] Address [address] [place], [address] [address] Phone Care Team Providers Care Radiology Services Manager Name Role Phone Mackenzie Barr MD Primary Care Provider [phone] Social History Tobacco Use Types Packs/Day Years Used Date Smoking Tobacco: Never Assessed Sex and Gender Information Value Date Recorded Sex Assigned at Not on file Legal Sex Male 8:05 AM TREASURY SPECIALIST Gender Identity Not on file Sexual Orientation [...] to complete this topic Insurance MEDICARE C [facility] on file Care Teams Radiology Services Manager Relationship Specialty Start Date End Date Mackenzie Barr MD [address] [place] [address] PCP - General Family Medicine 06/09/18
== END 2024-07-26 18:40 | disposition home or self-care (01) ==
PROVIDERS: Emergency Provider Physician Assistant; PCP Family Medicine
DX: S82.62XA Displaced fracture of lateral malleolus of left fibula, initial encounter for closed fracture (principal); X58.XXXA Exposure to other specified factors, initial encounter; Z79.82 Long term (current) use of aspirin; I48.91 Unspecified atrial fibrillation; Z79.01 Long term (current) use of anticoagulants; J96.11 Chronic respiratory failure with hypoxia; Z99.81 Dependence on supplemental oxygen; Z85.46 Personal history of malignant neoplasm of prostate; I10 Essential (primary) hypertension; E78.2 Mixed hyperlipidemia; G47.33 Obstructive sleep apnea (adult) (pediatric)
CPT/HCPCS: 29515; 99283

== ENCOUNTER 2024-10-27 10:42 | Outpatient (CLI) | payer MEDICARE, SELFPAY ==
--- NOTE | ~2024-10-27 | US_ITS ---
EXAMINATION: US thyroid DATE: 10/27/2024 10:55 INDICATION: Thyroid disorder TECHNIQUE: Multiple ultrasound images of the thyroid were obtained. COMPARISON: 04/14/2023 FINDINGS: The right thyroid lobe measures 5.3 x 1.6 x 3.2 cm. The left thyroid lobe measures 4.1 x 1.6 x 2.2 c m. Thyroid isthmus measures 7 mm in thickness. No significant interval change in a 1.3 cm solid hypoe choic wider than tall nodule in the left thyroid lobe with smooth to ill-defined margins and without echogenic foci. (TI-RADS 4, moderately suspicious , FNA if >=1.5 cm, annual followup is >=1 cm). No s ignificant change in size of a 2.8 cm mixed solid and cystic isoechoic nodule which is wider than sylvie l with smooth margins and without echogenic foci (TI-RADS 2, not suspicious, no FNA recommended). The re is normal echotexture, echogenicity and vascular flow throughout the remainder of the thyroid raquel marte IMPRESSION: 1. No significant interval change in 2.8 cm TI RADS 2 and 1.3 cm Ti RADS 4 nodules for which annual f ollow-up ultrasound would be recommended. Reviewed, dictated and finalized at location A. IMPRESSION: 1. No significant interval change in 2.8 cm TI RADS 2 and 1.3 cm Ti RADS 4 nodu les for which annual follow-up ultrasound would be recommended.
== END 2024-10-27 10:43 | disposition home or self-care (01) ==
LOC: GOSHIMG 10:42
PROVIDERS: PCP Otolaryngology; Visit Provider Otolaryngology
DX: E07.9 Disorder of thyroid, unspecified (principal)
CPT/HCPCS: 76536

== ENCOUNTER 2025-05-04 11:20 | Outpatient (CLI) | payer MEDICARE, SELFPAY ==
--- OUTSIDE RECORDS SUMMARY | 2011-01-29 01:30 | XMS_ITS | Continuity of Care Document ---
Author Organization [facility] Address [id number] [place] [address] [address] [place] [address] Phone Care Team Providers Care Braid Cutter Name Role Phone Ritchie Dunham MD Unavailable Unavailable Procedures Procedure Date CATARACT SURG W/IOL, 1 STAGE CATARACT SURG W/IOL, 1 STAGE EYE EXAM, NEW PATIENT OPHTHALMIC BIOMETRY OPHTHALMIC BIOMETRY OPHTHALMIC BIOMETRY Advance Directives Directive Yes / No Effective Date File Name No Information Encounters Encounter Description Practice Location Reason(s) For Visit Diagnoses Date Provider Providers Copied on [facility]counter [facility], [id number] [place], [place] [address], [place], [place], [id number], tel:[phone] [address] [place] [address] No Information 1 Roly Dugan. [address] [facility], [address], [place], [place], [id number], [place]. tel:[phone] Referring Provider: Ritchie Bloom, [address] [place] [address] [address], [place], [address]. tel:[phone] [facility], [address], [place], [place], [id number], [place] tel:[phone] [place] [address] No Information 1 Roly Dugan. [address] [facility], [address], [place], [place], [id number], [place]. tel:[phone] Referring Provider: Ritchie Bloom, [address] [facility] [address], [place], [address]. tel:[phone] [facility], [address], [place], [place], [id number], [place] tel:[phone] [facility] No Information 1 Roly Dugan. [address] [facility], [address], [place], [place], [id number], [place]. tel:[phone] Referring Provider: Ritchie Bloom, [address] [facility] [address], [place], [address]. tel:[phone] Family History Family Member Type Diagnosis Age At Onset No Information Payers Payer name Insurance type Covered democrat ID Authoriza tion(s) No Information Social History Type Description Quantity Date Captured Comments Sex Male Smoking Status No Information Chief Complaint And Reason For Visit No Information Reason For Referral Reason For Referral No Information History Of Present Illness Encounter Date Complaint History Of Prese nt Illness No Information Functional Status Date Functional Assessmen t No Information Instructions Date Instruction Additional Infor mation No Information Assessments Type Assessment Date No Information Patient Care Teams Name Effective Dates (start - stop) Status Members No Information
--- NOTE | ~2025-05-04 | XR_ITS ---
XR chest 2V 05/04/2025 11:37 Indication: Long-term use of amiodarone. Procedure: PA and lateral views of the chest Comparison: Comparison to multiple prior studies sequentially, with oldest reviewed study dated 11/29/2022. Findings: Shallow inspiration. 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 Cardiomegaly. There is atherosclerosis and ectasia of the aorta. No focal air space disease, pulmonary edema, pleural effusion or suspected pneumothorax. Impression: 1: No acute cardiopulmonary disease. Reviewed, dictated and finalized at location O. RT CHECKER Impression: 1: No acute cardiopulmonary disease.
--- OUTSIDE RECORDS SUMMARY | 2025-05-04 10:15 | XMS_ITS | Encounter Summary ---
Author Organization [facility] Healthcare Address [address] [place] [address] Care Team Providers Care Hod Carrier Name Role Phone Mackenzie Barr MD Primary Care Provider [phone] Gerard Knott MD Unavailable [phone] Rena Kaufman RN Unavailable [phone] Daisha Soto Unavailable Unavailable Reason for Referral * Procedure (Routine) - Authorized Specialty Diagnoses / Procedures Referred By Contac t Referred To Contact Diagnoses [facility] current use of amiodarone Procedures Pulmonary Function Test -External Prasanna Goldman MD [address] [facility] [address] [place] [address] [facility] [address] [place] [address] Phone: tel: fax: Referral ID Status Reason Start Date Expiration Date V isits Requested Visits Authorized [id number] Authorized 05/04/2025 06/03/2026 1 1 R COACH TOUR OPERATOR Reason for Visit * Reason Comments Cardiomyopathy PAF Coronary Artery Disease PHTN 6 mo f/u Encounter Details Date Type Department Care Team (Latest Contact Info) Description 05/04/2025 10:15 AM MOTOR COACH TOUR OPERATOR Office Visit [facility] Cardiology [address] [place] [address] Prasanna Goldman MD [address] [place] [address] Chronic anticoagulation (Primary Dx); Paroxysmal atrial fibrillation (HCC); Coronary artery disease involving cabazon coronary artery of cabazon heart without angina pectoris; Nonrheumatic tricuspid valve regurgitation; Pulmonary HTN (HCC); [facility] current use of amiodarone Social History Tobacco Use Types Packs/Day Years [...] on file Legal Sex Male 2:51 AM MOTOR COACH TOUR OPERATOR Gender Identity Not on file Sexual Orientation Not on file documented as of this encounter Last Filed Vital Signs Vital Sign Reading Time Taken Comments Blood Pressure 122/80 05/04/2025 10:30 AM MOTOR COACH TOUR OPERATOR Pulse 73 05/04/2025 10:30 AM MOTOR COACH TOUR OPERATOR Temperature - - Respiratory Rate - - Oxygen Saturation 98% 05/04/2025 10: 30 AM MOTOR COACH TOUR OPERATOR Inhaled Oxygen Concentration - - Weight 114.7 kg (252 lb 12.8 oz) 2024 10:30 AM MOTOR COACH TOUR OPERATOR Height 190.5 cm (6' 3) 05/04/2025 10:3 0 AM MOTOR COACH TOUR OPERATOR Body Mass Index 31.6 05/04/2025 10:30 AM MOTOR COACH TOUR OPERATOR documented in this encounter Functional Status * BP Location Answer Date of Assessment Author Left arm 05/04/2025 10:30 AM MOTOR COACH TOUR OPERATOR Mary Beth Randhawa MA * BP Location Answer Date of Assessment Author Left arm 05/04/2025 10:30 AM MOTOR COACH TOUR OPERATOR Mary Beth Randhawa MA documented as of this encounter Progress Notes * Prasanna oGldman MD - 05/04/2025 10:15 AM CST Images from the original note were not included. [facility]-Cardiology DATE OF VISIT: 05/04/2025 CHIEF COMPLAINT Chief Complaint Patient presents with Cardiomyopathy PAF Coronary Artery Disease PHTN 6 mo f/u HPI Yonathan Higgins is a 85 y.o. male with with a PMHx of asthma and BPH. He also reports a history of aheart murmur that was followed by a brazer helper induction in [facility] years ago. He was planningto have elective left hip replacement this coming December. He presented to [facility] emergency room on 10/07/2018 with complaint of palpitations. He had noticed some shortness of breath, weight gain and lower extremity edema over the last [address] Toth met him in consultation. 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 There were was no clear atrial fib or atrial flutter seen. [place] [address]. 2D echo showed night moderate concentric LVH mild LV enlargement,severe global LV systolic dysfunction with EF 25-30%, grade 1 diastolic dysfunction, moderate LAE, mild MAC and severe MR, severe pulmonary hypertension with RVSP 68 mmHg, moderate to severe TR. Chronicity of the MR was unknown and could not distinguish whether the cardiomyopathy was secondary to the severe MR or the severe MR was functional secondary to a primary LV dysfunction. Cardiac catheterization was performed by Dr. Bob showing a proximal LAD stenosis of 40-50%, a hazy lesion in the ostial left circumflex but with negative IFR, and a large dominant RCA with minimal diffuse irregularities. LVEDP was 25-30 mmHg. Therefore, cardiomyopathy was not ischemic in nature. He was given a LifeVest. He was counseled on sodium and fluid restrictions. Apnea link was positive and an outpatientsleep study was ordered. Magnesium and potassium were supplemented and he was discharged on 10/13/2018. He went back for repeat labs on 1 week later showing K of 4.5 and Mag of 2.0. (Dr. Toth specified a goal of K > 4 and Mag > 2). 10/26/18 HFU w/ CAT: He comes to the office with his daughter for hospital follow-up. He has been compliant with the LifeVest. Sleep study was performed on 10/22/18. He has been compliant with medication, checking daily weights, and restricting dietary sodium in oral fluids. According to his home scale he has lost 18 lb since discharge. He has not recorded any high heart rates and blood pressures are running systolic 100-130, diastolic 60. 11/16/18 CAT visit: Overall he has been feeling well, home weight is stable to 116-218 lb, home BP 100s over 60s, heart rate 60s. Still wearing LifeVest. Riding his stationary bicycle. Andres is scheduled for tomorrow. 12/08/18 CAT visit: Feeling pretty good, doing stationary bicycle for 10 min sessions. Home weight 218-220. Wants to get hip replacement, how soon can he do that? Doesn't want to wear a CPAP machine. 01/12/19 Feeling quite well except L hip pain. NO falls or dizziness. Cut out salt a lot he states. Edema much improved. No CP, palps, bleeding. Echo 01/2019 EF 40-45%. Jan meds, Only complaint is hip pain. Need to remain compliant with CPAP. 04/07/19 Feeling quite well, no CP or SOB. No dizziness, edema or falls. Still limited with hip pain. Energy is quite good, showing properties doing better, now one month post hip replacement. Light chains minimally elevated (kappa only) but ratio elevated at 2.0. Daughter notes was having PVC's while in hospital for hip surgery. Apparently he has been out of Metoprolol and Spironolactone for nearly a week. 07/19/19 CAT visit- echo performed 05/12/19 showed LVEF 50%, mild MR. Today the patient has no complaints or concerns. He uses a stationary bike or elliptical machine at home for 10 minutes intervals, was doing it almost every day but now just twice a week. He continues to work and is tolerating all activities he wants to do. He denies chest pain. He reports he feels rested and sleeps well at night. 11/02/19 Feeling great. Energy good, staying active working daily, denies any problems. Sometimes gets tired and takes a nap and is great again. No dizziness, falls, SOB, palps or CP. No edema. Jan meds. Very happy with how he is feeling and things are going. Quite mobile, still taking ASA 325mg BIDfrom post op ORtho hip replacement. He is not wearing CPAP. 05/09/20 States he is feeling well, energy is good, has to rest on occasion, not able to push throughlike he used to but stable and is doing well. Notes he sits down and can doze off pretty easily. Frequent nocturnal urination he states and lets out pets at night too. Not wearing CPAP. No CP, CISNEROS, palps, dizziness, or falls. 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 Denies edema of which he is aware. Jan meds. BP and HR documented on stack of paper towels wellcontrolled BP 110-120 and HR 70-80's, 11/14/20 states has been on coffee diet supplement past 6 weeks drinks 2-3 cups coffee daily and only one with [employer] supplement packet. Has lost 16lbs but more recently more dizzy with positionchanges and BP lower. Otherwise, feeling well except back pain, R knee pain. No falls, bleeding, palps, CP, SOB. He is not wearing CPAP. Gets tired at times rests then recoversafter a few minutes, not exercising as he broke his bicycle other than ADL's. 05/16/22 HAs not been seen since 11/2020. Admitted to [facility] 05/2022 c/o aching fatigue, neg COVID found to be in AF with RVR, more SOB CXR with pneumonia completed Amoxicillin. HR controlled on IV Dilt eventual inc in Toprol XL to 200mg daily, HR control started on Eliquis 5mg BID. Echo EF 40-45% severe NINA mild to mod TR/MR. Daughter with pt states he had run out of Atorvastatin and Lisinopril and did not call or return to the office, canceled his prior appointments. BP higher prior to morningmeds. OCc dizziness if moves too quickly but no falls or near syncope. He does tire easily and runsout of steam and SOB still. 06/17/22 CAT visit- here with his daughter, reports feeling well, no concerns, has decided he wants to pursue cardioversion. Missed 2 doses of Eliquis last week. Denies any falls. Still staying activeselling real estate. 07/22/22 CAT visit-he underwent cardioversion on 07/16/22 but it was unsuccessful, converting to a narrow complex tachycardia retrograde P waves and ventricular rate in the 130s. Three more attempts were made up to 360 joules but were unsuccessful. He was admitted and put on IV amiodarone and kept overnight. He was transitioned to oral amiodarone at 200 mg daily. He returns to the office today withhis daughter for follow-up. When he 1st got home last week he felt lightheaded and he wears out easily, was short of breath but said it was ???reasonable.?? However last night he became more short of breath and could not sleep well. He has coughed a couple of times and felt a little lightheaded. He does have some chest discomfort with breathing. ECG showed sinus arrhythmia, first-degree AVB, RAD, QTC 450 MS, rate 71 beats per minute 07/25/22 CAT visit-at his office visit 3 days ago I sent him for a chest x-ray which showed extensive bilateral pneumonia. We contacted his PCP to ask her to treat this. She started the patient on cefdinir and saw him in the office this morning. Because he is hypotensive she directed him to hold thelisinopril. She recommended he go to the ER to get admitted for treatment of the pneumonia. Today he reports that he feels the same as he did earlier in the week with the chief complaint being fatigue/weakness. 08/15/22 CAT visit- he was hospitalized for the pneumonia 07/25/22-08/03/22. He was also treated for hyponatremia (Na 121). Furosemide was held and he was given a fluid restriction and started on sodium tablets. By the time of discharge Na had improved to 126. Home health care was calling the office after he was discharged because blood pressure was low and I gave him instruction to hold metoprolol if systolic BP was below 100. Today he returns with his daughter and states he feels fine he wants toknow how long he has to be on oxygen. 10/29/22 Went in to detail re preparing for 6 min walk test, his knee pain and musty taste eating oranges upset his stomach so a little nauseous. Today is a rough day, breathing is more problematic has gained 32lbs since 08/2022. Taken off Lasix due to hyponatremia went back on Lasix 20mg once daily since last Friday. He did not call about his weight gain. He says only SOB past couple of days but weight is not going down despite starting back on Lasix. He is not following a low sodium diet. He islimiting water intake to 40 oz or so he states. Wearing O2 only at night he does not wear typicallywith activity not seeing Pulm. He admits he did not call because he was afraid he would be told to go to hospital. Here with his daughter. On his own he increased his O2 from 2L to 5L as he was tiredand SOB but did not check O2 level with that. He is not wearing O2 currently. Eliquis 5mg BID. Taking Toprol XL 25mg daily as SBP>100mmHg. 11/20/2022 Hospital follow-up with MANDY Higgins comes to the office today for a hospital follow up visit. He recently had a lengthy hospitalization because of decompensated heart failure. Required pressor support at one point in order to be diuresed. Attempted to reintroduce GDMT once again but had significant hypotension. Eventually, we were able to diurese him some. He was also treated for pneumonia. He has been feeling okay since his discharge from the hospital but is reaccumulating some worsening lower extremity edema. His breathing is stable however. No palpitations, syncope, pre-syncope, chest pain. Working with home PT. 12/04/2022 follow-up with Oxana Chun, MANDY Higgins comes to the office today for a follow up visit. Doing much better since his last office visit. He is diuresing well on increased dose of furosemide and has lost 20 lbs in 2 weeks. Lower extremity swelling has significantly improved. He does stillhave some dyspnea with exertion but no shortness of breath at rest. Still working with home physical therapy. He did have a ground level mechanical fall at home last week. He states that he tripped over the rug when he was letting the CT outside. He did come to the emergency department to be workedup because he hit his head. He has some bruising on his arms and back in a pulled muscle in his back but no significant injuries or bleeding. 12/18/2022 follow-up with HOME CARE LIAISON - Yonathan Bravo Yessica comes to the office today for short interval follow up. Significant improvement in edema since his last visit. 33lb weight loss. Feeling great. Denies anychest pain, palpitations, syncope. Upcoming appt. With Dr. Knott at [facility]. 01/24/23 feeling much better. Here with his daughter who also says he is doing well. He says he doesPT and wearing O2. He has been able to do some yard work as well.energy better, breathing much better. They are happy. Still taking Midodrine 10mg TID. Seeing Dr Knott pt getting PYP scan for Amyloidosis 01/27/23. He is doing his exercises, getting up and down very well. Off Metolazone and Toprol XLdue to hypotension. He remains on LAsix 40mg daily. Edema is much improved and remains on Amiodarone 200mg daily and KCl 20MEQ daily. O2 he says are at least mid 90's without O2 during day now and feels well. 05/27/23 says he continues to feel quite well, denies CISNEROS, dizziness, falls or palps. No bleeding. No CP. He says he is tolerating his meds and taking. Off O2 no issues they are picking it up. Minimaledema. Feels really good overall. Here with daughter who agrees. Saw DR Knott who did not feel he had AL amyloidosis and repeat kappa/lambda light chains in August 2023 (6 mo), neg PYP scan as well. 10/20/23 office visit with HOME CARE LIAISON: He is here for routine follow-up. He has no concerns. Home weight hasfluctuated 222 to 228 lb, BP ranging systolic 110-122, diastolic 70s, heart rate 61-72. He denies bleeding problems. He wears compression socks to the knees most days. He made the decision to no longer use his CPAP because he felt he was sleeping worse trying to use it. 01/20/2024 office visit with HOME CARE LIAISON: He is here for routine follow-up and has no specific concerns. He brought a record of his home blood pressures and weights. His weight fluctuates up and down +/- 6-8 lb over the past several weeks. Blood pressures ranged systolic 120s to 130s, diastolic 70s to 80s. He bruises easy but denies bleeding problems. He has some CISNEROS but nothing progressing. He denies lightheadedness, syncope, chest pain or palpitations. He had consultation with Dr. Healy yesterday, had labs drawn and will have follow-up in 2 weeks on those results. Follow-up note 06/22/2024: Does have some lower extremity swelling which comes and goes. Recently though he had some worsening swelling over the past couple of weeks. He has been eating more salt than usual. No chest pain, shortness breath, syncope, bleeding problems, paroxysmal nocturnal dyspnea or orthopnea. No palpitations. Follow-up with HOME CARE LIAISON 10/26/2024: He has no concerns today. He denies any new shortness of breath. Lower extremity edema is mild. He denies bleeding problems but bruises very easily. His daughter asked about the need to remain on Eliquis. Follow-up note 05/04/2025: He returns today with some worsening shortness of breath as well as someedema. He is drinking up to a gal of water a day as well as sprinkling and some salt or perceived salt substitute. He states that his shortness breath occurs randomly. He denies any syncope, presyncope, paroxysmal nocturnal dyspnea, orthopnea, chest pain. MEDICAL HISTORY Past Medical History: Diagnosis Date Arthritis Asthma BPH (benign prostatic hyperplasia) Cancer (HCC) prostate, cryogenic Motion sickness NICM (nonischemic cardiomyopathy) (HCC) MARGARETTE (obstructive sleep apnea) Waiting on CPAP machine currently. PSVT (paroxysmal supraventricular tachycardia) Social History Tobacco Use Smoking status: Never Passive exposure: Past Smokeless tobacco: Former Types: Chew Quit date: 09/02/2018 Substance and Sexual Activity Drug use: Never Sexual activity: Not Currently Partners: Female Alcohol Use: Not At Risk (02/25/2023) AUDIT-C Frequency of Alcohol Consumption: 2-4 times a month Average Number of Drinks: 1 or 2 Frequency of Binge Drinking: Never Family History Problem Relation Age of Onset Heart failure Mother Alcohol abuse Father Seizures Brother Cancer Brother Cancer Brother Cancer Brother Anesthesia problems Neg Hx MEDICATIONS Medication List Accurate as of May 04, 2025 10:36 AM. If you have any questions, ask your nurse or doctor. CONTINUE taking these medications amiodarone 200 mg tablet Commonly known as: PACERONE Take 1 tablet by mouth once daily ascorbic acid with noel hips 500 mg tablet,chewable Generic drug: ascorbic acid aspirin 81 mg enteric coated tablet Commonly known as: Adult Low Dose Aspirin Take 1 tablet (81 mg total) by mouth daily atorvastatin 20 mg tablet Commonly known as: LIPITOR COQ10 (UBIQUINOL) ORAL Eliquis 5 mg tablet Generic drug: apixaban Take 1 tablet by mouth twice daily furosemide 40 mg tablet Commonly known as: LASIX Take 1 tablet (40 mg total) by mouth daily MAGNESIUM ORAL midodrine 2.5 mg tablet Commonly known as: PROAMATINE Take 1 tablet (2.5 mg total) by mouth 2 (two) times a day potassium chloride ER 10 mEq CR tablet Commonly known as: KLOR-CON Take 2 tablets by mouth once daily * tamsulosin 0.4 mg extended release capsule Commonly known as: FLOMAX Take 1 capsule (0.4 mg total) by mouth 2 (two) times a day * tamsulosin 0.4 mg extended release capsule Commonly known as: FLOMAX Take 1 capsule by mouth twice daily vitamin B complex capsule * This list has 2 medication(s) that are the same as other medications prescribed for you. Read thedirections carefully, and ask your doctor or other care provider to review them with you. ALLERGIES No Known Allergies REVIEW OF SYSTEMS Review of Systems Constitutional: Negative for weight gain and weight loss. HENT: Negative for hearing loss. Eyes: Negative for blurred vision and visual disturbance. Cardiovascular: Positive for leg swelling. Negative for chest pain, claudication, dyspnea on exertion, irregular heartbeat, near-syncope, orthopnea, palpitations, paroxysmal nocturnal dyspnea and syncope. Respiratory: Negative for cough, hemoptysis, shortness of breath, snoring, sputum production and wheezing. Endocrine: Negative for cold intolerance, heat intolerance and polyuria. Hematologic/Lymphatic: Does not bruise/bleed easily. Skin: Negative for color change and rash. Musculoskeletal: Negative for falls, joint pain, joint swelling and myalgias. Gastrointestinal: Negative for abdominal pain, heartburn, nausea and vomiting. Genitourinary: Negative for dysuria. Neurological: Negative for dizziness, focal weakness, headaches, light- headedness, numbness and weakness. Psychiatric/Behavioral: Negative for depression. The patient is not nervous/anxious. Allergic/Immunologic: Negative for environmental allergies. All other systems reviewed and are negative. PHYSICAL EXAM Blood pressure 122/80, pulse 73, height 190.5 cm (6' 3), weight 114.7 kg (252 lb 12.8 oz), SpO2 98%. Body mass index is 31.6 kg/m??. Physical Exam Vitals reviewed. Constitutional: Appearance: Normal appearance. HENT: Head: Normocephalic and atraumatic. Nose: Nose normal. Eyes: General: No scleral icterus. Conjunctiva/sclera: Conjunctivae normal. Cardiovascular: Rate and Rhythm: Normal rate and regular rhythm. Pulses: Intact distal pulses. Heart sounds: Normal heart sounds. No murmur heard. No friction rub. No gallop. Pulmonary: Effort: Pulmonary effort is normal. No respiratory distress. Breath sounds: Normal breath sounds. No wheezing or rales. Chest: Chest wall: No tenderness. Abdominal: General: Bowel sounds are normal. There is no distension. Palpations: Abdomen is soft. Tenderness: There is no abdominal tenderness. Musculoskeletal: General: Swelling present. Normal range of motion. Cervical back: Neck supple. Skin: General: Skin is warm and dry. Neurological: Mental Status: He is alert and oriented to person, place, and time. Psychiatric: Mood and Affect: Mood normal. LABS AND OTHER DIAGNOSTIC TESTS Lab Results Component Value Date WBC 8.2 03/03/2019 HGB 9.7 (L) 03/03/2019 HCT 29.3 (L) 03/03/2019 MCV 93.6 03/03/2019 Chemistry Component Value Date/Time SODIUM 143 02/18/2023 1243 POTASSIUM 4.3 03/03/2019 0035 CHLORIDE 106 02/18/2023 1243 CO2 26 02/18/2023 1243 BUNSER 25 02/18/2023 1243 CREATININE 1.02 02/18/2023 1243 CREATININE 1.00 12/17/2022 0000 GLUCOSE 110 (H) 02/18/2023 1243 Component Value Date/Time CALCIUM 8.6 02/18/2023 1243 ALKPHOS 45 02/04/2019 1251 AST 20 02/04/2019 1251 ALT 16 02/04/2019 1251 BILITOT 0.5 02/04/2019 1251 No results found for: CHOL No results found for: HDL No results found for: LDL] No results found for: LDLCALC No results found for: TRIG No results found for: CHOLHDL EKG Echo 01/06/2019 2D Echocardiogram: Conclusions: Moderate concentric left ventricular hypertrophy. Mild enlargement of left ventricle cavity. Moderate global left ventricular systolic dysfunction. Impaired diastolic relaxation Grade I. Ejection fraction is visually estimated at 40-45 %. Ejection fraction is measured at 42 %. These segments of the LV are hypokinetic: basal inferior segment and inferolateral segment. Normal right ventricular systolic function. Mild enlargement of right ventricle. There is moderate enlargement of left atrium. There is mild enlargement of right atrium. Mitral valve leaflets appear mildly thickened. Moderate mitral valve regurgitation. Aortic cusps appear mildly sclerotic. Mild aortic valve regurgitation. Moderate pulmonary hypertension based on right ventricular systolic pressure. Estimated peak RVSP is 49 mmHg. Mild tricuspid regurgitation. Mild pulmonic regurgitation. Normal sinus rhythm. PVCs. 05/12/2019 2D Echo: Conclusions: Moderate concentric left ventricular hypertrophy. Borderline enlargement of left ventricle cavity. Left ventricular systolic function at the lower limit of normal. Impaired diastolic relaxation Grade I. Ejection fraction is visually estimated at 50 %. Mild enlargement of left atrium. Mitral valve leaflets appear mildly thickened. Mild mitral valve regurgitation. Mild aortic sclerosis with mild stenosis. Valve area of 2.4 cm2. Mild aortic valve regurgitation. Mild pulmonary hypertension , RVSP about 42 mmHg. Mild tricuspid and pulmonic regurgitation. Sinus rhythm. 05/23/20 2D Echo: Conclusions: Normal left ventricular systolic function. No focal wall motion abnormalities. Mild concentric left ventricular hypertrophy. Mild enlargement of left ventricle cavity. Normal left ventricular diastolic function. Ejection fraction is visually estimated at 60-65 %. There is mild enlargement of left atrium. Moderate mitral valve regurgitation. Mild aortic valve regurgitation. Moderate pulmonary hypertension based on right ventricular systolic pressure. Estimated peak RVSP is 55 mmHg. Mild tricuspid regurgitation. Mild pulmonic regurgitation. Aortic root is mildly dilated. Normal sinus rhythm. PVCs. The MR, PHTN are worse. Frequent V ectopy is seen including couplets. 10/16/22 2D Echo: Conclusions: Moderate concentric left ventricular hypertrophy. Moderate global left ventricular systolic dysfunction, worse in the inferoseptal segments. There is pseudonormal diastolic dysfunction Grade II. Ejection fraction is visually estimated at 35-40 %. Ejection fraction is measured at 43 %. . Global Longitudinal Strain is -10 %. GLS is low. There is some degree of apical sparring; consider cardiac amyloid. Moderate enlargement of right ventricle. Moderate right ventricular hypokinesis. Flattened Septum in diastole (D shaped left ventricle) consistent with RV volume overload. There is severe enlargement of left atrium. There is moderate enlargement of right atrium. Moderate to moderately severe eccentric mitral valve regurgitation. Trace to mild aortic valve regurgitation. Moderate to moderately severe tricuspid regurgitation. Mild pulmonic regurgitation. Severe pulmonary hypertension based on right ventricular systolic pressure. Estimated peak RVSP is 80 mmHg. Left pleural effusion seen. Dilated inferior vena cava with poor inspiratory collapse consistent with elevated right atrial pressures. Rhythm indeterminate. 02/10/23 EXAMINATION: MYOCARDIAL AMYLOID SCINTIGRAPHY (PLANAR/SPECT-CT) DATE OF STUDY: 02/10/2023 RADIOPHARMACEUTICAL: 30.62 mCi Tc-99m pyrophosphate (PYP) i.v. HISTORY: 82-year-old male with history of nonischemic cardiomyopathy, nonobstructive coronary disease and SVT with most recent echocardiogram on 10/16/2022 showing moderate concentric left ventricular hypertrophy, EF 35-40%. COMPARISON: None FINDINGS: Approximately 2.5 hours following administration of Tc-99m pyrophosphate, a planar image of the chest and upper abdomen was performed in the anterior projection, followed by SPECT/CT imaging of the chest. (The low-dose noncontrast CT images are used for attenuation correction and for fusion with emission SPECT images to allow for anatomical localization of SPECT findings and to better distinguish blood pool activity from myocardial uptake of the tracer.) On the planar image, tracer uptake within the region of the myocardium appears to be absent (grade 0). However, additional SPECT/CT images were subsequently obtained to better distinguish between blood pool activity and myocardial uptake, and to better detect small areas of abnormal uptake. SPECT/CT images show blood pool activity in the heart. After review of SPECT/CT images, myocardial uptake is assessed to be 0 on a 0-3 scale. Incidental findings on the low-dose CT images: Mild atherosclerotic calcifications of the aorta and splenic artery. Diffuse mild to moderate coronary calcifications. Spondylosis of the visualized spine. IMPRESSION: This study demonstrates no abnormal myocardial uptake of Tc-99m pyrophosphate (Grade 0). See comments below. ECHO 07/07/24 Definity echo contrast used. Moderate concentric left [...] hypertension, RVSP 42 mmHg. Mild tricuspid regurgitation. ASSESSMENT There are no diagnoses linked to this encounter. Heart failure with reduced ejection fraction (CMS/HCC) (HCC) (Primary) Compensated Nonischemic cardiomyopathy (CMS/HCC) (HCC) Normal by most recent echo Coronary artery disease involving cabazon coronary artery of cabazon heart without angina pectoris asymptomatic Plasma cell disorder Hypotension due to drugs on midodrine and symptomatically improved Paroxysmal atrial fibrillation (CMS/HCC) (HCC) in sinus rhythm and on anticoagulation At risk for amiodarone toxicity with penitentiary use Nonrheumatic mitral valve regurgitation Only mild by most recent echo Chronic anticoagulation no bleeding issues Long-term current use of amiodarone TSH and liver function normal in September 2024 Nonrheumatic tricuspid regurgitation Also only mild by most recent echo PLAN/RECOMMENDATIONS Spent time today talking to him about water consumption as well as salt use. No salt diet includingthe salted he is using in his water. Also encouraged him to reduce his water intake. He does have 2+ lower extremity edema today and have encouraged him to take an extra dose of furosemide 40 mg today as well as in 2 days in addition to his routine daily 40 mg daily. Pulmonary function study and chest x-ray because of amiodarone use. He is scheduled for an eye exam early next year Continue atorvastatin for CAD Continue Eliquis and amiodarone for his atrial fibrillation. Follow-up six months or sooner as clinically indicated Prasanna Goldman MD, [facility] R COACH TOUR OPERATOR documented in this encounter Plan of Treatment Scheduled Orders Name Type Priority Associated Diagnoses Orde r Schedule XR Chest Pa Lateral 2 Views Imaging Schedule Routine, Read Routine (OP Routine) [facility] current use of amiodarone Expected: 05/04/2025, Expires: 05/04/2026 Pulmonary Function Test -External PFT Routine termite control servicer current use of amiodarone 1 Occurrences starting 05/04/2025 until 05/04/2026 documented as of this encounter Visit Diagnoses Diagnosis Chronic anticoagulation- Primary Encounter for long-term (current) use of anticoagulants Paroxysmal atrial fibrillation (HCC) Atrial fibrillation Coronary artery disease involving cabazon coronary artery of cabazon heart without angina pectoris Nonrheumatic tricuspid valve regurgitation Pulmonary HTN (HCC) [facility] current use of amiodarone documented in this encounter Care Teams Hod Carrier Relationship Specialty Start Date End Date Mackenzie Barr MD PCP - General Family Medicine 11/07/17 Gerard Knott MD Oyster Harvester Transplant 01/15/23 Rena Kaufman RN [address] [address] Registered Nurse Front Maker 01/15/23 Daisha Soto Primary Funeral Prearrangement Counselor 01/20/25 documented as of this encounter
--- OUTSIDE RECORDS SUMMARY | 2025-05-04 11:38 | XMS_ITS | Clinical Summary ---
Author Organization [facility] Address [facility] [place] [address] Care Team Providers Care Animal Cop Name Role Phone Unavailable Primary Care Provider [...] Comments Blood Pressure 128/75 06/12/2012 10:36 AM BICYCLE TAXI DRIVER Pulse 52 06/12/2012 10:36 AM BICYCLE TAXI DRIVER Temperature - - Respiratory Rate 18 06/12/2012 10:36 AM BICYCLE TAXI DRIVER Oxygen Saturation - - Inhaled Oxygen Concentration - - Weight 104.3 kg (230 lb) 06/12/2012 10:36 AM BICYCLE TAXI DRIVER Height 190.5 cm (6' 3) 06/12/2012 10:36 AM BICYCLE TAXI DRIVER Body Mass Index 28.75 06/12/2012 10:36 AM BICYCLE TAXI DRIVER Plan of Treatment Health Maintenance Due Date Last Done Comments DTaP, Tdap and Td Vaccines ( 1 - Tdap) 02[birth year]14/1959 Pneumococcal Vaccine: 50+ Ye ars (1 of 1 - PCV) 02/14/1990 Zoster Vaccines (1 of 2) 02/14/1990 RSV Immunization or 60+ Years (1 - 1-dose 75+ series) 02/14/2015 COVID-19 Vaccine ( - 2024-2 6 season) 2025 Influenza Adult (#1) 2025 Hepatitis A Vaccines Aged Out No long er eligible based on patient's age to complete this topic Meningococcal B Vaccine Aged Out No l onger eligible based on patient's age to complete this topic Meningococcal Vaccine Aged Out No gurdeep gelacio eligible based on patient's age to complete this topic RSV Immunizations Under 20 Months Aged Out No longer eligible based on patient's age to complete this topic
--- OUTSIDE RECORDS SUMMARY | 2025-05-04 11:38 | XMS_ITS | Encounter Summary ---
Author Organization [facility] Healthcare Address [address] [place] [address] Care Team Providers Care Checker Loader Name Role Phone Mackenzie Barr MD Primary Care Provider [phone] Gerard Knott MD Unavailable [phone] Rena Kaufman RN Unavailable [phone] Daisha Soto Unavailable Unavailable Encounter Details Date Type Department Care Team (Late st Contact Info) Description 09/21/[address] 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 Gender Identity Not on file Sexual Orientation Not on file documented as of this encounter Plan of Treatment Not on file documented as of this encounter Procedures Procedure Name Priority Date/Time Associated Diagnosis Comments SCAN - LABS 09/21/2024 documented in this encounter Results * SCAN - LABS (09/21/2024) us Provider Scanning Edited Result - Final documented in this encounter Visit Diagnoses Not on filedocumented in this encounter Care Teams Checker Loader Relationship Specialty Start Date End Date Mackenzie Barr MD PCP - General Family Medicine 11/07/17 Gerard Knott MD Circular Distributor Transplant 01/15/23 Rena Kaufman RN [address] [address] Registered Nurse Career Information Specialist 01/15/23 Daisha Soto Primary Meat Department Manager 01/20/25 documented as of this encounter
--- OUTSIDE RECORDS SUMMARY | 2025-05-04 11:38 | XMS_ITS | Encounter Summary ---
Author Organization [facility] Healthcare Address [address] [place] [address] Care Team Providers Care Model Home Sales Greeter Name Role Phone Mackenzie Barr MD Primary Care Provider Gerard Knott MD Unavailable Rena Kaufman RN Unavailable [phone] Daisha Soto Unavailable Unavailable Encounter Details Date Type Department Care Team (Late st Contact Info) Description 04/12/2021 Telephone [facility] Radiology [address] [place] [address] Elsa Gustafson, JOB CHECKER [address] [facility] [address] [place] [address] Social History Tobacco Use Types Packs/Day Years Used Date Smoking Tobacco: Never Smokeless Tobacco: Former Quit: 09/2018 Alcohol Use Standard Drinks/Week Comments Yes 2 (1 standard drink = 0.6 oz pur e alcohol) Ocassionally Sex and Gender Information Value Date Recorded Sex Assigned at Not on file Legal Sex 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
--- OUTSIDE RECORDS SUMMARY | 2025-05-04 11:38 | XMS_ITS | Clinical Summary ---
[facility] Address [address] [place] [address] Care Team Providers Care Plugman Name Role Phone Mackenzie Barr MD Primary Care Provider [phone] Allergies No known active allergies Medications MAGNESIUM [...] Encounters Date Type Department Care Team Description 04/05/2025 External Device Data ST[facility] ABSTRACTION Provider, Abstract 04/05/2025 External Device Data ST[facility] ABSTRACTION Provider, Abstract 03/02/2025 External Device Data [facility] ABSTRACTION Provider, Abstract 03/02/2025 External Device Data ST[facility] ABSTRACTION Provider, Abstract 02/23/2025 External Device Data ST[facility] ABSTRACTION Provider, Abstract 02/22/2025 External Device Data ST[facility] ABSTRACTION Provider, Abstract 02/09/2025 2:30 PM CDT Office Visit [facility]3] Oncology and Hematology [facility] [address] [facility] [address] [place] [address] Jens Healy MD Chronic anemia (Primary Dx); Plasma cell disorder from Last 3 Months Family History Medical History Relation Name Comments Breast Cancer Child 1 No Known Problems Child 2 No Known Problems Father No Known Problems Mother Breast Cancer Sister Relation Name Status Comments Child 1 Alive Child 2 Alive Father Mother Sister Social History Tobacco Use Types Packs/Day Years Used Date Smoking Tobacco: Never Smokeless Tobacco: Former Chew Quit: 2020 Tobacco Cessation:Counseling Given: Not Answered Alcohol Use Standard Drinks/Week Comments Yes 0 (1 standard drink = 0.6 oz pur e alcohol) occasionally Sex and Gender Information Value Date Recorded Sex Assigned at Not on file Legal Sex Male 1:23 PM CDT Gender Identity Not on file Sexual Orientation Not on file Last Filed Vital Signs Vital Sign Reading Time Taken Comments Blood Pressure 126/75 02/09/2025 2:17 PM CDT Pulse 69 02/09/2025 2:15 PM CDT Temperature 36.5 C (97.7 F) 02/09/2025 2:15 PM CDT Respiratory Rate 16 02/09/2025 2:15 PM CDT Oxygen Saturation 96% 02/09/2025 2:15 PM CDT Inhaled Oxygen Concentration - - Weight 113.8 kg (250 lb 12.8 oz) 02/09/2025 2:15 PM CDT Height 185.4 cm (6' 1) 01/19/2024 10:3 0 AM CDT Body Mass Index 33.09 01/19/2024 10:30 AM CDT Plan of Treatment Upcoming Encounters Date Type Department Care Team (Late st Contact Info) Description 12/29/2025 10:15 AM CDT Office Visit [facility]3] Oncology and Hematology Luis Antonio [address] [place] [address] Jens Healy MD [address] [facility] [address] [place] [address] Health Maintenance Due Date Last Done Comments DTAP/TDAP/TD VACCINES (1 - Tdap) 02[birth year]14/1959 ZOSTER VACCINE (1 of 2) 02/14/1990 PNEUMOCOCCAL VACCINE 50+ YEA RS (2 of 2 - PPSV23, PCV20, or PCV21) 06/20/2011 04/25/2011 RSV VACCINE (60+ or ) (1 - 1-dose 75+ series) 02/14/2015 INFLUENZA VACCINE (#1) 2024 6, 01/10/2015, 04/29/2013, Additional history exists Insurance Care Teams Plugman Relationship Specialty Start Date End Date Mackenzie Barr MD [address] [place] [id number] PCP - General Family Practice 12/22/23
--- OUTSIDE RECORDS SUMMARY | 2025-05-04 11:38 | XMS_ITS | Clinical Summary ---
Author Organization [facility] Address [address], [address] [address] Phone Care Team Providers Care Library Manager Name Role Phone Mackenzie Barr MD Primary Care Provider [phone] Social History Tobacco Use Types Packs/Day Years Used Date Smoking Tobacco: Never Assessed Sex and Gender Information Value Date Recorded Sex Assigned at Not on file Legal Sex Male 8:05 AM OTOLOGIST Gender Identity Not on file Sexual Orientation Not on file Plan of Treatment Health Maintenance Due Date Last Done Comments Hepatitis C Virus (HCV) Screening 1940 TdaP Immunization 1940 Pneumococcal Immunization (5 0+ years) (1 of 1 - PCV) 02/14/1990 Zoster Immunization (1 of 2) 02/14/1990 Respiratory Syncytial Virus (RSV) Immunization (Adult) (1 - 1-dose 75+ series) 02/14/2015 Medicare Initial AWV [id number] 09/03/2023 Influenza Immunization (#1) 2025 SARS-COV-2 Immunization ( season) 2025 Hepatitis B Immunization Aged Out No longer eligible based on patient's age to complete this topic Human Papillomavirus (HPV) Immunization Aged Out No longer eligible b ased on patient's age to complete this topic Meningococcal Immunization (ACWY) Aged Out No longer eligible based on patient's age to complete this topic Rotavirus Immunization Aged Out No lo nger eligible based on patient's age to complete this topic Insurance MEDICARE [facility] on file Care Teams Library Manager Relationship Specialty Start Date End Date Mackenzie Barr MD [address] [place] [address] PCP - General Family Medicine 06/09/18
--- OUTSIDE RECORDS SUMMARY | 2025-05-04 11:38 | XMS_ITS | Clinical Summary ---
Author Organization [facility] Address [address] [place] [address] Care Team Providers Care Caustic Loader Name Role Phone Mackenzie Barr MD Primary Care Provider [phone] Gerard Knott MD Unavailable [phone] Rena Kaufman RN Unavailable [phone] Daisha Soto Unavailable Unavailable Allergies No known active allergies Medications aspirin [...] 1 tablet by mouth every morning Active ascorbic acid (ascorbic acid with noel hips) 500 mg tablet,chewable Acti ve tamsulosin (FLOMAX) 0.4 mg extended release capsuleIndications: History of urinary retention Take 1 capsule (0.4 mg total) by mouth 2 (two) times a day 180 capsule 4 Active potassium chloride ER 10 mEq CR tabletIndications:N onischemic cardiomyopathy (HCC) Take 2 tablets by mouth once daily 180 tablet 3 5 Active apixaban (Eliquis) 5 mg tablet Take 1 tablet by mouth twice daily 180 tablet 3 5 Active amiodarone (PACERONE) 200 mg tablet Take 1 tablet by mouth once daily 90 tablet 2 5 Active tamsulosin (FLOMAX) 0.4 mg extended release capsuleIndications: History of urinary retention Take 1 capsule by mouth twice daily 180 capsule 2 5 Active midodrine (PROAMATINE) 2.5 mg tabletIndications:H ypotension due to drugs Take 1 tablet (2.5 mg total) by mouth 2 (two) times a day 180 tablet 3 5 Active furosemide (LASIX) 40 mg tabletIndications:N onischemic cardiomyopathy (HCC) Take 1 tablet (40 mg total) by mouth daily 90 tablet 3 5 Active Active Problems Problem Noted Date Diagnosed Date correction current use of amiodarone 05/04/2025 At risk for amiodarone toxicity with watermaster u se 05/27/2023 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 [...] 0 10/26/2018 Coronary artery disease invo lving tazlina coronary artery of tazlina heart without angina pectoris 10/26/2018 Mitral valve insufficiency 10/26/2018 Primary osteoarthritis of left hip 10/09/2018 Overview (10/09/2018): Added automatically from request for surgery [id number] Malignant neoplasm of prostate 09/22/2009 Overview (08/14/2017): Description: s/p cryoablation 10/16/09; Curry 7. PSA at diagnosis=7.05 Resolved Problems Problem Noted Date Diagnosed Date Resolved Date Acute on chronic HFrEF (hear t failure with reduced ejection fraction) 01/12/2019 01/24/2023 Encounters Date Type Department Care Team Description 05/04/2025 10:15 AM MICROSOFT BI DEVELOPER Office Visit [facility] Cardiology [address] [place] [address] Prasanna Goldman MD Chronic anticoagulation (Primary Dx); Paroxysmal atrial fibrillation (HCC); Coronary artery disease involving tazlina coronary artery of tazlina heart without angina pectoris; Nonrheumatic tricuspid valve regurgitation; Pulmonary HTN (HCC); correction current use of amiodarone from Last 3 Months Immunizations Immunization Administration [...] Past Smokeless Tobacco: Former Chew Quit: 09/02/2018 Tobacco Cessation:Counseling Given: Not Answered Alcohol Use Standard Drinks/Week Comments Yes 2 [...] on file Legal Sex Male 2:51 AM MICROSOFT BI DEVELOPER Gender Identity Not on file Sexual Orientation Not on file Last Filed Vital Signs Vital Sign Reading Time Taken Comments Blood Pressure 122/80 05/04/2025 10:30 AM MICROSOFT BI DEVELOPER Pulse 73 05/04/2025 10:30 AM MICROSOFT BI DEVELOPER Temperature 36.5 C (97.7 F) 05/23/2020 2:58 PM MICROSOFT BI DEVELOPER Respiratory Rate 18 03/03/2019 11:2 2 AM CDT Oxygen Saturation 98% 05/04/2025 10: 30 AM MICROSOFT BI DEVELOPER Inhaled Oxygen Concentration - - Weight 114.7 kg (252 lb 12.8 oz) 2024 10:30 AM MICROSOFT BI DEVELOPER Height 190.5 cm (6' 3) 05/04/2025 10:3 0 AM MICROSOFT BI DEVELOPER Body Mass Index 31.6 05/04/2025 10:30 AM MICROSOFT BI DEVELOPER Plan of Treatment Health Maintenance Due Date Last Done Comments Depression Screening 1940 Fall Risk Assessment 1940 Hepatitis B Screening 02/14/1958 Zoster Vaccine (1 of 2) 02/14/1990 Well Visit 65+ 02/14/2005 Pneumococcal vaccine 65+ (2 of 2 - PPSV23, PCV20, or PCV21) 06/20/2011 04/25/2011 Influenza Vaccine (#1) 2025 4, 02/11/2023, 04/08/2019, Additional history exists DTaP/Tdap/Td Vaccine (2 - Td or Tdap) 11/29/2032 11/29/2022 Medical Devices Implanted Type Area Chocolatier Device Identifier Shelf Expiration Date Model / Serial / Lot [employer] [id number] Procotyl Prime 56mm Shell Acetabular Sterile - S0 - [id number] Implanted:Qty: 1 on 03/01/2019 by Lawrence Goss MD at [facility] Other - see comments Left: Hip [employer] 10/27/2026 [id number] / 0 / [id number] [employer] [id number] Procotyl Prime 36mm Liner Acetabular Sterile Latex Free - S0 - [id number] Implanted:Qty: 1 on 03/01/2019 by Lawrence Goss MD at [facility] Other - see comments Left: Hip [employer] 04/22/2026 [id number] / 0 / [id number] [employer] [id number] Profemur Tl Classic Long Varus Neck Hip 8d 7 Stem Femoral Sterile - S0 - [id number] Implanted:Qty: 1 on 03/01/2019 by Lawrence Goss MD at [facility] Other - see comments Left: Hip [employer] 03/04/2023 [id number] / 0 / [id number] [employer] [id number] Dynasty Lineage 6.5mm 25mm Acetabular Screw Bone Biofoam - S0 - [id number] Implanted:Qty: 1 on 03/01/2019 by Lawrence Goss MD at [facility] Screw Left: Hip [employer] 11/14/2025 [id number] / 0 / [id number] [employer] [id number] Dynasty Lineage 6.5mm 35mm Acetabular Screw Bone Biofoam - S0 - [id number] Implanted:Qty: 1 on 03/01/2019 by Lawrence Goss MD at [facility] Screw Left: Hip [employer] 02/01/2022 [id number] / 0 / [id number] [employer] [id number] 36mm -3.5mm /14 Short Neck Taper Head Femoral Biolox Delta - [id number] Implanted:Qty: 1 on 03/01/2019 by Lawrence Goss MD at [facility] Left: Hip [employer] 10/14/2026 [id number] / / [id number] Insurance [place] [phone] Advance Directives For more information, please contact: [phone] * Full Code (Latest Code Status on File) Date Activated Date Inactivated Comments 03/01/2019 3:44 PM 03/03/2019 5:38 PM Care Teams Caustic Loader Relationship Specialty Start Date End Date Mackenzie Barr MD PCP - General Family Medicine 11/07/17 Gerard Knott MD Slitter Creaser Slotter Helper Transplant 01/15/23 Rena Kaufman, RN [address] [address] Registered Nurse Watershed Tender 01/15/23 Daisha Soto Primary Kiln Loader 01/20/25
== END 2025-05-04 11:21 | disposition home or self-care (01) ==
PROVIDERS: Visit Provider Internal Medicine Cardiovascular Disease
DX: Z79.899 Other long term (current) drug therapy (principal)
CPT/HCPCS: 71046